=== PATIENT | male | born 1965 | race Caucasian/White ===

== ENCOUNTER 2022-04-22 17:35 | Observation (INO) | payer OTHER, SELFPAY ==
[2022-04-22] VITALS (8 sets, daily range): BP systolic 93–168; BP diastolic 48–112; PULSE 70–84; RESP 15–26; TEMP 36.4–36.9; O2SAT 97–98; BMI 29.8; BMI 30.4
--- NOTE | 2022-04-22 17:55 | EKG12_ITS ---
Test Reason : CP Blood Pressure : / mmHG Vent. Rate : 083 BPM Atrial Rate : 083 BPM P-R Int : 182 ms QRS Dur : 086 ms QT Int : 382 ms P-R-T Axes : 053 -03 008 degrees QTc Int : 448 ms Normal sinus rhythm Normal ECG Confirmed by SAVANNAH SANDY, AMADOR ([id number]), commissioning editor CATALINA MARQUEZ ([id number]) on 04/25/2022 11:41:36 AM Referred By: RAJINDER Confirmed By:GEORGE NUÑEZ MD
--- NOTE | 2022-04-22 18:02 | EDS_ITS ---
HPI History of Present Illness Chief Complaint: Chest Pain Informant: patient Onset/Context/Timing Onset: Today and Weeks Timing: Intermittent Quality: Positive for Aching, Dull, Heaviness and Pressure Location: Substernal and Left Chest Current Severity: Mild Maximum Severity: Mild Worsened By: Exertion Relieved By: Rest Associated Symptoms: Positive for Lightheadedness; Negative for Nausea, Vomiting, Diaphoresis, Dyspnea, Cough, Fever, Acid Reflux or Palpitations Narrative Narrative: 56-year-old male no seen past medical history been seen a physician for a while. States for the last several months if not longer he has had intermittent chest discomfort. He is never had it evaluated. He has never had a stress test or heart catheterization. He said he woke last night with chest pain. Today he had left-sided chest pain did go to his arm briefly. He describes it as a pressure with a dull ache. At times he gets dizziness with it. He has had some dyspnea on exertion. Worse with steps. He does work outside he swims about a mile a day several times a week that he said that really has not been a problem. No family history of cardiac disease. Prior Similar Symptoms: Yes Recent Illness/Hospitalization: No CVD Risk Factors: Positive for Smoking; Negative for Hypertension, Diabetes, Hypercholesterolemia or Family History 1' </=55 PE Risk Factors: Negative for Recent Travel/Surgery, Recent Immobilization, Prior DVT or PE, Cancer or OCP + Smoking + >/=35 TAD Risk Factors: Negative for Marfan's Syndrome PFSH PFSH Medical History no medical history no medical history Allergy/AdvReac Type Severity Reaction Status Date / Time No Known Allergies Allergy Verified 04/22/22 17:39 Social History Smoking Status: Unknown if ever smoked ROS ROS ED ROS Narrative Chest pain. Review of Systems ROS Unobtainable: Denies due to encephalopathy Constitutional Constitutional ED: Denies chills or fever(s) Eyes Eyes: Reports none ENT ENT ED: Denies ear pain or rhinorrhea Cardiovascular Cardiovascular: Reports as per HPI and chest pain Respiratory/Chest Respiratory/Chest: Denies cough or dyspnea Gastrointestinal Gastrointestinal: Denies abdominal pain, constipation, diarrhea, melena, nausea or vomiting Genitourinary Genitourinary ED: Denies dysuria or hematuria Musculoskeletal Musculoskeletal: Denies arthralgias or back pain Integumentary Denies abscess or Abrasions Neurologic Neurologic: Denies headache(s) Psychiatric Psychiatric: Denies anxiety Endocrine Endocrinology: Denies cold intolerance Hematologic/Lymphatic Hematologic/Lymphatic: Denies easy bleeding Allergic/Immunologic Allergic/Immunologic ED: Denies mouth swelling EXAM Physical Exam Narrative Exam Narrative: 56-year-old male no acute distress vital signs are stable except his blood pressure is elevated at 166/109. He does not look septic or toxic. H EENT exam normal. Neck nontender no lymphadenopathy. No JVD. Lungs clear to auscultation bilaterally. Heart regular rhythm rate about 80 no murmur. Chest were nontender. Abdomen soft nontender. Radial pulses are equal symmetrical. Moving all 4 extremities. Calves are nontender without edema or cords. Back exam normal. Neurologically is awake and alert with no focal motor deficits. Exam benign. Const Vital Signs: 04/22/22 17:37 04/22/22 17:55 04/22/22 17:56 Temperature 98.4 F Temperature Source Temporal Pulse Rate 84 Respiratory Rate 16 Respiratory Effort Normal Non-Labored Blood Pressure 166/109 H Blood Pressure Mean 128 Pulse Ox 97 Oxygen Delivery Method Room Air Room Air Positive well nourished and well developed; Negative for cachectic, contractures or unkempt General Appearance ED: well developed; Negative for unkempt, cachectic, contractures or pallor Nutritional Appearance: Negative for cachectic HEENT Reports moist mucous membranes; Denies dry mucous membranes normocephalic and atraumatic; Negative for trauma or tenderness Mouth ED: No dry mucous membranes Mouth: No dry mucous membranes Eyes PERRL and EOMs intact bilaterally General Eye ED: Negative for pale conjunctiva or scleral icterus Neck no lymphadenopathy, supple and no JVD General: Negative for tenderness Chest Wall inspection of chest normal and palpation of chest normal Resp normal respiratory effort and clear to auscultation bilaterally Effort and Inspection: Negative for respiratory distress Auscultation: Negative for rales, rhonchi, wheezes or diminished lung sounds Cardio regular rate, regular rhythm, S1 normal heart sound, S2 normal heart sound and no murmurs Rate: Negative for bradycardia or tachycardic Rhythm: Negative for abnormal rhythm Peripheral Pulses: pulses 2+ throughout GI normal to inspection, nondistended, normoactive bowel sounds, soft to palpation, non-tender, non-distended and no masses; Negative for hepatosplenomegaly Auscultation: Negative for hyperactive bowel sounds Palpation: Negative for splenomegaly Back/Spine no CVA tenderness and no thoracic nor lumbar tenderness General Back: Negative for CVA tenderness Cervical Spine: Negative for cervical spine tenderness Extremity normal to inspection General Extremety ED: Negative for edema or pulses abnormal General Extremity: Negative for edema or pulses abnormal Neuro oriented x3 and CN's II-XII intact bilaterally Sensorium / Orientation: awake, alert, oriented to person, oriented to place and oriented to time; Negative for confused, lethargic, stuporous or other Motor Exam: strength 5/5 throughout Psych mental status grossly normal Appearance: Negative for unkempt Attitude: No agitated Mood & Affect: Negative for depressed, anxious or tearful Skin no rashes or lesions noted and no wounds General Skin Exam: Negative for jaundice or pallor Rashes: No rashes noted Trauma: Negative for abrasion or laceration Heart Score History: Moderately Suspicious ECG: Normal Age: >45 - <65 years Risk Factors: 1 or 2 Risk Factors Score: 3 MDM MDM MDM Narrative Medical decision making narrative: 56-year-old male with chest pain at times associated with exertion. Normal exam. Not reproducible. No DVT or PE risk factors. Undergo cardiac work-up. Repeat exam patient is doing well. He and I discussed different options. He is concerned enough about the chest pain he like to get a definitive answer. He is going out of town for a week in [place] on Monday. And he is comfortable with admission for stress testing. I will speak to the hospitalist about admission. Patient I did go over all his test. Lab Data Attestation: I reviewed the patient's lab results. Lab results narrative: CBC normal. White count of 5. H&H 15 and 44. Electrolytes unremarkable gap of 5. Normal BUN and creatinine 12 and 1. Glucose 139. Troponin is normal at 4. Chest x-ray normal. Labs: Laboratory Results - last 24 hr 04/22/22 04/22/22 18:04 18:04 WBC 5.8 RBC 4.70 Hgb 15.0 Hct 44.0 MCV 93.6 MCH 31.9 MCHC 34.1 RDW Std Deviation 40.0 RDW Coeff of Abdiel 11.7 Plt Count 169 MPV 9.0 Immature Gran % (Auto) 0.200 Neut % (Auto) 63.3 Lymph % (Auto) 24.4 [place] % (Auto) 8.0 Eos % (Auto) 3.6 Baso % (Auto) 0.5 Absolute Neuts (auto) 3.7 Absolute Lymphs (auto) 1.41 Nucleated RBC % 0 Sodium 138 Potassium 3.6 Chloride 106 Carbon Dioxide 27.0 Anion Gap 5 BUN 12 Creatinine 1.04 Estim Creat Clear Calc 89.12 Est GFR (MDRD) Af Amer 95 Est GFR (MDRD) Non-Af 79 BUN/Creatinine Ratio 11.5 Glucose 139 H Calcium 9.2 Troponin I High Sens 4 Radiography Chest X-Ray - ED: 1 View, Read by ED Physician, Heart, Lungs, Mediastinum, Bony Structures, No Acute Disease and Chronic Changes Diagnostic Testing: Chest x-ray, portable, single view interpreted by myself shows no acute abnormality. Normal cardiac silhouette mediastinum. Rhythm Strip Rhythm Strip: Sinus Rhythm Rate: 83 Ectopy: None EKG Initial EKG: Attestation: I personally reviewed and interpreted this EKG as follows: Interpretation: Sinus Rhythm and No Acute Injury Pattern Comments: Normal sinus rhythm rate 83 no acute signs of [place] or ischemia. No EKG available comparison. Prior EKG tracings: not available for review Discharge Plan Triage Chief Complaint: Chest Pain Other Complaint: Palpitations ED Provider: Rolando Pereyra Dx/Rx/DC Orders Primary Care Provider: Care Physician,Vanessa Primary Referrals: NOT,DEFINED [NON-STAFF] -
[2022-04-22] MEDS: Aspirin 81 MG TAB.CHEW 324 MG PO (18:04)
--- NOTE | 2022-04-22 18:12 | RAD_ITS ---
STUDY: PORTABLE AP UPRIGHT CHEST X-RAY OF 1812 HOURS ON 04/22/2022 REASON FOR EXAM: 56-year-old male with chest pain. TECHNIQUE: A 2 view portable AP upright chest x-ray was performed per protocol. COMPARISON: None. FINDINGS: Lordotic views. Mild osteophytic degenerative changes of the thoracic spine. Mildly prominent first costochondral cartilages bilaterally, normal variant. Left ventricular cardiac configuration without cardiomegaly or heart failure. No pulmonary infiltrates, atelectasis, effusion, or pulmonary mass lesions. No pneumonia, pneumonitis, or bronchitis. RAD/Chest 1 View (Portable) IMPRESSION: 1. Left ventricular cardiac configuration without cardiomegaly or heart failure. 2. No pneumonia, pneumonitis, bronchitis, or pulmonary mass lesions 3. Mild osteophytic degenerative changes of the thoracic spine. Electronically Signed: Bal Underwood MD at 19:01 EDT ,
[2022-04-22 18:18] LABS: Absolute Lymphocyte Count 1.41 X10^3/uL (0.83-4.51); Absolute Neutrophil Count 3.7 X10^3/uL (2.0-7.7); Basophil# 0.03 X10^3/uL; Basophil% 0.5 % (0-1); Eosinophil# 0.21 X10^3/uL; Eosinophils% 3.6 % (0-5); Lymphocyte # 1.41 X10^3/ul (0.83-4.51); Lymphocyte % 24.4 % (19-41); Mean Corp Hgb Conc 34.1 g/dL (32-36); Mean Corpuscular Hgb 31.9 pg (27.0-32.0); Mean Corpuscular Volume 93.6 fL (80-94); Monocyte# 0.46 X10^3/uL; NRBC Flagged by Analyzer 0 % (0-5); Neutrophil # 3.65 X10^3/uL (2.7-7.7); Neutrophil % 63.3 % (47-70); Platelet Count 169 K/mm3 (150-450); RBC Distribution Width CV 11.7 % (11.6-14.6); White Blood Count 5.8 K/mm3 (4.4-11.0)
[2022-04-22 18:39] LABS: Anion Gap 5 (5-15); BUN 12 mg/dL (7-18); BUN/Creat Ratio 11.5 RATIO (10-20); Calcium,Total 9.2 mg/dL (8.5-10.1); Chloride 106 mmol/L (98-107); Creatinine, Serum 1.04 mg/dL (0.70-1.30); EST Glomerular Filtration Rate 79 mL/min (>60); Est Glom Filt Rate - Afr Amer 95 mL/min (>60); Estimated Creatinine Clearance 89.12 ml/min; Glucose 139 mg/dL (74-106); Potassium 3.6 mmol/L (3.5-5.1); Sodium Level 138 mmol/L (136-145); Troponin-I HS (w/2H Reflex) 4 pg/mL (3.0-78.0)
--- NOTE | 2022-04-22 18:58 | HP.PCM.HOS_ITS ---
HPI - General General Date of Admission: 04/22/22 Date of Service: 04/22/22 Chief Complaint: Chest pain HPI Narrative The patient is a 56 y/o M w/ PMHx: Borderline HTN, Tobacco cigar usage who presents to the [facility] ED on 04/22/22 with history of onset chest discomfort over the last several week-months in the left chest and substernal region described as an aching, dull, heavy and pressure-like sensation worsened by exertion and improved by rest with associated lightheadedness, mild dyspnea with exertion primarily with no nausea, emesis, diaphoresis which has been ongoing for some time for the last several months. He notes also that he awoke last night with his chest discomfort and that it did go to his left upper extremity briefly rat ed 4-02/01 in severity which lasted 30 minutes which is longer than normal and more severe than prior, prompting ED evaluation. He is very active baseline noted to swim several miles per week and also works outside but does not have that discomfort at that time. Work-up in the ED included T97.6, heart rate 78, BP initially upon arrival 166/109, respiratory rate 26, 98% on room air, CBC with WC 5.8, hemoglobin 15, platelet 169 without marked shift, BMP with glucose 139 otherwise unremarkable, troponin 4, chest x-ray with no acute cardiopulmonary findings, EKG sinus rhythm with no acute evidence of ischemia. In the ED patient administered full-strength aspirin therapy. [facility] Medical History (Updated 04/22/22 @ 19:[address] Marylin Johns MD) Cigar smoker HTN (hypertension) Medical History no medical history Home Medications NK 04/22/22 [History Last Taken Unknown] Allergy/AdvReac Type Severity Reaction Status Date / Time No Known Allergies Allergy Verified 04/22/22 17:39 Family History (Updated 04/22/22 @ 19:[address] Marylin Johns MD) Father No problems noted. Mother Hypertension other (Father passed age 41 secondary to MVA, no medical history including HD, DM, CA.) Surgical History (Updated 04/22/22 @ 19:[address] Marylin Johns MD) History of rectal surgery Social History (Updated 04/22/22 @ 19:[address] Marylin Johns MD) household members: spouse and family Smoking Status: Current some day smoker tobacco type: cigars per week: 1 alcohol intake: current alcohol intake frequency: 0-2 drinks per day details: Notes 2 ounce vodka drink q HS. substance use type: does not use ROS ROS Narrative Admission Review of Systems: CONSTITUTIONAL: No weight loss, fever, chills, + weakness or fatigue. HEENT: Eyes: No visual loss, blurred vision, double vision or yellow sclerae. Ears, Nose, Throat: No hearing loss, sneezing, congestion, runny nose or sore throat. SKIN: No rash or itching, lesions, wounds. CARDIOVASCULAR: + chest pain, chest pressure or chest discomfort, No pal pitations, edema, orthopnea, syncopal events. RESPIRATORY: + shortness of breath, No cough or sputum, wheezing, hemoptysis. GASTROINTESTINAL: No anorexia, nausea, vomiting or diarrhea, abdominal pain, melena, BRBPR. GENITOURINARY: No dysuria, frequency, urgency or retention. NEUROLOGICAL: No headache, dizziness, syncope, paralysis, ataxia, numbness or tingling in the extremities, focal weakness, change in bowel or bladder control, seizure. MUSCULOSKELETAL: No muscle, back pain, joint pain or stiffness. HEMATOLOGIC: No anemia, bleeding or bruising. LYMPHATICS: No enlarged nodes. No history of splenectomy. PSYCHIATRIC: No history of depression or anxiety. ENDOCRINOLOGIC: No reports of sweating, cold or heat intolerance. No polyuria or polydipsia. ALLERGIES: No history of asthma, hives, eczema or rhinitis. Vital Signs Vital Signs Vital Signs: 04/22/22 17:37 04/22/22 17:55 04/22/22 17:56 Temperature 98.4 F Temperature Source Temporal Pulse Rate 84 Respiratory Rate 16 Respiratory Effort Normal Non-Labored Blood Pressure 166/109 H Blood Pressure Mean 128 Pulse Ox 97 Oxygen Delivery Method Room Air Room Air 04/22/22 18:51 04/22/22 18:55 Temperature 97.6 F L Temperature Source Temporal Pulse Rate 79 78 Respiratory Rate 26 H Respiratory Effort Blood Pressure 161/112 H 93/48 L Blood Pressure Mean 128 63 Pulse Ox 98 98 Oxygen Delivery Method Room Air Nasal Cannula Weight Weight: 220 lb Body Mass Index (BMI) 29.8 Physical Exam Narrative Physical Examination: General: Awake, alert, oriented x 3 and cooperative, seated upright in the ED bed in no apparent distress, no current chest pain. Skin: Normal color, normal turgor, no icterus, no cyanosis. HEENT: AT/NC, EOMI, PERRLA, MMM, no carotid bruits or JVD noted. Lungs: CTA bilaterally, moderate effort, mild decrease BL bases, no rales, ronchi or wheezing. Heart: Regular rate and rhythm; no gallop, rub audible. Abdomen: Soft, overweight, NTTP, ND, normal BS, no HSM. Extremities: No cyanosis, clubbing, or edema. Neurological: Patient awake, alert, oriented as noted, cognitive function intact; pupils equally reactive to light and accommodation, cranial nerves II- XII grossly normal, moving all 4 extremities, no focal deficits, strength preserved. Psychiatric: Affect appears normal, no acute evidence of depressive or anxiety feelings. Results Lab / Micro Data Result Diagrams: 04/22/22 18:04 04/22/22 18:04 Labs: Laboratory Results - last 24 hr 04/22/22 18:04: WBC 5.8, RBC 4.70, Hgb 15.0, Hct 44.0, MCV 93.6, MCH 31.9, MCHC 34.1, RDW Std Deviation 40.0, RDW Coeff of Abdiel 11.7, Plt Count 169, MPV 9.0, Immature Gran % (Auto) 0.200, Neut % (Auto) 63.3, Lymph % (Auto) 24.4, [place] % (Auto) 8.0, Eos % (Auto) 3.6, Baso % (Auto) 0.5, Absolute Neuts (auto) 3.7, Absolute Lymphs (auto) 1.41, Nucleated RBC % 0 04/22/22 18:04: Sodium 138, Potassium 3.6, Chloride 106, Carbon Dioxide 27.0, Anion Gap 5, BUN 12, Creatinine 1.04, Estim Creat Clear Calc 89.12, Est GFR (MDRD) Af Amer 95, Est GFR (MDRD) Non-Af 79, BUN/Creatinine Ratio 11.5, Glucose 139 H, Calcium 9.2, Troponin I High Sens 4 Rhythm Strip Rhythm Strip: Sinus Rhythm Rate: 83 Ectopy: None Assessment & Plan Assessment/Plan (1) Chest pain: PLAN: Plan The patient is a 56 y/o M w/ PMHx: Borderline HTN, Tobacco cigar usage who presents to the [facility] ED on 04/22/22 with history of onset chest discomfort over the last several week-months in the left chest and substernal region described as an aching, dull, heavy and pressure-like sensation worsened by exertion and improved by rest with associated lightheadedness, mild dyspnea with exertion primarily with no nausea, emesis, diaphoresis which has been ongoing for some time for the last several months. #1. Chest Pain: EKG in ED with sinus rhythm no acute evidence of ST, CXR w/ no acute cardiopulmonary finding, initial trop normal x1, 4. Will admit to PCU, place on a monitored bed to assure no acute myocardial infarction with serial cardiac enzymes and EKGs. If repeat serial cardiac enzyme EKGs remain unre markable will pursue a.m. cardiac stress testing. FLP in AM. Magnesium level requested. ASA, NG, morphine. #2. History of Borderline HTN, suspect underlying Hypertension diagnosis: Upon initial ED arrival patient was elevated blood pressure above goal, continue to monitor and if remains elevated again may necessitate oral regimen initiation, as needed IV hydralazine. #3. Hyperglycemia: Admission glucose 139, possibly stress response, will obtain hemoglobin A1c be cautious. #4. Tobacco Abuse: Encouraged cessation, inpatient consultation per RT, NR if desired. #5. DVT prophylaxis: Low risk, encourage of ambulation. Charges/Coding Visit Charges OBSV E&M: 11416 Initial observation care L3
[2022-04-22 19:32] LABS: Magnesium 2.3 mg/dL (1.6-2.6)
--- NOTE | 2022-04-22 19:53 | EKG12_ITS ---
Test Reason : am ekg Blood Pressure : / mmHG Vent. Rate : 072 BPM Atrial Rate : 000 BPM P-R Int : 000 ms QRS Dur : 086 ms QT Int : 416 ms P-R-T Axes : 000 029 -29 degrees QTc Int : 455 ms Accelerated Junctional rhythm T wave abnormality, consider inferior ischemia Abnormal ECG No previous ECGs available Confirmed by DERRELL SANDY, RENY ([id number]), editor book CATALINA MARQUEZ ([id number]) on 04/26/2022 10:15:06 AM Referred By: Confirmed By:RENY DOVE MD
[2022-04-22 20:09] LABS: Reflex Troponin-HS? (from REC) Y
[2022-04-22] MEDS: 0.9% Normal Saline 1,000 ML 100 ML IV (20:57)
[2022-04-22 21:21] LABS: Troponin-I HS 4 pg/mL (3.0-78.0)
[2022-04-23 00:38] LABS: Troponin-I HS 4 pg/mL (3.0-78.0)
[2022-04-23 02:30] VITALS: BP 145/94; PULSE 70; RESP 18; TEMP 36.6; O2SAT 97
--- NOTE | 2022-04-23 05:55 | EKG12_ITS ---
Test Reason : cp admit Blood Pressure : / mmHG Vent. Rate : 057 BPM Atrial Rate : 057 BPM P-R Int : 218 ms QRS Dur : 090 ms QT Int : 416 ms P-R-T Axes : 018 -01 -08 degrees QTc Int : 404 ms Sinus bradycardia with 1st degree A-V block Otherwise normal ECG When compared with ECG of 22-APR-2022 17:42, MANUAL COMPARISON REQUIRED, DATA IS UNCONFIRMED Confirmed by DERRELL SANDY, RENY ([id number]), communications editor CATALINA MARQUEZ ([id number]) on 04/26/2022 10:16:12 AM Referred By: Confirmed By:RENY DOVE MD
[2022-04-23 06:59] VITALS: PULSE 57
[2022-04-23] MEDS: 0.9% Normal Saline 1,000 ML 100 ML IV (07:00)
[2022-04-23 07:32] VITALS: O2SAT 97
[2022-04-23 07:43] LABS: Absolute Lymphocyte Count 1.52 X10^3/uL (0.83-4.51); Basophil# 0.04 X10^3/uL; Basophil% 0.7 % (0-1); Eosinophil# 0.28 X10^3/uL; Eosinophils% 5.2 % (0-5); Hematocrit 46.6 % (40-54); Hemoglobin 16.4 g/dL (13.0-16.5); Lymphocyte # 1.52 X10^3/ul (0.83-4.51); Lymphocyte % 28.4 % (19-41); Mean Corp Hgb Conc 35.2 g/dL (32-36); Mean Corpuscular Hgb 33.1 pg (27.0-32.0); Mean Corpuscular Volume 94.1 fL (80-94); Mean Platelet Vol. 9.2 fl (6.2-12.0); Monocyte# 0.51 X10^3/uL; Monocyte% 9.5 % (0-10); NRBC Flagged by Analyzer 0 % (0-5); Neutrophil # 2.97 X10^3/uL (2.7-7.7); Neutrophil % 55.6 % (47-70); Platelet Count 178 K/mm3 (150-450); RBC Distribution Width CV 11.8 % (11.6-14.6); RBC Distribution Width SD 40.5 fl (35.1-43.9); Red Blood Count 4.95 M/mm3 (4.6-6.2); White Blood Count 5.4 K/mm3 (4.4-11.0)
[2022-04-23 08:02] LABS: ALB/GLOB Ratio 1.2 RATIO (0.9-2.4); AST(SGOT) 23 U/L (15-37); Alanine Aminotransfer ALT/SGPT 27 U/L (16-61); Albumin, Serum 3.7 g/dL (3.2-5.0); Alkaline Phosphatase 78 U/L (45-117); Anion Gap 3 (5-15); BUN 11 mg/dL (7-18); BUN/Creat Ratio 10.9 RATIO (10-20); Calcium,Total 8.8 mg/dL (8.5-10.1); Chloride 106 mmol/L (98-107); Cholesterol 289 mg/dL (200); Creatinine, Serum 1.01 mg/dL (0.70-1.30); EST Glomerular Filtration Rate 82 mL/min (>60); Est Glom Filt Rate - Afr Amer 99 mL/min (>60); Estimated Creatinine Clearance 91.77 ml/min; Globulin 3.2 g/dL (2.2-4.2); Glucose 109 mg/dL (74-106); High Density Lipoprotein 82 mg/dL; Potassium 3.8 mmol/L (3.5-5.1); Protein, Total 6.9 g/dL (6.4-8.2); Sodium Level 139 mmol/L (136-145); Triglycerides 132 mg/dL; Very Low Density Lipoprotein 26 mg/dL (5-40)
[2022-04-23 08:03] LABS: Hemoglobin A1c 5.5 % (3.8-5.6)
[2022-04-23 09:40] VITALS: BP 130/104; PULSE 85; RESP 16; TEMP 36.8; O2SAT 98
[2022-04-23] MEDS: Aspirin 81 MG TAB.CHEW PO (09:46)
--- NOTE | 2022-04-23 12:27 | STRESSREP_ITS ---
Stress Test Report Date: 04/23/2022 Procedure: Exercise tolerance test/imaging study Indications: Chest pain Consent: Per the patient Procedure: The patient exercised on a Leroy protocol for 12 minutes achieving a peak heart rate of 142 bpm (85% predicted maximal heart rate) with a peak blood pressure 180/74 mmHg and a peak MET capacity of 13.4 METs. The baseline ECG demonstrated normal sinus rhythm. The peak exercise ECG demonstrated no significant ischemic changes. EKG during recovery revealed no significant ischemic changes [There were no cardiac dysrhythmias pretest, during exercise, or recovery]. The functional capacity was considered excellent for age. There was no exercise-induced chest pain. The examination was discontinued secondary to achieving target heart rate. Impression: 1. Technically adequate (percent predicted maximal heart rate greater than 85%) exercise tolerance test 2. Stress test is negative for exercise-induced EKG changes of ischemia 3. The test test is negative for exercise-induced chest pain 4. Functional capacity is excellent for age 5. Nuclear images pending Myocardial perfusion imaging study: Technique: The patient was injected with 13.6 mCi of technetium 99m Cardiolite and subsequently rest SPECT Cardiolite nuclear imaging was obtained in the horizontal long, vertical long, and short axis views. The patient exercised on a Leroy protocol. Please see above for details. The patient was injected with 43.2 mCi of technetium 99m Cardiolite and subsequently stress SPECT Cardiolite nuclear imaging was obtained in the horizontal long, vertical long, and short axis views. A gated Cardiolite study at peak stress was obtained. Interpretation: Rest and stress SPECT Cardiolite nuclear imaging status post realignment, normalization, and attenuation correction, demonstrates overall normal myocardial radioisotope uptake. The gated Cardiolite study demonstrates no significant regional wall motion abnormalities. The reported LVEF is 63%. Impression: 1. There is no evidence of significant ischemia or infarction. 2. The gated Cardiolite study reports an LVEF of 63%. This note was generated with [employer] software. It may contain incorrect words, spelling, and punctuation that were not noted in checking the note before signing.
--- NOTE | 2022-04-23 12:42 | DCINST_ITS ---
Discharge Instructions Diet Discharge Diet: No restrictions Activity Discharge Activity: Return to Normal Activity Weight Bearing Status: Full weight bearing Follow Up Care Test Results: Test results from this visit will be discussed in further detail at your follow- up appointment, if applicable. Discharge Plan Admission Admit Date/Time: 04/22/22 19:07 Primary Reason for Your Visit: chest pain Attending Provider: Augusto Person Primary Care Provider: Care Physician,No Primary Consulting Providers: Marylin Johns Instructions Additional Instructions / Restrictions: Follow up with a physician in April 2022 for follow up care Discharge Orders/Prescriptions Prescriptions: New lisinopril 10 mg tablet 10 mg PO DAILY Qty: 30 0RF Rx Instructions: start 04/23/22 Referrals / Follow Up: Care Physician,No Primary [Primary Care Provider] - NOT,DEFINED [NON-STAFF] - Disposition Disposition (needs filled in before D/C Order can be placed): Home, Self Care
[2022-04-23 12:49] VITALS: BP 141/94; PULSE 68; RESP 16; TEMP 36.6; O2SAT 98
--- NOTE | 2022-04-23 12:58 | DS.PCM_ITS ---
Providers Date of Admission: 04/22/22 Date of Discharge: 04/23/22 Primary Care Physician: No Primary Care Phys Reason For Visit: CHEST PAIN Diagnosis Discharge Diagnosis (1) Chest pain: Status: Acute Code(s): R07.9 - Chest pain, unspecified Plan 1. Musculoskeletal chest pain #2 essential hypertension-new diagnosis Medications at Discharge Home Medications lisinopril 10 mg tablet 10 mg PO DAILY #30 tabs 04/23/22 Hospital Course Operations None Procedures Stress test Summary of Care Provided Minutes Spent on Discharge: 31 Physical Exam Narrative This 56-year-old white male was seen in the emergency room at [facility] with complaints of intermittent chest discomfort over the last several months, patient did not have a primary care physician and his chest pain had never been evaluated. Patient described the chest pain as left-sided in nature and radiating occasionally into his left arm, he denied any shortness of breath or nausea. Work-up in the emergency room included vital signs which showed an elevated blood pressure 166/109, chest x-ray was obtained and was unremarkable, labs were also unremarkable. EKG showed a normal sinus rhythm without evidence of ischemic changes. Patient was placed in observation status on PCU, his cardiac enzymes were cycled and these remain normal. Patient underwent a stress test on 04/23/2022 which was negative for reversible ischemia. On 04/23/2022, patient was seen and examined: On examination he appeared in good health and spirits. Vital signs as documented. Skin warm and dry and without overt rashes. Neck without JVD, neck was supple, trachea midline, thyroid was normal. Lungs clear bilaterally, normal air movement was noted. Heart exam notable for regular rhythm, normal sounds and absence of murmurs, rubs or gallops. Abdomen unremarkable and without evidence of organomegaly, masses, or abdominal aortic enlargement. Bowel sounds are present, abdomen is not disten ded. Extremities nonedematous, no cyanosis was noted, no clubbing was noted. Neuro: Cranial nerves II through XII are grossly intact, no focal motor deficits were noted, sensation to light touch and pinprick intact, motor exam 5/5 throughout. Psych: Patient is alert and oriented x3, he does not appear anxious or depressed, he does not appear agitated. On 04/23/2022, patient was seen and examined and felt to be stable for discharge home. Patient was given a prescription for blood pressure medication at the time of his discharge from the hospital and instructed to follow-up with a primary care doctor. Weight / BMI Weight Weight: 102 kg Body Mass Index (BMI) 30.4 ABG / Lab / Microbiology Data Result Diagrams: 04/23/22 06:59 04/23/22 06:59 Laboratory: Laboratory Results - last 24 hr 04/22/22 18:04: WBC 5.8, RBC 4.70, Hgb 15.0, Hct 44.0, MCV 93.6, MCH 31.9, MCHC 34.1, RDW Std Deviation 40.0, RDW Coeff of Abdiel 11.7, Plt Count 169, MPV 9.0, Immature Gran % (Auto) 0.200, Neut % (Auto) 63.3, Lymph % (Auto) 24.4, [place] % (Auto) 8.0, Eos % (Auto) 3.6, Baso % (Auto) 0.5, Absolute Neuts (auto) 3.7, Absolute Lymphs (auto) 1.41, Nucleated RBC % 0 04/22/22 18:04: Sodium 138, Potassium 3.6, Chloride 106, Carbon Dioxide 27.0, Anion Gap 5, BUN 12, Creatinine 1.04, Estim Creat Clear Calc 89.12, Est GFR (MDRD) Af Amer 95, Est GFR (MDRD) Non-Af 79, BUN/Creatinine Ratio 11.5, Glucose 139 H, Calcium 9.2, Troponin I High Sens 4 04/22/22 18:04: Magnesium 2.3 04/22/22 20:25: Troponin I High Sens 4 04/22/22 23:48: Troponin I High Sens 4 04/23/22 06:59: WBC 5.4, RBC 4.95, Hgb 16.4, Hct 46.6, MCV 94.1 H, MCH 33.1 H, MCHC 35.2, RDW Std Deviation 40.5, RDW Coeff of Abdiel 11.8, Plt Count 178, MPV 9.2, Immature Gran % (Auto) 0.600, Neut % (Auto) 55.6, Lymph % (Auto) 28.4, [place] % (Auto) 9.5, Eos % (Auto) 5.2 H, Baso % (Auto) 0.7, Absolute Neuts (auto) 3.0, Absolute Lymphs (auto) 1.52, Nucleated RBC % 0 04/23/22 06:59: Sodium 139, Potassium 3.8, Chloride 106, Carbon Dioxide 30.0, Anion Gap 3 L, BUN 11, Creatinine 1.01, Estim Creat Clear Calc 91.77, Est GFR (MDRD) Af Amer 99, Est GFR (MDRD) Non-Af 82, BUN/Creatinine Ratio 10.9, Glucose 109 H, Calcium 8.8, Total Bilirubin 2.10 H, AST 23, ALT 27, Alkaline Phosphatase 78, Total Protein 6.9, Albumin 3.7, Globulin 3.2, Albumin/Globulin Ratio 1.2, Triglycerides 132, Cholesterol 289 H, LDL Cholesterol 181 H, VLDL Cholesterol 26, HDL Cholesterol 82 04/23/22 06:59: Hemoglobin A1c 5.5 Radiography Diagnostic Testing: Radiology Impression Chest X-Ray 04/22/22 18:12 IMPRESSION: 1. Left ventricular cardiac configuration without cardiomegaly or heart failure. 2. No pneumonia, pneumonitis, bronchitis, or pulmonary mass lesions 3. Mild osteophytic degenerative changes of the thoracic spine. Electronically Signed: Bal Underwood MD at 19:01 EDT , D/C Instructions Discharge Diet: No restrictions Weight Bearing Status: Full weight bearing Meaningful Use Info Meaningful Use Diagnoses (Choose all that apply): None applicable Discharge Plan Admission Admit Date/Time: 04/22/22 19:07 Primary Reason for Your Visit: chest pain Attending Provider: Augusto Person Primary Care Provider: Care Physician,No Primary Consulting Providers: Marylin Johns Instructions Additional Instructions / Restrictions: Follow up with a physician in April 2022 for follow up care Patient Problems: Altered Health Status related to Hospitalization Patient Goals: *Optimal Level of Health *Keep Appointments *Medication Compliance *Remain Safe Discharge Orders/Prescriptions Prescriptions: New lisinopril 10 mg tablet 10 mg PO DAILY Qty: 30 0RF Rx Instructions: start 04/23/22 Referrals / Follow Up: Care Physician,No Primary [Primary Care Provider] - NOT,DEFINED [NON-STAFF] - Disposition Disposition (needs filled in before D/C Order can be placed): Home, Self Care Charges/Coding Visit Charges OBSV E&M: 66520 Observation care discharge
== END 2022-04-23 12:58 | disposition home or self-care (01) ==
LOC: ED 18:49 → PCU 19:50
PROVIDERS: Admitting Provider Family Medicine; Emergency Provider Emergency Medicine; Visit Provider Internal Medicine
DX: R07.89 Other chest pain (principal); F17.290 Nicotine dependence, other tobacco product, uncomplicated; I10 Essential (primary) hypertension; R00.2 Palpitations
CPT/HCPCS: 36415; 71045; 78452; 80048; 80053; 80061; 83036; 83735; 84484; 85025; 93005; 93017; 96360; 96361; 99218; 99285; 99406; A9500; J7030; A4216; G0378

== ENCOUNTER 2024-12-03 20:52 | Emergency (ER) | payer OTHER, SELFPAY ==
[2024-12-03 20:55] VITALS: BP 124/83; PULSE 67; RESP 18; TEMP 36.6; O2SAT 97; BMI 28.2
[2024-12-03 21:44] LABS: Absolute Lymphocyte Count 1.84 X10^3/uL (0.83-4.51); Absolute Neutrophil Count 2.3 X10^3/uL (2.0-7.7); Basophil# 0.05 X10^3/uL; Eosinophil# 0.12 X10^3/uL; Eosinophils% 2.5 % (0-5); Hematocrit 40.6 % (40-54); Hemoglobin 14.3 g/dL (13.0-16.5); Lymphocyte # 1.84 X10^3/ul (0.83-4.51); Lymphocyte % 37.8 % (19-41); Mean Corp Hgb Conc 35.2 g/dL (32-36); Mean Corpuscular Hgb 30.6 pg (27.0-32.0); Mean Corpuscular Volume 86.9 fL (80-94); Mean Platelet Vol. 8.8 fl (6.2-12.0); Monocyte# 0.54 X10^3/uL; Monocyte% 11.1 % (0-10); NRBC Flagged by Analyzer 0 % (0-5); Neutrophil # 2.31 X10^3/uL (2.7-7.7); Neutrophil % 47.4 % (47-70); Platelet Count 184 K/mm3 (150-450); RBC Distribution Width CV 11.9 % (11.6-14.6); RBC Distribution Width SD 37.9 fl (35.1-43.9); Red Blood Count 4.67 M/mm3 (4.6-6.2); White Blood Count 4.9 K/mm3 (4.4-11.0)
[2024-12-03 22:22] LABS: ALB/GLOB Ratio 1.9 RATIO (0.9-2.4); AST(SGOT) 26 U/L (<=37); Alanine Aminotransfer ALT/SGPT 17 U/L (<=46); Albumin, Serum 4.3 g/dL (3.5-5.0); Alkaline Phosphatase 70 U/L (40-129); Anion Gap 11 (5-15); BUN 19 mg/dL (4-19); BUN/Creat Ratio 18.2 RATIO (10-20); Calcium,Total 9.1 mg/dL (7.6-11.0); Carbon Dioxide 25.4 mmol/L (21.0-32.0); Chloride 102 mmol/L (98-108); Creatinine, Serum 1.06 mg/dL (0.70-1.20); EST Glomerular Filtration Rate 82 (>60); Estimated Creatinine Clearance 91.74 ml/min (50-250); Globulin 2.3 g/dL (2.2-4.2); Glucose 108 mg/dL (70-99); Protein, Total 6.6 g/dL (5.9-8.4); Sodium Level 138 mmol/L (133-145); Total Bilirubin 0.97 mg/dL (0.00-1.30)
--- NOTE | 2024-12-03 22:27 | CT_ITS ---
PROCEDURE: CT abdomen pelvis without IV contrast REASON FOR EXAM: Pain, calculi TECHNIQUE: Multiple contiguous axial images through the abdomen and pelvis were obtained without the administration of intravenous contrast. Two-dimensional coronal and sagittal reformatted images were reconstructed. Low-dose imaging technique was utilized. COMPARISON: None. FINDINGS: Several punctate bibasilar pulmonary nodules, largest measuring 4 mm. Indeterminate exophytic lesion along the left hepatic lobe measuring 3.1 cm, not a simple cyst. Spleen, pancreas and adrenal glands are within normal limits. Gallbladder is partially contracted. No significant biliary ductal dilation. No renal calculi or hydronephrosis. Urinary bladder is intact. No bowel obstruction, focal bowel wall thickening or significant perienteric inflammation. Distal colonic diverticulosis. Normal appendix. No pelvic free fluid. No free air. No abdominal aortic aneurysm or suspicious adenopathy. Small bilateral fat containing inguinal and umbilical hernias. No acute osseous abnormality. CT/Abdomen/Pelvis without Cont IMPRESSION: 1. No acute process. 2. Complex cystic lesion along the left hepatic lobe measuring 3.1 cm. Recomme nd further evaluation with nonemergent contrast-enhanced MRI. 3. Punctate bibasilar pulmonary nodules. [address] follow-up could be performed if the patient has clinical risk factors per Fleischner criteria. One or more dose reduction techniques were used (e.g., Automated exposure contr ol, adjustment of the mA and/or kV according to patient size, use of iterative reconstruction technique). Reading Location: [facility]
[2024-12-03] MEDS: Ketorolac 15 MG/ML Vial IV (22:35)
--- NOTE | 2024-12-03 22:40 | EDS_ITS ---
HPI History of Present Illness Chief Complaint: Flank Pain Informant: patient and spouse/S.O. Narrative Narrative: Here with spouse for evaluation right flank pain over a week ago its constant. He does workout throughout the week. There is no direct trauma. He was walking when he felt symptoms.'s been increasing. Pain radiates to the side. Had nausea walking in today. This resolved. No urinary symptoms. No fever chills or sweats. Normal bowel movements. No abdominal surgeries. Prior similar symptoms: No PFSH PFSH Medical History Cigar smoker HTN (hypertension) Home Medications ?Medication ?Instructions ?Recorded ?Last Taken ?Type lisinopril 10 mg tablet 10 mg PO DAILY #30 tabs 03/27 Unknown Rx atorvastatin 10 mg tablet 10 mg PO QHS cholesterol 08/19 Unknown History omeprazole 40 mg capsule,delayed 40 mg PO DAILY Unknown History release cyclobenzaprine 10 mg tablet 10 mg PO TID PRN Muscle S pasm #20 12/04/24 Unknown Rx TABLETS Allergy/AdvReac Type Severity Reaction Status Date / Time No Known Allergies Allergy Verified 12/03/24 20:54 Family History Father No problems noted. Mother Hypertension Surgical History History of rectal surgery Social History household members: spouse and family Smoking Status: Current some day smoker tobacco type: cigars per week: 1 alcohol intake: current alcohol intake frequency: 0-2 drinks per day details: Notes 2 ounce vodka drink q HS. substance use type: does not use ROS ROS ED Constitutional Constitutional ED: Denies chills, fever(s) or sweats ENT ENT ED: Denies sore throat Cardiovascular Cardiovascular: Denies chest pain, leg edema, palpitations or racing heartbeat Respiratory/Chest Respiratory/Chest: Denies cough, dyspnea or dyspnea on exertion Gastrointestinal Gastrointestinal: Denies abdominal pain, diarrhea, nausea or vomiting Genitourinary Genitourinary ED: Denies dysuria, hematuria or urinary frequency Musculoskeletal Musculoskeletal: Reports back pain; Denies extremity pain or neck pain Integumentary Denies rash or wounds Neurologic Neurologic: Denies headache(s), paresthesias or weakness EXAM Physical Exam Const Vital Signs: 12/03/24 20:55 12/03/24 22:54 12/04/24 00:00 Temperature 98 F 98.2 F Temperature Source Oral Oral Pulse Rate 67 55 L 69 Respiratory Rate 18 18 16 Blood Pressure 124/83 H 128/72 H 124/78 H Blood Pressure Mean 96 90 93 Pulse Ox 97 97 98 Oxygen Delivery Method Room Air Room Air Room Air Positive well nourished and well developed General Appearance ED: well developed and NAD HEENT Reports moist mucous membranes normocephalic and atraumatic Eyes General Eye ED: Yes normal appearance of both eyes Neck full ROM Chest Wall Chest: Negative for tenderness Resp normal respiratory effort and normal air movement Effort and Inspection: symmetric chest movement; Negative for respiratory distress Cardio regular rate, regular rhythm and no murmurs Peripheral Pulses: pulses 2+ throughout GI normal to inspection, nondistended, normoactive bowel sounds and non-tender GI Narrative: Negative Stinson's McBurney's tenderness. Palpation: Negative for guarding or rebound tenderness present Back/Spine Back/Spine Narrative: Tender palpation right flank. No ecchymosis. No rash. Extremity normal to inspection General Extremety ED: Negative for edema or tenderness General Extremity: Negative for edema Neuro oriented x3 and no sensory deficits noted Sensorium / Orientation: awake and alert Skin no rashes or lesions noted and no wounds MDM MDM MDM Narrative Medical decision making narrative: Interventions / MDM: Differential diagnosis: Flank pain, liver cysts, nonspecific pulmonary nodules Diagnosis considered but do not suspect: Kidney stone, colitis, appendicitis however CT images negative. My EKG interpretation: N/A Imaging independently reviewed and interpreted by myself: CT abdomen pelvis: No obstructive uropathy. 3.1 cm left hepatic lobe complex cyst per radiology. Normal appendix. Pulmonary nodules noted. External documents reviewed: N/A Test considered but not ordered:N/A ED course: Patient does have right flank pain on exam however reports pain is deeper inside. No urinary symptoms. Ongoing symptoms proximal week. Renal stone protocol admission. Labs urine CT scan. Toradol ordered for symptom control. 0000: Reevaluation symptoms proved with Toradol. Workup negative for kidney stones I reviewed images with the patient and noting a hepatic cyst away from areas of his pain. There is nonspecific pulmonary nodules per radiology discussed this with the patient. He smokes cigars. This time I feel this is m usculoskeletal in nature. He is ibuprofen home he will continue this up to 6 mL every 6 hours. Has been on muscle relaxers before, will prescribe Flexeril to his pharmacy. Discussed further workup imaging with his hepatic systems PCP. All questions were answered. Re-evaluation: stable Disposition discussed with patient/family/significant other: Patient and spouse Case discussed with consulting clinician: N/A This note was generated with [employer] dictation software. It may contain incorrect words, spelling, and punctuation that were not noted in checking the note before signing. Lab Data Attestation: I reviewed the patient's lab results. Labs: Laboratory Results - last 24 hr 12/03/24 12/03/24 21:28 23:07 WBC 4.9 RBC 4.67 Hgb 14.3 Hct 40.6 MCV 86.9 MCH 30.6 MCHC 35.2 RDW Std Deviation 37.9 RDW Coeff of Abdiel 11.9 Plt Count 184 MPV 8.8 Immature Gran % (Auto) 0.200 Neut % (Auto) 47.4 Lymph % (Auto) 37.8 [place] % (Auto) 11.1 H Eos % (Auto) 2.5 Baso % (Auto) 1.0 Absolute Neuts (auto) 2.3 Absolute Lymphs (auto) 1.84 Nucleated RBC % 0 Sodium 138 Potassium 4.0 Chloride 102 Carbon Dioxide 25.4 Anion Gap 11 BUN 19 Creatinine 1.06 Estim Creat Clear Calc 91.74 Est GFR (MDRD) Non-Af 82 BUN/Creatinine Ratio 18.2 Glucose 108 H Calcium 9.1 Total Bilirubin 0.97 AST 26 ALT 17 Alkaline Phosphatase 70 Total Protein 6.6 Albumin 4.3 Globulin 2.3 Albumin/Globulin Ratio 1.9 Urine Color Yellow Urine Clarity Clear Urine pH 6.0 Ur Specific [place] 1.020 Urine Protein 30 H Urine Glucose (UA) Normal Urine Ketones Negative Urine Occult Blood Negative Urine Nitrite Negative Urine Bilirubin Negative Urine Urobilinogen 1 H Ur Leukocyte Esterase 25 H Urine RBC 5-10 SEEN Urine WBC 0 SEEN Ur Squamous Epith Cells 0 SEEN Urine Bacteria RARE Urine Mucus 0 SEEN Radiography Diagnostic Testing: Clinical Impression(s) from Imaging Studies Abdomen/Pelvis CT 12/03/24 22:27 IMPRESSION: 1. No acute process. 2. Complex cystic lesion along the left hepatic lobe measuring 3.1 cm. Recommend further evaluation with nonemergent contrast-enhanced MRI. 3. Punctate bibasilar pulmonary nodules. [address] follow-up could be performed if the patient has clinical risk factors per Fleischner criteria. One or more dose reduction techniques were used (e.g., Automated exposure control, adjustment of the mA and/or kV according to patient size, use of iterative reconstruction technique). Reading [facility] Discharge Plan Triage Chief Complaint: Flank Pain ED Provider: Seb Gibson Dx/Rx/DC Orders Clinical Impression: Flank pain, Liver cyst, Pulmonary nodule Instructions: ED Back Sprain/Strain, ED Flank Pain, Uncertain Cause Prescriptions: New cyclobenzaprine 10 mg tablet 10 mg PO TID PRN (Reason: Muscle Spasm) Qty: 20 0RF No Action lisinopril 10 mg tablet 10 mg PO DAILY Qty: 30 0RF Rx Instructions: start 04/23/22 atorvastatin 10 mg tablet 10 mg PO QHS omeprazole 40 mg capsule,delayed release(DR/EC) 40 mg PO DAILY Primary Care Provider: Krish Anguiano Referrals: Krish Anguiano MD [Primary Care Provider] - 1 Week Activity Restrictions/Additional Instructions: CT scan negative for kidney stones. You have a 3.1 cm left hepatic lobe complex cyst. Further imaging through your PCP. Incidental pulmonary nodules largest 4 mm. Continue ibuprofen up to 600 mg every 6 hours. Use muscle relaxer at night before sleep. Can use up to 3 times a day. Can make you sleepy. Follow-up your doctor for reevaluation. Print Language: Uzbek Disposition Disposition: Home, Self Care Discharge Date/Time: 12/04/24 00:19
[2024-12-03 22:54] VITALS: BP 128/72; PULSE 55; RESP 18; O2SAT 97
[2024-12-03 23:15] LABS: Mucous, Urine 0 SEEN /hpf (<or=2+); Squamous Epithelial Cells - UA 0 SEEN /hpf (0-5); White Blood Cells 0 SEEN /hpf (0-5)
[2024-12-03 23:19] LABS: Color, Urine Yellow (Yellow); Glucose, Dipstick Normal (Normal); Ketone-Dipstick Negative (Negative); Leukocyte Esterase-Dipstick 25 /ul (Negative); Nitrite-Dipstick Negative (Negative); Occult Blood-Urine Negative /ul (Negative); Protein-Dipstick 30 mg/dl (Negative); Urine Bilirubin Dipstick Negative (Negative); Urine Clarity Clear (Clear); Urine Urobilinogen 1 mg/dl (Normal)
[2024-12-03 23:35] LABS: Bacteria RARE /hpf (None Seen); Red Blood Cells-Urine 5-10 SEEN /hpf (0-5)
[2024-12-04] VITALS: BP 124/78; PULSE 69; RESP 16; TEMP 36.8; O2SAT 98
== END 2024-12-04 00:19 | disposition home or self-care (01) ==
PROVIDERS: Emergency Provider Emergency Medicine; PCP Internal Medicine; Visit Provider Emergency Medicine
DX: R10.9 Unspecified abdominal pain (principal); K76.89 Other specified diseases of liver; I10 Essential (primary) hypertension; Z79.899 Other long term (current) drug therapy; F17.200 Nicotine dependence, unspecified, uncomplicated; M54.9 Dorsalgia, unspecified; R91.1 Solitary pulmonary nodule
CPT/HCPCS: 74176; 80053; 81001; 85025; 87086; 96374; 99282; A4216

== ENCOUNTER 2025-07-20 09:30 | Emergency (ER) | payer OTHER, SELFPAY ==
[2025-07-20 09:31] VITALS: BP 128/81; PULSE 78; RESP 18; TEMP 36.8; O2SAT 96; BMI 28.8
--- NOTE | 2025-07-20 10:13 | EX.ED.DYSGE1 ---
HPI History of Present Illness Chief Complaint: Back Informant: patient and spouse/S.O. Narrative Narrative: 60-year-old male presenting to the emergency room with right flank right upper abdominal and right chest pain. Patient states that earlier this year he had a CT scan for the evaluation of potential kidney stone and it was noted that he had a liver lesion that would require outpatient MRI. He has an upcoming MRI scheduled. He has had a dull ache on the right side of his abdomen. This has not been out of the ordinary for him and he has been dealing with it. He states that yesterday he went out to the bars and had some drinks. He states that he went to bed. He is he reports that his daughter told him that he was making a ruckus in the bathroom last night but he does not recall throwing up or falling down. He notes increased pain today in the right flank area right upper quadrant extending up onto the right anterior chest. This pain is worse with movement and somewhat with touch. He has not noticed any bruising. No vomiting. He states he does not feel hung over. He has been urinating more frequently and is seeing urology for that but does not feel there is been any change in urination. No reported fever. [facility] Medical History Cigar smoker HTN (hypertension) Home Medications Medication Instructions Recorded Last Taken Type lisinopril 10 mg tablet 10 mg PO DAILY #30 tabs 04/23/22 07/19/25 Rx LIVER DEFENSE 1 tab PO DAILY 07/20/25 07/19/25 History SUPER GREEN 1 cap PO DAILY 07/20/25 07/19/25 History SUPER RED 1 cap PO DAILY 07/20/25 07/19/25 History acetaminophen 500 mg capsule 1,000 mg PO Q6H PRN fever or pain 07/20/25 07/20/25 History apple cider vinegar 600 mg capsule 600 mg PO DAILY 07/20/25 07/19/25 History ascorbic acid (vitamin C) 1,000 mg 1 g PO DAILY 07/20/25 07/19/25 History tablet (C-1000) atorvastatin 20 mg tablet 20 mg PO QHS cholesterol 07/20/25 07/18/25 History cholecalciferol (vitamin D3) 50 50 mcg PO DAILY 07/20/25 07/19/25 History mcg (2,000 unit) capsule (D3-2000) inulin-sorbitol 2 gram chewable 1 tab PO DAILY 07/20/25 07/19/25 History tablet (Fiber Supplement (inulin)) multivitamin (Daily Value tablet) 1 tab PO DAILY 07/20/25 07/19/25 History omega 7-qcz-rxp-fish oil 1,200 mg 1 cap PO DAILY 07/20/25 07/19/25 History (144 mg-216 mg) capsule (Fish Oil) quercetin 500 mg capsule 500 mg PO DAILY 07/20/25 07/19/25 History Allergy/AdvReac Type Severity Reaction Status Date / Time No Known Allergies Allergy Verified 07/20/25 09:31 Family History Father No problems noted. Mother Hypertension Surgical History History of rectal surgery Social History household members: spouse and family Smoking Status: Current some day smoker tobacco type: cigars per week: 1 alcohol intake: current alcohol intake frequency: 0-2 drinks per day details: Notes 2 ounce vodka drink q HS. substance use type: does not use ROS ROS ED Constitutional Constitutional ED: Denies chills, fever(s) or weight loss Eyes Eyes: Denies change in vision or diplopia ENT ENT ED: Denies ear pain, rhinorrhea or sore throat Cardiovascular Cardiovascular: Reports chest pain; Denies orthopnea, palpitations or racing heartbeat Respiratory/Chest Respiratory/Chest: Denies cough, dyspnea or orthopnea Gastrointestinal Gastrointestinal: Reports abdominal pain; Denies diarrhea, nausea or vomiting Genitourinary Genitourinary ED: Denies dysuria, hematuria or urinary frequency Musculoskeletal Musculoskeletal: Reports back pain; Denies arthralgias, myalgias or neck pain Integumentary Denies abscess or rash Neurologic Neurologic: Denies headache(s) or weakness Psychiatric Psychiatric: Denies anxiety, depression, suicidal ideation or suicidal thoughts Endocrine Endocrinology: Denies polydipsia, polyphagia or polyuria Allergic/Immunologic Allergic/Immunologic ED: Denies mouth swelling, tongue swelling or urticaria EXAM Physical Exam Const Vital Signs: 07/20/25 09:31 07/20/25 11:31 07/20/25 12:00 Temperature 98.2 F 98.5 F Temperature Source Oral Pulse Rate 78 68 68 Respiratory Rate 18 18 Blood Pressure 128/81 H 150/78 H 150/78 H Blood Pressure Mean 96 102 102 Pulse Ox 96 100 100 Oxygen Delivery Method Room Air Positive well nourished and well developed General Appearance ED: well developed HEENT Reports normocephalic, head/scalp atraumatic and moist mucous membranes Eyes PERRL and EOMs intact bilaterally Neck no lymphadenopathy, supple and no JVD Chest Wall Chest Narrative: Patient has mild tenderness to palpation over the anterior lower right chest wall and right upper quadrant of the abdomen and in the posterior ribs in the right flank lower area. I do not appreciate any contusion subcutaneous emphysema or obvious deformity. Resp normal respiratory effort and clear to auscultation bilaterally Cardio regular rate, regular rhythm and no murmurs GI non-distended Inspection: Negative for abdominal distention Auscultation: normoactive bowel sounds Palpation: soft and tender RUQ Back/Spine no CVA tenderness and normal ROM Extremity normal to inspection General Extremety ED: Negative for edema General Extremity: Negative for edema Neuro oriented x3 and CN's II-XII intact bilaterally Sensorium / Orientation: alert Motor Exam: strength 5/5 throughout Psych mental status grossly normal Mood & Affect: Negative for depressed or tearful Skin no rashes or lesions noted and no wounds MDM MDM MDM Narrative Medical decision making narrative: Differential diagnosis would include but not limited to cholecystitis malignancy abdominal strain rib fracture kidney stone UTI pulmonary embolism pleural effusion Basic blood work showed a white count of 7.8 hemoglobin 14.6 platelet count 164. Liver enzymes showed a direct bilirubin 0.4 total bilirubin of 1.06 normal transaminases. Glucose noted to be [address] of the abdomen pelvis as well as CTA of the chest was negative for pulmonary embolism or dissection. There are some atelectatic like changes in the right posterior lung tolbert. No obvious fractures were noted. No significant inflammatory reaction noted to be in the abdomen. The liver lesions are noted and reviewed by radiology significantly unchanged. Again he does have the upcoming MRI to further characterize this. A urinalysis was obtained. This demonstrated 10-25 white blood cells. No bacteria negative nitrates. Culture will be sent. Patient was updated with the above findings. Difficult to say exactly why he is hurting. He may have fallen but he is unsure. Would recommend observation Tylenol or ibuprofen. Monitor for any changes return if worsening or concerns History & Record Review Discussion w/independent historian: Patient and Significant other Additional record(s) reviewed:: Prior ED visit Lab Data Attestation: I reviewed the patient's lab results. Labs: Laboratory Results - last 24 hr 07/20/25 07/20/25 10:20 11:28 WBC 7.8 RBC 4.58 L Hgb 14.6 Hct 41.8 MCV 91.3 MCH 31.9 MCHC 34.9 RDW Std Deviation 39.2 RDW Coeff of Abdiel 11.7 Plt Count 164 MPV 8.9 Immature Gran % (Auto) 0.600 Neut % (Auto) 75.3 H Lymph % (Auto) 16.2 L Andrews % (Auto) 6.8 Eos % (Auto) 0.5 Baso % (Auto) 0.6 Absolute Neuts (auto) 5.9 Absolute Lymphs (auto) 1.26 Nucleated RBC % 0 Sodium 140 Potassium 4.9 Chloride 103 Carbon Dioxide 26.8 Anion Gap 10 BUN 12 Creatinine 0.95 Estim Creat Clear Calc 102.15 Est GFR (MDRD) Non-Af 93 BUN/Creatinine Ratio 13.0 Glucose 116 H Calcium 9.0 Total Bilirubin 1.06 Direct Bilirubin 0.40 H AST 37 ALT 29 Alkaline Phosphatase 66 Total Protein 6.7 Albumin 4.4 Globulin 2.4 Urine Color Yellow Urine Clarity Clear Urine pH 6.5 Ur Specific [place] 1.010 Urine Protein 30 H Urine Glucose (UA) Normal Urine Ketones Negative Urine Occult Blood 50 H Urine Nitrite Negative Urine Bilirubin Negative Urine Urobilinogen Normal Ur Leukocyte Esterase 25 H Urine RBC 0 SEEN Urine WBC 10-25 SEEN Ur Squamous Epith Cells 0 SEEN Urine Bacteria 0 SEEN Urine Mucus 0 SEEN Radiography Diagnostic Testing: Clinical Impression(s) from Imaging Studies Abdomen/Pelvis CT 07/20/25 10:40 IMPRESSION: Negative for pulmonary embolus Negative for thoracic aortic dissection. Mild atelectasis right lung base. Emphysema. Indeterminate lesions of the liver. Stable. Further evaluation with nonemergent MR with [facility] maybe helpful. Negative for acute intra-abdominal or pelvic pathology. Reading Location: [facility] Chest CTA 07/20/25 10:40 IMPRESSION: Negative for pulmonary embolus Negative for thoracic aortic dissection. Mild atelectasis right lung base. Emphysema. Indeterminate lesions of the liver. Stable. Further evaluation with nonemergent MR with [facility]ist maybe helpful. Negative for acute intra-abdominal or pelvic pathology. Reading Location: [facility] Discharge Plan Triage Chief Complaint: Back ED Provider: Winston Randle Dx/Rx/DC Orders Clinical Impression: Abdominal pain, Lesion of liver Instructions: Abdominal Pain Prescriptions: No Action lisinopril 10 mg tablet 10 mg PO DAILY Qty: 30 0RF Rx Instructions: start 04/23/22 atorvastatin 20 mg tablet 20 mg PO QHS acetaminophen 500 mg capsule 1,000 mg PO Q6H PRN (Reason: fever or pain) LIVER DEFENSE 1 tab PO DAILY ascorbic acid (vitamin C) [C-1000] 1,000 mg tablet 1 g PO DAILY apple cider vinegar 600 mg capsule 600 mg PO DAILY multivitamin [Daily Value] Tablet 1 tab PO DAILY cholecalciferol (vitamin D3) [D3-2000] 50 mcg (2,000 unit) capsule 50 mcg PO DAILY omega 3-bwi-nri-fish oil [Fish Oil] 1,200 (144-216) mg capsule 1 cap PO DAILY SUPER RED 1 cap PO DAILY SUPER GREEN 1 cap PO DAILY Fiber Supplement (inulin) 2 gram tablet,chewable 1 tab PO DAILY quercetin 500 mg capsule 500 mg PO DAILY Primary Care Provider: Krish Anguiano Referrals: Krish Anguiano MD [Primary Care Provider, Internal Medicine] - Keep Sonali appointment Activity Restrictions/Additional Instructions: Your urine specimen showed a small amount of white blood cells in the urine. It is difficult to determine exactly why this would be. I have asked the lab to perform a urine culture which can take 2 to 3 days to return. If this is positive for infection we will contact you. Please keep your appointment for your MRI as the lesions on the liver are indeterminant but unchanged. Monitor for any changes return if worsening or concerns Print Language: Welsh Disposition Disposition: Home, Self Care
[2025-07-20] MEDS: 0.9% Normal Saline (1000mL) 1,000 ML 1000 ML IV (10:23)
[2025-07-20] MEDS: Ketorolac 30 MG/ML Syringe IV (10:23)
--- OUTSIDE RECORDS SUMMARY | 2025-07-20 10:25 | XMS RPT_ITS | CCD ---
Author Organization [facility] Care Team Providers Care Manager Sap Name Role Phone Unavailable Primary Care Provider UnavailDr. Rolando Flores Emergency Provider [phone] Care Physician, No Primary Primary Care Provider Unavailable Dr. Marylin Johns Admit Provider Dr. Marylin Johns Other Provider Dr. Zuleika Person Other Provider Dr. Hannah Villalobos Attending Provider Krish Anguiano MD Primary Care Provider Krish Anguiano MD Primary Care Provider Krish Anguiano MD Primary Care Provider Cecilia ORNAMENTAL IRON WORKER.Yvette CALDERON Unavailable Krish Anguiano Primary Care Unavailable Seb Gibson Attending Unavailable Dr. Seb Gibson DO Emergency Provider Silvio SANDY, Dr. Rutherford Primary Care Provider YVETTE MENDES Referring Unavailable KRISH ANGUIANO Primary Care Unavailable PURVI WEBBER Attending Unavailable EFFIE ALVAREZ Referring Unavailable KRISH ANGUIANO Primary Care Unavailable EFFIE ALVAREZ Attending Unavailable PURVI WEBBER Referring Unavailable KRISH ANGUIANO Primary Care Unavailable YVETTE MENDES Referring Unavailable KRISH ANGUIANO Primary Care Unavailable YVETTE MENDES Attending Unavailable KRISH ANGUIANO Primary Care Unavailable YVETTE MENDES Referring Unavailable KRISH ANGUIANO Primary Care Unavailable YVETTE MENDES Attending Unavailable KRISH ANGUIANO Referring Unavailable KRISH ANGUIANO Primary Care Unavailable YVETTE MENDES Referring Unavailable KRISH ANGUIANO Primary Care Unavailable Medications Current Medications Medication Drug Class(es) Dates Sig (Normalized) Sig (Original) atorvastatin 20 mg oral tablet (20 sources) HMG-CoA Reductase Inhibitor Start: 12-30-2024 take 1 tablet by mouth once daily at bedtime for hyperlipidemia atorvastatin (LIPITOR) 20 mg tablet Indications: Hyperlipidemia, unspecified hyperlipidemia type Take 1 tablet by mouth daily at bedtime. For cholesterol. 90 tablet 3 12/30/2024 Active Start: 04-06-2023 End: 12-30-2024 take 1 tablet by mouth at bedtime Atorvastatin 10 mg tablet Active 10 mg PO AT BEDTIME December 03, 2024 12:00am Comment on above: Take 1 tablet by raegan th daily at bedtime. For cholesterol. cyclobenzaprine hydrochloride 10 mg oral tablet (1 source) Muscle Relaxant Start: 025 take 1 tablet by mouth three times daily as needed for muscle spasms Cyclobenzaprine 10 mg tablet Active 10 mg PO THREE TIMES A DAY as needed for Muscle Spasm December 04, 2024 12:00am lisinopril 10 mg oral tablet (20 sources) Angiotensin Converting Enzyme Inhibitor Start: 025 take 1 tablet by mouth once daily lisinopril (ZESTRIL) 10 mg tablet Indications: Primary hypertension Take 1 tablet by mouth once daily. 90 tablet 3 02/21/2025 Active Start: 01-26-2024 End: 02-20-2025 take 1 tablet by mouth once daily lisinopril (ZESTRIL) 10 mg tablet Indications: Primary hypertension Take 1 tablet by mouth once daily. 90 tablet 3 05/29/2024 02/20/2025 Discontinued Start: 04-23-2022 End: 01-24-2024 take 1 tablet by mouth once daily lisinopril (ZESTRIL) 10 mg tablet Indications: Primary hypertension Take 1 tablet by mouth once daily. 90 tablet 1 07/18/2023 01/24/2024 Discontinued Comment on above: Take 1 tablet by raegan th once daily. MULTIVITAMIN ORAL (8 sources) take 1 tablet by mouth once daily MULTIVITAMIN ORAL Take 1 tablet by mouth once daily. Active MULTIVITAMIN ORA L Take by mouth once daily. Active mupirocin 0.02 mg/mg topical ointment (1 source) RNA Synthetase Inhibitor Antibacterial Start: 05-02-2022 End: 05-12-2022 mupirocin (BACTROBAN) 2 % ointment Indications: Rash Apply 1 application to affected area three times daily for 10 days. 30 g 0 05/02/2022 05/12/2022 Active Comment on above: Apply 1 application to affected area thr ee times daily for 10 days. omega-3 fatty acids/fish oil (OMEGA 3 FISH OIL ORAL) (8 sources) take 1 capsule by mouth once daily omega-3 fatty acids/fish oil (OMEGA 3 FISH OIL ORAL) Take 1 capsule by mouth once daily. Active omega-3 fatty ac ids/fish oil (OMEGA 3 FISH OIL ORAL) Take by mouth once daily. Active omeprazole 40 mg delayed release oral capsule (14 sources) Proton Pump Inhibitor Start: 05-08-2024 End: 12-30-2024 take 1 capsule by mouth once daily Omeprazole 40 mg capsule,delayed release(DR/EC) Active 40 mg PO DAILY December 03, 2024 12:00am Completed/Discontinued Medications Medication Drug Class(es) Dates Sig (Normalized) Sig (Original) Benzocaine (1 source) Standardized Chemical Allergen Start: 07-12-2024 End: 07-12-2024 1 [place], TOPICAL, DIRECTED, Starting on Mon07/12/24 at 1230, Until Mon07/12/24 at 1629, Dosing as directed for intraprocedural use only - Pharmaceutical Waste: Aerosol -, Intraprocedure benzonatate 100 mg oral capsule (3 sources) Non-narcotic Antitussive Start: 04-24-2021 End: 05-16-2022 take 1 capsule by mouth every eight hours as needed benzonatate (TESSALON PERLES) 100 mg capsule Take 1 capsule by mouth three times daily as needed for cough. 12 capsule 0 04/24/2021 05/16/2022 Discontinued Comment on above: Take 1 capsule by [facility] three times daily as needed for cough. calcium chloride 0.0014 meq/ml / potassium chloride 0.004 meq/ml / sodium chloride 0.103 meq/ml / sodium lactate 0.028 meq/ml injectable solution (1 source) Start: 07-12-2024 End: 07-12-2024 take 30 mL intravenously every hour 30 mL/hr, INTRAVENOUS, CONTINUOUS, Starting on Mon07/12/24 at 1100, Until Mon07/12/24 at 1240, Preprocedure cholecalciferol 0.125 mg oral capsule (16 sources) Vitamin D Start: 04-06-2023 End: 12-30-2024 take 1 capsule by mouth once daily Cholecalciferol, Vitamin D3, 125 mcg (5,000 unit) cap Indications: Vitamin D deficiency Take 1 capsule by mouth once daily. 04/06/2023 12/30/2024 Discontinued (Discontinued by Patient) Comment on above: Take 1 capsule by [facility] once daily. diphenhydrAMINE (1 source) Histamine-1 Receptor Antagonist Start: 07-12-2024 End: 07-12-2024 12.5-50 mg, INTRAVENOUS, DIRECTED, Starting on Mon07/12/24 at 1230, Until Mon07/12/24 at 1629, DOSING DIRECTED BY PHYSICIAN FOR PROCEDURAL SEDATION ONLY, Intraprocedure 1 ml fentaNYL 0.05 mg/ml injection (1 source) Opioid Agonist Start: 07-12-2024 End: 07-12-2024 25-100 mcg, INTRAVENOUS, DIRECTED, Starting on Mon07/12/24 at 1230, Until Mon07/12/24 at 1629, DOSING DIRECTED BY PHYSICIAN FOR PROCEDURAL SEDATION ONLY, Intraprocedure 5 ml midazolam 1 mg/ml injection (1 source) Benzodiazepine Start: 07-12-2024 End: 07-12-2024 1-5 mg, INTRAVENOUS, DIRECTED, Starting on Mon07/12/24 at 1230, Until Mon07/12/24 at 1629, DOSING DIRECTED BY PHYSICIAN FOR PROCEDURAL SEDATION ONLY, Intraprocedure polyethylene glycol 3350 804455 mg / potassium chloride 2980 mg / sodium bicarbonate 6720 mg / sodium chloride 5840 mg / sodium sulfate 49198 mg powder for oral solution (1 source) Osmotic Laxative Start: 05-16-2022 End: 05-16-2022 peg 3350-electrolytes (COLYTE) 240-22.72-6.72 -5.84 gram solution Indications: Special screening for malignant neoplasms, colon Take 4,000 mL by mouth one time only for 1 dose. 4000 mL 0 05/16/2022 05/16/2022 Comment on above: Take 4,000 mL by raegan th one time only for 1 dose. Problems Active Problems Problem Classification Problem Date Documented Date Episodic/Chronic Abdominal pain (4 sources) Unspecified abdominal pain; Translations: [Flank pain] Onset: 12-12-2024 12-04-2024 Episodic Cardiac dysrhythmias (1 source) Palpitations; Translations: [Palpitations] Episodic Disorders of lipid metabolism (20 sources) Hyperlipidemia; Translations: [Hyperlipidemia, unspecified] Onset: 05-16-2022 Chronic Esophageal disorders (8 sources) Gastroesophageal reflux disease; Translations: [Gastro-esophageal reflux disease without esophagitis] Onset: 07-19-2024 07-01-2024 Chronic Essential hypertension (20 sources) Essential hypertension; Translations: [Essential (primary) hypertension] Onset: 05-16-2022 Chronic Genitourinary symptoms and ill-defined conditions (1 source) Frequency of micturition; Translations: [Urinary frequency] Onset: 07-08-2025 Episodic Immunizations and screening for infectious disease (5 sources) Hepatitis C antibody test positive; Translations: [Other specified abnormal immunological findings in serum] Episodic Nonspecific chest pain (6 sources) Chest pain; Translations: [Chest pain, unspecified] Episodic Nutritional deficiencies (2 sources) Vitamin D deficiency; Translations: [Vitamin D deficiency, unspecified] 04-06-2023 Chronic Other and unspecified benign neoplasm (1 source) Acral nevus; Translations: [Melanocytic nevi, unspecified] Episodic Other and unspecified benign neoplasm (1 source) Dermatofibroma of left lower limb; Translations: [Other benign neoplasm of skin of left lower limb, including hip] Episodic Other circulatory disease (3 sources) Elevated blood pressure; Translations: [Elevated blood-pressure reading, without diagnosis of hypertension] 04-22-2022 Episodic Other circulatory disease (2 sources) Elevated blood-pressure reading, without diagnosis of hypertension; Translations: [Elevated blood pressure reading without diagnosis of hypertension] Episodic Other liver diseases (1 source) Liver cyst; Translations: [Other specified diseases of liver] 12-04-2024 Chronic Other liver diseases (1 source) Liver disease, unspecified; Translations: [Liver lesion] Onset: 07-08-2025 Chronic Other liver diseases (3 sources) Hyperbilirubinemia; Translations: [Unspecified jaundice] 05-08-2024 Episodic Other liver diseases (2 sources) Unspecified jaundice; Translations: [Serum total bilirubin elevated] Onset: 07-08-2025 Episodic Other lower respiratory disease (1 source) Nodule of lung; Translations: [Solitary pulmonary nodule] 12-04-2024 Episodic Other nervous system disorders (1 source) Notalgia paresthetica; Translations: [Paresthesia of skin] Episodic Other non-traumatic joint disorders (1 source) Multiple joint pain; Translations: [Pain in unspecified joint] 12-30-2024 Episodic Other nutritional; endocrine; and metabolic disorders (20 sources) Obese class I; Translations: [Obesity, unspecified] Onset: 05-16-2022 Chronic Other skin disorders (1 source) Eruption; Translations: [Rash and other nonspecific skin eruption] Episodic Other upper respiratory disease (1 source) Throat irritation; Translations: [Other diseases of pharynx] 07-08-2024 Episodic Past or Other Problems Problem Classification Problem Date Documented Da te Episodic/Chronic Diabetes mellitus without complication (20 sources) Impaired fasting glycemia; Translations: [Impaired fasting glucose] Onset: 04-06-2023 04-06-2023 Episodic Other gastrointestinal disorders (17 sources) Dysphagia; Translations: [Dysphagia, unspecified] Onset: 05-08-2024 05-08-2024 Episodic Other gastrointestinal disorders (1 source) Dysphagia, unspecified; Translations: [Dysphagia, unspecified type] Onset: 05-08-2024 Episodic Other nutritional; endocrine; and metabolic disorders (3 sources) Body mass index 25-29 - overweight; Translations: [Overweight] Onset: 05-16-2022 12-30-2024 Episodic Other screening for suspected conditions (not mental disorders or infectious disease) (20 sources) Patient encounter status; Translations: [Encounter for screening for malignant neoplasm of prostate] Onset: 06-17-2022 Episodic Results Test Name Value Interpretation Reference Range Facility CBC W Auto Differential pane l (Bld)on 07-08-2025 Basophils (Bld) [#/Vol] 0.04 10*3/uL Normal <0.11 [facility] Comment on above: Order Comment: Speci men Type: BLOOD SPECIMEN Ordering Facility: [facility] Address: [address] [place], [place] [id number] Performed By: #### 5 0189-0 #### [facility] CLIA [id number] [address] [place] [address] [place] Basophils/100 WBC (Bld) 0.7 % Normal [facility] Comment on above: Order Comment: Speci men Type: BLOOD SPECIMEN Ordering Facility: [facility] Address: [address] [place] [address] Performed By: #### 5 0189-0 #### [facility] CLIA [id number] [address] [place] [address] [place] Differential cell count method Nom (Bld) Auto Normal [facility] Comment on above: Order Comment: Speci men Type: BLOOD SPECIMEN Ordering Facility: [facility] Address: [address] [place] [address] Performed By: #### 5 0189-0 #### [facility] CLIA [id number] [address] [place] [address] [place] Eosinophils (Bld) [#/Vol] 0.11 10*3/uL Normal <0.46 [facility] Comment on above: Order Comment: Speci men Type: BLOOD SPECIMEN Ordering Facility: [facility] Address: [address] [place] [address] Performed By: #### 5 0189-0 #### [facility] CLIA [id number] [address] [place] [address] [place] Eosinophils/100 WBC (Bld) 1.9 % Normal [facility] Comment on above: Order Comment: Speci men Type: BLOOD SPECIMEN Ordering Facility: [facility] Address: [address] [place] [address] Performed By: #### 5 0189-0 #### [facility] CLIA [id number] [address] [place] [address] [place] Erythrocyte distribution width (RBC) [Ratio] 11.9 % Normal 11.5-15.0 [facility] Comment on above: Order Comment: Speci men Type: BLOOD SPECIMEN Ordering Facility: [facility] Address: [address] [place] [address] Performed By: #### 5 0189-0 #### [facility] CLIA [id number] [address] [place] [address] [place] Hematocrit (Bld) [Volume fraction] 43.6 % Normal 39.0-51.0 [facility] Comment on above: Order Comment: Speci men Type: BLOOD SPECIMEN Ordering Facility: [facility] Address: [address] [place] [address] Performed By: #### 5 0189-0 #### [facility] CLIA [id number] [address] [place] [address] [place] Hemoglobin (Bld) [Mass/Vol] 15.1 g/dL Normal 13.0-17.0 [facility] Comment on above: Order Comment: Speci men Type: BLOOD SPECIMEN Ordering Facility: [facility] Address: [address] [place] [address] Performed By: #### 5 0189-0 #### [facility] CLIA [id number] [address] [place] [address] [place] Immature granulocytes (Bld) [#/Vol] 10*3/uL Normal <0.10 [facility] Comment on above: Order Comment: Speci men Type: BLOOD SPECIMEN Ordering Facility: [facility] Address: [address] [place] [address] Performed By: #### 5 0189-0 #### [facility] CLIA [id number] [address] [place] [address] [place] Immature granulocytes/100 WBC (Bld) 0.3 % Normal [facility] Comment on above: Order Comment: Speci men Type: BLOOD SPECIMEN Ordering Facility: [facility] Address: [address] [place] [address] Performed By: #### 5 0189-0 #### [facility] CLIA [id number] [address] [place] [address] [place] Lymphocytes (Bld) [#/Vol] 1.63 10*3/uL Normal 1.00-4.00 [facility] Comment on above: Order Comment: Speci men Type: BLOOD SPECIMEN Ordering Facility: [facility] Address: [address] [place] [address] Performed By: #### 5 0189-0 #### [facility] CLIA [id number] [address] [place] [address] [place] Lymphocytes/100 WBC (Bld) 28.2 % Normal [facility] Comment on above: Order Comment: Speci men Type: BLOOD SPECIMEN Ordering Facility: [facility] Address: [address] [place] [address] Performed By: #### 5 0189-0 #### [facility] CLIA [id number] [address] [place] [address] [place] MCH (RBC) [Entitic mass] 32.8 pg Normal 26.0-34.0 [facility] Comment on above: Order Comment: Speci men Type: BLOOD SPECIMEN Ordering Facility: [facility] Address: [address] [place] [address] Performed By: #### 5 0189-0 #### [facility] CLIA [id number] [address] [place] [address] [place] MCHC (RBC) [Mass/Vol] 34.6 g/dL Normal 30.5-36.0 [facility] Comment on above: Order Comment: Speci men Type: BLOOD SPECIMEN Ordering Facility: [facility] Address: [address] [place] [address] Performed By: #### 5 0189-0 #### [facility] CLIA [id number] [address] [place] [address] [place] MCV (RBC) [Entitic vol] 94.8 fL Normal 80.0-100.0 [facility] Comment on above: Order Comment: Speci men Type: BLOOD SPECIMEN Ordering Facility: [facility] Address: [address] [place] [address] Performed By: #### 5 0189-0 #### [facility] CLIA [id number] [address] [place] [address] [place] Monocytes (Bld) [#/Vol] 0.53 10*3/uL Normal <0.87 [facility] Comment on above: Order Comment: Speci men Type: BLOOD SPECIMEN Ordering Facility: [facility] Address: [address] [place] [address] Performed By: #### 5 0189-0 #### [facility] CLIA [id number] [address] [place] [address] [place] Monocytes/100 WBC (Bld) 9.2 % Normal [facility] Comment on above: Order Comment: Speci men Type: BLOOD SPECIMEN Ordering Facility: [facility] Address: [address] [place] [address] Performed By: #### 5 0189-0 #### [facility] CLIA [id number] [address] [place] [address] [place] Neutrophils (Bld) [#/Vol] 3.44 10*3/uL Normal 1.45-7.50 [facility] Comment on above: Order Comment: Speci men Type: BLOOD SPECIMEN Ordering Facility: [facility] Address: [address] [place] [address] Performed By: #### 5 0189-0 #### [facility] CLIA [id number] [address] [place] [address] [place] Neutrophils/100 WBC (Bld) 59.7 % Normal [facility] Comment on above: Order Comment: Speci men Type: BLOOD SPECIMEN Ordering Facility: [facility] Address: [address] [place] [address] Performed By: #### 5 0189-0 #### [facility] CLIA [id number] [address] [place] [address] [place] Nucleated RBC (Bld) [#/Vol] 10*3/uL Normal <0.01 [facility] Comment on above: Order Comment: Speci men Type: BLOOD SPECIMEN Ordering Facility: [facility] Address: [address] [place] [address] Performed By: #### 5 0189-0 #### [facility] CLIA [id number] [address] [place] [address] [place] Nucleated RBC/100 WBC (Bld) [Ratio] 0.0 /100 WBC Normal [facility] Comment on above: Order Comment: Speci men Type: BLOOD SPECIMEN Ordering Facility: [facility] Address: [address] [place] [address] Performed By: #### 5 0189-0 #### [facility] CLIA [id number] [address] [place] [address] [place] Platelet mean volume (Bld) [Entitic vol] 9.9 fL Normal 9.0-12.7 [facility] Comment on above: Order Comment: Speci men Type: BLOOD SPECIMEN Ordering Facility: [facility] Address: [address] [place] [address] Performed By: #### 5 0189-0 #### [facility] CLIA [id number] [address] [place] [address] [place] Platelets (Bld) [#/Vol] 189 10*3/uL Normal 150-400 [facility] Comment on above: Order Comment: Speci men Type: BLOOD SPECIMEN Ordering Facility: [facility] Address: [address] [place] [address] Performed By: #### 5 0189-0 #### [facility] CLIA [id number] [address] [place] [address] [place] RBC (Bld) [#/Vol] 4.60 10*6/uL Normal 4.20-6.[address] [facility] Comment on above: Order Comment: Speci men Type: BLOOD SPECIMEN Ordering Facility: [facility] Address: [address] [place] [address] Performed By: #### 5 0189-0 #### [facility] CLIA [id number] [address] [place] [address] [place] WBC (Bld) [#/Vol] 5.77 10*3/uL Normal 3.70-11.[address] [facility] Comment on above: Order Comment: Speci men Type: BLOOD SPECIMEN Ordering Facility: [facility] Address: [address] [place], [place] [id number] Performed By: #### 5 0189-0 #### [facility] CLIA [id number] [address] [place] [address] [place] CNOVon 07-08-2025 CNOV Office Visit ([facility] ) -- MADDIE SOLORIO ([id number]) 1965 M Date Time Provider Department 07/08/25 10:40 AM YVETTE MENDES [facility] During your visit today, we recorded the following information about you: Pulse Respiration Blood pressure Weight 74/minute 12/minute 116/78 96.3 kg Yvette Mendes, ORNAMENTAL IRON WORKER.HERITAGE CONSULTANT 07/08/2025 11:43 AM Signed CC: Patient presents with: Results: Lab results UTI: Right flank pain, Urinary frequency, little void 3 weeks Conjunctivitis: Right eye HPI Recording using [employer] software for draft documentation of the visit was discussed with the patient/authorized sales representative graphic art; all questions welcomed and answered. Patient/authorized sales representative graphic art agreed to proceed The patient is a 60-year-old male presenting for follow-up on lab results, with additional complaints of right back pain and urinary frequency. Right Back Pain: - Started a couple weeks ago, worsening - Described as internal, not tender to touch, worsening daily. - Pain is aggravated by certain stretches, particularly when lying flat. - Nothing alleviates the pain - Feels different than right sided back pain in November for which he was seen in the ER. CT and labs unremarkable (except for incidental findings of liver lesion and pulmonary nodules) and determined to be muscular - Pain resolved completely after ER visit in November; began stretching and using a roller to alleviate tightness. Urinary Frequency: - Onset around the same time as back pain. - Mild urgency, no hematuria, fever, chills, nausea, or emesis. - Urine color normal, not cloudy. - No difficulty initiating or stopping stream; slightly slow stream but not unusually so. - Nocturia once per night; usually does not have to get up. - Increased water intake. Fatigue: - Reports feeling more tired in general, attributes to age. - Remembers feeling "awesome" about a year ago, but does not feel that way now. Alcohol Use: - Increased bourbon consumption over the past 6 months, drinking a couple of drinks every night since November and sometimes more on the weekends - Recently slowed down a couple of weeks ago when back pain started. - No recreational drug use; occasionally smokes cigars. Eye Discomfort: - Onset about a month ago, with pain and eye "gunked up" in the morning. Review of Systems Constitutional: Positive for fatigue. Negative for chills, diaphoresis, fever and unexpected weight change. Respiratory: Negative for cough, shortness of breath and wheezing. Cardiovascular: Negative for chest pain. Gastrointestinal: Negative for abdominal distention, blood in stool, constipation, diarrhea, nausea and vomiting. Genitourinary: Positive for flank pain and frequency. Negative for decreased urine volume, difficulty urinating, dysuria, hematuria and urgency. Skin: Negative for color change. Hematological: Negative for adenopathy. Does not bruise/bleed easily. PAST MEDICAL HISTORY Diagnosis Date GERD (gastroesophageal reflux disease) History of prostatitis 1999 Hyperlipidemia 05/16/2022 Obesity, Class I, BMI 30-34.9 05/16/2022 Primary hypertension 05/16/2022 PAST SURGICAL HISTORY Procedure Laterality Date COLONOSCOPY 07/06/2022 repeat in 5 years COLONOSCOPY SCREENING 05/2016 [place] E[place] 07/12/2024 PAST SURGICAL HISTORY OF 1999 Fertility surgery REMOVAL OF ANAL FISSURE 2016 ALLERGIES Patient has no known allergies. MEDICATIONS lisinopril (ZESTRIL) 10 mg tablet Take 1 tablet by mouth once daily. atorvastatin (LIPITOR) 20 mg tablet Take 1 tablet by mouth daily at bedtime. For cholesterol. MULTIVITAMIN ORAL Take 1 tablet by mouth once daily. omega-3 fatty acids/fish oil (OMEGA 3 FISH OIL ORAL) Take 1 capsule by mouth once daily. iv contrast (will be provided with radiology test) MRI Liver Inject, intravenously, once for 1 dose. No IV access, insert saline lock prior to the beginning of sedation, infusion, injection of imaging exam. Discontinue saline lock post exam. If Pt. has a central line or IVAD, may access for administration according to line specific nursing protocol. Once exam is complete flush line and de-access according to line specific nursing protocol in the MR contrast administration guidelines link. FAMILY HISTORY Problem Relation Age of Onset Hypertension Mother Hyperlipidemia Mother other (MVA) Father Celiac Disease Sister No Known Problems Brother Hypertension Maternal Grandmother Hyperlipidemia Maternal Grandmother SOCIAL HISTORY[1] BP 116/78 Pulse 74 Resp 12 Wt 96.3 kg (212 lb 4.9 oz) SpO2 98% BMI 28.79 kg/m? Physical Exam Vitals reviewed. Constitutional: Appearance: Normal appearance. Eyes: General: No scleral icterus. Right eye: Hordeolum present. Conjunctiva/sclera: Conjunctivae normal. Right eye: Right conjunctiva is not injected. No exudate. (more content not included)... Normal [facility] bilirubin panel [Ma ss/Vol]on 07-08-2025 Bilirubin [Mass/Vol] 1.6 mg/dL High 0.2-1.3 [facility] Comment on above: Order Comment: Speci renaldo Type: BLOOD SPECIMEN Ordering Facility: [facility] Address: [address] [place] [address] Performed By: #### 5 0189-0 #### [facility] CLIA [id number] [address] [place] [address] [place] Bilirubin.conjugated [Mass/Vol] 0.4 mg/dL High <0.3 [facility] Comment on above: Order Comment: Glennai renaldo Type: BLOOD SPECIMEN Ordering Facility: [facility] Address: [address] [place] [address] Performed By: #### 5 0189-0 #### [facility] CLIA [id number] [address] [place] [address] [place] Bilirubin.indirect [Mass/Vol] 1.2 mg/dL Normal <1.4 [facility] Comment on above: Order Comment: Speci men Type: BLOOD SPECIMEN Ordering Facility: [facility] Address: [address] [place] [address] Performed By: #### 5 0189-0 #### [facility] CLIA [id number] [address] [place] [address] [place] PT panel Coag (PPP)on 2024 INR Coag (PPP) [Relative time] 1.0 {INR} Normal 0.9-1.3 [facility] Comment on above: Order Comment: Speci men Type: BLOOD SPECIMEN Ordering Facility: [facility] Address: [address] [place] [address] Result Comment: Kim min K Antagonist (VKA) Therapeutic Range: INR 2 to 3 (Target INR of 2.5) Note: For patients treated with VKA drugs, such as warfarin, the [place] [employer] 2012 Guideline recommends a therapeutic INR range of 2 to 3 (target INR of 2.5). This recommendation includes high-risk patients with antiphospholipid syndrome with previous arterial or venous thromboembolism, current-generation mechanical or bioprosthetic aortic heart valve replacement. Note: Patients with mechanical aortic valve replacement and additional risk factors for thromboembolic events (atrial fibrillation, previous thromboembolism, LV dysfunction, hypercoagulable conditions) or an older generation mechanical AVR (i.e., ball in-Cage) or any mechanical MVR should have a INR therapeutic range of 2.5 to 3.5 (target INR of 3). Pia GH, et al. Chest 2012, 141:7S-47S Viri RA, et al. [facility] 2017, 70: 252-289 Performed By: #### 5 0189-0 #### [facility] CLIA [id number] [address] [place] [address] [place] PT Coag (PPP) [Time] 11.0 s Normal 9.7-13.0 [facility] Comment on above: Order Comment: Félix macario Type: BLOOD SPECIMEN Ordering Facility: [facility] Address: [address] [place] [address] Performed By: #### 5 0189-0 #### [facility] CLIA [id number] [address] [place] [address] [place] US ABD RIGHT UPPER QUADRANTo n 07-08-2025 US ABD RIGHT UPPER QUADRANT * * *Final Report* * * DATE OF EXAM: Jul 08 2025 4:17PM LDU 1032 - US ABD RIGHT UPPER QUADRANT / PROCEDURE REASON: multiple diagnoses * * * * Physician Interpretation * * * * EXAMINATION: RIGHT UPPER QUADRANT ULTRASOUND CLINICAL HISTORY: Elevated bilirubin TECHNIQUE: Sonography of the right upper quadrant was performed. Images were obtained and stored in a permanent archive. MQ: [id number] COMPARISON: None. RESULT: Pancreas: Normal sonographic appearance. Portions obscured: tail Liver: Echotexture: Normal, homogeneous. Echogenicity: Normal Surface contour: Smooth Lesions: Isoechoic lobulated lesion arising off the left lobe measuring 2.5 x 3.4 x 2.4 cm may represent true lesion versus lobulated liver parenchyma. Hyperechoic lesion right lobe measuring 0.6 x 0.5 x 0.5 cm differential would include small hemangioma. Biliary: No intrahepatic biliary duct dilation. CBD: 0.5 cm at the hilum. Gallbladder: Normal caliber -Contents: No cholelithiasis -Wall: Normal -Other: No pericholecystic fluid. Right Kidney: No hydronephrosis. Ascites: None. IMPRESSION: No biliary dilatation. There are 2 hepatic lesions as described above. Recommend elective MRI of the liver for further characterization. ACTIONABLE RESULT: FOLLOW-UP Acuity: Actionable Findings: Liver Routing Code: LV_1 Recommendation: MRI LIVER WO/W IVCON Time Frame: At the discretion of the clinical team. COMMUNICATION: Results will be communicated with the ordering provider via [employer] staff message or phone message by [employer] within 2 business days of report finalization. --END OF FINDING-- Mutual Fund Accountant: PSCB Transcribe Date/Time: Jul 08 2025 4:23P Dictated by : ZULEIKA WILSON MD This examination was interpreted and the report reviewed and electronically signed by: ZULEIKA WILSON MD on Jul 08 2025 4:26PM EST [id number] ACTIONABLE Invalid Interpretation Code [facility] Comprehensive metabolic 2000 panelon 07-03-2025 Albumin [Mass/Vol] 4.6 g/dL Normal 3.9-4.9 [facility] Comment on above: Order Comment: Speci men Type: BLOOD SPECIMEN Ordering Facility: [facility] Address: [address] [place] [address] Performed By: #### 5 0189-0 #### [facility] CLIA [id number] [address] [place] [address] [place] ALP [Catalytic activity/Vol] 75 U/L Normal 38-113 [facility] Comment on above: Order Comment: Speci men Type: BLOOD SPECIMEN Ordering Facility: [facility] Address: [address] [place] [address] Performed By: #### 5 0189-0 #### [facility] CLIA [id number] [address] [place] [address] [place] ALT [Catalytic activity/Vol] 21 U/L Normal 10-54 [facility] Comment on above: Order Comment: Speci men Type: BLOOD SPECIMEN Ordering Facility: [facility] Address: [address] [place] [address] Performed By: #### 5 0189-0 #### [facility] CLIA [id number] [address] [place] [address] [place] Anion gap [Moles/Vol] 12 mmol/L Normal 8-15 [facility] Comment on above: Order Comment: Speci men Type: BLOOD SPECIMEN Ordering Facility: [facility] Address: [address] [place] [address] Performed By: #### 5 0189-0 #### [facility] CLIA [id number] [address] [place] [address] [place] AST [Catalytic activity/Vol] 32 U/L Normal 14-40 [facility] Comment on above: Order Comment: Speci men Type: BLOOD SPECIMEN Ordering Facility: [facility] Address: [address] [place] [address] Performed By: #### 5 0189-0 #### [facility] CLIA [id number] [address] [place] [address] [place] Bilirubin [Mass/Vol] 2.1 mg/dL High 0.2-1.3 [facility] Comment on above: Order Comment: Speci men Type: BLOOD SPECIMEN Ordering Facility: [facility] Address: [address] [place] [address] Performed By: #### 5 0189-0 #### [facility] CLIA [id number] [address] [place] [address] [place] Calcium [Mass/Vol] 9.9 mg/dL Normal 8.5-10.2 [facility] Comment on above: Order Comment: Speci men Type: BLOOD SPECIMEN Ordering Facility: [facility] Address: [address] [place] [address] Performed By: #### 5 0189-0 #### [facility] CLIA [id number] [address] [place] [address] [place] Chloride [Moles/Vol] 102 mmol/L Normal 98-107 [facility] Comment on above: Order Comment: Speci men Type: BLOOD SPECIMEN Ordering Facility: [facility] Address: [address] [place] [address] Performed By: #### 5 0189-0 #### [facility] CLIA [id number] [address] [place] [address] [place] CO2 [Moles/Vol] 26 mmol/L Normal 22-30 [facility] Comment on above: Order Comment: Speci men Type: BLOOD SPECIMEN Ordering Facility: [facility] Address: [address] [place] [address] Performed By: #### 5 0189-0 #### [facility] CLIA [id number] [address] [place] [address] [place] Creatinine [Mass/Vol] 1.00 mg/dL Normal 0.73-1.22 [facility] Comment on above: Order Comment: Speci men Type: BLOOD SPECIMEN Ordering Facility: [facility] Address: [address] [place] [address] Performed By: #### 5 0189-0 #### [facility] CLIA [id number] [address] [place] [address] [place] eGFRcr SerPlBld CKD-EPI 2020 87 mL/min/1.73m??? Normal >=60 [facility] Comment on above: Order Comment: Félix macario Type: BLOOD SPECIMEN Ordering Facility: [facility] Address: [address] [place] [address] Result Comment: Orin mated Glomerular Filtration Rate (eGFR) is calculated using the 2020 CKD-EPI creatinine equation. This equation utilizes serum creatinine, sex, and age as parameters. The creatinine assay has traceable calibration to isotope dilution-mass spectrometry. Refer to KDIGO guidelines for clinical interpretation. In patients with unstable renal function, e.g. those with acute kidney injury, the eGFR may not accurately reflect actual GFR. Performed By: #### 5 0189-0 #### [facility] CLIA [id number] [address] [place] [address] [place] Glucose [Mass/Vol] 104 mg/dL High 74-99 [facility] Comment on above: Order Comment: Félix macario Type: BLOOD SPECIMEN Ordering Facility: [facility] Address: [address] [place] [address] Result Comment: The [place] [employer] (ADA) provides guidance for cutoff values for fasting glucose and random glucose. The ADA defines fasting as no caloric intake for at least 8 hours. Fasting plasma glucose results between 100 to 125 mg/dL indicate increased risk for diabetes (prediabetes). Fasting plasma glucose results greater than or equal to 126 mg/dL meet the criteria for diagnosis of diabetes. In the absence of unequivocal hyperglycemia, results should be confirmed by repeat testing. In a patient with classic symptoms of hyperglycemia or hyperglycemic crisis, random plasma glucose results greater than or equal to 200 mg/dL meet the criteria for diagnosis of diabetes. Reference: Standards of Medical Care in Diabetes 2016, [place] [employer]. Diabetes Care. 2016.39(Suppl 1). Performed By: #### 5 0189-0 #### [facility] CLIA [id number] [address] [place] [address] [place] Potassium [Moles/Vol] 3.9 mmol/L Normal 3.7-5.1 [facility] Comment on above: Order Comment: Speci men Type: BLOOD SPECIMEN Ordering Facility: [facility] Address: [address] [place] [address] Performed By: #### 5 0189-0 #### [facility] CLIA [id number] [address] [place] [address] [place] Protein [Mass/Vol] 7.1 g/dL Normal 6.3-8.0 [facility] Comment on above: Order Comment: Speci men Type: BLOOD SPECIMEN Ordering Facility: [facility] Address: [address] [place] [address] Performed By: #### 5 0189-0 #### [facility] CLIA [id number] [address] [place] [address] [place] Sodium [Moles/Vol] 140 mmol/L Normal 136-144 [facility] Comment on above: Order Comment: Speci men Type: BLOOD SPECIMEN Ordering Facility: [facility] Address: [address] [place] [address] Performed By: #### 5 0189-0 #### [facility] CLIA [id number] [address] [place] [address] [place] Urea nitrogen [Mass/Vol] 17 mg/dL Normal 9-24 [facility] Comment on above: Order Comment: Speci men Type: BLOOD SPECIMEN Ordering Facility: [facility] Address: [address] [place] [address] Performed By: #### 5 0189-0 #### [facility] CLIA [id number] [address] [place] [address] [place] Lipid 1996 panelon 5 Cholesterol [Mass/Vol] 203 mg/dL High <200 [facility] Comment on above: Order Comment: Speci men Type: BLOOD SPECIMEN Ordering Facility: [facility] Address: [address] [place] [address] Result Comment: <200 mg/dL, Desirable 200-239 mg/dL, Borderline high >239 mg/dL, High Performed By: #### 5 0189-0 #### [facility] CLIA [id number] [facility] [address] Cholesterol in HDL [Mass/Vol] 92 mg/dL Normal >39 [facility] Comment on above: Order Comment: Félix macario Type: BLOOD SPECIMEN Ordering Facility: [facility] Address: [address] [place] [address] Result Comment: 40-5 9 mg/dL, Acceptable >59 mg/dL, High: Negative risk factor for coronary heart disease <40 mg/dL, Low: Positive risk factor for coronary heart disease Performed By: #### 5 0189-0 #### [facility] CLIA [id number] [address] [place] [address] Cholesterol in LDL [Mass/Vol] 101 mg/dL High <100 [facility] Comment on above: Order Comment: Félix macario Type: BLOOD SPECIMEN Ordering Facility: [facility] Address: [address] [place] [address] Result Comment: <100 mg/dL, Optimal 100-129 mg/dL, Near optimal/above optimal 130-159 mg/dL, Borderline high 160-189 mg/dL, High >189 mg/dL, Very high Secondary prevention optimal LDL Cholesterol levels are recommended to be <70 mg/dL LDL cholesterol is calculated using the Sutton-NIH equation. Performed By: #### 5 0189-0 #### [facility] CLIA [id number] [address] [place] [address] Cholesterol in LDL/Cholesterol in HDL [Mass ratio] 1.10 {ratio} Normal <2.54 [facility] Comment on above: Order Comment: Félix macario Type: BLOOD SPECIMEN Ordering Facility: [facility] Address: [address] [place] [address] Result Comment: Nata fernández: 1. National Cholesterol Education Program ATP III Guideline At-A-Glance Quick Desk Reference: National Heart, Lung, and Blood [place]. National Institutes of Health. 2001: NIH Publication No. 01-3305. 2. An International Atherosclerosis Society position paper: global recommendations for the management of dyslipidemia: executive summary, Atherosclerosis. 2014: 232(2):410-413. Performed By: #### 5 0189-0 #### [facility] CLIA [id number] [address] [place] [address] [place] Cholesterol in VLDL [Mass/Vol] 9 mg/dL Normal <30 [facility] Comment on above: Order Comment: Speci men Type: BLOOD SPECIMEN Ordering Facility: [facility] Address: [address] [place] [address] Performed By: #### 5 0189-0 #### [facility] CLIA [id number] [address] [place] [address] [place] Cholesterol non HDL [Mass/Vol] 111 mg/dL Normal <130 [facility] Comment on above: Order Comment: Speci men Type: BLOOD SPECIMEN Ordering Facility: [facility] Address: [address] [place] [address] Result Comment: <130 mg/dL, Optimal 130-159 mg/dL, Near optimal/above optimal 160-189 mg/dL, Borderline high 190-219 mg/dL, High >219 mg/dL, Very high Secondary prevention optimal non HDL Cholesterol levels are recommended to be <100 mg/dL Performed By: #### 5 0189-0 #### [facility] CLIA [id number] [address] [place] [address] [place] Cholesterol.total/Chol esterol in HDL [Mass ratio] 2.21 {ratio} Normal <5.10 [facility] Comment on above: Order Comment: Speci men Type: BLOOD SPECIMEN Ordering Facility: [facility] Address: [address] [place] [address] Performed By: #### 5 0189-0 #### [facility] CLIA [id number] [address] [place] [address] [place] FASTING TIME 12 hrs Normal [facility] Comment on above: Order Comment: Speci men Type: BLOOD SPECIMEN Ordering Facility: [facility] Address: [address] [place] [address] Performed By: #### 5 0189-0 #### [facility] CLIA [id number] [address] [place] [address] [place] Triglyceride [Mass/Vol] 54 mg/dL Normal <150 [facility] Comment on above: Order Comment: Speci men Type: BLOOD SPECIMEN Ordering Facility: [facility] Address: [address] [place] [address] Result Comment: <150 mg/dL, Normal 150-199 mg/dL, Borderline high 200-499 mg/dL, High >499 mg/dL, Very high Performed By: #### 5 0189-0 #### [facility] CLIA [id number] [address] [place] [address] [place] PSA [facility] Prostate specific Ag [Mass/Vol] 3.18 ng/mL High <2.60 [facility] Comment on above: Order Comment: Speci men Type: BLOOD SPECIMEN Ordering Facility: [facility] Address: [address] [place] [address] Result Comment: Tota l PSA test methodology used is the Electrochemiluminescence Immunoassay by [employer]. Total PSA values by differing methodologies cannot be interchanged. For an individual patient, the significance of a PSA level should be interpreted in a broad clinical context, including age, race, family history, digital rectal exam, prostate size, results of prior testing (prostate biopsy, free PSA, PCA3), and use of 5-alpha reductase inhibitors. Considering the high incidence of asymptomatic cancer in the general population that may not pose an ultimate risk to a patient, the decision to recommend urological evaluation or prostate biopsy should be individualized after consideration of all these factors. REFERENCE: Mary Ellen Miguel M.D., M.P.H., Mich Kent M.D., Ph.D., Thiago Aranda M.D., Zarina Woodson, M.P.H., Yoanna Brunson, ScDutch. Effect of Verification Bias on Screening for Prostate Cancer by Measurement of Prostatic Specific Antigen. N Engl J Med 2003,349:335-42. Performed By: #### 2 857-1 #### [facility] CLIA [id number] [address] [place] [address] [facility] CNOVon 12-30-2024 CNOV Office Visit (INT[facility] ) -- LISAMADDIE ([id number]) 1965 M Date Time Provider Department 12/30/24 10:00 AM YVETTE MENDES IN[facility] During your visit today, we recorded the following information about you: Pulse Respiration Blood pressure Weight 82/minute 16/minute 120/84 94.8 kg Yvette Mendes, ORNAMENTAL IRON WORKER.HERITAGE CONSULTANT 12/30/2024 10:27 AM Signed We discussed your cholesterol: - Your cholesterol levels have improved but remain higher than the normal range. - I have increased your atorvastatin (Lipitor) dose from 10 mg to 20 mg daily. You can double your current pills (10 mg) until they are finished. A prescription for the 20 mg dose has been sent to [facility] for future refills. We discussed your prostate health: - Your PSA level has increased slightly but remains low and is not concerning for prostate cancer. - You mentioned increased urinary frequency, but since you are not experiencing significant symptoms (e.g., getting up multiple times at night, slow stream, blood in urine, or difficulty starting urination), we will recheck your PSA in 6 months. - If you develop more significant urinary symptoms before your next visit, please let me know, and I will refer you to a urologist. We discussed your blood pressure: - Your blood pressure today was 120/84, which is within the normal range. - Continue taking lisinopril 10 mg daily. We discussed your weight and joint pain: - Your weight has decreased to 209 lbs, which is about 20 lbs lower than your previous visit. You mentioned a goal of losing 10 more pounds, which is a great plan. - Your recent hip and leg pain is likely due to overuse from strenuous activities. Since your symptoms have improved after reducing activity, no further action is needed at this time. We discussed your acid reflux: - You may trial stopping omeprazole, as you have not had symptoms recently and have made positive lifestyle changes, including weight loss. - If your symptoms return (e.g., difficulty swallowing, reflux, or choking sensations), please restart omeprazole and let us know. - Minimize cigar use, as it can aggravate reflux symptoms. We discussed vaccinations: - The pneumonia vaccine is now recommended for individuals aged 50 and older. You declined it today but may consider it in the future. If you decide to receive it, you can schedule a nurse visit or discuss it at your next appointment. Follow-up plan: - Schedule a follow-up visit in 6 months (December 2023). - Complete blood work, including cholesterol and PSA levels, a few days before your next appointment so we can review the results together. - If you experience any new or worsening symptoms, please contact our office. Yvette Mendes APRN.HERITAGE CONSULTANT 12/30/2024 10:37 AM Signed CC: Patient presents with: 6 month follow up HPI The patient consented to the use of [employer] software for draft documentation of the visit consistent with [facility]?s Notice of Privacy Practices. Maddie is a 59-year-old male with a history of hypercholesterolemia, HTN, and GERD, presenting for a 6-month follow-up. Hyperlipidemia: Maddie notes a decrease in cholesterol levels since the last visit, but saw that they are still elevated. He is currently taking atorvastatin 10 mg daily, He denies any side effects from the medication. Elevated PSA: mild elevation. He reports an increase in urinary frequency, particularly at night, and wonders if this is a normal part of aging. He denies nocturia more than once a night. Also denies slow stream, dribbling, incomplete emptying of his bladder, hematuria, or difficulty initiating urination. . Weight: Maddie has lost weight since the last visit, with a current weight of 203.8 lbs and a goal to lose an additional 10 lbs. He denies any side effects from his current antihypertensive medication, lisinopril 10 mg daily, but reports feeling more fatigued recently. He is unsure if this is due to the medication or aging. Joint pain: He also reports experiencing hip and leg pain, which he attributes to recent physical activities, including moving and walking with a weight vest. He notes that the pain has improved since reducing his activity level. He denies any other joint pain or stiffness. GERD: Maddie is currently taking omeprazole daily for GERD and reports no issues since starting the medication. He has a history of dysphagia and acid reflux, which have resolved with the medication. He denies any current symptoms and is interested in discontinuing the medication to see if symptoms return. He occasionally smokes cigars but denies regular cigarette use. Review of Systems Constitutional: Negative for chills, diaphoresis and fever. Respiratory: Negative for cough, shortness of breath and wheezing. Cardiovascular: Negative for chest pain, palpitations and leg swelling. Gastrointestinal: (more content not included)... Normal [facility] Urine Cultureon 12-05-2024 [facility] Culture exhibits no growth. Normal [facility] Comment on above: Performed By: #### M 100.2200 #### [facility] [address] [place], [place], [address] Abdomen/Pelvis without Conto n 12-03-2024 Abdomen/Pelvis without Cont [facility] Imaging Services [address] [place], [place] [id number] Abdomen/Pelvis without Cont MR#: [id number] Acct: [id number] Name: MADDIE SOLORIO Rep #: [id number] : 1965 M 59 From: Bryce Clemons PCP: Dr. Krish Anguiano MD Status: REG ER Study: Abdomen/Pelvis without Cont Date of Exam: 11/23 10/19 Exam# [id number] Ordering Dr: Seb Gibson DO PROCEDURE: CT abdomen pelvis without IV contrast REASON FOR EXAM: Pain, calculi TECHNIQUE: Multiple contiguous axial images through the abdomen and pelvis were obtained without the administration of intravenous contrast. Two-dimensional coronal and sagittal reformatted images were reconstructed. Low-dose imaging technique was utilized. COMPARISON: None. FINDINGS: Several punctate bibasilar pulmonary nodules, largest measuring 4 mm. Indeterminate exophytic lesion along the left hepatic lobe measuring 3.1 cm, not a simple cyst. Spleen, pancreas and adrenal glands are within normal limits. Gallbladder is partially contracted. No significant biliary ductal dilation. No renal calculi or hydronephrosis. Urinary bladder is intact. No bowel obstruction, focal bowel wall thickening or significant perienteric inflammation. Distal colonic diverticulosis. Normal appendix. No pelvic free fluid. No free air. No abdominal aortic aneurysm or suspicious adenopathy. Small bilateral fat containing inguinal and umbilical hernias. No acute osseous abnormality. CT/Abdomen/Pelvis without Cont IMPRESSION: 1. No acute process. 2. Complex cystic lesion along the left hepatic lobe measuring 3.1 cm. Recommend further evaluation with nonemergent contrast-enhanced MRI. 3. Punctate bibasilar pulmonary nodules. [address] follow-up could be performed if the patient has clinical risk factors per Fleischner criteria. One or more dose reduction techniques were used (e.g., Automated exposure control, adjustment of the mA and/or kV according to patient size, use of iterative reconstruction technique). Reading Location: [facility] CC: Dr. Seb Gibson DO; Dr. Krish Anguiano MD Mutual [employer] Accountant: Signed Normal [facility] Absolute neutrophil countOrd ered By: ED PROVIDER on 12-03-2024 Neutrophils (Bld) [#/Vol] 2.3 10*3/uL 2.0-7.7 [facility] Anion gap in Serum or Plasma Ordered By: Seb Gibson on 12-03-2024 Anion gap [Moles/Vol] 11 mmol/L 5-15 [facility] BUN/creatinine ratioOrdered By: Seb Gibson on 12-03-2024 Urea nitrogen/Creatinine [Mass ratio] 18.2 mg/mg 10-20 [facility] Bacteria LM.HPF (Urine sed) [#/Area]Ordered By: Seb Gibson on 12-03-2024 Urine Bacteria RARE /hpf None Seen [facility] Basophil percentageOrdered B y: ED PROVIDER on 12-03-2024 Basophils/100 WBC (Bld) 1.0 % 0-1 [facility] Bilirubin Test strip Ql (U)O rdered By: Seb Gibson on 12-03-2024 Bilirubin Ql (U) Negative Negative [facility] Bilirubin, totalOrdered By: Seb Gibsno on 12-03-2024 Bilirubin [Mass/Vol] 0.97 mg/dL 0.00-1.30 [facility] CBC W/Diff, Automatedon 03- Absolute Lymph 1.84 X10 3/uL Normal 0.83-4.51 [facility] Comment on above: Performed By: #### L 100.0100, L500.4050 #### [facility] [address] [place], [address] Absolute Neut 2.3 X10 3/uL Normal 2.0-7.7 [facility] Comment on above: Performed By: #### L 100.0100, L500.4050 #### [facility] [address] [place], [address] Basophils/100 WBC (Bld) 1.0 % Normal 0-1 [facility] Comment on above: Performed By: #### L 100.0100, L500.4050 #### [facility] [address] [place], [address] Eosinophils/100 WBC (Bld) 2.5 % Normal 0-5 [facility] Comment on above: Performed By: #### L 100.0100, L500.4050 #### [facility] [address] [place], [address] Erythrocyte distribution width (RBC) [Ratio] 11.9 % Normal 11.6-14.6 [facility] Comment on above: Performed By: #### L 100.0100, L500.4050 #### [facility] [address] [place], [address] Hematocrit (Bld) [Volume fraction] 40.6 % Normal 40-54 [facility] Comment on above: Performed By: #### L 100.0100, L500.4050 #### [facility] [address] [place], [address] Hemoglobin (Bld) [Mass/Vol] 14.3 g/dL Normal 13.0-16.5 [facility] Comment on above: Performed By: #### L 100.0100, L500.4050 #### [facility] [address] [place], [address] IG% 0.200 Normal 0.0-0.9 [facility] Comment on above: Result Comment: IG% - Immature Granulocytes (promyelocytes, myelocytes and metamyelocytes) > 1% indicates that a LEFT SHIFT is Present. Performed By: #### L 100.0100, L500.4050 #### [facility] [address] [place], [address] Lymphocytes/100 WBC (Bld) 37.8 % Normal 19-41 [facility] Comment on above: Performed By: #### L 100.0100, L500.4050 #### [facility] [address] [place], [address] MCH (RBC) [Entitic mass] 30.6 pg Normal 27.0-32.0 [facility] Comment on above: Performed By: #### L 100.0100, L500.4050 #### [facility] [address] [place], [address] MCHC (RBC) [Mass/Vol] 35.2 g/dL Normal 32-36 [facility] Comment on above: Performed By: #### L 100.0100, L500.4050 #### [facility] [address] [place], [address] MCV (RBC) [Entitic vol] 86.9 fL Normal 80-94 [facility] Comment on above: Performed By: #### L 100.0100, L500.4050 #### [facility] [address] [place], [address] Monocytes/100 WBC (Bld) 11.1 % High 0-10 [facility] Comment on above: Performed By: #### L 100.0100, L500.4050 #### [facility] [address] [place], [address] Neutrophils/100 WBC (Bld) 47.4 % Normal 47-70 [facility] Comment on above: Performed By: #### L 100.0100, L500.4050 #### [facility] [address] [place], [address] Nucleated RBC (Bld) [#/Vol] 0 10*3/uL Normal 0-5 [facility] Comment on above: Performed By: #### L 100.0100, L500.4050 #### [facility] [address] [place], [address] Platelet mean volume (Bld) [Entitic vol] 8.8 fL Normal 6.2-12.0 [facility] Comment on above: Performed By: #### L 100.0100, L500.4050 #### [facility] [address] [place], [address] Platelets (Bld) [#/Vol] 184 10*3/uL Normal 150-450 [facility] Comment on above: Performed By: #### L 100.0100, L500.4050 #### [facility] [address] [place], [address] RBC (Bld) [#/Vol] 4.67 10*6/uL Normal 4.6-6.2 [facility] Comment on above: Performed By: #### L 100.0100, L500.4050 #### [facility] [address] [place], [address] RDW SD 37.9 fl Normal 35.1-43.9 [facility] Comment on above: Performed By: #### L 100.0100, L500.4050 #### [facility] [address] [place], [address] WBC (Bld) [#/Vol] 4.9 10*3/uL Normal 4.4-11.0 [facility] Comment on above: Performed By: #### L 100.0100, L500.4050 #### [facility] [address] [place], [address] Carbon dioxide, total [Moles /volume] in Central venous bloodOrdered By: Seb Gibson on 12-03-2024 CO2 [Moles/Vol] 25.4 mmol/L 21.0-32.0 [facility] Chloride assayOrdered By: Jony Gibson on 12-03-2024 Chloride [Moles/Vol] 102 mmol/L 98-108 [facility] Comprehensive Metabolic Prof ilon 12-03-2024 Albumin [Mass/Vol] 4.3 g/dL Normal 3.5-5.0 [facility] Comment on above: Performed By: #### L 100.0100, L500.4050 #### [facility] [address] [place], [address] Albumin/Globulin [Mass ratio] 1.9 {ratio} Normal 0.9-2.4 [facility] Comment on above: Performed By: #### L 100.0100, L500.4050 #### [facility] [address] [place], [address] ALK PHOS 70 U/L Normal 40-129 [facility] Comment on above: Performed By: #### L 100.0100, L500.4050 #### [facility] [address] [place], [address] ALT [Catalytic activity/Vol] 17 U/L Normal <=46 [facility] Comment on above: Performed By: #### L 100.0100, L500.4050 #### [facility] [address] [place], [address] AST [Catalytic activity/Vol] 26 U/L Normal <=37 [facility] Comment on above: Performed By: #### L 100.0100, L500.4050 #### [facility] [address] [place], [address] Bilirubin [Mass/Vol] 0.97 mg/dL Normal 0.00-1.30 [facility] Comment on above: Performed By: #### L 100.0100, L500.4050 #### [facility] [address] [place], [address] BUN/CRE 18.2 RATIO Normal 10-20 [facility] Comment on above: Performed By: #### L 100.0100, L500.4050 #### [facility] [address] [place], [address] Calcium [Mass/Vol] 9.1 mg/dL Normal 7.6-11.0 [facility] Comment on above: Performed By: #### L 100.0100, L500.4050 #### [facility] [address] [place], [address] Chloride [Moles/Vol] 102 mmol/L Normal 98-108 [facility] Comment on above: Performed By: #### L 100.0100, L500.4050 #### [facility] [address] [place], [address] CO2 [Moles/Vol] 25.4 mmol/L Normal 21.0-32.0 [facility] Comment on above: Performed By: #### L 100.0100, L500.4050 #### [facility] [address] [place], [address] Creatinine [Mass/Vol] 1.06 mg/dL Normal 0.70-1.20 [facility] Comment on above: Performed By: #### L 100.0100, L500.4050 #### [facility] [address] [place], [address] ECRCL 91.74 ml/min Normal 50-250 [facility] Comment on above: Performed By: #### L 100.0100, L500.4050 #### [facility] [address] [place], [address] GAP 11 Normal 5-15 [facility] Comment on above: Performed By: #### L 100.0100, L500.4050 #### [facility] [address] [place], [address] GFR/1.73 sq M.predicted among non-blacks MDRD (S/P/Bld) [Vol rate/Area] 82 mL/min/{1.73_m2} Normal >60 [facility] Comment on above: Result Comment: mL/m in/1.73m2 CKD-EPI Creatinine Equation (2020) Performed By: #### L 100.0100, L500.4050 #### [facility] [address] [place], [address] Globulin (S) [Mass/Vol] 2.3 g/dL Normal 2.2-4.2 [facility] Comment on above: Performed By: #### L 100.0100, L500.4050 #### [facility] [address] [place], [address] Glucose [Mass/Vol] 108 mg/dL High 70-99 [facility] Comment on above: Performed By: #### L 100.0100, L500.4050 #### [facility] [address] [place], [address] Potassium [Moles/Vol] 4.0 mmol/L Normal 3.3-5.1 [facility] Comment on above: Performed By: #### L 100.0100, L500.4050 #### [facility] [address] [place], [address] Sodium [Moles/Vol] 138 mmol/L Normal 133-145 [facility] Comment on above: Performed By: #### L 100.0100, L500.4050 #### [facility] [address] [place], [address] T PROT 6.6 g/dL Normal 5.9-8.4 [facility] Comment on above: Performed By: #### L 100.0100, L500.4050 #### [facility] [address] [place], [address] Urea nitrogen [Mass/Vol] 19 mg/dL Normal 4-19 [facility] Comment on above: Performed By: #### L 100.0100, L500.4050 #### [facility] [address] [place], [address] Emergency Department Summary on 12-03-2024 Emergency Department Summary [facility] Medical Records Department [address] [place] [address] Emergency Department Summary 12/03/24 MR#: [id number] Acct: [id number] Name: MADDIE SOLORIO Rep #: [id number] : 1965 59 From: Seb Dowd PCP: Dr. Krish Anguiano MD Status:DEP ER Location: ED HPI History of Present Illness Chief Complaint: Flank Pain Informant: patient and spouse/S.O. Narrative Narrative: Here with spouse for evaluation right flank pain over a week ago its constant. He does workout throughout the week. There is no direct trauma. He was walking when he felt symptoms.'s been increasing. Pain radiates to the side. Had nausea walking in today. This resolved. No urinary symptoms. No fever chills or sweats. Normal bowel movements. No abdominal surgeries. Prior similar symptoms: No PFSH PFSH Medical History Cigar smoker HTN (hypertension) Home Medications ???Medication ???Instructions ???Recorded ???Last Taken ???Type lisinopril 10 mg tablet 10 mg PO DAILY #30 tabs 04/23/22 U nknown Rx atorvastatin 10 mg tablet 10 mg PO QHS cholesterol 12/03/24 Unknown History omeprazole 40 mg capsule,delayed 40 mg PO DAILY 12/03/24 Unknown Hi story release cyclobenzaprine 10 mg tablet 10 mg PO TID PRN Muscle Spasm #20 12/04/24 Unknown Rx TABLETS Allergy/AdvReac Type Severity Reaction Status Date / Time No Known Allergies Allergy Verified 12/03/24 20:54 Family History Father No problems noted. Mother Hypertension Surgical History History of rectal surgery Social History household members: spouse and family Smoking Status: Current some day smoker tobacco type: cigars per week: 1 alcohol intake: current alcohol intake frequency: 0-2 drinks per day details: Notes 2 ounce vodka drink q HS. substance use type: does not use ROS ROS ED Constitutional Constitutional ED: Denies chills, fever(s) or sweats ENT ENT ED: Denies sore throat Cardiovascular Cardiovascular: Denies chest pain, leg edema, palpitations or racing heartbeat Respiratory/Chest Respiratory/Chest: Denies cough, dyspnea or dyspnea on exertion Gastrointestinal Gastrointestinal: Denies abdominal pain, diarrhea, nausea or vomiting Genitourinary Genitourinary ED: Denies dysuria, hematuria or urinary frequency Musculoskeletal Musculoskeletal: Reports back pain; Denies extremity pain or neck pain Integumentary Denies rash or wounds Neurologic Neurologic: Denies headache(s), paresthesias or weakness EXAM Physical Exam Const Vital Signs: 12/03/24 20:55 12/03/24 22:54 12/04/24 00:00 Temperature 98 F 98.2 F Temperature Source Oral Oral Pulse Rate 67 55 L 69 Respiratory Rate 18 18 16 Blood Pressure 124/83 H 128/72 H 124/78 H Blood Pressure Mean 96 90 93 Pulse Ox 97 97 98 Oxygen Delivery Method Room Air Room Air Room Air Positive well nourished and well developed General Appearance ED: well developed and NAD HEENT Reports moist mucous membranes normocephalic and atraumatic Eyes General Eye ED: Yes normal appearance of both eyes Neck full ROM Chest Wall Chest: Negative for tenderness Resp normal respiratory effort and normal air movement Effort and Inspection: symmetric chest movement; Negative for respiratory distress Cardio regular rate, regular rhythm and no murmurs Peripheral Pulses: pulses 2+ throughout GI normal to inspection, nondistended, normoactive bowel sounds and non-tender GI Narrative: Negative Stinson's McBurney's tenderness. Palpation: Negative for guarding or rebound tenderness present Back/Spine Back/Spine Narrative: Tender palpation right flank. No ecchymosis. No rash. Extremity normal to inspection General Extremety ED: Negative for edema or tenderness General Extremity: Negative for edema Neuro oriented x3 and no sensory deficits noted Sensorium / Orientation: awake and alert Skin no rashes or lesions noted and no wounds MDM MDM MDM Narrative Medical decision making narrative: Interventions / MDM: Differential diagnosis: Flank pain, liver cysts, nonspecific pulmonary nodules Diagnosis considered but do not suspect: Kidney stone, colitis, appendicitis however CT images negative. My EKG interpretation: N/A Imaging independently reviewed and interpreted by myself: CT abdomen pelvis: No obstructive uropathy. 3.1 cm left hepatic lobe complex cyst per radiology. Normal appendix. Pulmonary nodules noted. External documents reviewed: N/A Test considered but not ordered:N/A ED course: Patient does have right flank pain on exam however reports pain is deeper inside (more content not included)... Normal [facility] Eosinophil percentageOrdered By: ED PROVIDER on 12-03-2024 Eosinophils/100 WBC (Bld) 2.5 % 0-5 [facility] Epithelial cells.squamous LM Ql (Urine sed)Ordered By: Seb Gibson on 12-03-2024 Epithelial cells.squamous LM.HPF (Urine sed) [#/Area] 0 /[HPF] 0-5 [facility] Erythrocyte distribution wid th ratioOrdered By: ED PROVIDER on 12-03-2024 Erythrocyte distribution width (RBC) [Ratio] 11.9 % 11.6-14.6 [facility] Erythrocyte distribution wid th standard deviationOrdered By: ED PROVIDER on 12-03-2024 Erythrocyte distribution width (RBC) [Entitic vol] 37.9 fL 35.1-43.9 [facility] Estimation of creatinine reyna aranceOrdered By: Seb Gibson on 12-03-2024 Estimated Creatinine Clearance Calc 91.74 ml/min 50-250 [facility] GFR/1.73 sq M.predicted richard g non-blacks MDRD (S/P/Bld) [Vol rate/Area]Ordered By: Seb Gibson on 12-03-2024 Estimated GFR (MDRD) Non-Af Amer 82 >60 [facility] Comment on above: mL/min/1.73m2 CKD-EP I Creatinine Equation (2020) Glucose Ql (U)Ordered By: Jony Gibson on 12-03-2024 Urine Glucose (UA) Normal mg/dl Normal [facility] Hematocrit Auto (Bld) [Volum e fraction]Ordered By: ED PROVIDER on 12-03-2024 Hematocrit (Bld) [Volume fraction] 40.6 % 40-54 [facility] Hemoglobin measurementOrdere d By: ED PROVIDER on 12-03-2024 Hemoglobin (Bld) [Mass/Vol] 14.3 g/dL 13.0-16.5 [facility] Immature granulocytes/100 WB C Auto (Bld)Ordered By: ED PROVIDER on 12-03-2024 Immature granulocytes/100 WBC (Bld) 0.200 % 0.0-0.9 [facility] Comment on above: IG% - Immature Granu locytes (promyelocytes, myelocytes and metamyelocytes) > 1% indicates that a LEFT SHIFT is Present. Ketones Test strip Ql (U)Ord ered By: Seb Gibson on 12-03-2024 Ketones Ql (U) Negative Negative [facility] - Chemistry and C hemistry - challengeOrdered By: Seb Gibson on 12-03-2024 AST [Catalytic activity/Vol] 26 U/L <38 [facility] Lymphocytes Auto (Unsp spec) [#/Vol]Ordered By: ED PROVIDER on 12-03-2024 Lymphocytes (Bld) [#/Vol] 1.84 10*3/uL 0.83-4.51 [facility] Lymphocytes/100 WBC Auto (Un sp spec)Ordered By: ED PROVIDER on 12-03-2024 Lymphocytes/100 WBC (Bld) 37.8 % 19-41 [facility] MCV (mean corpuscular volume ) determinationOrdered By: ED PROVIDER on 12-03-2024 MCV (RBC) [Entitic vol] 86.9 fL 80-94 [facility] Mean corpuscular hemoglobin (MCH) determinationOrdered By: ED PROVIDER on 12-03-2024 MCH (RBC) [Entitic mass] 30.6 pg 27.0-32.0 [facility] Mean corpuscular hemoglobin concentration (MCHC) determinationOrdered By: ED PROVIDER on 12-03-2024 MCHC (RBC) [Mass/Vol] 35.2 g/dL 32-36 [facility] Mean platelet volume determi nationOrdered By: ED PROVIDER on 12-03-2024 Platelet mean volume (Bld) [Entitic vol] 8.8 fL 6.2-12.0 [facility] Microscopic analysis of urin e for red blood cells (RBC)Ordered By: Seb Gibson on 12-03-2024 Urine RBC 5-10 SEEN /hpf 0-5 [facility] Monocyte percentageOrdered B y: ED PROVIDER on 12-03-2024 Monocytes/100 WBC (Bld) 11.1 % High 0-10 [facility] Mucus LM Ql (Urine sed)Order ed By: Seb Gibson on 12-03-2024 Mucus Ql (Urine sed) 0 SEEN /hpf [facility] Neutrophil percentageOrdered By: ED PROVIDER on 12-03-2024 Neutrophils/100 WBC (Bld) 47.4 % 47-70 [facility] Nitrite Test strip Ql (U)Ord ered By: Seb Gibson on 12-03-2024 Nitrite Ql (U) Negative Negative [facility] Nucleated red blood cell per centageOrdered By: ED PROVIDER on 12-03-2024 Nucleated RBC/100 WBC (Bld) [Ratio] 0 % 0-5 [facility] Platelet countOrdered By: ED PROVIDER on 12-03-2024 Platelets (Bld) [#/Vol] 184 10*3/uL 150-450 [facility] Potassium (Unsp spec) [Mass/ Vol]Ordered By: Seb Gibson on 12-03-2024 Potassium [Moles/Vol] 4.0 mmol/L 3.3-5.1 [facility] Protein Test strip Ql (U)Ord ered By: Seb Gibson on 12-03-2024 Protein Ql (U) 30 mg/dl High Negative [facility] RBC Auto (Bld) [#/Vol]Ordere d By: ED PROVIDER on 12-03-2024 RBC (Bld) [#/Vol] 4.67 10*6/uL 4.6-6.2 [facility] Serum creatinine measurement (mass/volume)Ordered By: Seb Gibson on 12-03-2024 Creatinine [Mass/Vol] 1.06 mg/dL 0.70-1.20 [facility] Serum globulin measurementOr dered By: Seb Gibson on 12-03-2024 Globulin (S) [Mass/Vol] 2.3 g/dL 2.2-4.2 [facility] Serum glucose measurement (m ass/volume)Ordered By: Seb Gibson on 12-03-2024 Glucose [Mass/Vol] 108 mg/dL High 70-99 [facility] Serum or plasma alanine tang otransferase (ALT) measurementOrdered By: Seb Gibson on 12-03-2024 ALT [Catalytic activity/Vol] 17 U/L <47 [facility] Serum or plasma albumin herman urement (mass/volume)Ordered By: Seb Gibson on 12-03-2024 Albumin [Mass/Vol] 4.3 g/dL 3.5-5.0 [facility] Serum or plasma albumin/glob ulin mass ratioOrdered By: Seb Gibson on 12-03-2024 Albumin/Globulin [Mass ratio] 1.9 {ratio} 0.9-2.4 [facility] Serum or plasma alkaline naomi sphatase measurementOrdered By: Seb Gibson on 12-03-2024 ALP [Catalytic activity/Vol] 70 U/L 40-129 [facility] Serum or plasma calcium herman urement (mass/volume)Ordered By: Seb Gibson on 12-03-2024 Calcium [Mass/Vol] 9.1 mg/dL 7.6-11.0 [facility] Serum or plasma urea nitroge n measurement (mass/volume)Ordered By: Seb Gibson on 12-03-2024 Urea nitrogen [Mass/Vol] 19 mg/dL 4-19 [facility] Sodium levelOrdered By: Seb Gibson on 12-03-2024 Sodium [Moles/Vol] 138 mmol/L 133-145 [facility] Total proteinOrdered By: Geovani Gibson on 12-03-2024 Protein [Mass/Vol] 6.6 g/dL 5.9-8.4 [facility] Urinalysis, Completeon 12-03 BACTERIA RARE Normal None Seen [facility] Comment on above: Order Comment: RANDI CTOR TO SPECIFY Performed By: #### L 400.0001 #### [facility] [address] [place], [address] RBC 5-10 SEEN Normal 0-5 [facility] Comment on above: Order Comment: RANDI CTOR TO SPECIFY Performed By: #### L 400.0001 #### [facility] [address] [place], [address] EPI,SQUAMOUS 0 SEEN Normal 0-5 [facility] Comment on above: Order Comment: RANDI CTOR TO SPECIFY Performed By: #### L 400.0001 #### [facility] [address] [place], [address] Mucus Ql (Urine sed) 0 SEEN Normal [facility] Comment on above: Order Comment: RANDI CTOR TO SPECIFY Performed By: #### L 400.0001 #### [facility] [address] [place], [address] WBC 0 SEEN Normal 0-[address] [place] [address] Comment on above: Order Comment: RANDI CTOR TO SPECIFY Performed By: #### L 400.0001 #### [facility] [address] [place], [address] Urine blood detectionOrdered By: Seb Gibson on 12-03-2024 Urine Occult Blood Negative Negative [facility] Urine clarityOrdered By: Geovani Gibson on 12-03-2024 Clarity (U) Clear Clear [facility] Urine color determinationOrd ered By: Seb Gibson on 12-03-2024 Color (U) Yellow Yellow [facility] Urine leukocyte esterase det ection by dipstickOrdered By: Seb Gibson on 12-03-2024 Leukocyte esterase Test strip Ql (U) 25 /ul High Negative [facility] Urine pHOrdered By: Seb Gibson on 12-03-2024 pH (U) 6.0 [pH] 5.0 - 8.0 [facility] Urine specific gravity measu rementOrdered By: Seb Gibson on 12-03-2024 Specific gravity (U) [Rel density] 1.020 1.002-1.030 [facility] Urobilinogen Ql (U)Ordered B y: Seb Gibson on 12-03-2024 Urobilinogen (U) [Mass/Vol] 1 mg/dL High Normal [facility] White blood cell (WBC) count Ordered By: ED PROVIDER on 12-03-2024 WBC (Bld) [#/Vol] 4.9 10*3/uL 4.4-11.0 [facility] White blood cell countOrdere d By: Seb Gibson on 12-03-2024 Urine WBC 0 SEEN /hpf 0-5 [facility] Lipid 1996 panelon Cholesterol [Mass/Vol] 265 mg/dL High <200 [facility] Comment on above: Order Comment: Speci men Type: BLOOD SPECIMEN Ordering Facility: [facility] Address: [address] [place] [address] Result Comment: <200 mg/dL, Desirable 200-239 mg/dL, Borderline high >239 mg/dL, High Performed By: #### 5 0189-0 #### [facility] CLIA [id number] [address] [place] [address] OF [facility] Cholesterol in HDL [Mass/Vol] 95 mg/dL Normal >39 [facility] Comment on above: Order Comment: Speci men Type: BLOOD SPECIMEN Ordering Facility: [facility] Address: [address] [place] [address] Result Comment: 40-5 9 mg/dL, Acceptable >59 mg/dL, High: Negative risk factor for coronary heart disease <40 mg/dL, Low: Positive risk factor for coronary heart disease Performed By: #### 5 0189-0 #### [facility] CLIA [id number] [address] [place] [address] [place] Cholesterol in LDL [Mass/Vol] 149 mg/dL High <100 [facility] Comment on above: Order Comment: Speci men Type: BLOOD SPECIMEN Ordering Facility: [facility] Address: [address] [place] [address] Result Comment: <100 mg/dL, Optimal 100-129 mg/dL, Near optimal/above optimal 130-159 mg/dL, Borderline high 160-189 mg/dL, High >189 mg/dL, Very high Secondary prevention optimal LDL Cholesterol levels are recommended to be < 70 mg/dL Performed By: #### 5 0189-0 #### [facility] CLIA [id number] [address] [place] [address] [place] Cholesterol in LDL/Cholesterol in HDL [Mass ratio] 1.57 {ratio} Normal <2.54 [facility] Comment on above: Order Comment: Félix macario Type: BLOOD SPECIMEN Ordering Facility: [facility] Address: [address] [place] [address] Result Comment: Nata fernández: 1. National Cholesterol Education Program ATP III Guideline At-A-Glance Quick Desk Reference: National Heart, Lung, and Blood [place]. National Institutes of Health. 2001: NIH Publication No. 01-3305. 2. An International Atherosclerosis Society position paper: global recommendations for the management of dyslipidemia: executive summary, Atherosclerosis. 2014: 232(2):410-413. Performed By: #### 5 0189-0 #### [facility] CLIA [id number] [address] [place] [address] [place] Cholesterol in VLDL [Mass/Vol] 21 mg/dL Normal <30 [facility] Comment on above: Order Comment: Félix macario Type: BLOOD SPECIMEN Ordering Facility: [facility] Address: [address] [place] [address] Performed By: #### 5 0189-0 #### [facility] CLIA [id number] [address] [place] [address] [place] Cholesterol non HDL [Mass/Vol] 170 mg/dL High <130 [facility] Comment on above: Order Comment: Félix macario Type: BLOOD SPECIMEN Ordering Facility: [facility] Address: [address] [place] [address] Result Comment: <130 mg/dL, Optimal 130-159 mg/dL, Near optimal/above optimal 160-189 mg/dL, Borderline high 190-219 mg/dL, High >219 mg/dL, Very high Secondary prevention optimal non HDL Cholesterol levels are recommended to be <100 mg/dL Performed By: #### 5 0189-0 #### [facility] CLIA [id number] [address] [place] [address] [place] Cholesterol.total/Chol esterol in HDL [Mass ratio] 2.79 {ratio} Normal <5.10 [facility] Comment on above: Order Comment: Speci men Type: BLOOD SPECIMEN Ordering Facility: [facility] Address: [address] [place] [address] Performed By: #### 5 0189-0 #### [facility] CLIA [id number] [address] [place] [address] [place] FASTING TIME 14 hrs Normal [facility] Comment on above: Order Comment: Speci men Type: BLOOD SPECIMEN Ordering Facility: [facility] Address: [address] [place] [address] Performed By: #### 5 0189-0 #### [facility] CLIA [id number] [address] [place] [address] [place] Triglyceride [Mass/Vol] 105 mg/dL Normal <150 [facility] Comment on above: Order Comment: Speci men Type: BLOOD SPECIMEN Ordering Facility: [facility] Address: [address] [place] [address] Result Comment: <150 mg/dL, Normal 150-199 mg/dL, Borderline high 200-499 mg/dL, High >499 mg/dL, Very high Performed By: #### 5 0189-0 #### [facility] CLIA [id number] [address] [place] [address] [place] PSA SerPl-mCncon 10-28-2024 Prostate specific Ag [Mass/Vol] 3.12 ng/mL High <2.60 [facility] Comment on above: Order Comment: Speci men Type: BLOOD SPECIMEN Ordering Facility: [facility] Address: [address] [place] [address] Result Comment: Tota l PSA test methodology used is the Electrochemiluminescence Immunoassay by [employer]. Total PSA values by differing methodologies cannot be interchanged. For an individual patient, the significance of a PSA level should be interpreted in a broad clinical context, including age, race, family history, digital rectal exam, prostate size, results of prior testing (prostate biopsy, free PSA, PCA3), and use of 5-alpha reductase inhibitors. Considering the high incidence of asymptomatic cancer in the general population that may not pose an ultimate risk to a patient, the decision to recommend urological evaluation or prostate biopsy should be individualized after consideration of all these factors. REFERENCE: Mary Ellen Miguel M.D., M.P.H., Mich Kent M.D., Ph.D., Thiago Aranda M.D., Zarina Woodson, M.P.H., Yoanna Brunson, Sc.D. Effect of Verification Bias on Screening for Prostate Cancer by Measurement of Prostatic Specific Antigen. N Engl J Med 2003,349:335-42. Performed By: #### 5 0189-0 #### [facility] CLIA [id number] [address] [place] [address] [place] OF [facility] CNOVon 07-19-2024 CNOV Office Visit (GENSWS ) -- MADDIE SOLORIO ([id number]) 1965 May[place] Date Time Provider Department 07/19/24 11:00 AM PURVI WEBBER GENLUZ ELENA During your visit today, we recorded the following information about you: Temperature Pulse Respiration Blood pressure 97.9 degrees 83/minute 18/minute 122/82 Weight Height 100.6 kg 1.829 m Purvi Webber APRN.CNP 07/19/2024 1:22 PM Signed FOLLOW UP VISIT - ENDOSCOPY Maddie Solorio 1965 [id number] REFERRING PHYSICIAN: Effie Alvarez [address] [facility] [address] Maddie Solorio is a patient I am following for dysphagia, sore throat. Dr. Alvarez performed upper endoscopy on 07/12/24. The patient was found to have Impression: - Normal examined jejunum. - Normal examined duodenum. - Gastritis. Biopsied. - Mildly severe reflux esophagitis with no bleeding. Biopsied. - Normal middle third of esophagus. Biopsied. Pathology demonstrated: FINAL DIAGNOSIS A. Stomach, antrum, biopsy: - Gastric antral mucosa with reactive gastropathy. - No evidence of H. pylori microorganisms on MARLON sections. B. Esophagus, distal, biopsy: - Inflamed squamous and gastric cardia-type mucosa with a single cell suspicious for intestinal metaplasia, negative for dysplasia (see comment). C. Esophagus, mid, biopsy: - Superficial fragment of squamous mucosa with no diagnostic abnormality. Diagnosis Comment B. The cell is present only in one section and disappeared on the deeper levels. This finding is suspicious but not definitive for intestinal metaplasia. If there is endoscopic concern for Estrada's esophagus, a follow-up biopsy is recommended The patient notes continued reflux but no dysphagia episodes. Maddie refers he drinks a lot of carbonated water and has been trying to cut back. He also admits to daily alcohol and coffee use. He has changed his diet and lost 20lbs recently. He also admits to smoking cigars. VITALS: There were no vitals taken for this visit. General: patient is alert, cooperative, pleasant and in no acute distress On examination, the abdomen is benign. Assessment ASSESSMENT/PLAN: 1. Gastroesophageal reflux disease, unspecified whether esophagitis present - ICD9: 530.81, ICD10: K21.9 - Discussed lifestyle modifications including losing weight, limiting caffeine, no meals three hours before sleep, limiting alcohol and head of bed elevation - Continue treatment with Prilosec 40 mg QD The operative findings and pathology report were reviewed with the patient, and the patient has had the opportunity to ask questions and have questions answered. If the patient notes any problems or changes in bowel function, the patient should contact me immediately. Otherwise I recommend follow up endoscopy as symptoms dictate. HM updated and recall letter generated. Discussed treatment plan and patient voices understanding. Patient's questions answered appropriately. Medications and potential side effects were discussed and patient voices understanding. Return to the office as scheduled or as needed for worsening/no improvement. _ Purvi Webber APRN.HERITAGE CONSULTANT Referring Provider: EFFIE ALVAREZ [[id number]] Allergies As of Date: 07/19/2024 (No Known Allergies) Date Reviewed: 07/19/2024 Reviewed by: Amberly Armstrong RN - Fully Assessed Reason for Visit: Post Op Follow Up [3947] Cmt: EGD follow-up; done on 07/12/2024 Primary Visit Diagnosis:Gastroesophageal reflux disease, unspecified whether esophagitis present [K21.9] Prescriptions as of 07/19/2024 - MULTIVITAMIN ORAL Take 1 tablet by mouth once daily. - omega-3 fatty acids/fish oil (OMEGA 3 FISH OIL ORAL) Take 1 capsule by mouth once daily. - omeprazole (PRILOSEC) 40 mg capsule Take 1 capsule by mouth once daily. - lisinopril (ZESTRIL) 10 mg tablet Take 1 tablet by mouth once daily. - atorvastatin (LIPITOR) 10 mg tablet Take 1 tablet by mouth daily at bedtime. For cholesterol. - Cholecalciferol, Vitamin D3, 125 mcg (5,000 unit) cap Take 1 capsule by mouth once daily. Problem List As Of Date 07/19/2024 Noted Resolved Obesity, Class I, BMI 30-34.9 [E66.811] 05/16/2022 Primary hypertension [I10] 05/16/2022 Hyperlipidemia [E78.5] 05/16/2022 Elevated PSA [R97.20] 06/17/2022 Impaired fasting blood sugar [R73.01] 04/06/2023 Dysphagia [R13.10] 05/08/2024 Encounter Status:Closed by PURVI WEBBER on 07/19/24 [facility] [id number] 07-12-2024 [id number] HNO ID: [id number] Author: JULEE SCHOFIELD RN Service: ? Author Type: Registered Nurse Type: [id number] Filed: 07/12/2024 12:51 Note Text: The patient received a copy of EGD discharge instructions that contain information for how to contact the physician who performed the procedure and when to seek medical care. Normal [facility] EGD Study observation Tamiko madrid 07-12-2024 Josef [facility] Gastrointestinal Endoscopy Patient Name: Maddie Solorio Procedure Date: 07/12/2024 11:54 AM Date of : 1965 Admit Type: Outpatient Age: 59 Gender: Male Note Status: Finalized Procedure: Upper GI endoscopy Indications: Dysphagia Providers: Effie Alvarez MD Patient Profile: This is a 59 year old male. Referring Physician: Purvi Webber (Referring MD) Medicines: Midazolam 5 mg IV, Fentanyl 100 micrograms IV, Diphenhydramine 50 mg IV Complications: No immediate complications. Requesting Provider: Procedure: Pre-Anesthesia Assessment: - Prior to the procedure, a History and Physical was performed, and patient medications and allergies were reviewed. The patient is competent. The risks and benefits of the procedure and the sedation options and risks were discussed with the patient. All questions were answered and informed consent was obtained. Patient identification and proposed procedure were verified by the physician and the nurse in the procedure room. Mental Status Examination: alert and oriented. Respiratory Examination: clear to auscultation. Prophylactic Antibiotics: The patient does not require prophylactic antibiotics. Prior Anticoagulants: The patient has taken no anticoagulant or antiplatelet agents. ASA Grade Assessment: II - A patient with mild systemic disease. After reviewing the risks and benefits, the patient was deemed in satisfactory condition to undergo the procedure. The anesthesia plan was to use moderate sedation / analgesia (conscious sedation). Immediately prior to administration of medications, the patient was re-assessed for adequacy to receive sedatives. The heart rate, respiratory rate, oxygen saturations, blood pressure, adequacy of pulmonary ventilation, and response to care were monitored throughout the procedure. The physical status of the patient was re-assessed after the procedure. After obtaining informed consent, the endoscope was passed under direct vision. Throughout the procedure, the patient's blood pressure, pulse, and oxygen saturations were monitored continuously. The Endosonoscope was introduced through the mouth, and advanced to the jejunum. The upper GI endoscopy was accomplished without difficulty. The patient tolerated the procedure well. Moderate Sedation: Moderate (conscious) sedation was personally administered by the endoscopist. The following parameters were monitored: oxygen saturation, heart rate, blood pressure, and response to care. Total physician intraservice time was 6 minutes. The administration of moderate sedation was initiated at 12:04 PM. Findings: The examined jejunum was normal. The examined duodenum was normal. Localized mild inflammation characterized by erosions and erythema was found in the entire examined stomach. Biopsies were taken with a cold forceps for histology. Mildly severe esophagitis with no bleeding was found in the lower third of the esophagus. Biopsies were taken with a cold forceps for histology. The middle third of the esophagus was normal. Biopsies were taken with a cold forceps for histology. Impression: - Normal examined jejunum. - Normal examined duodenum. - Gastritis. Biopsied. - Mildly severe reflux esophagitis with no bleeding. Biopsied. - Normal middle third of esophagus. Biopsied. Recommendation: - Discharge patient to home. - Resume previous diet. - Continue present medications. - Return to nurse practitioner in 1 week. Procedure Code(s): --- Professional --- 36344, Esophagogastroduodenoscopy , flexible, transoral; with biopsy, single or multiple CPT copyright 2020 [employer]. All rights reserved. The codes documented in this report are prelimin (more content not included)... PROVATION [facility] Radiology Study observation (narrative) [facility] HISTORY PHYSICALon HISTORY PHYSICAL HNO ID: [id number] Author: EFFIE ALVAREZ MD Service: General Surgery Author Type: Physician Type: H&P Filed: 07/12/2024 11:14 Note Text: HISTORY AND PHYSICAL Maddie Solorio : 1965 REFERRING PHYSICIAN: Yvette Mendes [address] [facility] [address] CHIEF COMPLAINT: Patient presents with: Consult: GERD, acid reflux couple years, pcp referral HPI: Maddie is a 59 year old male referred for endoscopy. Maddie notes continued throat irritation AND epigastric discomfort after starting prilosec 40mg daily for 4 weeks for heartburn, dysphagia and water brash. Maddie denies heartburn. Maddie notes a distant history of dysphagia. Refers over the summer he had an episode where he swallowed chicken and it felt like it got stuck, caused vomiting. Only passed after he drank a carbonated beverage. Has had 2 other episodes like this, but not as severe. Feels like his throat is swollen- worse in the morning C/O some mild congestion also Maddie denies a history of ulcers/ peptic ulcer disease. Maddie refers is mother has had similar issues with swallowing. Has concerns because multiple people he knows have recently been dx with esophageal cancer with similar symptoms. Maddie has not undergone prior EGD. Last colonoscopy 06/2022 with recommendation of repeat in 5 years. Sedation received at [facility] : Midazolam 6 mg IV, Fentanyl 50 micrograms IV, Diphenhydramine 50 mg IV CURRENT MEDICATIONS Current Outpatient Medications Medication Sig MULTIVITAMIN ORAL Take by mouth once daily. omega-3 fatty acids/fish oil (OMEGA 3 FISH OIL ORAL) Take by mouth once daily. omeprazole (PRILOSEC) 40 mg capsule Take 1 capsule by mouth once daily. lisinopril (ZESTRIL) 10 mg tablet Take 1 tablet by mouth once daily. atorvastatin (LIPITOR) 10 mg tablet Take 1 tablet by mouth daily at bedtime. For cholesterol. Cholecalciferol, Vitamin D3, 125 mcg (5,000 unit) cap Take 1 capsule by mouth once daily. (Patient not taking: Reported on 07/08/2024) No current facility-administered medications for this visit. ALLERGIES: Patient has no known allergies. PAST MEDICAL HISTORY PAST MEDICAL HISTORY Diagnosis Date GERD (gastroesophageal reflux disease) History of prostatitis 1999 Hyperlipidemia 05/16/2022 Obesity, Class I, BMI 30-34.9 05/16/2022 Primary hypertension 05/16/2022 PAST SURGICAL HISTORY PAST SURGICAL HISTORY Procedure Laterality Date COLONOSCOPY 07/06/2022 repeat in 5 years COLONOSCOPY SCREENING 05/2016 [place] PAST SURGICAL HISTORY OF 1999 Fertility surgery REMOVAL OF ANAL FISSURE 2017 FAMILY HISTORY FAMILY HISTORY Problem Relation Age of Onset Hypertension Mother Hyperlipidemia Mother other (MVA) Father Celiac Disease Sister No Known Problems Brother Hypertension Maternal Grandmother Hyperlipidemia Maternal Grandmother SOCIAL HISTORY Social History Tobacco Use Smoking status: Some Days Types: Cigars Start date: 09/25/1999 Smokeless tobacco: Never Tobacco comments: Cigar Vaping Use Vaping status: Never Used Substance Use Topics Alcohol use: Yes Alcohol/week: 7.0 standard drinks of alcohol Types: 7 Glasses of wine per week Comment: social Drug use: Never REVIEW OF SYMPTOMS: The review of systems data was entered by the nurse and reviewed by me Nursing Notes: Dominique Baldwin LPN 07/08/2024 10:30 AM Signed REVIEW OF SYSTEMS: General: The patient denies fatigue, denies weight loss, notes weight gain, denies feeling hot, and denies feelings of cold. Eyes: The patient denies glaucoma, denies eye injury/surgery, wears glasses or contacts. Ear/Nose/Throat: The patient denies allergies, denies hayfever, denies ear infections, and denies bloody noses. Cardiovascular: The patient denies chest pain, denies heart disease, notes high blood pressure,denies cardiac stent, denies prior heart attack, denies irregular heart beat, notes high cholesterol, denies poor circulation, denies heart failure, other cardiac issues, denies claudication, notes cold feet, denies peripheral arterial stent. Respiratory: The patient denies tuberculosis, denies pneumonia, denies frequent cough, denies pulmonary embolism, denies shortness of breath, and denies coughing up blood. Gastrointestinal: The patient notes difficulty swallowing, notes acid reflux, denies ulcers, denies vomiting, denies jaundice/hepatitis, denies gallbladder problems, denies black or tarry stools, denies hemorrhoids, denies bleeding from rectum, denies diverticulitis, denies constipation, denies diarrhea, denies loss of stool control, and notes hernias. Kidney/Bladder: The patient denies kidney stones, denies urine infections, and denies bloody urine. Skin: The patient denies a history of skin cancer, denies bleeding/changing moles, and denies a history of skin rash. Neurologic: The patient denies a history of epilepsy/convulsions, denies headaches, denies head/ (more content not included)... Normal [facility] SURGICAL PATHOLOGYon 024 CASE REPORT Normal [facility] Comment on above: Order Comment: Speci men Type: TISSUE SPECIMEN Ordering Facility: [facility] Address: [address] [place] [address] Result Comment: Surg ica Pathology Report Case: [id number] Authorizing Provider: Effie Alvarez MD Collected: 07/12/2024 12:08 PM Ordering Location: Ambulatory Surgery Received: 07/12/2024 01:36 PM Pathologist: Robyn Edouard MD, PhD Specimens: A) - Stomach, Antrum, Biopsy, antral bx h/h B) - Esophagus, Distal, Biopsy C) - Esophagus, Mid, Biopsy Performed By: #### S #### [facility] CLIA [id number] [address] [place] [address] DIAGNOSIS COMMENT B. The cell is prese nt only in one section and disappeared on the deeper levels. This finding is suspicious but not definitive for intestinal metaplasia. If there is endoscopic concern for Estrada's esophagus, a follow-up biopsy is recommended. Normal [facility] Comment on above: Order Comment: Speci men Type: TISSUE SPECIMEN Ordering Facility: [facility] Address: [address] [place] [address] Performed By: #### S #### [facility] CLIA [id number] [address] [place] [address] FINAL DIAGNOSIS Normal [facility] Comment on above: Order Comment: Speci men Type: TISSUE SPECIMEN Ordering Facility: [facility] Address: [address] [place] [address] Result Comment: Yumiko figueroa, antrum, biopsy: - Gastric antral mucosa with reactive gastropathy. - No evidence of H. pylori microorganisms on H&E sections. B. Esophagus, distal, biopsy: - Inflamed squamous and gastric cardia-type mucosa with a single cell suspicious for intestinal metaplasia, negative for dysplasia (see comment). C. Esophagus, mid, biopsy: - Superficial fragment of squamous mucosa with no diagnostic abnormality. Performed By: #### S #### [facility] CLIA [id number] [address] [place] [address] FINAL PERFORMING LAB Normal [facility] Comment on above: Order Comment: Speci men Type: TISSUE SPECIMEN Ordering Facility: [facility] Address: [address] [place] [address] Result Comment: Diag nostic interpretation performed at [facility], [address] [place] [address] CLIA# [id number] [employer]: Jax Dahl M.D. Performed By: #### S #### [facility] CLIA [id number] [address] [place] [address] [place] GROSS DESCRIPTION Normal [facility] Comment on above: Order Comment: Speci men Type: TISSUE SPECIMEN Ordering Facility: [facility] Address: [address] [place] [address] Result Comment: A. S tomach, Antrum, Biopsy Received in formalin is one piece of treadwell, soft tissue measuring 0.8 x 0.2 x 0.1 cm. Totally submitted in one cassette. B. Esophagus, Distal, Biopsy Received in formalin are two pieces of treadwell, soft tissue aggregating to 0.5 x 0.2 x 0.2 cm. Totally submitted in one cassette. C. Esophagus, Mid, Biopsy Received in formalin is one piece of treadwell-white, soft tissue measuring 0.6 x 0.2 x 0.1 cm. Totally submitted in one cassette. DB July 13, 2024 12:44 AM [place] [address] Performed By: #### S #### [facility] [place] [id number] [address] [place] [address] [place] Upper GI endoscopyon 10-18-2 024 Upper GI endoscopy [facility] Gastrointestinal Endoscopy Patient Name: Maddie Solorio Procedure Date: 07/12/2024 11:54 AM Date of : 1965 Admit Type: Outpatient Age: 59 Gender: Male Note Status: Finalized Procedure: Upper GI endoscopy Indications: Dysphagia Providers: Effie Alvarez MD Patient Profile: This is a 59 year old male. Referring Physician: Purvi Webber (Referring MD) Medicines: Midazolam 5 mg IV, Fentanyl 100 micrograms IV, Diphenhydramine 50 mg IV Complications: No immediate complications. Requesting Provider: Procedure: Pre-Anesthesia Assessment: - Prior to the procedure, a History and Physical was performed, and patient medications and allergies were reviewed. The patient is competent. The risks and benefits of the procedure and the sedation options and risks were discussed with the patient. All questions were answered and informed consent was obtained. Patient identification and proposed procedure were verified by the physician and the nurse in the procedure room. Mental Status Examination: alert and oriented. Respiratory Examination: clear to auscultation. Prophylactic Antibiotics: The patient does not require prophylactic antibiotics. Prior Anticoagulants: The patient has taken no anticoagulant or antiplatelet agents. ASA Grade Assessment: II - A patient with mild systemic disease. After reviewing the risks and benefits, the patient was deemed in satisfactory condition to undergo the procedure. The anesthesia plan was to use moderate sedation / analgesia (conscious sedation). Immediately prior to administration of medications, the patient was re-assessed for adequacy to receive sedatives. The heart rate, respiratory rate, oxygen saturations, blood pressure, adequacy of pulmonary ventilation, and response to care were monitored throughout the procedure. The physical status of the patient was re-assessed after the procedure. After obtaining informed consent, the endoscope was passed under direct vision. Throughout the procedure, the patient's blood pressure, pulse, and oxygen saturations were monitored continuously. The Endosonoscope was introduced through the mouth, and advanced to the jejunum. The upper GI endoscopy was accomplished without difficulty. The patient tolerated the procedure well. Moderate Sedation: Moderate (conscious) sedation was personally administered by the endoscopist. The following parameters were monitored: oxygen saturation, heart rate, blood pressure, and response to care. Total physician intraservice time was 6 minutes. The administration of moderate sedation was initiated at 12:04 PM. Findings: The examined jejunum was normal. The examined duodenum was normal. Localized mild inflammation characterized by erosions and erythema was found in the entire examined stomach. Biopsies were taken with a cold forceps for histology. Mildly severe esophagitis with no bleeding was found in the lower third of the esophagus. Biopsies were taken with a cold forceps for histology. The middle third of the esophagus was normal. Biopsies were taken with a cold forceps for histology. Impression: - Normal examined jejunum. - Normal examined duodenum. - Gastritis. Biopsied. - Mildly severe reflux esophagitis with no bleeding. Biopsied. - Normal middle third of esophagus. Biopsied. Recommendation: - Discharge patient to home. - Resume previous diet. - Continue present medications. - Return to nurse practitioner in 1 week. Procedure Code(s): --- Professional --- 02953, Esophagogastroduodenoscopy , flexible, transoral; with biopsy, single or multiple CPT copyright 2020 [employer]. All rights reserved. The codes documented in this report are preliminary and upon fishing floats assembler review may be revised to meet current compliance requirements. Attending Participation: I was present and participated during the entire procedure, including non-pedroza portions, and during the administration and monitoring of Moderate Sedation. Scope In: 12:07:47 PM Scope Out: 12:10:42 PM MD Effie Herr MD 07/12/2024 12:22:10 PM This report has been signed electronically by Effie Alvarez MD Number of Addenda: 0 Note Initiated On: 07/12/2024 11:54 AM Estimated Blood Loss: Estimated blood loss: none. Normal [facility] Absolute lymphocyte counton 04-23-2022 Lymphocytes Auto (Unsp spec) [#/Vol] 1.52 10*3/uL 0.83-4.51 [facility] Work Phone: BMP - EXTERNALon 04-23-2022 ANION GAP [facility] Calcium [facility] GFR AFR AMER 91.7 mL/MIN [facility] GFR/1.73 sq M.predicted among non-blacks MDRD (S/P/Bld) [Vol rate/Area] 82 mL/min/{1.73_m2} [facility] HCO3 (Bld) [Moles/Vol] 30 mmol/L [facility] Basophil percentageon 2021 Basophils/100 WBC (Bld) 0.7 % 0-1 [facility] Work Phone: Bilirubin [Mass/Vol] 2.10 mg/dL 0.20-1.00 [facility] Work Phone: Comment on above: For patients on eltr ombopag therapy, use of Dimension [place] TBIL is not recommended. Chloride [Moles/Vol] 106 mmol/L 98 - 10 7 MEQ/L [facility] Work Phone: Cholesterol [Mass/Vol] 289 mg/dL Abnormal 0 - 2 00 MG/DL [facility] Work Phone: Comment on above: <200 mg/dL Desirable 200-240 mg/dL Borderline >240 mg/dL High Risk Eosinophils/100 WBC (Bld) 5.2 % 0-5 [facility] Work Phone: Glucose [Mass/Vol] 109 mg/dL Abnormal 74 - 106 MG/DL [facility] Work Phone: Comment on above: Fasting Glucose resu lt from 100 to 125 mg/dL suggests IMPAIRED HOMEOSTASIS per A.D.A. criteria. Neutrophils (Bld) [#/Vol] 3.0 10*3/uL 2.0-7.7 [facility] Work Phone: [phone] Neutrophils/100 WBC (Bld) 55.6 % 47-70 [facility] Work Phone: [phone] Potassium [Moles/Vol] 3.8 mmol/L 3.5 - 5.1 MEQ/L [facility] Work Phone: [phone] Protein [Mass/Vol] 6.9 g/dL 6.4-8.2 [facility] Work Phone: [phone] Sodium [Moles/Vol] 139 mmol/L 136 - 145 MEQ/L [facility] Work Phone: Triglyceride [Mass/Vol] 132 mg/dL 149 mg/dL [facility] Work Phone: Comment on above: The drugs N-Acetylcy steine and Metamizole may falsely depress this assay.Serum Triglycerides Reference Interval Normal <150 mg/dL Borderline high 150 - 199 mg/dL High 200 - 499 mg/dL Very High > or = 500 mg/dL WBC (Bld) [#/Vol] 5.4 10*3/uL 4.4-11.0 [facility] Work Phone: Blood erythrocytes count (nu mber/volume)on 04-23-2022 RBC (Bld) [#/Vol] 4.95 10*6/uL 4.6-6.2 [facility] Work Phone: [phone] Blood hemoglobin measurement (mass/volume)on 04-23-2022 Hemoglobin (Bld) [Mass/Vol] 16.4 g/dL 13.0-16.5 [facility] Work Phone: [phone] Blood lymphocytes/100 leukoc yteson 04-23-2022 Lymphocytes/100 WBC (Bld) 28.4 % 19-41 [facility] Work Phone: Blood monocytes/100 leukocyt eson 04-23-2022 Monocytes/100 WBC (Bld) 9.5 % 0-10 [facility] Work Phone: Blood platelet mean volumeon 04-23-2022 Platelet mean volume (Bld) [Entitic vol] 9.2 fL 6.2-12.0 [facility] Work Phone: Determination of erythrocyte mean corpuscular volume (MCV)on 04-23-2022 MCV (RBC) [Entitic vol] 94.1 fL 80-94 [facility] Work Phone: Hematocrit Auto (Bld) [Volum e fraction]on 04-23-2022 Hematocrit (Bld) [Volume fraction] 46.6 % 40-54 [facility] Work Phone: LIPID PANEL (EXTERNAL)on HDC-L 82 mg/dL Abnormal 41 mg/dL [facility] LDL Chol, calculated 181 MG/DL Abnormal 130 MG/DL [facility] Laboratory - Chemistry and C hemistry - challengeon 04-23-2022 ALP [Catalytic activity/Vol] 78 U/L 45-117 [facility] Work Phone: ALT [Catalytic activity/Vol] 27 U/L 16-61 [facility] Work Phone: CO2 [Moles/Vol] 30.0 mmol/L 21.0-32.0 [facility] Work Phone: Globulin (S) [Mass/Vol] 3.2 g/dL 2.2-4.2 [facility] Work Phone: Urea nitrogen/Creatinine [Mass ratio] 10.9 mg/mg 10-20 [facility] Work Phone: Laboratory - Hematology and Cell countson 04-23-2022 Erythrocyte distribution width (RBC) [Entitic vol] 40.5 fL 35.1-43.9 [facility] Work Phone: Erythrocyte distribution width (RBC) [Ratio] 11.8 % 11.6-14.6 [facility] Work Phone: Immature granulocytes/100 WBC (Bld) 0.600 % 0.0-0.9 [facility] Work Phone: Comment on above: IG% - Immature Granu locytes (promyelocytes, myelocytes and metamyelocytes) > 1% indicates that a LEFT SHIFT is Present. MCH (RBC) [Entitic mass] 33.1 pg 27.0-32.0 [facility] Work Phone: Nucleated RBC/100 WBC (Bld) [Ratio] 0 % 0-5 [facility] Work Phone: MCHC Auto (RBC) [Mass/Vol]on 04-23-2022 MCHC (RBC) [Mass/Vol] 35.2 g/dL 32-36 [facility] Work Phone: No Panel Informationon 04-23 Estimated Creatinine Clearance Calc 91.77 ml/min [facility] Work Phone: Estimated GFR (MDRD) Amer 99 mL/min >60 [facility] Work Phone: Comment on above: GFR Calc Estimated GFR (MDRD) Non-Af Amer 82 mL/min >60 [facility] Work Phone: Comment on above: Non- GFR Calc Platelets bldon 04-23-2022 Platelets (Bld) [#/Vol] 178 10*3/uL 150-450 [facility] Work Phone: Serum or plasma albumin herman urement (mass/volume)on 04-23-2022 Albumin [Mass/Vol] 3.7 g/dL 3.2-5.0 [facility] Work Phone: Serum or plasma albumin/glob ulin mass ratioon 04-23-2022 Albumin/Globulin [Mass ratio] 1.2 {ratio} 0.9-2.4 [facility] Work Phone: Serum or plasma calcium herman urement (mass/volume)on 04-23-2022 Calcium [Mass/Vol] 8.8 mg/dL 8.5-10.1 [facility] Work Phone: Serum or plasma cholesterol in HDL measurement (mass/volume)on 04-23-2022 Cholesterol in HDL [Mass/Vol] 82 mg/dL >40 [facility] Work Phone: Comment on above: The drugs N-Acetylcy steine and Metamizole may falsely depress this assay. Reference Range HDL <40 mg/dL Low HDL Cholesterol HDL >or= 60 mg/dL High HDL Cholesterol Serum or plasma cholesterol in VLDL measurement (mass/volume)on 04-23-2022 Cholesterol in VLDL [Mass/Vol] 26 mg/dL 5-40 [facility] Work Phone: Serum or plasma creatinine m easurement (mass/volume)on 04-23-2022 Creatinine [Mass/Vol] 1.01 mg/dL 0.6 - 1.3 MG/DL [facility] Work Phone: Comment on above: The validity of the calculated GFR & GFRAA in patients over 70 years has not been determined. Clinical correlation is essential. Serum or plasma low density lipoprotein (LDL) cholesterol measurement (mass/volume)on 04-23-2022 Cholesterol in LDL [Mass/Vol] 181 mg/dL 0-130 [facility] Work Phone: Serum or plasma urea nitroge n measurement (mass/volume)on 04-23-2022 Urea nitrogen [Mass/Vol] 11 mg/dL 6 - 20 mg/dL [facility] Work Phone: Thin prep Papanicolaou smear with manual screeningon 04-23-2022 Thin prep Papanicolaou smear with manual screening 23 U/L 15-37 [facility] Work Phone: Thin prep Papanicolaou smear with manual screening 3 5-15 [facility] Work Phone: Whole blood hemoglobin A1c/t otal hemoglobin ratio (mass fraction)on 04-23-2022 HbA1c (Bld) [Mass fraction] 5.5 % 3.8-5.6 [facility] Work Phone: Comment on above: Normal < 5.7 % Predi abetic 5.7 - 6.4 % Diabetic >or= 6.5 % Please note range changes. Absolute lymphocyte counton 04-22-2022 Lymphocytes Auto (Unsp spec) [#/Vol] 1.41 10*3/uL 0.83-4.51 [facility] Work Phone: Basophil percentageon 2021 Basophils/100 WBC (Bld) 0.5 % 0-1 [facility] Work Phone: Chloride [Moles/Vol] 106 mmol/L 98-107 [facility] Work Phone: Eosinophils/100 WBC (Bld) 3.6 % 0-5 [facility] Work Phone: Glucose [Mass/Vol] 139 mg/dL 74-106 [facility] Work Phone: [phone] Comment on above: Fasting Glucose resu lt greater than or equal to 126 mg/dL suggests DIABETES MELLITUS per A.D.A. criteria. Neutrophils (Bld) [#/Vol] 3.7 10*3/uL 2.0-7.7 [facility] Work Phone: Neutrophils/100 WBC (Bld) 63.3 % 47-70 [facility] Work Phone: Potassium [Moles/Vol] 3.6 mmol/L 3.5-5.1 [facility] Work Phone: Sodium [Moles/Vol] 138 mmol/L 136-145 [facility] Work Phone: WBC (Bld) [#/Vol] 5.8 10*3/uL 4.4-11.0 [facility] Work Phone: [phone] Blood erythrocytes count (nu mber/volume)on 04-22-2022 RBC (Bld) [#/Vol] 4.70 10*6/uL 4.6-6.2 [facility] Work Phone: Blood hemoglobin measurement (mass/volume)on 04-22-2022 Hemoglobin (Bld) [Mass/Vol] 15.0 g/dL 13.0-16.5 [facility] Work Phone: Blood lymphocytes/100 leukoc yteson 04-22-2022 Lymphocytes/100 WBC (Bld) 24.4 % 19-41 [facility] Work Phone: Blood monocytes/100 leukocyt eson 04-22-2022 Monocytes/100 WBC (Bld) 8.0 % 0-10 [facility] Work Phone: Blood platelet mean volumeon 04-22-2022 Platelet mean volume (Bld) [Entitic vol] 9.0 fL 6.2-12.0 [facility] Work Phone: Determination of erythrocyte mean corpuscular volume (MCV)on 04-22-2022 MCV (RBC) [Entitic vol] 93.6 fL 80-94 [facility] Work Phone: Hematocrit Auto (Bld) [Volum e fraction]on 04-22-2022 Hematocrit (Bld) [Volume fraction] 44.0 % 40-54 [facility] Work Phone: Laboratory - Chemistry and C hemistry - challengeon 04-22-2022 CO2 [Moles/Vol] 27.0 mmol/L 21.0-32.0 [facility] Work Phone: Magnesium [Mass/Vol] 2.3 mg/dL 1.6-2.6 [facility] Work Phone: Urea nitrogen/Creatinine [Mass ratio] 11.5 mg/mg 10-20 [facility] Work Phone: Laboratory - Hematology and Cell countson 04-22-2022 Erythrocyte distribution width (RBC) [Entitic vol] 40.0 fL 35.1-43.9 [facility] Work Phone: Erythrocyte distribution width (RBC) [Ratio] 11.7 % 11.6-14.6 [facility] Work Phone: Immature granulocytes/100 WBC (Bld) 0.200 % 0.0-0.9 [facility] Work Phone: Comment on above: IG% - Immature Granu locytes (promyelocytes, myelocytes and metamyelocytes) > 1% indicates that a LEFT SHIFT is Present. MCH (RBC) [Entitic mass] 31.9 pg 27.0-32.0 [facility] Work Phone: Nucleated RBC/100 WBC (Bld) [Ratio] 0 % 0-5 [facility] Work Phone: MCHC Auto (RBC) [Mass/Vol]on 04-22-2022 MCHC (RBC) [Mass/Vol] 34.1 g/dL 32-36 [facility] Work Phone: No Panel Informationon 04-22 Troponin I High Sensitivity 4 pg/mL 3.0-78.0 [facility] Work Phone: Comment on above: Please Note: New Tressa t Units and Gender Specific Reference Ranges. For more information see Policy Stat Procedure [place] High Sensitivity Troponin (TNIH) and attachments. Estimated Creatinine Clearance Calc 89.12 ml/min [facility] Work Phone: Estimated GFR (MDRD) Amer 95 mL/min >60 [facility] Work Phone: Comment on above: GFR Calc Estimated GFR (MDRD) Non-Af Amer 79 mL/min >60 [facility] Work Phone: Comment on above: Non- GFR Calc Troponin I High Sensitivity 4 pg/mL 3.0-78.0 [facility] Work Phone: Comment on above: Please Note: New Tressa t Units and Gender Specific Reference Ranges. For more information see Policy Stat Procedure [place] High Sensitivity Troponin (TNIH) and attachments. Platelets bldon 04-22-2022 Platelets (Bld) [#/Vol] 169 10*3/uL 150-450 [facility] Work Phone: Serum or plasma calcium herman urement (mass/volume)on 04-22-2022 Calcium [Mass/Vol] 9.2 mg/dL 8.5-10.1 [facility] Work Phone: Serum or plasma creatinine m easurement (mass/volume)on 04-22-2022 Creatinine [Mass/Vol] 1.04 mg/dL 0.70-1.30 [facility] Work Phone: Comment on above: The validity of the calculated GFR & GFRAA in patients over 70 years has not been determined. Clinical correlation is essential. Serum or plasma urea nitroge n measurement (mass/volume)on 04-22-2022 Urea nitrogen [Mass/Vol] 12 mg/dL 7-18 [facility] Work Phone: Thin prep Papanicolaou smear with manual screeningon 04-22-2022 Thin prep Papanicolaou smear with manual screening 5 5-15 [facility] Work Phone: Vital Signs Date Time Vital Sign Value Performing Clinician Jose Guadalupe robison 12-30-2024 10:01-0400 Body mass index (BMI) [Ratio] 28.35 kg/m2 Yvette Cecilia ORNAMENTAL IRON WORKER.HERITAGE CONSULTANT Work Phone: [facility] 12-30-2024 10:01-0400 Body weight 94.8 kg Yvette Cecilia ORNAMENTAL IRON WORKER.HERITAGE CONSULTANT Work Phone: [facility] 12-30-2024 10:01-0400 Diastolic blood pressure 84 mm[Hg] Yvette Cecilia ORNAMENTAL IRON WORKER.HERITAGE CONSULTANT Work Phone: [facility] 12-30-2024 10:01-0400 Heart rate 82 /min Yvette Cecilia ORNAMENTAL IRON WORKER.HERITAGE CONSULTANT Work Phone: [facility] 12-30-2024 10:01-0400 Respiratory rate 16 /min Yvette Cecilia ORNAMENTAL IRON WORKER.HERITAGE CONSULTANT Work Phone: [facility] 12-30-2024 10:01-0400 Systolic blood pressure 120 mm[Hg] Yvette Cecilia ORNAMENTAL IRON WORKER.HERITAGE CONSULTANT Work Phone: [facility] 12-04-2024 00:00-0400 Body temperature 98.2 [degF] Dr. Seb Dowd Work Phone: [facility] 12-04-2024 00:00-0400 Diastolic blood pressure 78 mm[Hg] Dr. Seb Dowd Work Phone: [facility] 12-04-2024 00:00-0400 Heart rate 69 /min Dr. Seb Dowd Work Phone: [facility] 12-04-2024 00:00-0400 Respiratory rate 16 /min Dr. Seb Gibson DO Work Phone: [facility] 12-04-2024 00:00-0400 SaO2% (BldA) [Mass fraction] 98 % Dr. Seb Dowd Work Phone: [facility] 12-04-2024 00:00-0400 Systolic blood pressure 124 mm[Hg] Dr. Seb Dowd Work Phone: [facility] 12-03-2024 20:55-0400 Body height 182.[address] Seb Dowd Work Phone: [facility] 12-03-2024 20:55-0400 Body mass index (BMI) [Ratio] 28.2 kg/m2 Dr. Seb Dowd Work Phone: [facility] 12-03-2024 20:55-0400 Body weight 94.[address] Seb Dowd Work Phone: [facility] 07-19-2024 11:03-0400 Body height 182.9 cm Purvi Webber APRN.HERITAGE CONSULTANT Work Phone: [facility] 07-19-2024 11:03-0400 Body mass index (BMI) [Ratio] 30.08 kg/m2 Purvi Webber ORNAMENTAL IRON WORKER.HERITAGE CONSULTANT Work Phone: [facility] 07-19-2024 11:03-0400 Body temperature 97.9 [degF] Purvi Webber ORNAMENTAL IRON WORKER.HERITAGE CONSULTANT Work Phone: [facility] 07-19-2024 11:03-0400 Body weight 100.61 kg Purvi Webber ORNAMENTAL IRON WORKER.HERITAGE CONSULTANT Work Phone: [facility] 07-19-2024 11:03-0400 Diastolic blood pressure 82 mm[Hg] Purvi Danny ORNAMENTAL IRON WORKER.HERITAGE CONSULTANT Work Phone: [facility] 07-19-2024 11:03-0400 Heart rate 83 /min Purvi Danny ORNAMENTAL IRON WORKER.HERITAGE CONSULTANT Work Phone: [facility] 07-19-2024 11:03-0400 Respiratory rate 18 /min Purvi Danny ORNAMENTAL IRON WORKER.HERITAGE CONSULTANT Work Phone: [facility] 07-19-2024 11:03-0400 SaO2% (BldA) [Mass fraction] 98 % Purvi Danny ORNAMENTAL IRON WORKER.HERITAGE CONSULTANT Work Phone: [facility] 07-19-2024 11:03-0400 Systolic blood pressure 122 mm[Hg] Purvi Danny ORNAMENTAL IRON WORKER.HERITAGE CONSULTANT Work Phone: [facility] 07-12-2024 12:51-0400 Diastolic blood pressure 79 mm[Hg] Effie Alvarez MD Work Phone: [facility] 07-12-2024 12:51-0400 Heart rate 88 /min Effie Alvarez MD Work Phone: [facility] 07-12-2024 12:51-0400 Respiratory rate 16 /min Effie Alvarez MD Work Phone: [facility] 07-12-2024 12:51-0400 SaO2% (BldA) [Mass fraction] 95 % Effie Alvarez MD Work Phone: [facility] 07-12-2024 12:51-0400 Systolic blood pressure 131 mm[Hg] Effie Alvarez MD Work Phone: [facility] 07-12-2024 10:46-0400 Body temperature 97.81 [degF] Effie Alvarez MD Work Phone: [facility] 07-08-2024 10:26-0400 Body height 182.9 cm Purvi Danny ORNAMENTAL IRON WORKER.HERITAGE CONSULTANT Work Phone: [facility] 07-08-2024 10:26-0400 Body mass index (BMI) [Ratio] 30.11 kg/m2 Purvi Danny ORNAMENTAL IRON WORKER.HERITAGE CONSULTANT Work Phone: [facility] 07-08-2024 10:26-0400 Body weight 100.7 kg Purvi Danny ORNAMENTAL IRON WORKER.HERITAGE CONSULTANT Work Phone: [facility] 07-08-2024 10:26-0400 Diastolic blood pressure 64 mm[Hg] Purvi Danny ORNAMENTAL IRON WORKER.HERITAGE CONSULTANT Work Phone: [facility] 07-08-2024 10:26-0400 Heart rate 64 /min Purvi Danny ORNAMENTAL IRON WORKER.HERITAGE CONSULTANT Work Phone: [facility] 07-08-2024 10:26-0400 SaO2% (BldA) [Mass fraction] 97 % Purvi Danny ORNAMENTAL IRON WORKER.HERITAGE CONSULTANT Work Phone: [facility] 07-08-2024 10:26-0400 Systolic blood pressure 138 mm[Hg] Purvi Danny ORNAMENTAL IRON WORKER.HERITAGE CONSULTANT Work Phone: [facility] 07-01-2024 09:40-0400 Body mass index (BMI) [Ratio] 29.57 kg/m2 Yvette Cecilia ORNAMENTAL IRON WORKER.HERITAGE CONSULTANT Work Phone: [facility] 07-01-2024 09:40-0400 Body weight 98.2 kg Yvette SaldanaCecilia ORNAMENTAL IRON WORKER.HERITAGE CONSULTANT Work Phone: [facility] 07-01-2024 09:40-0400 Diastolic blood pressure 82 mm[Hg] Yvette Cecilia ORNAMENTAL IRON WORKER.HERITAGE CONSULTANT Work Phone: [facility] 07-01-2024 09:40-0400 Heart rate 89 /min Yvette Cecilia ORNAMENTAL IRON WORKER.HERITAGE CONSULTANT Work Phone: [facility] 07-01-2024 09:40-0400 Respiratory rate 16 /min Yvette Cecilia ORNAMENTAL IRON WORKER.HERITAGE CONSULTANT Work Phone: [facility] 07-01-2024 09:40-0400 SaO2% (BldA) [Mass fraction] 97 % Yvette Cecilia ORNAMENTAL IRON WORKER.HERITAGE CONSULTANT Work Phone: [facility] 07-01-2024 09:40-0400 Systolic blood pressure 112 mm[Hg] Yvette Cecilia ORNAMENTAL IRON WORKER.HERITAGE CONSULTANT Work Phone: [facility] 05-29-2024 10:13-0400 Diastolic blood pressure 92 mm[Hg] Yvette Cecilia ORNAMENTAL IRON WORKER.HERITAGE CONSULTANT Work Phone: [facility] 05-29-2024 10:13-0400 Systolic blood pressure 138 mm[Hg] Yvette Cecilia ORNAMENTAL IRON WORKER.HERITAGE CONSULTANT Work Phone: [facility] 05-29-2024 10:00-0400 Body mass index (BMI) [Ratio] 30.2 kg/m2 Yvette Cecilia ORNAMENTAL IRON WORKER.HERITAGE CONSULTANT Work Phone: [facility] 05-29-2024 10:00-0400 Body weight 100.3 kg Yvette WylieCecilia ORNAMENTAL IRON WORKER.HERITAGE CONSULTANT Work Phone: [facility] 05-29-2024 10:00-0400 Heart rate 71 /min Yvette SaldanaCecilia ORNAMENTAL IRON WORKER.HERITAGE CONSULTANT Work Phone: [facility] 05-29-2024 10:00-0400 Respiratory rate 16 /min Yvette WylieCecilia ORNAMENTAL IRON WORKER.HERITAGE CONSULTANT Work Phone: [facility] 05-29-2024 10:00-0400 SaO2% (BldA) [Mass fraction] 96 % Yvette SaldanaCecilia ORNAMENTAL IRON WORKER.HERITAGE CONSULTANT Work Phone: [facility] 05-08-2024 16:17-0400 Body height 182.2 cm Yvette Cecilia ORNAMENTAL IRON WORKER.HERITAGE CONSULTANT Work Phone: [facility] 05-08-2024 16:17-0400 Body mass index (BMI) [Ratio] 29.48 kg/m2 Yvette Cecilia ORNAMENTAL IRON WORKER.HERITAGE CONSULTANT Work Phone: [facility] 08-14-2024 16:17-0400 Body weight 97.9 kg Yvette Cecilia ORNAMENTAL IRON WORKER.HERITAGE CONSULTANT Work Phone: [facility] 05-08-2024 16:17-0400 Diastolic blood pressure 72 mm[Hg] Yvette Cecilia ORNAMENTAL IRON WORKER.HERITAGE CONSULTANT Work Phone: [facility] 05-08-2024 16:17-0400 Heart rate 84 /min Yvette Cecilia ORNAMENTAL IRON WORKER.HERITAGE CONSULTANT Work Phone: [facility] 05-08-2024 16:17-0400 Respiratory rate 16 /min Yvette Cecilia ORNAMENTAL IRON WORKER.HERITAGE CONSULTANT Work Phone: [facility] 05-08-2024 16:17-0400 Systolic blood pressure 114 mm[Hg] Yvette Cecilia ORNAMENTAL IRON WORKER.HERITAGE CONSULTANT Work Phone: [facility] 04-06-2023 10:18-0400 Body weight 105.23 kg Krish Anguiano MD Work Phone: [facility] 04-06-2023 10:18-0400 Diastolic blood pressure 76 mm[Hg] Krish Anguiano MD Work Phone: [facility] 04-06-2023 10:18-0400 Heart rate 76 /min Krish Anguiano MD Work Phone: [facility] 04-06-2023 10:18-0400 Respiratory rate 16 /min Krish Anguiano MD Work Phone: [facility] 04-06-2023 10:18-0400 Systolic blood pressure 122 mm[Hg] Krish Anguiano MD Work Phone: [facility] 09-30-2022 10:31-0500 Diastolic blood pressure 84 mm[Hg] Krish Anguiano MD Work Phone: [facility] 09-30-2022 10:31-0500 Systolic blood pressure 140 mm[Hg] Krish Anguiano MD Work Phone: [facility] 09-30-2022 10:25-0500 Body temperature 97.5 [degF] Krish Anguiano MD Work Phone: [facility] 09-30-2022 10:25-0500 Body weight 105.23 kg Krish Anguiano MD Work Phone: [facility] 09-30-2022 10:25-0500 Heart rate 77 /min Krish Anguiano MD Work Phone: [facility] 09-30-2022 10:25-0500 Respiratory rate 16 /min Krish Anguiano MD Work Phone: [facility] 09-30-2022 10:25-0500 SaO2% (BldA) [Mass fraction] 96 % Krish Anguiano MD Work Phone: [facility] 06-02-2022 15:15-0400 Diastolic blood pressure 77 mm[Hg] Mi Nurse Work Phone: [facility] 06-02-2022 15:15-0400 Heart rate 83 /min Mi Nurse Work Phone: [facility] 06-02-2022 15:15-0400 Systolic blood pressure 115 mm[Hg] Mi Nurse Work Phone: [facility] 05-16-2022 17:40-0400 Diastolic blood pressure 94 mm[Hg] Krish Anguiano MD Work Phone: [facility] 05-16-2022 17:40-0400 Heart rate 77 /min Krish Anguiano MD Work Phone: [facility] 05-16-2022 17:40-0400 Systolic blood pressure 140 mm[Hg] Krish Anguiano MD Work Phone: [facility] 05-16-2022 17:29-0400 Body height 182.9 cm Krish Anguiano MD Work Phone: [facility] 05-16-2022 17:29-0400 Body temperature 97.39 [degF] Krish Anguiano MD Work Phone: [facility] 05-16-2022 17:29-0400 Body weight 103.42 kg Krish Anguiano MD Work Phone: [facility] 05-16-2022 17:29-0400 Respiratory rate 16 /min Krish Anguiano MD Work Phone: [facility] [facility] 05-02-2022 13:55-0400 Body temperature 97.39 [degF] Ivett Arslan ORNAMENTAL IRON WORKER.HERITAGE CONSULTANT Work Phone: [facility] 05-02-2022 13:55-0400 Body weight 105.51 kg Ivett Arslan ORNAMENTAL IRON WORKER.HERITAGE CONSULTANT Work Phone: [facility] 05-02-2022 13:55-0400 Diastolic blood pressure 84 mm[Hg] Ivett Arslan ORNAMENTAL IRON WORKER.HERITAGE CONSULTANT Work Phone: [facility] 05-02-2022 13:55-0400 Heart rate 81 /min Ivett Arslan ORNAMENTAL IRON WORKER.HERITAGE CONSULTANT Work Phone: [facility] 05-02-2022 13:55-0400 Respiratory rate 16 /min Ivett Arslan ORNAMENTAL IRON WORKER.HERITAGE CONSULTANT Work Phone: [facility] 05-02-2022 13:55-0400 SaO2% (BldA) [Mass fraction] 99 % Ivett Arslan ORNAMENTAL IRON WORKER.HERITAGE CONSULTANT Work Phone: [facility] 05-02-2022 13:55-0400 Systolic blood pressure 138 mm[Hg] Ivett Arslan ORNAMENTAL IRON WORKER.HERITAGE CONSULTANT Work Phone: [facility] 04-23-2022 12:49-0400 Body temperature 97.9 [degF] Dr. Rolando Pereyra Work Phone: [facility] Work Phone: 04-23-2022 12:49-0400 Diastolic blood pressure 94 mm[Hg] Dr. Rolando Pereyra Work Phone: [facility] Work Phone: 04-23-2022 12:49-0400 Heart rate 68 /min Dr. Rolando Pereyra Work Phone: [facility] Work Phone: 04-23-2022 12:49-0400 Respiratory rate 16 /min Dr. Rolando Pereyra Work Phone: [facility] Work Phone: 04-23-2022 12:49-0400 SaO2% (BldA) [Mass fraction] 98 % Dr. Rolando Pereyra Work Phone: [facility] Work Phone: 04-23-2022 12:49-0400 Systolic blood pressure 141 mm[Hg] Dr. Rolando Pereyra Work Phone: [facility] Work Phone: 04-22-2022 19:54-0400 Body height 182.[address] Rolando Pereyra Work Phone: [facility] Work Phone: 04-22-2022 19:54-0400 Body mass index (BMI) [Ratio] 30.4 kg/m2 Dr. Rolando Pereyra Work Phone: [facility] Work Phone: 04-22-2022 19:54-0400 Body weight [address] Rolando Pereyra Work Phone: [facility] Work Phone: 04-22-2022 19:15-0400 Body temperature 98.4 [degF] [facility] Work Phone: 04-22-2022 19:15-0400 Diastolic blood pressure 111 mm[Hg] [facility] Work Phone: 04-22-2022 19:15-0400 Heart rate 74 /min [facility] Work Phone: 04-22-2022 19:15-0400 Respiratory rate 15 /min [facility] Work Phone: 04-22-2022 19:15-0400 SaO2% (BldA) [Mass fraction] 97 % [facility] Work Phone: 04-22-2022 19:15-0400 Systolic blood pressure 156 mm[Hg] [facility] Work Phone: 04-22-2022 17:37-0400 Body height 182.88 cm [facility] Work Phone: 04-22-2022 17:37-0400 Body mass index (BMI) [Ratio] 29.8 kg/m2 [facility] Work Phone: 04-22-2022 17:37-0400 Body weight 99.79 kg [facility] Work Phone: Encounters Encounter Date Encounter Type Care Provider Facility Start: 07-08-2025 ambulatory YVETTE MENDES [facility] ity:[facility] Start: 07-08-2025 End: 07-08-2025 ambulatory YVETTE MENDES Facility:[facility] Start: 07-03-2025 End: 07-03-2025 ambulatory YVETTE MENDES Facility:[facility] Start: 02-20-2025 End: 02-21-2025 Refill Krish Agnuiano MD Work Phone: [facility] Comment on above: Refill Request Start: 12-30-2024 End: 12-30-2024 [facility] YVETTE MENDES Facility:[facility] Start: 12-30-2024 End: 12-30-2024 Patient encounter procedure Yvette Mendes ORNAMENTAL IRON WORKER.HERITAGE CONSULTANT Work Phone: [facility] Comment on above: Hyperlipidemia, unsp ecified hyperlipidemia type (Primary Dx); Elevated PSA; Primary hypertension; Gastroesophageal reflux disease, unspecified whether esophagitis present; Dysphagia, unspecified type; Overweight (BMI 25.0-29.9); Pain in joint involving multiple sites Start: 12-03-2024 End: 12-04-2024 Emergency department patient visit Krish Anguiano Facility:[facility] Start: 10-28-2024 End: 10-28-2024 ambulatory YVETTE MENDES Facility:[facility] Start: 09-02-2024 End: 09-03-2024 Refill Krish Anguiano MD Work Phone: [facility] Comment on above: Refill Request Start: 08-23-2024 End: 08-23-2024 Refill Yvette Mayda Cecilia ORNAMENTAL IRON WORKER.HERITAGE CONSULTANT Work Phone: [facility] Comment on above: Refill Request Start: 08-01-2024 End: 08-02-2024 Refill Yvette Mendes ORNAMENTAL IRON WORKER.HERITAGE CONSULTANT Work Phone: [facility] [place] Comment on above: Refill Request Start: 07-19-2024 End: 07-19-2024 ambulatory PURVI WEBBER Facility:[facility] Start: 07-19-2024 End: 07-19-2024 Patient encounter procedure Purvi Sheriffir ORNAMENTAL IRON WORKER.HERITAGE CONSULTANT Work Phone: General Surgery Comment on above: Gastroesophageal ref lux disease, unspecified whether esophagitis present (Primary Dx) Start: 07-12-2024 End: 07-12-2024 ambulatory EFFIE ALVAREZ Facility:[facility] Start: 07-12-2024 End: 07-12-2024 Subsequent hospital visit by physician Effie Alvarez MD Work Phone: Ambulatory Surgery Comment on above: Gastroesophageal ref lux disease, unspecified whether esophagitis present [K21.9] Start: 07-08-2024 End: 07-08-2024 Patient encounter procedure Purvi Webber ORNAMENTAL IRON WORKER.HERITAGE CONSULTANT Work Phone: General Surgery Comment on above: Dysphagia, unspecifi ed type (Primary Dx); Gastroesophageal reflux disease, unspecified whether esophagitis present; Throat irritation Start: 07-01-2024 End: 07-01-2024 Patient encounter procedure Yvette Mendes ORNAMENTAL IRON WORKER.HERITAGE CONSULTANT Work Phone: [facility] [place] Comment on above: Gastroesophageal ref lux disease, unspecified whether esophagitis present (Primary Dx); Primary hypertension; Serum total bilirubin elevated; Hyperlipidemia, unspecified hyperlipidemia type Start: 05-29-2024 End: 05-29-2024 Patient encounter procedure Yvette Mendes ORNAMENTAL IRON WORKER.HERITAGE CONSULTANT Work Phone: [facility] [place] Comment on above: Primary hypertension (Primary Dx); Hyperlipidemia, unspecified hyperlipidemia type; Dysphagia, unspecified type; Serum total bilirubin elevated Start: 05-14-2024 End: 06-18-2024 ambulatory Yvette Mendes ORNAMENTAL IRON WORKER.HERITAGE CONSULTANT Work Phone: [facility] [place] Comment on above: lab results Start: 05-14-2024 End: 06-18-2024 E-mail encounter from caregiver Yvette Mendes MADHURI.HERITAGE CONSULTANT Work Phone: [facility] [place] Start: 05-08-2024 End: 05-08-2024 Patient encounter procedure Yvette Mendes ORNAMENTAL IRON WORKER.HERITAGE CONSULTANT Work Phone: [facility] [place] Comment on above: Wellness examination (Primary Dx); Dysphagia, unspecified type; Primary hypertension; Serum total bilirubin elevated; Screening for depression; Encounter for screening examination for other mental health and behavioral disorders Start: 05-08-2024 End: 05-08-2024 Patient encounter status Yvette Mendes ORNAMENTAL IRON WORKER.HERITAGE CONSULTANT Work Phone: [facility] Work Phone: Start: 05-06-2024 Telephone encounter Krish chappell MD Work Phone: [facility] [place] Comment on above: Orders Start: 05-05-2024 ambulatory Krish jarvis MD Work Phone: [facility] [place] Comment on above: Lab? Start: 01-24-2024 Refill Yvette Saldanamanav gonsalez ORNAMENTAL IRON WORKER.HERITAGE CONSULTANT Work Phone: [facility] [place] Comment on above: Refill Request Start: 07-18-2023 Refill Yvette Ruelas MADHURI .HERITAGE CONSULTANT Work Phone: [facility] [place] Comment on above: Refill Request Start: 04-06-2023 End: 04-06-2023 Patient encounter procedure Krish Anguiano MD Work Phone: [facility] [place] Comment on above: Hyperlipidemia, unsp ecified hyperlipidemia type (Primary Dx); Elevated PSA; Screening for HIV without presence of risk factors; Impaired fasting blood sugar; Vitamin D deficiency Start: 02-07-2023 End: 02-07-2023 Patient encounter procedure Maddie Epps MD Work Phone: Dermatology Comment on above: Acral nevus (Primary Dx); Screening for skin cancer; Notalgia paresthetica; Dermatofibroma of left lower leg; Skin cancer screening Start: 01-17-2023 Refill Krish jarvis MD Work Phone: [facility] Comment on above: Refill Request Start: 09-30-2022 End: 09-30-2022 Patient encounter procedure Krish Anguiano MD Work Phone: [facility] Comment on above: Primary hypertension (Primary Dx); Elevated PSA; Hyperlipidemia, unspecified hyperlipidemia type; Need for vaccination; Screening for HIV without presence of risk factors; Screening for skin cancer Start: 06-02-2022 End: 06-02-2022 Nursing evaluation of patient and report Mi Nurse Work Phone: [facility] Comment on above: Primary hypertension (Primary Dx) Start: 06-02-2022 Telephone encounter Krish chappell MD Work Phone: [facility] Comment on above: Blood Pressure Check Start: 05-16-2022 End: 05-16-2022 Patient encounter procedure Krish Anguiano MD Work Phone: [facility] Comment on above: Routine medical exam (Primary Dx); Obesity, Class I, BMI 30-34.9; Primary hypertension; Hyperlipidemia, unspecified hyperlipidemia type; Hepatitis C antibody test positive; Screening for prostate cancer; Special screening for malignant neoplasms, colon Start: 05-16-2022 End: 05-16-2022 Patient encounter status Krish Anguiano MD Work Phone: [facility] Start: 05-02-2022 End: 05-02-2022 Patient encounter procedure Ivett Mcdaniels APRN.CNP Work Phone: [facility] Comment on above: Rash (Primary Dx) Start: 04-23-2022 Non-patient / Non-visit Dr. Chilo Pereyra Work Phone: [facility] Start: 04-22-2022 End: 04-23-2022 Evaluation and management of inpatient [facility] Start: 04-22-2022 End: 04-22-2022 Patient encounter procedure Erick Coleman MD Work Phone: [facility] Comment on above: Chest pain, unspecif ied type (Primary Dx); Palpitations Procedures Date Procedure Procedure Detail Performing Clinician Start: 12-03-2024 CT of abdomen and pelvis without contrast Dr. Seb Dowd Work Phone: Start: 10-28-2024 Lipid 1996 panel - Serum or Plasma Yvette H ershberger ORNAMENTAL IRON WORKER.HERITAGE CONSULTANT Work Phone: Start: 07-12-2024 Esophagogastroduodenoscopy transoral diagnostic Purvi Webber ORNAMENTAL IRON WORKER.HERITAGE CONSULTANT Work Phone: Start: 05-08-2024 Adult depression screening assessment Yvette Cecilia ORNAMENTAL IRON WORKER.HERITAGE CONSULTANT Work Phone: Start: 05-08-2024 Lipid 1996 panel - Serum or Plasma Yvette H ershberger ORNAMENTAL IRON WORKER.HERITAGE CONSULTANT Work Phone: Start: 04-04-2023 Lipid 1996 panel - Serum or Plasma Yvette O lder ORNAMENTAL IRON WORKER.HERITAGE CONSULTANT Work Phone: Start: 07-06-2022 Colonoscopy Krish Anguiano MD Work Phone: Start: 05-16-2022 Adult depression screening assessment Krish Anguiano MD Work Phone: Start: 04-23-2022 BMP - EXTERNAL [facility] Start: 04-23-2022 Lipid panel [facility] Provider Start: 04-23-2022 Radionuclide imaging of perfusion of myocardium under exercise stress Dr. Rolando Pereyra Work Phone: Start: 04-22-2022 Plain chest X-ray Plan of Treatment Date Care Activity Detail Author Start: 09-30-2032 Urine microalbumin profile [facility] Start: 10-28-2029 Lipid panel Lipid Screening [facility] Start: 10-28-2029 Prostate specific antigen measurement Prostate Cancer Screening Discussion [facility] Start: 05-08-2029 Lipid panel Lipid Screening [facility] Start: 05-08-2029 Prostate specific antigen measurement Prostate Cancer Screening Discussion [facility] Start: 04-04-2028 Lipid 1996 panel - Serum or Plasma Lipid Screening [facility] Start: 04-04-2028 Lipid panel Lipid Screening [facility] Start: 04-04-2028 LIPID SCREEN LIPID SCREEN [facility] Start: 07-06-2027 Colonoscopy COLONOSCOPY [facility] Start: 07-06-2027 COLORECTAL CANCER SCREENING COLORECTAL CANCER SCREENING [facility] Start: 07-06-2027 Screening for malignant neoplasm of colon [facility] Start: 06-19-2027 Diabetes Screening Diabetes Screening [facility] Start: 06-02-2027 LIPID SCREEN LIPID SCREEN [facility] Start: 06-02-2027 PROSTATE CANCER SCREENING DISCUSSION PROSTATE CANCER SCREENING DISCUSSION [facility] Start: 06-02-2027 Prostate specific antigen measurement Prostate Cancer Screening Discussion [facility] Start: 05-08-2027 Diabetes Screening Diabetes Screening [facility] Start: 04-23-2027 LIPID SCREEN LIPID SCREEN [facility] Start: 04-04-2026 DIABETES SCREEN DIABETES SCREEN [facility] Start: 04-04-2026 Diabetes Screening Diabetes Screening [facility] Start: 12-30-2025 Annual PCP Team Chronic Disease Visit Annual PCP Team Chronic Disease Visit [facility] Start: 12-30-2025 BP Controlled (<130/80) BP Controlled (<130/80) [facility] Start: 12-30-2025 Pneumococcal Vaccine: 50+ (1 of 2 - PCV) Pneumococcal Vaccine: 50+ (1 of 2 - PCV) [facility] Comment on above: Postponed from 1986 (Declined at t his time) Start: 07-01-2025 Annual PCP Team Chronic Disease Visit Annual PCP Team Chronic Disease Visit [facility] Start: 07-01-2025 End: 09-30-2025 Comprehensive metabolic 2000 panel - Serum or Plasma COMPREHENSIVE METABOLIC PANEL Lab Routine Hyperlipidemia, unspecified hyperlipidemia type Expected: 07/01/2025 (Approximate), Expires: 09/30/2025 [facility] Comment on above: Expected: 07/01/2025 (Approximate), Expi res: 09/30/2025 Start: 07-01-2025 End: 09-30-2025 Lipid 1996 panel - Serum or Plasma LIPID PANEL, FASTING Lab Routine Hyperlipidemia, unspecified hyperlipidemia type Expected: 07/01/2025 (Approximate), Expires: 09/30/2025 [facility] Comment on above: Expected: 07/01/2025 (Approximate), Expi res: 09/30/2025 Start: 07-01-2025 End: 09-30-2025 Prostate specific Ag [Mass/volume] in Serum or Plasma PROSTATE-SPECIFIC ANTIGEN DIAGNOSTIC Lab Routine Elevated PSA Expected: 07/01/2025 (Approximate), Expires: 09/30/2025 [facility] Work Phone: Comment on above: Expected: 07/01/2025 (Approximate), Expi res: 09/30/2025 Start: 07-01-2025 End: 07-01-2025 Patient encounter procedure 07/01/2025 10:20 AM EDT Office Visit [facility] [address] [place], [place] [id number] Yvette Mendes, ORNAMENTAL IRON WORKER.HERITAGE CONSULTANT [address] [facility] [place] [address] Physical [facility] [place] Comment on above: Physical Start: 06-02-2025 DIABETES SCREEN DIABETES SCREEN [facility] Start: 05-29-2025 Annual PCP Team Chronic Disease Visit Annual PCP Team Chronic Disease Visit [facility] Start: 05-26-2025 Influenza vaccination Influenza Vaccine (Season Ended) [facility] Start: 05-08-2025 Annual PCP Team Chronic Disease Visit Annual PCP Team Chronic Disease Visit [facility] Start: 05-08-2025 Anxiety Screening Anxiety Screening [facility] Start: 05-08-2025 BP Controlled (<130/80) BP Controlled (<130/80) [facility] Start: 05-08-2025 Depression Screening Depression Screening [facility] Start: 05-08-2025 HIV screening HIV Screening [facility] Comment on above: Postponed from 1985 (Declined at t his time) Start: 05-08-2025 Pneumococcal vaccination Pneumococcal Vaccine (1 of 2 - PCV) [facility] Comment on above: Postponed from 1973 (Declined at t his time) Start: 05-08-2025 Shingrix Vaccine (1 of 2) Shingrix Vaccine (1 of 2) [facility] Comment on above: Postponed from 2017 (Declined at t his time) Start: 03-24-2025 Influenza vaccination Influenza Vaccine (#1) [facility] Comment on above: Postponed from 05/26/2024 (Declined at t his time) Start: 12-30-2024 End: 12-30-2024 Patient encounter procedure 12/30/2024 10:00 AM EDT Office Visit [facility] [place] [address] [facility] [place] [address] Yvette Mendes, ORNAMENTAL IRON WORKER.HERITAGE CONSULTANT [address] [place] [address] 6 mo follow up [facility] [place] Comment on above: 6 mo follow up Start: 12-04-2024 [facility] Start: 12-03-2024 [facility] Start: 12-03-2024 Bacteria identified in Urine by Culture Urine Culture [facility] Start: 10-28-2024 End: 10-28-2024 ambulatory 10/28/2024 10:00 AM EST Results Only [facility] [address] [place] [address] [facility] Start: 10-26-2024 End: 01-25-2025 Lipid 1996 panel - Serum or Plasma LIPID PANEL BASIC Lab Routine Hyperlipidemia, unspecified hyperlipidemia type Expected: 10/26/2024 (Approximate), Expires: 01/25/2025 [facility] Work Phone: Comment on above: Expected: 10/26/2024 (Approximate), Expi res: 01/25/2025 Start: 10-26-2024 End: 01-25-2025 Prostate specific Ag [Mass/volume] in Serum or Plasma PROSTATE-SPECIFIC ANTIGEN DIAGNOSTIC Lab Routine Elevated PSA Expected: 10/26/2024 (Approximate), Expires: 01/25/2025 [facility] Work Phone: Comment on above: Expected: 10/26/2024 (Approximate), Expi res: 01/25/2025 Start: 07-19-2024 End: 07-19-2024 Patient encounter procedure 07/19/2024 11:00 AM EDT Office Visit General Surgery [address] [place] [address] Purvi Webber, MADHURI.HERITAGE CONSULTANT [address] [place] [address] 07/12 EGD follow up General Surgery Comment on above: 07/12 EGD follow up Start: 07-12-2024 End: 07-12-2024 Patient encounter procedure 07/12/2024 11:15 AM EDT Appointment Ambulatory Surgery [address] [place] [address] Effie Alvarez MD [address] [id number] Ambulatory Surgery Start: 07-08-2024 End: 07-08-2024 Patient encounter procedure 07/08/2024 1:45 PM EDT Office Visit General Surgery [address] [place] [address] Winston Jordan MD [address] [facility] [place] [address] Gastroesophageal reflux disease, unspecified whether esophagitis present [K21.9] General Surgery Comment on above: Gastroesophageal reflux disease, unspeci fied whether esophagitis present [K21.9] Start: 06-26-2024 End: 06-26-2024 Patient encounter procedure 06/26/2024 10:40 AM EDT Office Visit [facility] [place] [address] [place] [address] Yvette Mendes, ORNAMENTAL IRON WORKER.HERITAGE CONSULTANT [address] [facility] [place] [address] 4 week follow up [facility] Comment on above: 4 week follow up Start: 06-08-2024 End: 09-07-2024 Comprehensive metabolic 2000 panel - Serum or Plasma COMPREHENSIVE METABOLIC PANEL Lab Routine Serum total bilirubin elevated Expected: 06/08/2024 (Approximate), Expires: 09/07/2024 [facility] Work Phone: Comment on above: Expected: 06/08/2024 (Approximate), Expi res: 09/07/2024 Start: 05-29-2024 End: 05-29-2024 Patient encounter procedure 05/29/2024 10:00 AM EDT Office Visit [facility] [place] [address] [facility] [place] [address] Yvette Mendes, ORNAMENTAL IRON WORKER.HERITAGE CONSULTANT [address] [place] [address] 3 wk f/u [facility] [place] Comment on above: 3 wk f/u Start: 05-26-2024 Influenza vaccination [facility] Start: 05-08-2024 End: 05-08-2024 Patient encounter procedure 05/08/2024 4:20 PM EDT Office Visit [facility] [address] [place] [address] Yvette Mendes, ORNAMENTAL IRON WORKER.HERITAGE CONSULTANT [address] [place] [address] physical [facility] [place] Comment on above: physical Start: 05-08-2024 End: 05-08-2024 ambulatory 05/08/2024 7:00 AM EDT Results Only [facility] [address] [place] [address] [facility] Start: 05-07-2024 End: 08-06-2024 CBC panel - Blood by Automated count COMPLETE BLOOD COUNT Lab Routine Primary hypertension Expected: 05/07/2024, Expires: 08/06/2024 [facility] Comment on above: Expected: 05/07/2024, Expires: Start: 05-07-2024 End: 08-06-2024 Comprehensive metabolic 2000 panel - Serum or Plasma COMPREHENSIVE METABOLIC PANEL Lab Routine Primary hypertension Hyperlipidemia, unspecified hyperlipidemia type Expected: 05/07/2024, Expires: 08/06/2024 [facility] Comment on above: Expected: 05/07/2024, Expires: Start: 05-07-2024 End: 08-06-2024 Hemoglobin A1c in Blood HEMOGLOBIN A1C Lab Routine Impaired fasting blood sugar Expected: 05/07/2024, Expires: 08/06/2024 [facility] Work Phone: Comment on above: Expected: 05/07/2024, Expires: Start: 05-07-2024 End: 08-06-2024 Lipid 1996 panel - Serum or Plasma LIPID PANEL BASIC Lab Routine Hyperlipidemia, unspecified hyperlipidemia type Expected: 05/07/2024, Expires: 08/06/2024 [facility] Comment on above: Expected: 05/07/2024, Expires: Start: 05-07-2024 End: 08-06-2024 Prostate specific Ag [Mass/volume] in Serum or Plasma PROSTATE-SPECIFIC ANTIGEN DIAGNOSTIC Lab Routine Elevated PSA Expected: 05/07/2024, Expires: 08/06/2024 [facility] Comment on above: Expected: 05/07/2024, Expires: 4 Start: 04-06-2024 ANNUAL PCP TEAM CHRONIC DISEASE VISIT ANNUAL PCP TEAM CHRONIC DISEASE VISIT [facility] Start: 04-06-2024 BP CONTROLLED (<130/80) BP CONTROLLED (<130/80) [facility] Start: 01-26-2024 End: 04-26-2024 25-hydroxyvitamin D3 [Mass/volume] in Serum or Plasma VITAMIN D 25 HYDROXY Lab Routine Vitamin D deficiency Expected: 01/26/2024, Expires: 04/26/2024 [facility] Comment on above: Expected: 01/26/2024, Expires: 4 Start: 01-26-2024 End: 04-26-2024 CBC panel - Blood by Automated count COMPLETE BLOOD COUNT Lab Routine Primary hypertension Expected: 01/26/2024, Expires: 04/26/2024 [facility] Comment on above: Expected: 01/26/2024, Expires: Start: 01-26-2024 End: 04-26-2024 Comprehensive metabolic 2000 panel - Serum or Plasma COMPREHENSIVE METABOLIC PANEL Lab Routine Primary hypertension Hyperlipidemia, unspecified hyperlipidemia type Expected: 01/26/2024, Expires: 04/26/2024 [facility] Comment on above: Expected: 01/26/2024, Expires: Start: 01-26-2024 End: 04-26-2024 Hemoglobin A1c in Blood HEMOGLOBIN A1C Lab Routine Impaired fasting blood sugar Expected: 01/26/2024, Expires: 04/26/2024 [facility] Work Phone: Comment on above: Expected: 01/26/2024, Expires: Start: 01-26-2024 End: 04-26-2024 HIV 1+2 Ab [Presence] in Serum or Plasma by Immunoassay HIV 1/2 COMBO WITH REFLEX TO DIFFERENTIATION Lab Routine Screening for HIV without presence of risk factors Expected: 01/26/2024, Expires: 04/26/2024 [facility] Comment on above: Expected: 01/26/2024, Expires: Start: 01-26-2024 End: 04-26-2024 Lipid 1996 panel - Serum or Plasma LIPID PANEL BASIC Lab Routine Hyperlipidemia, unspecified hyperlipidemia type Expected: 01/26/2024, Expires: 04/26/2024 [facility] Comment on above: Expected: 01/26/2024, Expires: Start: 01-26-2024 End: 04-26-2024 Prostate specific Ag [Mass/volume] in Serum or Plasma PROSTATE-SPECIFIC ANTIGEN DIAGNOSTIC Lab Routine Elevated PSA Expected: 01/26/2024, Expires: 04/26/2024 [facility] Comment on above: Expected: 01/26/2024, Expires: Start: 09-30-2023 ANNUAL PCP TEAM CHRONIC DISEASE VISIT ANNUAL PCP TEAM CHRONIC DISEASE VISIT [facility] Start: 09-30-2023 PNEUMOCOCCAL (1 - PCV) PNEUMOCOCCAL (1 - PCV) [facility] Comment on above: Postponed from 1973 (Declined at t his time) Start: 09-30-2023 Pneumococcal vaccination Pneumococcal Vaccine (1 - PCV) [facility] Comment on above: Postponed from 1973 (Declined at t his time) Start: 09-25-2023 Behavioral Health Screening Behavioral Health Screening [facility] Start: 07-07-2023 End: 09-06-2023 25-hydroxyvitamin D3 [Mass/volume] in Serum or Plasma VITAMIN D 25 HYDROXY Lab Routine Vitamin D deficiency Expected: 07/07/2023, Expires: 09/06/2023 [facility] [facility] Work Phone: Comment on above: Expected: 07/07/2023, Expires: 3 Start: 07-07-2023 End: 09-06-2023 Basic metabolic 2000 panel - Serum or Plasma BASIC METABOLIC PNL Lab Routine Impaired fasting blood sugar Expected: 07/07/2023, Expires: 09/06/2023 [facility] Work Phone: Comment on above: Expected: 07/07/2023, Expires: Start: 07-07-2023 End: 09-06-2023 Hemoglobin A1c in Blood HGB A1C Lab Routine Impaired fasting blood sugar Expected: 07/07/2023, Expires: 09/06/2023 [facility] Work Phone: Comment on above: Expected: 07/07/2023, Expires: 3 Start: 07-07-2023 End: 09-06-2023 HIV 1+2 Ab [Presence] in Serum or Plasma by Immunoassay HIV 1 2 COMBO(AG/AB),WITH REFLEX TO DIFFERENTIATION Lab Routine Screening for HIV without presence of risk factors Expected: 07/07/2023, Expires: 09/06/2023 [facility] Work Phone: Comment on above: Expected: 07/07/2023, Expires: 3 Start: 07-07-2023 End: 09-06-2023 Lipid 1996 panel - Serum or Plasma LIPID PANEL BASIC Lab Routine Hyperlipidemia, unspecified hyperlipidemia type Expected: 07/07/2023, Expires: 09/06/2023 [facility] Work Phone: Comment on above: Expected: 07/07/2023, Expires: 3 Start: 07-07-2023 End: 09-06-2023 Prostate specific Ag [Mass/volume] in Serum or Plasma PSA/PROSTSPECAG DIAG Lab Routine Elevated PSA Expected: 07/07/2023, Expires: 09/06/2023 [facility] Work Phone: Comment on above: Expected: 07/07/2023, Expires: 3 Start: 06-02-2023 BP CONTROLLED (<130/80) BP CONTROLLED (<130/80) [facility] Start: 05-26-2023 Influenza vaccination [facility] Start: 05-16-2023 Adult depression screening assessment DEPRESSION SCREENING [facility] Start: 05-16-2023 ANNUAL PCP TEAM CHRONIC DISEASE VISIT ANNUAL PCP TEAM CHRONIC DISEASE VISIT [facility] Start: 03-30-2023 End: 05-30-2023 Basic metabolic 2000 panel - Serum or Plasma BASIC METABOLIC PNL Lab Routine Primary hypertension Expected: 03/30/2023, Expires: 05/30/2023 [facility] Work Phone: Comment on above: Expected: 03/30/2023, Expires: 3 Start: 03-30-2023 End: 05-30-2023 Lipid 1996 panel - Serum or Plasma LIPID PANEL BASIC Lab Routine Hyperlipidemia, unspecified hyperlipidemia type Expected: 03/30/2023, Expires: 05/30/2023 [facility] Work Phone: Comment on above: Expected: 03/30/2023, Expires: 3 Start: 03-24-2023 Influenza vaccination INFLUENZA (#1) [facility] Comment on above: Postponed from 05/26/2022 (Declined at t his time) Start: 12-15-2022 End: 02-14-2023 HIV 1+2 Ab [Presence] in Serum or Plasma by Immunoassay HIV 1 2 COMBO(AG/AB),WITH REFLEX TO DIFFERENTIATION Lab Routine Screening for HIV without presence of risk factors Expected: 12/15/2022, Expires: 02/14/2023 [facility] Work Phone: Comment on above: Expected: 12/15/2022, Expires: 3 Start: 05-30-2022 End: 07-30-2022 Basic metabolic 2000 panel - Serum or Plasma BASIC METABOLIC PNL Lab Routine Primary hypertension Expected: 05/30/2022, Expires: 07/30/2022 [facility] Work Phone: Comment on above: Expected: 05/30/2022, Expires: 2 Start: 05-30-2022 End: 07-30-2022 Hemoglobin A1c in Blood HGB A1C Lab Routine Hyperlipidemia, unspecified hyperlipidemia type Expected: 05/30/2022, Expires: 07/30/2022 [facility] Work Phone: Comment on above: Expected: 05/30/2022, Expires: 2 Start: 05-30-2022 End: 07-30-2022 Hepatitis C virus Ab [Presence] in Serum HEP C AB IA W/CONF SCRN Lab Routine Hepatitis C antibody test positive Expected: 05/30/2022, Expires: 07/30/2022 [facility] Work Phone: Comment on above: Expected: 05/30/2022, Expires: 2 Start: 05-30-2022 End: 07-30-2022 Lipid 1996 panel - Serum or Plasma LIPID PANEL BASIC Lab Routine Hyperlipidemia, unspecified hyperlipidemia type Expected: 05/30/2022, Expires: 07/30/2022 [facility] Work Phone: Comment on above: Expected: 05/30/2022, Expires: 2 Start: 05-30-2022 End: 07-30-2022 PSA/PROSTSPECAG SCRN PSA/PROSTSPECAG SCRN Lab Routine Screening for prostate cancer Expected: 05/30/2022, Expires: 07/30/2022 [facility] Work Phone: Comment on above: Expected: 05/30/2022, Expires: 2 Start: 05-26-2022 Influenza vaccination INFLUENZA (#1) [facility] Start: 2022 PROSTATE CANCER SCREENING DISCUSSION PROSTATE CANCER SCREENING DISCUSSION [facility] Start: 04-23-2022 Patient discharge [facility] Work Phone: Start: 04-22-2022 Following clinical pathway protocol [facility] Work Phone: Start: 04-22-2022 Assessment of risk of venous thromboembolism [facility] Work Phone: Start: 04-22-2022 Inhalation therapy procedure [facility] Work Phone: Start: 04-22-2022 Insertion of catheter into peripheral vein [facility] Work Phone: Start: 04-22-2022 Introduction of urinary catheter [facility] Work Phone: Start: 04-22-2022 Measuring intake and output [facility] Work Phone: Start: 04-22-2022 Oxygen therapy [facility] Work Phone: Start: 04-22-2022 Providing care according to standard [facility] Work Phone: Start: 04-22-2022 Provision of activity privileges [facility] Work Phone: Start: 04-22-2022 Tobacco use cessation education [facility] Work Phone: Start: 04-22-2022 [facility] Work Phone: Start: 04-22-2022 Admission procedure [facility] Work Phone: Start: 04-22-2022 Verification routine [facility] Work Phone: Start: 04-22-2022 Blood chemistry [facility] Work Phone: Start: 04-22-2022 End: 04-22-2022 [facility] Work Phone: Start: 04-05-2021 Urine microalbumin profile DTAP,TDAP,TD (2 - Td or Tdap) [facility] Start: 2017 SHINGRIX VACCINE (1 of 2) SHINGRIX VACCINE (1 of 2) [facility] Start: 2012 COLOGUARD (FIT-DNA) COLOGUARD (FIT-DNA) [facility] Start: 2012 Colonoscopy COLONOSCOPY [facility] Start: 2012 COLORECTAL CANCER SCREENING COLORECTAL CANCER SCREENING [facility] Start: [address] COLONOGRAPHY [facility] Start: 2012 DIABETES SCREEN DIABETES SCREEN [facility] Start: 2012 FECAL OCCULT BLOOD FECAL OCCULT BLOOD [facility] Start: 2012 Screening for malignant neoplasm of colon [facility] Start: 2012 SIGMOIDOSCOPY SIGMOIDOSCOPY [facility] Start: 2002 LIPID SCREEN LIPID SCREEN [facility] Start: 1986 Urine microalbumin profile DTAP,TDAP,TD (1 - Tdap) [facility] Start: 1985 Anxiety Screening Anxiety Screening [facility] Start: 1985 BP CONTROLLED (<130/80) BP CONTROLLED (<130/80) [facility] Start: 1985 Depression Screening Depression Screening [facility] Start: 1985 HEPATITIS C SCREENING HEPATITIS C SCREENING [facility] Start: 1985 HIV SCREENING HIV SCREENING [facility] Start: 1985 HIV screening HIV Screening [facility] Start: 1979 Adult depression screening assessment DEPRESSION SCREENING [facility] Start: 1973 PNEUMOCOCCAL (1 - PCV) PNEUMOCOCCAL (1 - PCV) [facility] Start: 1973 Pneumococcal vaccination Pneumococcal Vaccine (1 of 2 - PCV) [facility] Start: 1967 COVID-19 VACCINE (#1) COVID-19 VACCINE (#1) [facility] Start: 1967 HEPATITIS B (1 of 3 - 3-dose series) HEPATITIS B (1 of 3 - 3-dose series) [facility] End: 07-08-2025 EGD DIAGNOSTIC EGD DIAGNOSTIC Endoscopy Routine Gastroesophageal reflux disease, unspecified whether esophagitis present Dysphagia, unspecified type 1 Occurrences starting 07/08/2024 until 07/08/2025 [facility] Work Phone: Comment on above: 1 Occurrences starting 07/08/2024 until 07/08/2025 Patient Education ED Back Sprain /Strain ED Flank Pain, Uncertain Cause [facility] Work Phone: Patient referral [facility] Work Phone: End: 05-16-2023 Screening colonoscopy COLONOSCOPY SCREENING Endoscopy Routine Special screening for malignant neoplasms, colon 1 Occurrences starting 05/16/2022 until 05/16/2023 [facility] Work Phone: Comment on above: 1 Occurrences starting 05/16/2022 until 05/16/2023 SURGICAL PATHOLOGY [facility] Work Phone: Comment on above: Release Upon Ordering for 1 Occurrences starting 07/12/2024, 1 completed Urine culture [facility] Immunizations Immunization Date Immunization Notes Care Provider Fa cility 09-30-2022 tetanus toxoid, redu eun diphtheria toxoid, and acellular pertussis vaccine, adsorbed Krish Anguiano MD Work Phone: [facility] Work Phone: 08-05-2019 influenza, injectabl e, quadrivalent, preservative free Erick Coleman MD Work Phone: [facility] 08-05-2019 influenza virus vaccine, unspecified formulation Yvette Older ORNAMENTAL IRON WORKER.HERITAGE CONSULTANT Work Phone: [facility] 07-29-2016 influenza, seasonal, injectable, preservative free Krish Anguiano MD Work Phone: [facility] Work Phone: 07-16-2015 influenza, seasonal, injectable, preservative free Krish Anguiano MD Work Phone: [facility] Work Phone: 07-17-2014 influenza, live, intranasal, quadrivalent Krish Anguiano MD Work Phone: [facility] Work Phone: 07-30-2013 influenza, live, intranasal, quadrivalent Krish Anguaino MD Work Phone: [facility] Work Phone: 07-05-2012 influenza virus vaccine, live, attenuated, for intranasal use Krish Anguiano MD Work Phone: [facility] Work Phone: 07-28-2011 influenza virus vaccine, live, attenuated, for intranasal use Krish Anguiano MD Work Phone: [facility] Work Phone: 04-05-2011 tetanus toxoid, redu eun diphtheria toxoid, and acellular pertussis vaccine, adsorbed Krish Anguiano MD Work Phone: [facility] Work Phone: 07-07-2010 influenza virus vaccine, live, attenuated, for intranasal use Krish Anguiano MD Work Phone: [facility] Work Phone: 10-20-2009 novel [id number], live virus for nasal administration Krish Anguiano MD Work Phone: [facility] Work Phone: 07-09-2009 influenza virus vaccine, live, attenuated, for intranasal use Krish Anguiano MD Work Phone: [facility] Work Phone: 07-16-2008 influenza virus vaccine, live, attenuated, for intranasal use Krish Anguiano MD Work Phone: [facility] Work Phone: 08-29-2006 tuberculin skin test ; purified protein derivative solution, intradermal Yvette Mendes APRN.CNP Work Phone: [facility] 08-15-2006 influenza nasal, unspecified formulation Krish Anguiano MD Work Phone: [facility] Work Phone: 09-02-2003 influenza virus vaccine, split virus (incl. purified surface antigen) Krish Anguiano MD Work Phone: [facility] Work Phone: 04-12-2002 hepatitis A vaccine, adult dosage Krish Anguiano MD Work Phone: [facility] Work Phone: 04-12-2002 hepatitis B vaccine, adult dosage Krish Anguiano MD Work Phone: [facility] Work Phone: 10-05-2001 hepatitis B vaccine, adult dosage Krish Anguiano MD Work Phone: [facility] Work Phone: 09-04-2001 hepatitis A vaccine, adult dosage Krish Anguiano MD Work Phone: [facility] Work Phone: 09-04-2001 hepatitis B vaccine, adult dosage Krish Anguiano MD Work Phone: [facility] Work Phone: 09-04-2001 tetanus and diphther ia toxoids, adsorbed, preservative free, for adult use (2 Lf of tetanus toxoid and 2 Lf of diphtheria toxoid) Krish Anguiano MD Work Phone: [facility] Work Phone: 09-04-2001 typhoid capsular polysaccharide vaccine Krish Anguiano MD Work Phone: [facility] Work Phone: 02-13-1991 meningococcal polysaccharide vaccine (MPSV4) Krish Anguiano MD Work Phone: [facility] Work Phone: Payers Date Payer Category Payer Self-pay 2018 Government (not [facility] care or Medicaid) [id number] 2018 Unknown [facility] [id number] 2018-Present [phone] [place] [address] Indemnity [id number] 2018 Unknown [facility] [id number] 2018-Present [phone] [address] [place] [address] Indemnity [id number] 2018 [employer] ( and others) [id number] [employer] ( and others) [id number] Unknown [id number] Social History Date Type Detail Facility Start: 04-22-2022 End: 04-22-2022 Tobacco smoking status ARIS Unknown if ever smoked [facility] Work Phone: Start: 1965 Sex Assigned At Male [facility] Start: 09-25-1999 End: 07-19-2024 Tobacco smoking status NHIS Occasional tobacco smoker [facility] Work Phone: Start: 09-25-1999 History of tobacco use Cigar Smoker [facility] Work Phone: Start: 07-15-2019 End: 07-19-2024 Tobacco use and exposure Smokeless tobacco non-user [facility] Work Phone: Start: 1965 Sex Assigned At Not on file [facility] Start: 04-12-2022 End: 05-16-2022 Exposure to SARS-CoV-2 (event) Not sure [facility] Start: 05-02-2022 End: 12-30-2024 Alcohol intake Current drinker of alcohol (finding) [facility] Start: 05-02-2022 History SDOH Alcohol Comment social [facility] Start: 05-02-2022 Tobacco Comment [facility] Start: 05-16-2022 End: 02-07-2023 Alcohol intake [facility] Start: 05-16-2022 History SDOH Alcohol Frequency 5 [facility] Start: 05-16-2022 History SDOH Alcohol Std Drinks 0 [facility] Start: 05-16-2022 History SDOH Alcohol Binge 1 [facility] Start: 05-16-2022 History SDOH Social Connections Get Together 3 [facility] Start: 05-16-2022 History SDOH Physica l Activity DPW 6 [facility] Start: 05-16-2022 History SDOH Financial 4 [facility] Start: 05-16-2022 History SDOH Transpo rt Med 2 [facility] Start: 05-16-2022 End: 02-07-2023 Social connection and isolation panel [facility] Do you belong to any clubs or organizations such as sikhism groups, unions, fraternal or athletic groups, or school groups? Yes [facility] Are you now , , , , never or living with a partner? [facility] How often to you hav e a drink containing alcohol? 4 or more times a week [facility] Work Phone: How many standard dr inks containing alcohol do you have on a typical day? Patient does not drink [facility] Work Phone: How often do you hav e 6 or more drinks on 1 occasion? Never [facility] Work Phone: How hard is it for y ou to pay for the very basics like food, housing, medical care, and heating Not very hard [facility] Do you feel stress - tense, restless, nervous, or anxious, or unable to sleep at night because your mind is troubled all the time - these days [OSQ] Not at all [facility] (I/We) worried [facility] (my/our) food would run out before (I/we) got money to buy more. Never true [facility] In the past 12 month s, was there a time when you were not able to pay the mortgage or rent on time? No [facility] How often to you hav e a drink containing alcohol? 2-3 time sa week [facility] How many standard dr inks containing alcohol do you have on a typical day? 1 or 2 [facility] History of tobacco use Passive smoker [facility] Start: 12-04-2024 Sex Male (finding) [facility] Goals Date Patient Goal Desired Activity /State Functional Status Date Assessment Result Facility 04-23-2022 Functional status Ambulates;Bedrest [facility] Work Phone: Mental Status Date Assessment Result Facility 04-23-2022 Cognitive function Voice/Name [facility] Work Phone: 04-22-2022 Cognitive function Level Of Cons ciousness Awake;Alert;Appropriate;Follow s Commands [facility] Work Phone: Clinical Notes 04-22-2022 to 07-08-2025 Telephone Encounter - Carrie Santacruz CECE - 02/20/2025 3:45 PM EDTTelephone Encounter - Carrie Santacruz CECE - 02/20/2025 3:45 PM EDYvette Mcintyre APRN.HERITAGE CONSULTANT - 12/30/2024 10:28 AM EDT Note Date & Type Note Facility 07-08-2025 Note HNO ID: [id number] Author: LETHA ANDRADE RT(Tuyet) Service: ? Author Type: Technologist Type: Progress Notes Filed: 07/08/2025 16:13 Note Text: Radiology Service Progress Note PATIENT NAME: Maddie Solorio DATE OF SERVICE: July 08, 2025 TIME: 4:13 PM PATIENT IDENTITY VERIFICATION COMPLETED USING TWO (2) IDENTIFIERS: Name and Date of confirmed by patient verbally. FALL SCREENING: Has the patient had 2 falls in the last year or 1 fall with injury or currently using an Ambulatory Assistive Device (Walker, Cane, Wheelchair, Crutches, etc.)? No PATIENT GENDER DATA: Assigned male at PATIENT RELEVANT IMPLANT DATA REVIEWED: Yes PATIENT PRESENTS WITH AN IMPLANTABLE OR ATTACHED ENDLESS BED DRUM SANDER: No RADIOLOGY DEPARTMENT: Ultrasound PERIPHERAL IV DATA: Not applicable SIGNED BY: Letha Andrade RDMS, RVT July 08, 2025 4:13 PM [facility] 07-08-2025 Note HNO ID: [id number] Author: YVETTE MENDES APRN.HERITAGE CONSULTANT Service: ? Author Type: Nurse Practitioner Type: Progress Notes Filed: 07/08/2025 11:43 Note Text: CC: Patient presents with: Results: Lab results UTI: Right flank pain, Urinary frequency, little void 3 weeks Conjunctivitis: Right eye HPI Recording using [employer] software for draft documentation of the visit was discussed with the patient/authorized sales representative graphic art; all questions welcomed and answered. Patient/authorized sales representative graphic art agreed to proceed The patient is a 60-year-old male presenting for follow-up on lab results, with additional complaints of right back pain and urinary frequency. Right Back Pain: - Started a couple weeks ago, worsening - Described as internal, not tender to touch, worsening daily. - Pain is aggravated by certain stretches, particularly when lying flat. - Nothing alleviates the pain - Feels different than right sided back pain in November for which he was seen in the ER. CT and labs unremarkable (except for incidental findings of liver lesion and pulmonary nodules) and determined to be muscular - Pain resolved completely after ER visit in November; began stretching and using a roller to alleviate tightness. Urinary Frequency: - Onset around the same time as back pain. - Mild urgency, no hematuria, fever, chills, nausea, or emesis. - Urine color normal, not cloudy. - No difficulty initiating or stopping stream; slightly slow stream but not unusually so. - Nocturia once per night; usually does not have to get up. - Increased water intake. Fatigue: - Reports feeling more tired in general, attributes to age. - Remembers feeling "awesome" about a year ago, but does not feel that way now. Alcohol Use: - Increased bourbon consumption over the past 6 months, drinking a couple of drinks every night since November and sometimes more on the weekends - Recently slowed down a couple of weeks ago when back pain started. - No recreational drug use; occasionally smokes cigars. Eye Discomfort: - Onset about a month ago, with pain and eye "gunked up" in the morning. Review of Systems Constitutional: Positive for fatigue. Negative for chills, diaphoresis, fever and unexpected weight change. Respiratory: Negative for cough, shortness of breath and wheezing. Cardiovascular: Negative for chest pain. Gastrointestinal: Negative for abdominal distention, blood in stool, constipation, diarrhea, nausea and vomiting. Genitourinary: Positive for flank pain and frequency. Negative for decreased urine volume, difficulty urinating, dysuria, hematuria and urgency. Skin: Negative for color change. Hematological: Negative for adenopathy. Does not bruise/bleed easily. PAST MEDICAL HISTORY Diagnosis Date GERD (gastroesophageal reflux disease) History of prostatitis 1999 Hyperlipidemia 05/16/2022 Obesity, Class I, BMI 30-34.9 05/16/2022 Primary hypertension 05/16/2022 PAST SURGICAL HISTORY Procedure Laterality Date COLONOSCOPY 07/06/2022 repeat in 5 years COLONOSCOPY SCREENING 05/2016 [place] EGD 07/12/2024 PAST SURGICAL HISTORY OF 1999 Fertility surgery REMOVAL OF ANAL FISSURE 2016 ALLERGIES Patient has no known allergies. MEDICATIONS lisinopril (ZESTRIL) 10 mg tablet Take 1 tablet by mouth once daily. atorvastatin (LIPITOR) 20 mg tablet Take 1 tablet by mouth daily at bedtime. For cholesterol. MULTIVITAMIN ORAL Take 1 tablet by mouth once daily. omega-3 fatty acids/fish oil (OMEGA 3 FISH OIL ORAL) Take 1 capsule by mouth once daily. iv contrast (will be provided with radiology test) MRI Liver Inject, intravenously, once for 1 dose. No IV access, insert saline lock prior to the beginning of sedation, infusion, injection of imaging exam. Discontinue saline lock post exam. If Pt. has a central line or IVAD, may access for administration according to line specific nursing protocol. Once exam is complete flush line and de-access according to line specific nursing protocol in the MR contrast administration guidelines link. FAMILY HISTORY Problem Relation Age of Onset Hypertension Mother Hyperlipidemia Mother other (MVA) Father Celiac Disease Sister No Known Problems Brother Hypertension Maternal Grandmother Hyperlipidemia Maternal Grandmother SOCIAL HISTORY[1] BP 116/78 Pulse 74 Resp 12 Wt 96.3 kg (212 lb 4.9 oz) SpO2 98% BMI 28.79 kg/m? Physical Exam Vitals reviewed. Constitutional: Appearance: Normal appearance. Eyes: General: No scleral icterus. Right eye: Hordeolum present. Conjunctiva/sclera: Conjunctivae normal. Right eye: Right conjunctiva is not injected. No exudate. Left eye: Left conjunctiva is not injected. No exudate. Cardiovascular: Rate and Rhythm: Normal rate and regular rhythm. Heart sounds: Normal heart sounds. No murmur heard. Pulmonary: Effort: Pulmonary effort is normal. Breath sounds: Normal breath sounds. (more content not included)... [facility] 02-20-2025 Telephone encounter Note The patient has been identified by name and date of : Yes, pharmacy Caregiver verified no other encounters exist for this prescription request: Yes Caregiver confirmed with patient/requestor that no other refills are due, in the near future, with this provider at this time: Yes The last office visit in the department: 12/30/2024 Does the patient have a future office visit with this provider/department: Yes 07/01/2025 Requested Prescriptions Pending Prescriptions Disp Refills lisinopril (ZESTRIL) 10 mg tablet 90 tablet 3 Sig: Take 1 tablet by mouth once daily. Pharmacy calling gave patient his last refill yesterday, asking for new rx. Carrie Santacruz LPN February 20, 2025 3:46 PM [facility] 02-20-2025 Miscellaneous Notes The patient has been identified by name and date of : Yes, pharmacy Caregiver verified no other encounters exist for this prescription request: Yes Caregiver confirmed with patient/requestor that no other refills are due, in the near future, with this provider at this time: Yes The last office visit in the department: 12/30/2024 Does the patient have a future office visit with this provider/department: Yes 07/01/2025 Requested Prescriptions Pending Prescriptions Disp Refills lisinopril (ZESTRIL) 10 mg tablet 90 tablet 3 Sig: Take 1 tablet by mouth once daily. Pharmacy calling gave patient his last refill yesterday, asking for new rx. Carrie Santacruz LPN February 20, 2025 3:46 PM documented in this encounter [facility] 12-30-2024 Note HNO ID: [id number] Author: YVETTE MENDES APRN.HERITAGE CONSULTANT Service: ? Author Type: Nurse Practitioner Type: Progress Notes Filed: 12/30/2024 10:37 Note Text: CC: Patient presents with: 6 month follow up HPI The patient consented to the use of [employer] software for draft documentation of the visit consistent with [facility]?s Notice of Privacy Practices. Maddie is a 59-year-old male with a history of hypercholesterolemia, HTN, and GERD, presenting for a 6-month follow-up. Hyperlipidemia: Madide notes a decrease in cholesterol levels since the last visit, but saw that they are still elevated. He is currently taking atorvastatin 10 mg daily, He denies any side effects from the medication. Elevated PSA: mild elevation. He reports an increase in urinary frequency, particularly at night, and wonders if this is a normal part of aging. He denies nocturia more than once a night. Also denies slow stream, dribbling, incomplete emptying of his bladder, hematuria, or difficulty initiating urination. . Weight: Maddie has lost weight since the last visit, with a current weight of 203.8 lbs and a goal to lose an additional 10 lbs. He denies any side effects from his current antihypertensive medication, lisinopril 10 mg daily, but reports feeling more fatigued recently. He is unsure if this is due to the medication or aging. Joint pain: He also reports experiencing hip and leg pain, which he attributes to recent physical activities, including moving and walking with a weight vest. He notes that the pain has improved since reducing his activity level. He denies any other joint pain or stiffness. GERD: Maddie is currently taking omeprazole daily for GERD and reports no issues since starting the medication. He has a history of dysphagia and acid reflux, which have resolved with the medication. He denies any current symptoms and is interested in discontinuing the medication to see if symptoms return. He occasionally smokes cigars but denies regular cigarette use. Review of Systems Constitutional: Negative for chills, diaphoresis and fever. Respiratory: Negative for cough, shortness of breath and wheezing. Cardiovascular: Negative for chest pain, palpitations and leg swelling. Gastrointestinal: Negative for abdominal distention, abdominal pain, blood in stool, constipation, diarrhea, nausea and vomiting. Neurological: Negative for headaches. PAST MEDICAL HISTORY Diagnosis Date GERD (gastroesophageal reflux disease) History of prostatitis 1999 Hyperlipidemia 05/16/2022 Obesity, Class I, BMI 30-34.9 05/16/2022 Primary hypertension 05/16/2022 PAST SURGICAL HISTORY Procedure Laterality Date COLONOSCOPY 07/06/2022 repeat in 5 years COLONOSCOPY SCREENING 05/2016 [place] EGD 07/12/2024 PAST SURGICAL HISTORY OF 1999 Fertility surgery REMOVAL OF ANAL FISSURE 2016 ALLERGIES Patient has no known allergies. MEDICATIONS atorvastatin (LIPITOR) 20 mg tablet Take 1 tablet by mouth daily at bedtime. For cholesterol. MULTIVITAMIN ORAL Take 1 tablet by mouth once daily. omega-3 fatty acids/fish oil (OMEGA 3 FISH OIL ORAL) Take 1 capsule by mouth once daily. lisinopril (ZESTRIL) 10 mg tablet Take 1 tablet by mouth once daily. FAMILY HISTORY Problem Relation Age of Onset Hypertension Mother Hyperlipidemia Mother other (MVA) Father Celiac Disease Sister No Known Problems Brother Hypertension Maternal Grandmother Hyperlipidemia Maternal Grandmother Social History Tobacco Use Smoking status: Some Days Types: Cigars Start date: 09/25/1999 Passive exposure: Current Smokeless tobacco: Never Tobacco comments: Cigar Vaping Use Vaping status: Never Used Substance Use Topics Alcohol use: Yes Alcohol/week: 7.0 standard drinks of alcohol Types: 7 Glasses of wine per week Comment: social Drug use: Never BP 120/84 Pulse 82 Resp 16 Wt 94.8 kg (209 lb) BMI 28.35 kg/m? Physical Exam Vitals reviewed. Constitutional: Appearance: Normal appearance. Cardiovascular: Rate and Rhythm: Normal rate and regular rhythm. Heart sounds: Normal heart sounds. No murmur heard. Pulmonary: Effort: Pulmonary effort is normal. Breath sounds: Normal breath sounds. No wheezing, rhonchi or rales. Neurological: Mental Status: He is alert. Health maintenance reviewed with patient: Influenza Vaccine(1) due on 03/24/2025 HIV Screening due on 05/08/2025 Shingrix Vaccine(1 of 2) due on 05/08/2025 Pneumococcal Vaccine: 50+(1 of 2 - PCV) due on 12/30/2025 Depression Screening due on 05/08/2025 Anxiety Screening due on 05/08/2025 Annual PCP Team Chronic Disease Visit due on 12/30/2025 BP Controlled (<130/80) due on 12/30/2025 Diabetes Screening due on 06/19/2027 Colorectal Cancer Screening due on 07/06/2027 Lipid Screening due on 10/28/2029 Prostate Cancer Screening Discussion due on 10/28/2029 DTaP,Tdap,Td Vaccine(3 - Td or Tdap) due on 09/30/2032 He (more content not included)... [facility] 12-30-2024 History of Presen t illness Narrative CC: Patient presents with: 6 month follow up HPI The patient consented to the use of [employer] software for draft documentation of the visit consistent with [facility] s Notice of Privacy Practices. Maddie is a 59-year-old male with a history of hypercholesterolemia, HTN, and GERD, presenting for a 6-month follow-up. Hyperlipidemia: Maddie notes a decrease in cholesterol levels since the last visit, but saw that they are still elevated. He is currently taking atorvastatin 10 mg daily, He denies any side effects from the medication. Elevated PSA: mild elevation. He reports an increase in urinary frequency, particularly at night, and wonders if this is a normal part of aging. He denies nocturia more than once a night. Also denies slow stream, dribbling, incomplete emptying of his bladder, hematuria, or difficulty initiating urination. . Weight: Maddie has lost weight since the last visit, with a current weight of 203.8 lbs and a goal to lose an additional 10 lbs. He denies any side effects from his current antihypertensive medication, lisinopril 10 mg daily, but reports feeling more fatigued recently. He is unsure if this is due to the medication or aging. Joint pain: He also reports experiencing hip and leg pain, which he attributes to recent physical activities, including moving and walking with a weight vest. He notes that the pain has improved since reducing his activity level. He denies any other joint pain or stiffness. GERD: Maddie is currently taking omeprazole daily for GERD and reports no issues since starting the medication. He has a history of dysphagia and acid reflux, which have resolved with the medication. He denies any current symptoms and is interested in discontinuing the medication to see if symptoms return. He occasionally smokes cigars but denies regular cigarette use. Review of Systems Constitutional: Negative for chills, diaphoresis and fever. Respiratory: Negative for cough, shortness of breath and wheezing. Cardiovascular: Negative for chest pain, palpitations and leg swelling. Gastrointestinal: Negative for abdominal distention, abdominal pain, blood in stool, constipation, diarrhea, nausea and vomiting. Neurological: Negative for headaches. PAST MEDICAL HISTORY Diagnosis Date GERD (gastroesophageal reflux disease) History of prostatitis 1999 Hyperlipidemia 05/16/2022 Obesity, Class I, BMI 30-34.9 05/16/2022 Primary hypertension 05/16/2022 PAST SURGICAL HISTORY Procedure Laterality Date COLONOSCOPY 07/06/2022 repeat in 5 years COLONOSCOPY SCREENING 05/2016 [place] EGD 07/12/2024 PAST SURGICAL HISTORY OF 1999 Fertility surgery REMOVAL OF ANAL FISSURE 2017 ALLERGIES Patient has no known allergies. MEDICATIONS atorvastatin (LIPITOR) 20 mg tablet Take 1 tablet by mouth daily at bedtime. For cholesterol. MULTIVITAMIN ORAL Take 1 tablet by mouth once daily. omega-3 fatty acids/fish oil (OMEGA 3 FISH OIL ORAL) Take 1 capsule by mouth once daily. lisinopril (ZESTRIL) 10 mg tablet Take 1 tablet by mouth once daily. FAMILY HISTORY Problem Relation Age of Onset Hypertension Mother Hyperlipidemia Mother other (MVA) Father Celiac Disease Sister No Known Problems Brother Hypertension Maternal Grandmother Hyperlipidemia Maternal Grandmother Social History Tobacco Use Smoking status: Some Days Types: Cigars Start date: 09/25/1999 Passive exposure: Current Smokeless tobacco: Never Tobacco comments: Cigar Vaping Use Vaping status: Never Used Substance Use Topics Alcohol use: Yes Alcohol/week: 7.0 standard drinks of alcohol Types: 7 Glasses of wine per week Comment: social Drug use: Never BP 120/84 Pulse 82 Resp 16 Wt 94.8 kg (209 lb) BMI 28.35 kg/m Physical Exam Vitals reviewed. Constitutional: Appearance: Normal appearance. Cardiovascular: Rate and Rhythm: Normal rate and regular rhythm. Heart sounds: Normal heart sounds. No murmur heard. Pulmonary: Effort: Pulmonary effort is normal. Breath sounds: Normal breath sounds. No wheezing, rhonchi or rales. Neurological: Mental Status: He is alert. Health maintenance reviewed with patient: Influenza Vaccine(1) due on 03/24/2025 HIV Screening due on 05/08/2025 Shingrix Vaccine(1 of 2) due on 05/08/2025 Pneumococcal Vaccine: 50+(1 of 2 - PCV) due on 12/30/2025 Depression Screening due on 05/08/2025 Anxiety Screening due on 05/08/2025 Annual PCP Team Chronic Disease Visit due on 12/30/2025 BP Controlled (<130/80) due on 12/30/2025 Diabetes Screening due on 06/19/2027 Colorectal Cancer Screening due on 07/06/2027 Lipid Screening due on 10/28/2029 Prostate Cancer Screening Discussion due on 10/28/2029 DTaP,Tdap,Td Vaccine(3 - Td or Tdap) due on 09/30/2032 Hepatitis B Vaccine Completed Hepatitis C Screening Completed Covid-19 Vaccine Discontinued DATA REVIEWED: Most recent labs and EGD Latest Ref Rng 05/08/2024 10/28/2024 Cholesterol, Total <200 mg/dL 294 (H) 265 (H) Triglyceride <150 mg/dL 87 105 HDL Cholesterol >39 mg/dL 83 95 Non HDL Cholesterol <130 mg/dL 211 (H) 170 (H) Fasting Time hrs 13 14 VLDL Cholesterol <30 mg/dL 17 21 TC:HDL Ratio <5.10 3.54 2.79 LDL Cholesterol <100 mg/dL 194 (H) 149 (H) LDL:HDL Ratio <2.54 2.34 1.57 PSA <2.60 ng/mL 3.03 (H) 3.12 (H) Legend: (H) High Assessment/Plan 1. Hyperlipidemia, unspecified hyperlipidemia type (E78.5) Recent lab results indicate cholesterol levels remain elevated despite current treatment with atorvastatin 10 mg daily. - Increased atorvastatin dosage to 20 mg daily; instructed patient to double current 10 mg tablets until supply is exhausted. - Sent prescription for atorvastatin 20 mg to [facility]. - Recheck lipid panel in 6 months. 2. Elevated PSA (R97.20) PSA levels have increased slightly but remain low. Patient reports increased urinary frequency but denies significant symptoms such as nocturia, hematuria, or dysuria. - Monitor urinary symptoms; advised patient to report any significant changes. - Recheck PSA levels in 6 months. 3. Primary hypertension (I10) Blood pressure is well-controlled on lisinopril 10 mg daily, with today's reading at 120/84 mmHg. Continue lisinopril 10 mg daily. 4. Gastroesophageal reflux disease, unspecified whether esophagitis present (K21.9) Dysphagia, unspecified type (R13.10) Patient has been on omeprazole with no recent episodes of dysphagia. Previous endoscopy showed no significant findings. - Trial discontinuation of omeprazole. - Monitor for recurrence of dysphagia or GERD symptoms; advised patient to restart omeprazole if symptoms return. - Minimize cigar smoking to reduce potential GERD exacerbation. 5. Overweight (BMI 25.0-29.9) (E66.3) Current weight is 209 lbs, down approximately 20 lbs. Patient reports a weight of 203.8 lbs at home and aims to lose an additional 10 lbs. Continue current weight loss efforts. 6. Pain in joint involving multiple sites (M25.50) Reports of hip, leg, and foot pain have improved with reduced physical activity. Symptoms likely due to overuse and mechanical stress. Monitor symptoms; no specific treatment required at this time. Prescription instructions reviewed with patient as applicable. Potential red flag symptoms discussed with the patient. Reviewed appropriate action plan to take if red flag symptoms occur. Patient agreeable to treatment plan. Yvette Mendes APRN.KVNG Medical Decision Making: Problems: Moderate: 2+ stable chronic illnesses Data: Unique test result(s) reviewed: 2 Unique test(s) ordered: 1 Risk: Low: Low risk from testing/treatment Moderate: Drug management Medical Decision Making Level: 4 - Moderate documented in this encounter [facility] 12-30-2024 Instructions Yvette Mendes APRN.KVNG - 12/30/2024 10:27 AM EDT We discussed your cholesterol: - Your cholesterol levels have improved but remain higher than the normal range. - I have increased your atorvastatin (Lipitor) dose from 10 mg to 20 mg daily. You can double your current pills (10 mg) until they are finished. A prescription for the 20 mg dose has been sent to [facility] for future refills. We discussed your prostate health: - Your PSA level has increased slightly but remains low and is not concerning for prostate cancer. - You mentioned increased urinary frequency, but since you are not experiencing significant symptoms (e.g., getting up multiple times at night, slow stream, blood in urine, or difficulty starting urination), we will recheck your PSA in 6 months. - If you develop more significant urinary symptoms before your next visit, please let me know, and I will refer you to a urologist. We discussed your blood pressure: - Your blood pressure today was 120/84, which is within the normal range. - Continue taking lisinopril 10 mg daily. We discussed your weight and joint pain: - Your weight has decreased to 209 lbs, which is about 20 lbs lower than your previous visit. You mentioned a goal of losing 10 more pounds, which is a great plan. - Your recent hip and leg pain is likely due to overuse from strenuous activities. Since your symptoms have improved after reducing activity, no further action is needed at this time. We discussed your acid reflux: - You may trial stopping omeprazole, as you have not had symptoms recently and have made positive lifestyle changes, including weight loss. - If your symptoms return (e.g., difficulty swallowing, reflux, or choking sensations), please restart omeprazole and let us know. - Minimize cigar use, as it can aggravate reflux symptoms. We discussed vaccinations: - The pneumonia vaccine is now recommended for individuals aged 50 and older. You declined it today but may consider it in the future. If you decide to receive it, you can schedule a nurse visit or discuss it at your next appointment. Follow-up plan: - Schedule a follow-up visit in 6 months (December 2023). - Complete blood work, including cholesterol and PSA levels, a few days before your next appointment so we can review the results together. - If you experience any new or worsening symptoms, please contact our office. documented in this encounter [facility] 12-03-2024 Radiology Diagnostic study note [facility] Imaging Services [address] [place] [address] Abdomen/Pelvis without Cont MR#: [id number] Acct: [id number] Name: MADDIE SOLORIO Rep #: [id number] : 1965 M 59 From: Glenn Arnold DO PCP: Dr. Krish Anguiano MD Status: R EG ER Study:Abdomen/Pelvis without Cont Date of Exa m: 12/03/24 Exam# [id number] Ordering Dr: Seb Gibson DO PROCEDURE: CT abdomen pelvis without IV contrast REASON FOR EXAM: Pain, calculi TECHNIQUE: Multiple contiguous axial images through the abdomen and pelvis were obtained without the administration of intravenous contrast. Two-dimensional coronal and sagittal reformatted images were reconstructed. Low-dose imaging technique was utilized. COMPARISON: None. FINDINGS: Several punctate bibasilar pulmonary nodules, largest measuring 4 mm. Indeterminate exophytic lesion along the left hepatic lobe measuring 3.1 cm, not a simple cyst. Spleen, pancreas and adrenal glands are within normal limits. Gallbladder is partially contracted. No significant biliary ductal dilation. No renal calculi or hydronephrosis. Urinary bladder is intact. No bowel obstruction, focal bowel wall thickening or significant perienteric inflammation. Distal colonic diverticulosis. Normal appendix. No pelvic free fluid. No free air. No abdominal aortic aneurysm or suspicious adenopathy. Small bilateral fat containing inguinal and umbilical hernias. No acute osseous abnormality. CT/Abdomen/Pelvis without Cont IMPRESSION: 1. No acute process. 2. Complex cystic lesion along the left hepatic lobe measuring 3.1 cm. Recommend further evaluation with nonemergent contrast-enhanced MRI. 3. Punctate bibasilar pulmonary nodules. [address] follow-up could be performed if the patient has clinical risk factors per Fleischner criteria. One or more dose reduction techniques were used (e.g., Automated exposure control, adjustment of the mA and/or kV according to patient size, use of iterative reconstruction technique). Reading Location: [facility] CC: Dr. Seb Gibson DO; Dr. Krish Anguiano MD ~ Mutual Fund Accountant: Signed [facility] 09-03-2024 Telephone encounter Note Per 07/01/2024 appt, okay to start Lipitor Patient has been identified by name and date of : Yes Patient phones for refill(s): Requested Prescriptions Pending Prescriptions Disp Refills atorvastatin (LIPITOR) 10 mg tablet 30 tablet 5 Sig: Take 1 tablet by mouth daily at bedtime. For cholesterol. Date of last office visit in primary care: 07/01/2024 Date of next office visit in primary care: 12/30/2024 Please advise. Thank you. Zehra Carver LPN. [facility] 09-03-2024 Miscellaneous Notes Per 07/01/2024 appt, okay to start Lipitor Patient has been identified by name and date of : Yes Patient phones for refill(s): Requested Prescriptions Pending Prescriptions Disp Refills atorvastatin (LIPITOR) 10 mg tablet 30 tablet 5 Sig: Take 1 tablet by mouth daily at bedtime. For cholesterol. Date of last office visit in primary care: 07/01/2024 Date of next office visit in primary care: 12/30/2024 Please advise. Thank you. Zehra Carver LPN. documented in this encounter [facility] 08-01-2024 Telephone encounter Note Patient has been identified by name and date of : Yes Patient phones for refill(s): Requested Prescriptions Pending Prescriptions Disp Refills omeprazole (PRILOSEC) 40 mg capsule 30 capsule 0 Sig: Take 1 capsule by mouth once daily. Date of last office visit in primary care: 07/01/2024 Date of next office visit in primary care: 12/30/2024 Please advise. Thank you. Zehra Carver LPN. [facility] 08-01-2024 Miscellaneous Notes Patient has been identified by name and date of : Yes Patient phones for refill(s): Requested Prescriptions Pending Prescriptions Disp Refills omeprazole (PRILOSEC) 40 mg capsule 30 capsule 0 Sig: Take 1 capsule by mouth once daily. Date of last office visit in primary care: 07/01/2024 Date of next office visit in primary care: 12/30/2024 Please advise. Thank you. Zehra Carver LPN. documented in this encounter [facility] 07-19-2024 History of Presen t illness Narrative FOLLOW UP VISIT - ENDOSCOPY Maddie Solorio 1965 [id number] REFERRING PHYSICIAN: Effie Alvarez [address] [facility] [address] Maddie Solorio is a patient I am following for dysphagia, sore throat. Dr. Alvarez performed upper endoscopy on 07/12/24. The patient was found to have Impression: - Normal examined jejunum. - Normal examined duodenum. - Gastritis. Biopsied. - Mildly severe reflux esophagitis with no bleeding. Biopsied. - Normal middle third of esophagus. Biopsied. Pathology demonstrated: FINAL DIAGNOSIS A. Stomach, antrum, biopsy: - Gastric antral mucosa with reactive gastropathy. - No evidence of H. pylori microorganisms on H&E sections. B. Esophagus, distal, biopsy: - Inflamed squamous and gastric cardia-type mucosa with a single cell suspicious for intestinal metaplasia, negative for dysplasia (see comment). C. Esophagus, mid, biopsy: - Superficial fragment of squamous mucosa with no diagnostic abnormality. Diagnosis Comment B. The cell is present only in one section and disappeared on the deeper levels. This finding is suspicious but not definitive for intestinal metaplasia. If there is endoscopic concern for Estrada's esophagus, a follow-up biopsy is recommended The patient notes continued reflux but no dysphagia episodes. Maddie refers he drinks a lot of carbonated water and has been trying to cut back. He also admits to daily alcohol and coffee use. He has changed his diet and lost 20lbs recently. He also admits to smoking cigars. VITALS: There were no vitals taken for this visit. General: patient is alert, cooperative, pleasant and in no acute distress On examination, the abdomen is benign. Assessment ASSESSMENT/PLAN: 1. Gastroesophageal reflux disease, unspecified whether esophagitis present - ICD9: 530.81, ICD10: K21.9 - Discussed lifestyle modifications including losing weight, limiting caffeine, no meals three hours before sleep, limiting alcohol and head of bed elevation - Continue treatment with Prilosec 40 mg QD The operative findings and pathology report were reviewed with the patient, and the patient has had the opportunity to ask questions and have questions answered. If the patient notes any problems or changes in bowel function, the patient should contact me immediately. Otherwise I recommend follow up endoscopy as symptoms dictate. HM updated and recall letter generated. Discussed treatment plan and patient voices understanding. Patient's questions answered appropriately. Medications and potential side effects were discussed and patient voices understanding. Return to the office as scheduled or as needed for worsening/no improvement. Pruvi Webber APRN.KVNG documented in this encounter [facility] 07-19-2024 Note HNO ID: [id number] Author: PURVI WEBBER APRN.CNP Service: ? Author Type: Nurse Practitioner Type: Progress Notes Filed: 07/19/2024 13:22 Note Text: FOLLOW UP VISIT - ENDOSCOPY Maddie Solorio 1965 [id number] REFERRING PHYSICIAN: Effie Alvarez [address] [facility] [address] Maddie Solorio is a patient I am following for dysphagia, sore throat. Dr. Alvarez performed upper endoscopy on 07/12/24. The patient was found to have Impression: - Normal examined jejunum. - Normal examined duodenum. - Gastritis. Biopsied. - Mildly severe reflux esophagitis with no bleeding. Biopsied. - Normal middle third of esophagus. Biopsied. Pathology demonstrated: FINAL DIAGNOSIS A. Stomach, antrum, biopsy: - Gastric antral mucosa with reactive gastropathy. - No evidence of H. pylori microorganisms on MARLON sections. B. Esophagus, distal, biopsy: - Inflamed squamous and gastric cardia-type mucosa with a single cell suspicious for intestinal metaplasia, negative for dysplasia (see comment). C. Esophagus, mid, biopsy: - Superficial fragment of squamous mucosa with no diagnostic abnormality. Diagnosis Comment B. The cell is present only in one section and disappeared on the deeper levels. This finding is suspicious but not definitive for intestinal metaplasia. If there is endoscopic concern for Estrada's esophagus, a follow-up biopsy is recommended The patient notes continued reflux but no dysphagia episodes. Maddie refers he drinks a lot of carbonated water and has been trying to cut back. He also admits to daily alcohol and coffee use. He has changed his diet and lost 20lbs recently. He also admits to smoking cigars. VITALS: There were no vitals taken for this visit. General: patient is alert, cooperative, pleasant and in no acute distress On examination, the abdomen is benign. Assessment ASSESSMENT/PLAN: 1. Gastroesophageal reflux disease, unspecified whether esophagitis present - ICD9: 530.81, ICD10: K21.9 - Discussed lifestyle modifications including losing weight, limiting caffeine, no meals three hours before sleep, limiting alcohol and head of bed elevation - Continue treatment with Prilosec 40 mg QD The operative findings and pathology report were reviewed with the patient, and the patient has had the opportunity to ask questions and have questions answered. If the patient notes any problems or changes in bowel function, the patient should contact me immediately. Otherwise I recommend follow up endoscopy as symptoms dictate. HM updated and recall letter generated. Discussed treatment plan and patient voices understanding. Patient's questions answered appropriately. Medications and potential side effects were discussed and patient voices understanding. Return to the office as scheduled or as needed for worsening/no improvement. Purvi Webber APRN.HERITAGE CONSULTANT [facility] 07-12-2024 Note Formatting of this n ote might be different from the original. The patient received a copy of EGD discharge instructions that contain information for how to contact the physician who performed the procedure and when to seek medical care. [facility] 07-12-2024 Miscellaneous Notes The patient received a copy of EGD discharge instructions that contain information for how to contact the physician who performed the procedure and when to seek medical care. documented in this encounter [facility] 07-12-2024 Note HNO ID: [id number] Author: JULEE SCHOFIELD RN Service: ? Author Type: Registered Nurse Type: Nursing Progress Note Filed: 07/12/2024 12:45 Note Text: Abdomen soft non distended. Will continue to monitor. [facility] 07-12-2024 Nurse Note Abdomen soft non distended. Will continue to monitor. [facility] 07-12-2024 Nurse Note Abdomen soft non distended. Will continue to monitor. documented in this encounter [facility] 07-12-2024 Attending History and physical note UPDATED PROCEDURAL SEDATION HISTORY AND PHYSICAL EXAMINATION SERVICE DATE: 07/12/2024 SERVICE TIME: 11:57 AM PHYSICAL EXAM MUST BE COMPLETED ON ADMISSION PROCEDURE: Procedure Indications: The History and Physical (completed in the past 30 days) has been reviewed and the patient has been examined. The contents accurately reflect the patient's condition with the following additions or revisions since the H&P was completed. ASA Class: ASA Class: Patient with mild systemic disease Examination indicates no changes. AIRWAY: Airway Visualization of Uvula: Yes Mouth opening greater than 2 fingerbreadths: Yes Neck Full Range of Motion: Yes LUNGS: Lungs clear to auscultation CARDIAC: Regular rhythm,Regular rate Provisional Diagnosis/Treatment Plan: dysphagia - EGD Sedation Goal: Moderate This H&P can be found in the attached. SIGNATURE: Effie Alvarez MD PATIENT NAME: Maddie Solorio DATE: July 12, 2024 TIME: 11:57 AM Source Note - Effie Alvarez MD - 07/12/2024 11:15 AM EDT HISTORY AND PHYSICAL Maddie Solorio : 1965 REFERRING PHYSICIAN: Yvette Mendes [address] [facility] [address] CHIEF COMPLAINT: Patient presents with: Consult: GERD, acid reflux couple years, pcp referral HPI: Maddie is a 59 year old male referred for endoscopy. Mdadie notes continued throat irritation & epigastric discomfort after starting prilosec 40mg daily for 4 weeks for heartburn, dysphagia and water brash. Maddie denies heartburn. Maddie notes a distant history of dysphagia. Refers over the summer he had an episode where he swallowed chicken and it felt like it got stuck, caused vomiting. Only passed after he drank a carbonated beverage. Has had 2 other episodes like this, but not as severe. Feels like his throat is swollen- worse in the morning C/O some mild congestion also Maddie denies a history of ulcers/ peptic ulcer disease. Maddie refers is mother has had similar issues with swallowing. Has concerns because multiple people he knows have recently been dx with esophageal cancer with similar symptoms. Maddie has not undergone prior EGD. Last colonoscopy 06/2022 with recommendation of repeat in 5 years. Sedation received at [facility] : Midazolam 6 mg IV, Fentanyl 50 micrograms IV, Diphenhydramine 50 mg IV CURRENT MEDICATIONS Current Outpatient Medications Medication Sig MULTIVITAMIN ORAL Take by mouth once daily. omega-3 fatty acids/fish oil (OMEGA 3 FISH OIL ORAL) Take by mouth once daily. omeprazole (PRILOSEC) 40 mg capsule Take 1 capsule by mouth once daily. lisinopril (ZESTRIL) 10 mg tablet Take 1 tablet by mouth once daily. atorvastatin (LIPITOR) 10 mg tablet Take 1 tablet by mouth daily at bedtime. For cholesterol. Cholecalciferol, Vitamin D3, 125 mcg (5,000 unit) cap Take 1 capsule by mouth once daily. (Patient not taking: Reported on 07/08/2024) No current facility-administered medications for this visit. ALLERGIES: Patient has no known allergies. PAST MEDICAL HISTORY PAST MEDICAL HISTORY Diagnosis Date GERD (gastroesophageal reflux disease) History of prostatitis 1999 Hyperlipidemia 05/16/2022 Obesity, Class I, BMI 30-34.9 05/16/2022 Primary hypertension 05/16/2022 PAST SURGICAL HISTORY PAST SURGICAL HISTORY Procedure Laterality Date COLONOSCOPY 07/06/2022 repeat in 5 years COLONOSCOPY SCREENING 05/2016 [place] PAST SURGICAL HISTORY OF 1999 Fertility surgery REMOVAL OF ANAL FISSURE 2017 FAMILY HISTORY FAMILY HISTORY Problem Relation Age of Onset Hypertension Mother Hyperlipidemia Mother other (MVA) Father Celiac Disease Sister No Known Problems Brother Hypertension Maternal Grandmother Hyperlipidemia Maternal Grandmother SOCIAL HISTORY Social History Tobacco Use Smoking status: Some Days Types: Cigars Start date: 09/25/1999 Smokeless tobacco: Never Tobacco comments: Cigar Vaping Use Vaping status: Never Used Substance Use Topics Alcohol use: Yes Alcohol/week: 7.0 standard drinks of alcohol Types: 7 Glasses of wine per week Comment: social Drug use: Never REVIEW OF SYMPTOMS: The review of systems data was entered by the nurse and reviewed by ri Nursing Notes: Dominique Baldwin LPN 07/08/2024 10:30 AM Signed REVIEW OF SYSTEMS: General: The patient denies fatigue, denies weight loss, notes weight gain, denies feeling hot, and denies feelings of cold. Eyes: The patient denies glaucoma, denies eye injury/surgery, wears glasses or contacts. Ear/Nose/Throat: The patient denies allergies, denies hayfever, denies ear infections, and denies bloody noses. Cardiovascular: The patient denies chest pain, denies heart disease, notes high blood pressure,denies cardiac stent, denies prior heart attack, denies irregular heart beat, notes high cholesterol, denies poor circulation, denies heart failure, other cardiac issues, denies claudication, notes cold feet, denies peripheral arterial stent. Respiratory: The patient denies tuberculosis, denies pneumonia, denies frequent cough, denies pulmonary embolism, denies shortness of breath, and denies coughing up blood. Gastrointestinal: The patient notes difficulty swallowing, notes acid reflux, denies ulcers, denies vomiting, denies jaundice/hepatitis, denies gallbladder problems, denies black or tarry stools, denies hemorrhoids, denies bleeding from rectum, denies diverticulitis, denies constipation, denies diarrhea, denies loss of stool control, and notes hernias. Kidney/Bladder: The patient denies kidney stones, denies urine infections, and denies bloody urine. Skin: The patient denies a history of skin cancer, denies bleeding/changing moles, and denies a history of skin rash. Neurologic: The patient denies a history of epilepsy/convulsions, denies headaches, denies head/spinal injuries, and denies stroke/TIA. Psychiatric: The patient denies psychiatric medications, denies depression, and denies voices, denies substance abuse. Endocrine: The patient denies thyroid disorders, denies diabetes, and denies hormonal problems. Hematologic: The patient denies a history of bruising, denies bleeding, and denies anemia, denies blood clots. Infections: The patient denies a history of measles and mumps, denies rheumatic fever, and denies sexually transmitted diseases. Musculoskeletal: The patient denies back pain/injury, denies back problems, denies sciatica, denies knee/foot trouble, denies arthritis, or denies gout. When was patient's last Mammogram screening? N/A Last Colonoscopy: 2021 Dominique Baldwin LPN PHYSICAL EXAMINATION: General: The patient is 59 year old, male well nourished, well hydrated in no acute distress. The patient is oriented to time, place, and person. VITALS: Blood pressure 138/64, pulse 64, height 182.9 cm (6'), weight 100.7 kg (222 lb), SpO2 97%. Body mass index is 30.11 kg/m . HEENT: Normal cephalic, ataumatic, pupils are equally round, sclera are anicteric, mucous membranes are moist, oropharynx is clear. Neck has no masses, asymmetry or lymphadenopathy. Respiratory: Clear to auscultation and percussion. Normal respiratory excursion and pattern. Cardiac: Examination is regular rate and rhythm. Normal S1/S2 Abdominal exam: Soft, nontender, with no palpable masses. No hepatosplenomegaly. No palpable hernias. Extremities: no clubbing, cyanosis or edema. No adenopathy. LABORATORY VALUES: As Noted RADIOLOGIC STUDIES: As Noted Assessment IMPRESSION: GERD, dysphagia,throat irritation PLAN: I have reviewed my findings with the surgeon. Will plan for upper endoscopy. We discussed the risks and benefits of the planned endoscopy. I have informed the patient that complications can occur including failure to complete the endoscopy and perforation. Maddie had the opportunity to ask questions concerning the planned endoscopy. My staff has also explained the procedure to the patient in understandable terms and has given the patient printed material concerning the procedure. Maddie freely consents to surgery. I have explained to the patient the difference between IV conscious sedation and MAC anesthesia - and I have offered either, according to the patient's wishes. I have explained that with IV conscious sedation there is no anesthesia provider available and therefore there is a limitation of the amount of IV medications that can be given and that the patient may wake up in the middle of the procedure and/or experience pain/discomfort during the procedure. Further discussion was done and the patient was given the opportunity to ask questions and all questions were answered. Maddie chooses IV conscious sedation. Maddie was counseled that if there are changes in his/her medical condition, to let the office know if surgery should proceed. If there are changes in patient's medical condition from time of this encounter to the day of the procedure that preclude anesthesia, patient may have procedure cancelled for patient's safety. Diagnoses: (R13.10) Dysphagia, unspecified type (primary encounter diagnosis) (K21.9) Gastroesophageal reflux disease, unspecified whether esophagitis present Consultation requested by Yvette Mendes CNP for an opinion regarding GERD. My final recommendations will be communicated back to the requesting physician by way of shared Medical record or letter to requesting physician via US mail. Portions of this documentation were copied and pasted from previous office visit notes in order to provide a cohesive continuity of the history. The note has been reviewed and edited and updated as necessary. Purvi Webber APRN.HERITAGE CONSULTANT [facility] Work Phone: 07-12-2024 History and physical note HISTORY AND PHYSICAL Maddie Solorio : 1965 REFERRING PHYSICIAN: Yvette Mendes [address] [facility] [address] CHIEF COMPLAINT: Patient presents with: Consult: GERD, acid reflux couple years, pcp referral HPI: Maddie is a 59 year old male referred for endoscopy. Maddie notes continued throat irritation & epigastric discomfort after starting prilosec 40mg daily for 4 weeks for heartburn, dysphagia and water brash. Maddie denies heartburn. Maddie notes a distant history of dysphagia. Refers over the summer he had an episode where he swallowed chicken and it felt like it got stuck, caused vomiting. Only passed after he drank a carbonated beverage. Has had 2 other episodes like this, but not as severe. Feels like his throat is swollen- worse in the morning C/O some mild congestion also Maddie denies a history of ulcers/ peptic ulcer disease. Maddie refers is mother has had similar issues with swallowing. Has concerns because multiple people he knows have recently been dx with esophageal cancer with similar symptoms. Maddie has not undergone prior EGD. Last colonoscopy 06/2022 with recommendation of repeat in 5 years. Sedation received at [facility] : Midazolam 6 mg IV, Fentanyl 50 micrograms IV, Diphenhydramine 50 mg IV CURRENT MEDICATIONS Current Outpatient Medications Medication Sig MULTIVITAMIN ORAL Take by mouth once daily. omega-3 fatty acids/fish oil (OMEGA 3 FISH OIL ORAL) Take by mouth once daily. omeprazole (PRILOSEC) 40 mg capsule Take 1 capsule by mouth once daily. lisinopril (ZESTRIL) 10 mg tablet Take 1 tablet by mouth once daily. atorvastatin (LIPITOR) 10 mg tablet Take 1 tablet by mouth daily at bedtime. For cholesterol. Cholecalciferol, Vitamin D3, 125 mcg (5,000 unit) cap Take 1 capsule by mouth once daily. (Patient not taking: Reported on 07/08/2024) No current facility-administered medications for this visit. ALLERGIES: Patient has no known allergies. PAST MEDICAL HISTORY PAST MEDICAL HISTORY Diagnosis Date GERD (gastroesophageal reflux disease) History of prostatitis 1999 Hyperlipidemia 05/16/2022 Obesity, Class I, BMI 30-34.9 05/16/2022 Primary hypertension 05/16/2022 PAST SURGICAL HISTORY PAST SURGICAL HISTORY Procedure Laterality Date COLONOSCOPY 07/06/2022 repeat in 5 years COLONOSCOPY SCREENING 05/2016 [place] PAST SURGICAL HISTORY OF 1999 Fertility surgery REMOVAL OF ANAL FISSURE 2016 FAMILY HISTORY FAMILY HISTORY Problem Relation Age of Onset Hypertension Mother Hyperlipidemia Mother other (MVA) Father Celiac Disease Sister No Known Problems Brother Hypertension Maternal Grandmother Hyperlipidemia Maternal Grandmother SOCIAL HISTORY Social History Tobacco Use Smoking status: Some Days Types: Cigars Start date: 09/25/1999 Smokeless tobacco: Never Tobacco comments: Cigar Vaping Use Vaping status: Never Used Substance Use Topics Alcohol use: Yes Alcohol/week: 7.0 standard drinks of alcohol Types: 7 Glasses of wine per week Comment: social Drug use: Never REVIEW OF SYMPTOMS: The review of systems data was entered by the nurse and reviewed by ri Nursing Notes: Dominique Baldwin LPN 07/08/2024 10:30 AM Signed REVIEW OF SYSTEMS: General: The patient denies fatigue, denies weight loss, notes weight gain, denies feeling hot, and denies feelings of cold. Eyes: The patient denies glaucoma, denies eye injury/surgery, wears glasses or contacts. Ear/Nose/Throat: The patient denies allergies, denies hayfever, denies ear infections, and denies bloody noses. Cardiovascular: The patient denies chest pain, denies heart disease, notes high blood pressure,denies cardiac stent, denies prior heart attack, denies irregular heart beat, notes high cholesterol, denies poor circulation, denies heart failure, other cardiac issues, denies claudication, notes cold feet, denies peripheral arterial stent. Respiratory: The patient denies tuberculosis, denies pneumonia, denies frequent cough, denies pulmonary embolism, denies shortness of breath, and denies coughing up blood. Gastrointestinal: The patient notes difficulty swallowing, notes acid reflux, denies ulcers, denies vomiting, denies jaundice/hepatitis, denies gallbladder problems, denies black or tarry stools, denies hemorrhoids, denies bleeding from rectum, denies diverticulitis, denies constipation, denies diarrhea, denies loss of stool control, and notes hernias. Kidney/Bladder: The patient denies kidney stones, denies urine infections, and denies bloody urine. Skin: The patient denies a history of skin cancer, denies bleeding/changing moles, and denies a history of skin rash. Neurologic: The patient denies a history of epilepsy/convulsions, denies headaches, denies head/spinal injuries, and denies stroke/TIA. Psychiatric: The patient denies psychiatric medications, denies depression, and denies voices, denies substance abuse. Endocrine: The patient denies thyroid disorders, denies diabetes, and denies hormonal problems. Hematologic: The patient denies a history of bruising, denies bleeding, and denies anemia, denies blood clots. Infections: The patient denies a history of measles and mumps, denies rheumatic fever, and denies sexually transmitted diseases. Musculoskeletal: The patient denies back pain/injury, denies back problems, denies sciatica, denies knee/foot trouble, denies arthritis, or denies gout. When was patient's last Mammogram screening? N/A Last Colonoscopy: 2021 Dominique Baldwin LPN PHYSICAL EXAMINATION: General: The patient is 59 year old, male well nourished, well hydrated in no acute distress. The patient is oriented to time, place, and person. VITALS: Blood pressure 138/64, pulse 64, height 182.9 cm (6'), weight 100.7 kg (222 lb), SpO2 97%. Body mass index is 30.11 kg/m . HEENT: Normal cephalic, ataumatic, pupils are equally round, sclera are anicteric, mucous membranes are moist, oropharynx is clear. Neck has no masses, asymmetry or lymphadenopathy. Respiratory: Clear to auscultation and percussion. Normal respiratory excursion and pattern. Cardiac: Examination is regular rate and rhythm. Normal S1/S2 Abdominal exam: Soft, nontender, with no palpable masses. No hepatosplenomegaly. No palpable hernias. Extremities: no clubbing, cyanosis or edema. No adenopathy. LABORATORY VALUES: As Noted RADIOLOGIC STUDIES: As Noted Assessment IMPRESSION: GERD, dysphagia,throat irritation PLAN: I have reviewed my findings with the surgeon. Will plan for upper endoscopy. We discussed the risks and benefits of the planned endoscopy. I have informed the patient that complications can occur including failure to complete the endoscopy and perforation. Maddie had the opportunity to ask questions concerning the planned endoscopy. My staff has also explained the procedure to the patient in understandable terms and has given the patient printed material concerning the procedure. Maddie freely consents to surgery. I have explained to the patient the difference between IV conscious sedation and MAC anesthesia - and I have offered either, according to the patient's wishes. I have explained that with IV conscious sedation there is no anesthesia provider available and therefore there is a limitation of the amount of IV medications that can be given and that the patient may wake up in the middle of the procedure and/or experience pain/discomfort during the procedure. Further discussion was done and the patient was given the opportunity to ask questions and all questions were answered. Maddie chooses IV conscious sedation. Maddie was counseled that if there are changes in his/her medical condition, to let the office know if surgery should proceed. If there are changes in patient's medical condition from time of this encounter to the day of the procedure that preclude anesthesia, patient may have procedure cancelled for patient's safety. Diagnoses: (R13.10) Dysphagia, unspecified type (primary encounter diagnosis) (K21.9) Gastroesophageal reflux disease, unspecified whether esophagitis present Consultation requested by Yvette Mendes CNP for an opinion regarding GERD. My final recommendations will be communicated back to the requesting physician by way of shared Medical record or letter to requesting physician via [place] mail. Portions of this documentation were copied and pasted from previous office visit notes in order to provide a cohesive continuity of the history. The note has been reviewed and edited and updated as necessary. Purvi Webber APRN.CNP [facility] 07-12-2024 History and physical note UPDATED PROCEDURAL SEDATION HISTORY AND PHYSICAL EXAMINATION SERVICE DATE: 07/12/2024 SERVICE TIME: 11:57 AM PHYSICAL EXAM MUST BE COMPLETED ON ADMISSION PROCEDURE: Procedure Indications: The History and Physical (completed in the past 30 days) has been reviewed and the patient has been examined. The contents accurately reflect the patient's condition with the following additions or revisions since the H&P was completed. ASA Class: ASA Class: Patient with mild systemic disease Examination indicates no changes. AIRWAY: Airway Visualization of Uvula: Yes Mouth opening greater than 2 fingerbreadths: Yes Neck Full Range of Motion: Yes LUNGS: Lungs clear to auscultation CARDIAC: Regular rhythm,Regular rate Provisional Diagnosis/Treatment Plan: dysphagia - EGD Sedation Goal: Moderate This H&P can be found in the attached. SIGNATURE: Effie Alvarez MD PATIENT NAME: Maddie Solorio DATE: July 12, 2024 TIME: 11:57 AM Source Note - Effie Alvarez MD - 07/12/2024 11:15 AM EDT HISTORY AND PHYSICAL Maddie Solorio : 1965 REFERRING PHYSICIAN: Yvette Mendes [address] [facility] [address] CHIEF COMPLAINT: Patient presents with: Consult: GERD, acid reflux couple years, pcp referral HPI: Maddie is a 59 year old male referred for endoscopy. Maddie notes continued throat irritation & epigastric discomfort after starting prilosec 40mg daily for 4 weeks for heartburn, dysphagia and water brash. Maddie denies heartburn. Maddie notes a distant history of dysphagia. Refers over the summer he had an episode where he swallowed chicken and it felt like it got stuck, caused vomiting. Only passed after he drank a carbonated beverage. Has had 2 other episodes like this, but not as severe. Feels like his throat is swollen- worse in the morning C/O some mild congestion also Maddie denies a history of ulcers/ peptic ulcer disease. Maddie refers is mother has had similar issues with swallowing. Has concerns because multiple people he knows have recently been dx with esophageal cancer with similar symptoms. Maddie has not undergone prior EGD. Last colonoscopy 06/2022 with recommendation of repeat in 5 years. Sedation received at [facility] : Midazolam 6 mg IV, Fentanyl 50 micrograms IV, Diphenhydramine 50 mg IV CURRENT MEDICATIONS Current Outpatient Medications Medication Sig MULTIVITAMIN ORAL Take by mouth once daily. omega-3 fatty acids/fish oil (OMEGA 3 FISH OIL ORAL) Take by mouth once daily. omeprazole (PRILOSEC) 40 mg capsule Take 1 capsule by mouth once daily. lisinopril (ZESTRIL) 10 mg tablet Take 1 tablet by mouth once daily. atorvastatin (LIPITOR) 10 mg tablet Take 1 tablet by mouth daily at bedtime. For cholesterol. Cholecalciferol, Vitamin D3, 125 mcg (5,000 unit) cap Take 1 capsule by mouth once daily. (Patient not taking: Reported on 07/08/2024) No current facility-administered medications for this visit. ALLERGIES: Patient has no known allergies. PAST MEDICAL HISTORY PAST MEDICAL HISTORY Diagnosis Date GERD (gastroesophageal reflux disease) History of prostatitis 1999 Hyperlipidemia 05/16/2022 Obesity, Class I, BMI 30-34.9 05/16/2022 Primary hypertension 05/16/2022 PAST SURGICAL HISTORY PAST SURGICAL HISTORY Procedure Laterality Date COLONOSCOPY 07/06/2022 repeat in 5 years COLONOSCOPY SCREENING 05/2016 [place] PAST SURGICAL HISTORY OF 1999 Fertility surgery REMOVAL OF ANAL FISSURE 2016 FAMILY HISTORY FAMILY HISTORY Problem Relation Age of Onset Hypertension Mother Hyperlipidemia Mother other (MVA) Father Celiac Disease Sister No Known Problems Brother Hypertension Maternal Grandmother Hyperlipidemia Maternal Grandmother SOCIAL HISTORY Social History Tobacco Use Smoking status: Some Days Types: Cigars Start date: 09/25/1999 Smokeless tobacco: Never Tobacco comments: Cigar Vaping Use Vaping status: Never Used Substance Use Topics Alcohol use: Yes Alcohol/week: 7.0 standard drinks of alcohol Types: 7 Glasses of wine per week Comment: social Drug use: Never REVIEW OF SYMPTOMS: The review of systems data was entered by the nurse and reviewed by ri Nursing Notes: Dominique Baldwin LPN 07/08/2024 10:30 AM Signed REVIEW OF SYSTEMS: General: The patient denies fatigue, denies weight loss, notes weight gain, denies feeling hot, and denies feelings of cold. Eyes: The patient denies glaucoma, denies eye injury/surgery, wears glasses or contacts. Ear/Nose/Throat: The patient denies allergies, denies hayfever, denies ear infections, and denies bloody noses. Cardiovascular: The patient denies chest pain, denies heart disease, notes high blood pressure,denies cardiac stent, denies prior heart attack, denies irregular heart beat, notes high cholesterol, denies poor circulation, denies heart failure, other cardiac issues, denies claudication, notes cold feet, denies peripheral arterial stent. Respiratory: The patient denies tuberculosis, denies pneumonia, denies frequent cough, denies pulmonary embolism, denies shortness of breath, and denies coughing up blood. Gastrointestinal: The patient notes difficulty swallowing, notes acid reflux, denies ulcers, denies vomiting, denies jaundice/hepatitis, denies gallbladder problems, denies black or tarry stools, denies hemorrhoids, denies bleeding from rectum, denies diverticulitis, denies constipation, denies diarrhea, denies loss of stool control, and notes hernias. Kidney/Bladder: The patient denies kidney stones, denies urine infections, and denies bloody urine. Skin: The patient denies a history of skin cancer, denies bleeding/changing moles, and denies a history of skin rash. Neurologic: The patient denies a history of epilepsy/convulsions, denies headaches, denies head/spinal injuries, and denies stroke/TIA. Psychiatric: The patient denies psychiatric medications, denies depression, and denies voices, denies substance abuse. Endocrine: The patient denies thyroid disorders, denies diabetes, and denies hormonal problems. Hematologic: The patient denies a history of bruising, denies bleeding, and denies anemia, denies blood clots. Infections: The patient denies a history of measles and mumps, denies rheumatic fever, and denies sexually transmitted diseases. Musculoskeletal: The patient denies back pain/injury, denies back problems, denies sciatica, denies knee/foot trouble, denies arthritis, or denies gout. When was patient's last Mammogram screening? N/A Last Colonoscopy: 2021 Dominique Baldwin LPN PHYSICAL EXAMINATION: General: The patient is 59 year old, male well nourished, well hydrated in no acute distress. The patient is oriented to time, place, and person. VITALS: Blood pressure 138/64, pulse 64, height 182.9 cm (6'), weight 100.7 kg (222 lb), SpO2 97%. Body mass index is 30.11 kg/m . HEENT: Normal cephalic, ataumatic, pupils are equally round, sclera are anicteric, mucous membranes are moist, oropharynx is clear. Neck has no masses, asymmetry or lymphadenopathy. Respiratory: Clear to auscultation and percussion. Normal respiratory excursion and pattern. Cardiac: Examination is regular rate and rhythm. Normal S1/S2 Abdominal exam: Soft, nontender, with no palpable masses. No hepatosplenomegaly. No palpable hernias. Extremities: no clubbing, cyanosis or edema. No adenopathy. LABORATORY VALUES: As Noted RADIOLOGIC STUDIES: As Noted Assessment IMPRESSION: GERD, dysphagia,throat irritation PLAN: I have reviewed my findings with the surgeon. Will plan for upper endoscopy. We discussed the risks and benefits of the planned endoscopy. I have informed the patient that complications can occur including failure to complete the endoscopy and perforation. Maddie had the opportunity to ask questions concerning the planned endoscopy. My staff has also explained the procedure to the patient in understandable terms and has given the patient printed material concerning the procedure. Maddie freely consents to surgery. I have explained to the patient the difference between IV conscious sedation and MAC anesthesia - and I have offered either, according to the patient's wishes. I have explained that with IV conscious sedation there is no anesthesia provider available and therefore there is a limitation of the amount of IV medications that can be given and that the patient may wake up in the middle of the procedure and/or experience pain/discomfort during the procedure. Further discussion was done and the patient was given the opportunity to ask questions and all questions were answered. Maddie chooses IV conscious sedation. Maddie was counseled that if there are changes in his/her medical condition, to let the office know if surgery should proceed. If there are changes in patient's medical condition from time of this encounter to the day of the procedure that preclude anesthesia, patient may have procedure cancelled for patient's safety. Diagnoses: (R13.10) Dysphagia, unspecified type (primary encounter diagnosis) (K21.9) Gastroesophageal reflux disease, unspecified whether esophagitis present Consultation requested by Yvette Mendes CNP for an opinion regarding GERD. My final recommendations will be communicated back to the requesting physician by way of shared Medical record or letter to requesting physician via [place] mail. Portions of this documentation were copied and pasted from previous office visit notes in order to provide a cohesive continuity of the history. The note has been reviewed and edited and updated as necessary. Purvi Webber APRN.HERITAGE CONSULTANT HISTORY AND PHYSICAL Maddie Solorio : 1965 REFERRING PHYSICIAN: Yvette Mendes [address] [facility] [address] CHIEF COMPLAINT: Patient presents with: Consult: GERD, acid reflux couple years, pcp referral HPI: Maddie is a 59 year old male referred for endoscopy. Maddie notes continued throat irritation & epigastric discomfort after starting prilosec 40mg daily for 4 weeks for heartburn, dysphagia and water brash. Maddie denies heartburn. Maddie notes a distant history of dysphagia. Refers over the summer he had an episode where he swallowed chicken and it felt like it got stuck, caused vomiting. Only passed after he drank a carbonated beverage. Has had 2 other episodes like this, but not as severe. Feels like his throat is swollen- worse in the morning C/O some mild congestion also Maddie denies a history of ulcers/ peptic ulcer disease. Maddie refers is mother has had similar issues with swallowing. Has concerns because multiple people he knows have recently been dx with esophageal cancer with similar symptoms. Maddie has not undergone prior EGD. Last colonoscopy 06/2022 with recommendation of repeat in 5 years. Sedation received at [facility] : Midazolam 6 mg IV, Fentanyl 50 micrograms IV, Diphenhydramine 50 mg IV CURRENT MEDICATIONS Current Outpatient Medications Medication Sig MULTIVITAMIN ORAL Take by mouth once daily. omega-3 fatty acids/fish oil (OMEGA 3 FISH OIL ORAL) Take by mouth once daily. omeprazole (PRILOSEC) 40 mg capsule Take 1 capsule by mouth once daily. lisinopril (ZESTRIL) 10 mg tablet Take 1 tablet by mouth once daily. atorvastatin (LIPITOR) 10 mg tablet Take 1 tablet by mouth daily at bedtime. For cholesterol. Cholecalciferol, Vitamin D3, 125 mcg (5,000 unit) cap Take 1 capsule by mouth once daily. (Patient not taking: Reported on 07/08/2024) No current facility-administered medications for this visit. ALLERGIES: Patient has no known allergies. PAST MEDICAL HISTORY PAST MEDICAL HISTORY Diagnosis Date GERD (gastroesophageal reflux disease) History of prostatitis 1999 Hyperlipidemia 05/16/2022 Obesity, Class I, BMI 30-34.9 05/16/2022 Primary hypertension 05/16/2022 PAST SURGICAL HISTORY PAST SURGICAL HISTORY Procedure Laterality Date COLONOSCOPY 07/06/2022 repeat in 5 years COLONOSCOPY SCREENING 05/2016 [place] PAST SURGICAL HISTORY OF 1999 Fertility surgery REMOVAL OF ANAL FISSURE 2017 FAMILY HISTORY FAMILY HISTORY Problem Relation Age of Onset Hypertension Mother Hyperlipidemia Mother other (MVA) Father Celiac Disease Sister No Known Problems Brother Hypertension Maternal Grandmother Hyperlipidemia Maternal Grandmother SOCIAL HISTORY Social History Tobacco Use Smoking status: Some Days Types: Cigars Start date: 09/25/1999 Smokeless tobacco: Never Tobacco comments: Cigar Vaping Use Vaping status: Never Used Substance Use Topics Alcohol use: Yes Alcohol/week: 7.0 standard drinks of alcohol Types: 7 Glasses of wine per week Comment: social Drug use: Never REVIEW OF SYMPTOMS: The review of systems data was entered by the nurse and reviewed by ri Nursing Notes: Dominique Baldwin LPN 07/08/2024 10:30 AM Signed REVIEW OF SYSTEMS: General: The patient denies fatigue, denies weight loss, notes weight gain, denies feeling hot, and denies feelings of cold. Eyes: The patient denies glaucoma, denies eye injury/surgery, wears glasses or contacts. Ear/Nose/Throat: The patient denies allergies, denies hayfever, denies ear infections, and denies bloody noses. Cardiovascular: The patient denies chest pain, denies heart disease, notes high blood pressure,denies cardiac stent, denies prior heart attack, denies irregular heart beat, notes high cholesterol, denies poor circulation, denies heart failure, other cardiac issues, denies claudication, notes cold feet, denies peripheral arterial stent. Respiratory: The patient denies tuberculosis, denies pneumonia, denies frequent cough, denies pulmonary embolism, denies shortness of breath, and denies coughing up blood. Gastrointestinal: The patient notes difficulty swallowing, notes acid reflux, denies ulcers, denies vomiting, denies jaundice/hepatitis, denies gallbladder problems, denies black or tarry stools, denies hemorrhoids, denies bleeding from rectum, denies diverticulitis, denies constipation, denies diarrhea, denies loss of stool control, and notes hernias. Kidney/Bladder: The patient denies kidney stones, denies urine infections, and denies bloody urine. Skin: The patient denies a history of skin cancer, denies bleeding/changing moles, and denies a history of skin rash. Neurologic: The patient denies a history of epilepsy/convulsions, denies headaches, denies head/spinal injuries, and denies stroke/TIA. Psychiatric: The patient denies psychiatric medications, denies depression, and denies voices, denies substance abuse. Endocrine: The patient denies thyroid disorders, denies diabetes, and denies hormonal problems. Hematologic: The patient denies a history of bruising, denies bleeding, and denies anemia, denies blood clots. Infections: The patient denies a history of measles and mumps, denies rheumatic fever, and denies sexually transmitted diseases. Musculoskeletal: The patient denies back pain/injury, denies back problems, denies sciatica, denies knee/foot trouble, denies arthritis, or denies gout. When was patient's last Mammogram screening? N/A Last Colonoscopy: 2021 Dominique Baldwin LPN PHYSICAL EXAMINATION: General: The patient is 59 year old, male well nourished, well hydrated in no acute distress. The patient is oriented to time, place, and person. VITALS: Blood pressure 138/64, pulse 64, height 182.9 cm (6'), weight 100.7 kg (222 lb), SpO2 97%. Body mass index is 30.11 kg/m . HEENT: Normal cephalic, ataumatic, pupils are equally round, sclera are anicteric, mucous membranes are moist, oropharynx is clear. Neck has no masses, asymmetry or lymphadenopathy. Respiratory: Clear to auscultation and percussion. Normal respiratory excursion and pattern. Cardiac: Examination is regular rate and rhythm. Normal S1/S2 Abdominal exam: Soft, nontender, with no palpable masses. No hepatosplenomegaly. No palpable hernias. Extremities: no clubbing, cyanosis or edema. No adenopathy. LABORATORY VALUES: As Noted RADIOLOGIC STUDIES: As Noted Assessment IMPRESSION: GERD, dysphagia,throat irritation PLAN: I have reviewed my findings with the surgeon. Will plan for upper endoscopy. We discussed the risks and benefits of the planned endoscopy. I have informed the patient that complications can occur including failure to complete the endoscopy and perforation. Maddie had the opportunity to ask questions concerning the planned endoscopy. My staff has also explained the procedure to the patient in understandable terms and has given the patient printed material concerning the procedure. Maddie freely consents to surgery. I have explained to the patient the difference between IV conscious sedation and MAC anesthesia - and I have offered either, according to the patient's wishes. I have explained that with IV conscious sedation there is no anesthesia provider available and therefore there is a limitation of the amount of IV medications that can be given and that the patient may wake up in the middle of the procedure and/or experience pain/discomfort during the procedure. Further discussion was done and the patient was given the opportunity to ask questions and all questions were answered. Maddie chooses IV conscious sedation. Maddie was counseled that if there are changes in his/her medical condition, to let the office know if surgery should proceed. If there are changes in patient's medical condition from time of this encounter to the day of the procedure that preclude anesthesia, patient may have procedure cancelled for patient's safety. Diagnoses: (R13.10) Dysphagia, unspecified type (primary encounter diagnosis) (K21.9) Gastroesophageal reflux disease, unspecified whether esophagitis present Consultation requested by Yvette Mendes CNP for an opinion regarding GERD. My final recommendations will be communicated back to the requesting physician by way of shared Medical record or letter to requesting physician via [place] mail. Portions of this documentation were copied and pasted from previous office visit notes in order to provide a cohesive continuity of the history. The note has been reviewed and edited and updated as necessary. Purvi Webber APRN.CNP documented in this encounter [facility] 07-08-2024 History of Presen t illness Narrative HISTORY AND PHYSICAL Maddie Solorio : 1965 REFERRING PHYSICIAN: Yvette Mendes [address] [facility] [address] CHIEF COMPLAINT: Patient presents with: Consult: GERD, acid reflux couple years, pcp referral HPI: Maddie is a 59 year old male referred for endoscopy. Maddie notes continued throat irritation & epigastric discomfort after starting prilosec 40mg daily for 4 weeks for heartburn, dysphagia and water brash. Maddie denies heartburn. Maddie notes a distant history of dysphagia. Refers over the summer he had an episode where he swallowed chicken and it felt like it got stuck, caused vomiting. Only passed after he drank a carbonated beverage. Has had 2 other episodes like this, but not as severe. Feels like his throat is swollen- worse in the morning C/O some mild congestion also Maddie denies a history of ulcers/ peptic ulcer disease. Maddie refers is mother has had similar issues with swallowing. Has concerns because multiple people he knows have recently been dx with esophageal cancer with similar symptoms. Maddie has not undergone prior EGD. Last colonoscopy 06/2022 with recommendation of repeat in 5 years. Sedation received at [facility] : Midazolam 6 mg IV, Fentanyl 50 micrograms IV, Diphenhydramine 50 mg IV Current Outpatient Medications Medication Sig MULTIVITAMIN ORAL Take by mouth once daily. omega-3 fatty acids/fish oil (OMEGA 3 FISH OIL ORAL) Take by mouth once daily. omeprazole (PRILOSEC) 40 mg capsule Take 1 capsule by mouth once daily. lisinopril (ZESTRIL) 10 mg tablet Take 1 tablet by mouth once daily. atorvastatin (LIPITOR) 10 mg tablet Take 1 tablet by mouth daily at bedtime. For cholesterol. Cholecalciferol, Vitamin D3, 125 mcg (5,000 unit) cap Take 1 capsule by mouth once daily. (Patient not taking: Reported on 07/08/2024) No current facility-administered medications for this visit. ALLERGIES: Patient has no known allergies. PAST MEDICAL HISTORY Diagnosis Date GERD (gastroesophageal reflux disease) History of prostatitis 1999 Hyperlipidemia 05/16/2022 Obesity, Class I, BMI 30-34.9 05/16/2022 Primary hypertension 05/16/2022 PAST SURGICAL HISTORY Procedure Laterality Date COLONOSCOPY 07/06/2022 repeat in 5 years COLONOSCOPY SCREENING 05/2016 [place] PAST SURGICAL HISTORY OF 1999 Fertility surgery REMOVAL OF ANAL FISSURE 2017 FAMILY HISTORY Problem Relation Age of Onset Hypertension Mother Hyperlipidemia Mother other (MVA) Father Celiac Disease Sister No Known Problems Brother Hypertension Maternal Grandmother Hyperlipidemia Maternal Grandmother Social History Tobacco Use Smoking status: Some Days Types: Cigars Start date: 09/25/1999 Smokeless tobacco: Never Tobacco comments: Cigar Vaping Use Vaping status: Never Used Substance Use Topics Alcohol use: Yes Alcohol/week: 7.0 standard drinks of alcohol Types: 7 Glasses of wine per week Comment: social Drug use: Never REVIEW OF SYMPTOMS: The review of systems data was entered by the nurse and reviewed by ri Nursing Notes: Dominique Baldwin LPN 07/08/2024 10:30 AM Signed REVIEW OF SYSTEMS: General: The patient denies fatigue, denies weight loss, notes weight gain, denies feeling hot, and denies feelings of cold. Eyes: The patient denies glaucoma, denies eye injury/surgery, wears glasses or contacts. Ear/Nose/Throat: The patient denies allergies, denies hayfever, denies ear infections, and denies bloody noses. Cardiovascular: The patient denies chest pain, denies heart disease, notes high blood pressure,denies cardiac stent, denies prior heart attack, denies irregular heart beat, notes high cholesterol, denies poor circulation, denies heart failure, other cardiac issues, denies claudication, notes cold feet, denies peripheral arterial stent. Respiratory: The patient denies tuberculosis, denies pneumonia, denies frequent cough, denies pulmonary embolism, denies shortness of breath, and denies coughing up blood. Gastrointestinal: The patient notes difficulty swallowing, notes acid reflux, denies ulcers, denies vomiting, denies jaundice/hepatitis, denies gallbladder problems, denies black or tarry stools, denies hemorrhoids, denies bleeding from rectum, denies diverticulitis, denies constipation, denies diarrhea, denies loss of stool control, and notes hernias. Kidney/Bladder: The patient denies kidney stones, denies urine infections, and denies bloody urine. Skin: The patient denies a history of skin cancer, denies bleeding/changing moles, and denies a history of skin rash. Neurologic: The patient denies a history of epilepsy/convulsions, denies headaches, denies head/spinal injuries, and denies stroke/TIA. Psychiatric: The patient denies psychiatric medications, denies depression, and denies voices, denies substance abuse. Endocrine: The patient denies thyroid disorders, denies diabetes, and denies hormonal problems. Hematologic: The patient denies a history of bruising, denies bleeding, and denies anemia, denies blood clots. Infections: The patient denies a history of measles and mumps, denies rheumatic fever, and denies sexually transmitted diseases. Musculoskeletal: The patient denies back pain/injury, denies back problems, denies sciatica, denies knee/foot trouble, denies arthritis, or denies gout. When was patient's last Mammogram screening? N/A Last Colonoscopy: 2021 Dominique Baldwin LPN PHYSICAL EXAMINATION: General: The patient is 59 year old, male well nourished, well hydrated in no acute distress. The patient is oriented to time, place, and person. VITALS: Blood pressure 138/64, pulse 64, height 182.9 cm (6'), weight 100.7 kg (222 lb), SpO2 97%. Body mass index is 30.11 kg/m . HEENT: Normal cephalic, ataumatic, pupils are equally round, sclera are anicteric, mucous membranes are moist, oropharynx is clear. Neck has no masses, asymmetry or lymphadenopathy. Respiratory: Clear to auscultation and percussion. Normal respiratory excursion and pattern. Cardiac: Examination is regular rate and rhythm. Normal S1/S2 Abdominal exam: Soft, nontender, with no palpable masses. No hepatosplenomegaly. No palpable hernias. Extremities: no clubbing, cyanosis or edema. No adenopathy. LABORATORY VALUES: As Noted RADIOLOGIC STUDIES: As Noted Assessment IMPRESSION: GERD, dysphagia,throat irritation PLAN: I have reviewed my findings with the surgeon. Will plan for upper endoscopy. We discussed the risks and benefits of the planned endoscopy. I have informed the patient that complications can occur including failure to complete the endoscopy and perforation. Maddie had the opportunity to ask questions concerning the planned endoscopy. My staff has also explained the procedure to the patient in understandable terms and has given the patient printed material concerning the procedure. Maddie freely consents to surgery. I have explained to the patient the difference between IV conscious sedation and MAC anesthesia - and I have offered either, according to the patient's wishes. I have explained that with IV conscious sedation there is no anesthesia provider available and therefore there is a limitation of the amount of IV medications that can be given and that the patient may wake up in the middle of the procedure and/or experience pain/discomfort during the procedure. Further discussion was done and the patient was given the opportunity to ask questions and all questions were answered. Maddie chooses IV conscious sedation. Maddie was counseled that if there are changes in his/her medical condition, to let the office know if surgery should proceed. If there are changes in patient's medical condition from time of this encounter to the day of the procedure that preclude anesthesia, patient may have procedure cancelled for patient's safety. Diagnoses: (R13.10) Dysphagia, unspecified type (primary encounter diagnosis) (K21.9) Gastroesophageal reflux disease, unspecified whether esophagitis present Consultation requested by Yvette Mendes CNP for an opinion regarding GERD. My final recommendations will be communicated back to the requesting physician by way of shared Medical record or letter to requesting physician via [place] mail. Portions of this documentation were copied and pasted from previous office visit notes in order to provide a cohesive continuity of the history. The note has been reviewed and edited and updated as necessary. Purvi Webber APRN.KVNG documented in this encounter [facility] 07-08-2024 Nurse Note REVIEW OF SYSTEMS: General: The patient denies fatigue, denies weight loss, notes weight gain, denies feeling hot, and denies feelings of cold. Eyes: The patient denies glaucoma, denies eye injury/surgery, wears glasses or contacts. Ear/Nose/Throat: The patient denies allergies, denies hayfever, denies ear infections, and denies bloody noses. Cardiovascular: The patient denies chest pain, denies heart disease, notes high blood pressure,denies cardiac stent, denies prior heart attack, denies irregular heart beat, notes high cholesterol, denies poor circulation, denies heart failure, other cardiac issues, denies claudication, notes cold feet, denies peripheral arterial stent. Respiratory: The patient denies tuberculosis, denies pneumonia, denies frequent cough, denies pulmonary embolism, denies shortness of breath, and denies coughing up blood. Gastrointestinal: The patient notes difficulty swallowing, notes acid reflux, denies ulcers, denies vomiting, denies jaundice/hepatitis, denies gallbladder problems, denies black or tarry stools, denies hemorrhoids, denies bleeding from rectum, denies diverticulitis, denies constipation, denies diarrhea, denies loss of stool control, and notes hernias. Kidney/Bladder: The patient denies kidney stones, denies urine infections, and denies bloody urine. Skin: The patient denies a history of skin cancer, denies bleeding/changing moles, and denies a history of skin rash. Neurologic: The patient denies a history of epilepsy/convulsions, denies headaches, denies head/spinal injuries, and denies stroke/TIA. Psychiatric: The patient denies psychiatric medications, denies depression, and denies voices, denies substance abuse. Endocrine: The patient denies thyroid disorders, denies diabetes, and denies hormonal problems. Hematologic: The patient denies a history of bruising, denies bleeding, and denies anemia, denies blood clots. Infections: The patient denies a history of measles and mumps, denies rheumatic fever, and denies sexually transmitted diseases. Musculoskeletal: The patient denies back pain/injury, denies back problems, denies sciatica, denies knee/foot trouble, denies arthritis, or denies gout. When was patient's last Mammogram screening? N/A Last Colonoscopy: 2021 Dominique Baldwin LPN [facility] 07-08-2024 Nurse Note REVIEW OF SYSTEMS: General: The patient denies fatigue, denies weight loss, notes weight gain, denies feeling hot, and denies feelings of cold. Eyes: The patient denies glaucoma, denies eye injury/surgery, wears glasses or contacts. Ear/Nose/Throat: The patient denies allergies, denies hayfever, denies ear infections, and denies bloody noses. Cardiovascular: The patient denies chest pain, denies heart disease, notes high blood pressure,denies cardiac stent, denies prior heart attack, denies irregular heart beat, notes high cholesterol, denies poor circulation, denies heart failure, other cardiac issues, denies claudication, notes cold feet, denies peripheral arterial stent. Respiratory: The patient denies tuberculosis, denies pneumonia, denies frequent cough, denies pulmonary embolism, denies shortness of breath, and denies coughing up blood. Gastrointestinal: The patient notes difficulty swallowing, notes acid reflux, denies ulcers, denies vomiting, denies jaundice/hepatitis, denies gallbladder problems, denies black or tarry stools, denies hemorrhoids, denies bleeding from rectum, denies diverticulitis, denies constipation, denies diarrhea, denies loss of stool control, and notes hernias. Kidney/Bladder: The patient denies kidney stones, denies urine infections, and denies bloody urine. Skin: The patient denies a history of skin cancer, denies bleeding/changing moles, and denies a history of skin rash. Neurologic: The patient denies a history of epilepsy/convulsions, denies headaches, denies head/spinal injuries, and denies stroke/TIA. Psychiatric: The patient denies psychiatric medications, denies depression, and denies voices, denies substance abuse. Endocrine: The patient denies thyroid disorders, denies diabetes, and denies hormonal problems. Hematologic: The patient denies a history of bruising, denies bleeding, and denies anemia, denies blood clots. Infections: The patient denies a history of measles and mumps, denies rheumatic fever, and denies sexually transmitted diseases. Musculoskeletal: The patient denies back pain/injury, denies back problems, denies sciatica, denies knee/foot trouble, denies arthritis, or denies gout. When was patient's last Mammogram screening? N/A Last Colonoscopy: 2021 Dominique Baldwin LPN documented in this encounter [facility] 07-01-2024 Instructions Yvette Mendes, ORNAMENTAL IRON WORKER.HERITAGE CONSULTANT - 07/01/2024 9:51 AM EDT Start atorvastatin for cholesterol. Continue with omeprazole and lisinopril. documented in this encounter [facility] 07-01-2024 History of Presen t illness Narrative CC Patient presents with: 4 week follow up HPI Maddie Solorio is a 59 year old male who presents to the office for blood pressure. His visit today is for follow-up. Patient was last seen for this approximately 1 month ago. He had stopped his Lisinopril x 5 days and BP was elevating. Lisinopril 10 mg daily was resumed. Taking all medications as prescribed: Yes Side effects: No Home BP's: No Denies: headache, chest pain, palpitations, dyspnea, and peripheral edema. Last 4 Encounter BP Readings: Date: BP: 05/29/2024 138/92 05/08/2024 114/72 04/06/2023 122/76 09/30/2022 140/84[bp average[ Last 3 Encounter Wt Readings: Date: Wt: 05/29/2024 100.3 kg (221 lb 1.9 oz) 05/08/2024 97.9 kg (215 lb 13.3 oz) 04/06/2023 105.2 kg (232 lb) GERD: heartburn, water brash, dysphagia have resolved with Prilosec 40 mg daily x 4 weeks. He continues to have "throat irritation" that is constant and epigastric discomfort. Review of Systems See HPI PAST MEDICAL HISTORY Diagnosis Date History of prostatitis 2000 Hyperlipidemia 05/16/2022 Obesity, Class I, BMI 30-34.9 05/16/2022 Primary hypertension 05/16/2022 PAST SURGICAL HISTORY Procedure Laterality Date COLONOSCOPY 07/06/2022 repeat in 5 years COLONOSCOPY SCREENING 05/2016 [place] PAST SURGICAL HISTORY OF 2000 Fertility surgery REMOVAL OF ANAL FISSURE 2017 ALLERGIES Patient has no known allergies. MEDICATIONS lisinopril (ZESTRIL) 10 mg tablet Take 1 tablet by mouth once daily. omeprazole (PRILOSEC) 40 mg capsule Take 1 capsule by mouth once daily. atorvastatin (LIPITOR) 10 mg tablet Take 1 tablet by mouth daily at bedtime. For cholesterol. Cholecalciferol, Vitamin D3, 125 mcg (5,000 unit) cap Take 1 capsule by mouth once daily. FAMILY HISTORY Problem Relation Age of Onset Hypertension Mother Hyperlipidemia Mother other (MVA) Father Celiac Disease Sister No Known Problems Brother Hypertension Maternal Grandmother Hyperlipidemia Maternal Grandmother Social History Tobacco Use Smoking status: Some Days Types: Cigars Start date: 09/25/1999 Smokeless tobacco: Never Tobacco comments: Cigar Vaping Use Vaping status: Never Used Substance Use Topics Alcohol use: Yes Alcohol/week: 7.0 standard drinks of alcohol Types: 7 Glasses of wine per week Comment: social Drug use: Never BP 112/82 Pulse 89 Resp 16 Wt 98.2 kg (216 lb 7.9 oz) SpO2 97% BMI 29.57 kg/m Physical Exam Vitals reviewed. Constitutional: Appearance: Normal appearance. Neck: Thyroid: No thyroid mass, thyromegaly or thyroid tenderness. Lymphadenopathy: Cervical: No cervical adenopathy. Neurological: Mental Status: He is alert. DATA REVIEWED: Most recent labs ASSESSMENT/PLAN: 1. Gastroesophageal reflux disease, unspecified whether esophagitis present - ICD9: 530.81, ICD10: K21.9 (primary diagnosis) - symptoms resolved except for throat irritation that is constant and epigastric discomfort - Continue treatment with Prilosec - CONSULT TO GENERAL SURGERY for EGD 2. Primary hypertension - ICD9: 401.9, ICD10: I10 - Controlled - Continue current medications - Recommend home blood pressure monitoring, to bring results to next visit - Encouraged sodium restriction, DASH or Mediterranean diet 3. Serum total bilirubin elevated - ICD9: 277.4, ICD10: R17 resolved 4. Hyperlipidemia, unspecified hyperlipidemia type - ICD9: 272.4, ICD10: E78.5 - okay to start Lipitor - repeat LIPID PANEL BASIC in October Prescription instructions reviewed with patient as applicable. Potential red flag symptoms discussed with the patient. Reviewed appropriate action plan to take if red flag symptoms occur. Patient agreeable to treatment plan During this patient visit I have spent approximately 30 minutes in counseling regarding treatment options, medications, and test results. Yvette Mendes APRN.HERITAGE CONSULTANT documented in this encounter [facility] 05-29-2024 History of Presen t illness Narrative CC: Patient presents with: 3 week follow up: Labs HPI Maddie Solorio is a 59 year old male who presents today for above. GERD- patient reported intermittent dysphagia becoming more frequent along with upper abdominal discomfort, cough, sore throat and water brash. Symptoms attributed to GERD and he was started on Prilosec 40 mg daily. Today patient reports he never started the omeprazole. He has not had any choking episodes but other symptoms continue. HTN-he had been out of Lisinopril x 5 days at last appointment a few weeks ago. He wanted to see if his BP remained controlled off of it. Home BP's: No Denies: headache, chest pain, palpitations, dyspnea, and peripheral edema. Last 3 Encounter BP Readings: Date: BP: 05/08/2024 114/72 04/06/2023 122/76 09/30/2022 140/84[bp average[ Review of Systems See HPI PAST MEDICAL HISTORY 1999: History of prostatitis 05/16/2022: Hyperlipidemia 05/16/2022: Obesity, Class I, BMI 30-34.9 05/16/2022: Primary hypertension PAST SURGICAL HISTORY 07/06/2022: COLONOSCOPY Comment: repeat in 5 years 05/2016: COLONOSCOPY SCREENING Comment: [facility] 1999: PAST SURGICAL HISTORY OF Comment: Fertility surgery 2017: REMOVAL OF ANAL FISSURE ALLERGIES Patient has no known allergies. MEDICATIONS omeprazole (PRILOSEC) 40 mg capsule Take 1 capsule by mouth once daily. lisinopril (ZESTRIL) 10 mg tablet Take 1 tablet by mouth once daily. atorvastatin (LIPITOR) 10 mg tablet Take 1 tablet by mouth daily at bedtime. For cholesterol. Cholecalciferol, Vitamin D3, 125 mcg (5,000 unit) cap Take 1 capsule by mouth once daily. FAMILY HISTORY Problem Relation Age of Onset Hypertension Mother Hyperlipidemia Mother other (MVA) Father Celiac Disease Sister No Known Problems Brother Hypertension Maternal Grandmother Hyperlipidemia Maternal Grandmother Social History Tobacco Use Smoking status: Some Days Types: Cigars Start date: 09/25/1999 Smokeless tobacco: Never Tobacco comments: Cigar Vaping Use Vaping status: Never Used Substance Use Topics Alcohol use: Yes Alcohol/week: 7.0 standard drinks of alcohol Types: 7 Glasses of wine per week Comment: social Drug use: Never BP 146/94 Pulse 71 Resp 16 Wt 100.3 kg (221 lb 1.9 oz) SpO2 96% BMI 30.20 kg/m Physical Exam Vitals reviewed. Constitutional: Appearance: Normal appearance. Cardiovascular: Rate and Rhythm: Normal rate and regular rhythm. Pulmonary: Effort: Pulmonary effort is normal. Breath sounds: Normal breath sounds. Skin: General: Skin is warm and dry. Neurological: Mental Status: He is alert. DATA REVIEWED: Most recent labs ASSESSMENT/PLAN: 1. Primary hypertension - ICD9: 401.9, ICD10: I10 (primary diagnosis) - Worsening control - resume Lisinopril 10 mg daily - Recommend home blood pressure monitoring, to bring results to next visit - Encouraged sodium restriction, DASH or Mediterranean diet - Follow up in 4 weeks for hypertension visit - LISINOPRIL 10 MG TABLET 2. Hyperlipidemia, unspecified hyperlipidemia type - ICD9: 272.4, ICD10: E78.5 - Worsening control, he never started atorvastatin when it was prescribed last year. Will hold off on starting until CMP rechecked next week (see #4) 3. Dysphagia, unspecified type - ICD9: 787.20, ICD10: R13.10 No further episodes but continues to have GERD symptoms. Recommend starting Prilosec, patient agreeable 4. Serum total bilirubin elevated - ICD9: 277.4, ICD10: R17 Suspect false elevation, recheck next week as ordered Prescription instructions reviewed with patient as applicable. Potential red flag symptoms discussed with the patient. Reviewed appropriate action plan to take if red flag symptoms occur. Patient agreeable to treatment plan. Yvette Mendes APRN.CNP documented in this encounter [facility] 05-08-2024 Instructions Yvette Mendes APRN.CNP - 05/08/2024 4:47 PM EDT To treat gastroesophageal reflux: 1. Start omeprazole (Prilosec). Take once a day in the morning on an empty stomach and wait at least 30 minutes before eating 2. Eat 6 small meals a day instead of 2 or 3 big ones. This is to keep some food in your stomach so the acid has something to work on. Eat slowly. Don't lie down for 2 to 3 hours after eating. Avoid eating or drinking anything right before going to bed. 3. Elevate head of bed on blocks approximately 4-6 inches. It is not sufficient to just use a wedge pillow. Bending at waist increases intra-abdominal pressure, which will increase reflux. 4. Minimize/eliminate chocolate, coffee, peppermint, fruit juices, tomatoes, greasy and spicy foods. All of these either stimulate stomach acid production, or are acidic themselves. 5. Weight loss is always beneficial. Abdominal weight increases intra-abdominal pressure, which increases gastroesophageal reflux symptoms. documented in this encounter [facility] 05-08-2024 History of Presen t illness Narrative CC: Patient presents with: Physical HPI Maddie Solorio is a 59 year old male who presents today for above. Exercise: yes Diet: Watches diet for salt (salty snacks, added salt, processed frozen/canned foods), sugary/sweet snacks, unhealthy fats: Yes Patient reports dysphagia intermittently. He had about four episodes the past couple years however in the past month it has occurred twice. Feels like food gets stuck in chest, has to drink carbonated beverage to relieve this. Seems to only happen when he is eating chicken. Denies choking episodes. Associated symptoms include upper abdominal discomfort, cough, sore throat, and water brash Symptoms are precipitated with alcohol and caffeine beverages . Denies chest pain, wheezing, unintentional weight loss, black stools, hematemesis, diarrhea, constipation, early satiety, decreased appetite Previous studies include none PMH: Non-contributory Treatments: none Total bilirubin elevated on routine labs, all other LFT's normal. He denies yellowing of the skin/eyes, abdominal pain, abnormally colored stools or urine. HTN-Medication changes:No Taking all medications as prescribed: Yes but has been out of Lisinopril for five days, BP has remained normal Side effects: No Home BP's: Yes Last 3 Encounter BP Readings: Date: BP: 05/08/2024 114/72 04/06/2023 122/76 09/30/2022 140/84[bp average[ Review of Systems Constitutional: Negative for appetite change, chills, diaphoresis, fatigue, fever and unexpected weight change. HENT: Negative for congestion, postnasal drip and voice change. Respiratory: Negative for shortness of breath. Cardiovascular: Negative for palpitations and leg swelling. Gastrointestinal: Negative for abdominal distention, anal bleeding, nausea and vomiting. Genitourinary: Negative for decreased urine volume, difficulty urinating, dysuria, frequency and urgency. Neurological: Positive for numbness (toes bilateral feet, mild, noticeable in the mornings only). Negative for dizziness, syncope, weakness, light-headedness and headaches. PAST MEDICAL HISTORY 1999: History of prostatitis 05/16/2022: Hyperlipidemia 05/16/2022: Obesity, Class I, BMI 30-34.9 05/16/2022: Primary hypertension PAST SURGICAL HISTORY 07/06/2022: COLONOSCOPY Comment: repeat in 5 years 05/2016: COLONOSCOPY SCREENING Comment: [place] 1999: PAST SURGICAL HISTORY OF Comment: Fertility surgery 2017: REMOVAL OF ANAL FISSURE ALLERGIES Patient has no known allergies. MEDICATIONS lisinopril (ZESTRIL) 10 mg tablet Take 1 tablet by mouth once daily. atorvastatin (LIPITOR) 10 mg tablet Take 1 tablet by mouth daily at bedtime. For cholesterol. Cholecalciferol, Vitamin D3, 125 mcg (5,000 unit) cap Take 1 capsule by mouth once daily. FAMILY HISTORY Problem Relation Age of Onset Hypertension Mother Hyperlipidemia Mother other (MVA) Father Celiac Disease Sister No Known Problems Brother Hypertension Maternal Grandmother Hyperlipidemia Maternal Grandmother Social History Tobacco Use Smoking status: Some Days Types: Cigars Start date: 09/25/1999 Smokeless tobacco: Never Tobacco comments: Cigar Vaping Use Vaping Use: Never used Substance Use Topics Alcohol use: Yes Alcohol/week: 7.0 standard drinks of alcohol Types: 7 Glasses of wine per week Comment: social Drug use: Never BP 114/72 (BP Site: Left Arm, BP Position: Sitting, BP Cuff Size: Large Adult) Pulse 84 Resp 16 Ht 182.2 cm (5' 11.75") Wt 97.9 kg (215 lb 13.3 oz) BMI 29.48 kg/m Physical Exam Vitals reviewed. Constitutional: Appearance: Normal appearance. Eyes: Conjunctiva/sclera: Conjunctivae normal. Neck: Thyroid: No thyroid mass, thyromegaly or thyroid tenderness. Cardiovascular: Rate and Rhythm: Normal rate and regular rhythm. Pulses: Normal pulses. Heart sounds: Normal heart sounds. No murmur heard. Pulmonary: Effort: Pulmonary effort is normal. Breath sounds: Normal breath sounds. No wheezing, rhonchi or rales. Abdominal: General: Bowel sounds are normal. There is no distension. Palpations: Abdomen is soft. There is no hepatomegaly, splenomegaly or mass. Tenderness: There is no abdominal tenderness. Negative signs include Stinson's sign. Lymphadenopathy: Cervical: No cervical adenopathy. Upper Body: Right upper body: No supraclavicular adenopathy. Left upper body: No supraclavicular adenopathy. Skin: General: Skin is warm and dry. Coloration: Skin is not jaundiced. Neurological: Mental Status: He is alert. Psychiatric: Mood and Affect: Mood normal. Health maintenance reviewed with patient: Pneumococcal Vaccine(1 of 2 - PCV) Never done Depression Screening Never done Anxiety Screening Never done HIV Screening Never done BP Controlled (<130/80) Never done Shingrix Vaccine(1 of 2) Never done Annual PCP Team Chronic Disease Visit due on 04/06/2024 Influenza Vaccine(1) due on 05/26/2024 Diabetes Screening due on 05/08/2027 Prostate Cancer Screening Discussion due on 06/02/2027 Colorectal Cancer Screening due on 07/06/2027 Lipid Screening due on 04/04/2028 DTaP,Tdap,Td Vaccine(3 - Td or Tdap) due on 09/30/2032 Hepatitis B Vaccine Completed Hepatitis C Screening Completed Covid-19 Vaccine Discontinued DATA REVIEWED: Most recent labs (PSA, Lipid panel and HgbA1c pending) Latest Ref Rng 05/08/2024 Protein, Total 6.3 - 8.0 g/dL 6.2 (L) Albumin 3.9 - 4.9 g/dL 4.2 Calcium 8.5 - 10.2 mg/dL 9.3 Bilirubin, Total 0.2 - 1.3 mg/dL 1.7 (H) Alkaline Phosphatase 38 - 113 U/L 64 AST 14 - 40 U/L 26 ALT 10 - 54 U/L 19 Glucose 74 - 99 mg/dL 98 BUN 9 - 24 mg/dL 12 Creatinine 0.73 - 1.22 mg/dL 0.92 Sodium 136 - 144 mmol/L 139 Potassium 3.7 - 5.1 mmol/L 4.1 Chloride 98 - 107 mmol/L 102 CO2 22 - 30 mmol/L 25 Anion Gap 8 - 15 mmol/L 12 eGFR >=60 mL/min/1.73m 97 WBC 3.70 - 11.00 k/uL 3.89 RBC 4.20 - 6.00 m/uL 4.39 Hemoglobin 13.0 - 17.0 g/dL 13.8 Hematocrit 39.0 - 51.0 % 40.7 MCV 80.0 - 100.0 fL 92.7 MCH 26.0 - 34.0 pg 31.4 MCHC 30.5 - 36.0 g/dL 33.9 RDW-CV 11.5 - 15.0 % 12.0 Platelet Count 150 - 400 k/uL 209 MPV 9.0 - 12.7 fL 9.0 Absolute nRBC <0.01 k/uL <0.01 Legend: (L) Low (H) High ASSESSMENT/PLAN: 1. Wellness examination - ICD9: V70.0, ICD10: Z00.00 (primary diagnosis) - Counseled on healthy diet and regular exercise - Patient was counseled [id number] by myself (the billing provider) for the following immunizations and vaccine components, including side effects: Pneumococcal and Shingrix. Patient declined - Follow up for annual exam in one year 2. Dysphagia, unspecified type - ICD9: 787.20, ICD10: R13.10 Suspect GERD - Start treatment with Prilosec 40 mg daily - Discussed lifestyle modifications, see patient instructions - Follow-up in 3 weeks or sooner if any worsening symptoms despite above treatment measures 3. Primary hypertension - ICD9: 401.9, ICD10: I10 - Controlled, off of Lisinopril x 5 days. Patient attributes to weight loss and would like to trial a few more weeks without medication - Recommend home blood pressure monitoring, to bring results to next visit - Encouraged sodium restriction, DASH or Mediterranean diet - Follow up in 3 weeks for hypertension visit 4. Serum total bilirubin elevated - ICD9: 277.4, ICD10: R17 Suspect false elevation. Asymptomatic. - COMPREHENSIVE METABOLIC PANEL in 3 weeks 5. Screening for depression - ICD9: V79.0, ICD10: Z13.31 - DEPRESSION SCREENING 6. Encounter for screening examination for other mental health and behavioral disorders - ICD9: V79.8, ICD10: Z13.39 - ANXIETY SCREENING Prescription instructions reviewed with patient as applicable. Potential red flag symptoms discussed with the patient. Reviewed appropriate action plan to take if red flag symptoms occur. Patient agreeable to treatment plan. Yvette Mendes APRN.CNP documented in this encounter [facility] 05-07-2024 Telephone encounter Note Patient notified. Zehra Carver LPN [facility] 05-07-2024 Miscellaneous Notes Patient notified. Zehra Carver LPN Fasting labs ordered Yvette Mendes APRN.KVNG From closed refill encounter pt has appt 05/08/24. He is asking if any labs are due? Please review. documented in this encounter [facility] 05-07-2024 Telephone encounter Note Fasting labs ordered Yvette Mendes APRN.KVNG [facility] 05-06-2024 Telephone encounter Note From closed refill encounter pt has appt 05/08/24. He is asking if any labs are due? Please review. [facility] 01-30-2024 Telephone encounter Note Patient notified via [employer]. [facility] 01-30-2024 Miscellaneous Notes Patient notified via [employer]. Left a message for pt to call the office and ask to speak to a nurse. Aruna Angeles LPN Patient has canceled his last six appointments, needs to reschedule and keep appointment for any further refills after this. He is also due for routine labs Yvette Mendes APRN.HERITAGE CONSULTANT Requested Prescriptions Pending Prescriptions Disp Refills lisinopril (ZESTRIL) 10 mg tablet 90 tablet 1 Sig: Take 1 tablet by mouth once daily. Date of last office visit in primary care: 04/06/2023 Date of next office visit in primary care: Visit date not found Please advise. Thank you. Joey Ch MA. documented in this encounter [facility] 01-26-2024 Telephone encounter Note Left a message for pt to call the office and ask to speak to a nurse. Aruna Angeles LPN [facility] 01-26-2024 Telephone encounter Note Patient has canceled his last six appointments, needs to reschedule and keep appointment for any further refills after this. He is also due for routine labs Yvette Mendes APRN.KVNG [facility] 01-24-2024 Telephone encounter Note Requested Prescriptions Pending Prescriptions Disp Refills lisinopril (ZESTRIL) 10 mg tablet 90 tablet 1 Sig: Take 1 tablet by mouth once daily. Date of last office visit in primary care: 04/06/2023 Date of next office visit in primary care: Visit date not found Please advise. Thank you. Joey Ch MA. [facility] 07-18-2023 Miscellaneous Notes TRACY: 04/06/2023 Last refill:01/17/2023 QTY: 90 Refills: 1 documented in this encounter [facility] 04-06-2023 Instructions Krsih Anguiano MD - 04/06/2023 10:56 AM EDT FASTING BLOOD WORK IN 3 MONTHS. documented in this encounter [facility] 04-06-2023 History of Presen t illness Narrative This note was created using [employer]. Subjective Maddie Solorio is a 57 year old male. He was here for follow up on lipids. He was watching his portions and exercising. His weight was stable. His hypertension was controlled now. He was taking vitamin D supplement and wanted his level checked. His labs for PSA and HIV screening lapsed, and he was willing to update these. Questions about screening testosterone level were discussed, and not recommended by me. Review of Systems Constitutional: Negative for unexpected weight change. Respiratory: Negative for shortness of breath. Cardiovascular: Negative for chest pain. Gastrointestinal: Negative. Genitourinary: Negative for difficulty urinating. Musculoskeletal: Plantar fascia pain, mild. Neurological: Negative. ACTIVE PROBLEM LIST Obesity, Class I, Bmi 30-34.9 Primary Hypertension Hyperlipidemia Elevated Psa Social History Tobacco Use Smoking status: Some Days Types: Cigars Start date: 09/25/1999 Smokeless tobacco: Never Tobacco comments: Cigar Vaping Use Vaping Use: Never used Substance Use Topics Alcohol use: Yes Alcohol/week: 7.0 standard drinks of alcohol Types: 7 Glasses of wine per week Comment: social Drug use: Never Current Outpatient Medications Medication Sig lisinopril (ZESTRIL) 10 mg tablet Take 1 tablet by mouth once daily. No current facility-administered medications for this visit. Objective BP 122/76 (BP Site: Left Arm, BP Position: Sitting, BP Cuff Size: Large Adult) Pulse 76 Resp 16 Wt 105.2 kg (232 lb) BMI 31.46 kg/m Physical Exam Constitutional: Appearance: He is not ill-appearing. Cardiovascular: Rate and Rhythm: Normal rate and regular rhythm. Heart sounds: No murmur heard. No gallop. Pulmonary: Breath sounds: Normal breath sounds. Musculoskeletal: Right lower leg: No edema. Left lower leg: No edema. Neurological: Mental Status: He is alert. Component Latest Ref Rng & Units 04/04/2023 Glucose 74 - 99 mg/dL 113 (H) BUN 9 - 24 mg/dL 15 Creatinine 0.73 - 1.22 mg/dL 0.90 Sodium 136 - 144 mmol/L 140 Potassium 3.7 - 5.1 mmol/L 4.4 Chloride 97 - 105 mmol/L 101 CO2 22 - 30 mmol/L 27 Anion Gap 9 - 18 mmol/L 12 Calcium 8.5 - 10.2 mg/dL 9.4 eGFR >=60 mL/min/1.73m 101 Cholesterol, Total <200 mg/dL 294 (H) Triglyceride <150 mg/dL 89 HDL Cholesterol >39 mg/dL 76 Non HDL Cholesterol <130 mg/dL 218 (H) Fasting Time hrs 11 VLDL Cholesterol <30 mg/dL 18 TC:HDL Ratio <5.10 3.87 LDL Cholesterol <100 mg/dL 200 (H) LDL:HDL Ratio <2.54 2.63 (H) The 10-year ASCVD risk score (Hanover DK, et al., 2019) is: 12% Values used to calculate the score: Age: 57 years Sex: Male Is Non- : No Diabetic: No Tobacco smoker: Yes Systolic Blood Pressure: 122 mmHg Is BP treated: Yes HDL Cholesterol: 76 mg/dL Total Cholesterol: 294 mg/dL Assessment and Plan 1. Hyperlipidemia, unspecified hyperlipidemia type - ICD9: 272.4, ICD10: E78.5 (primary diagnosis) - Worsening control Shared Medical Decision Making was done: Benefits: Medication may help reduce risk for heart disease and stroke in the care home. Risks: Possible side effects were discussed including myalgia, liver, GI side effects. Possible interactions: n/a. Options: stop cigars. Duration: rat exterminator. - ATORVASTATIN 10 MG TABLET - LIPID PANEL BASIC 2. Elevated PSA - ICD9: 790.93, ICD10: R97.20 Recheck - PSA/PROSTSPECAG DIAG 3. Screening for HIV without presence of risk factors - ICD9: V73.89, ICD10: Z11.4 Patient indicated understanding and willingness to follow recommendations. - HIV 1 2 COMBO(AG/AB),WITH REFLEX TO DIFFERENTIATION 4. Impaired fasting blood sugar - ICD9: 790.21, ICD10: R73.01 Low carb, Mediterranean diet recommended. - BASIC METABOLIC PNL - HGB A1C 5. Vitamin D deficiency - ICD9: 268.9, ICD10: E55.9 - VITAMIN D 25 HYDROXY - CHOLECALCIFEROL (VITAMIN D3) 125 MCG (5,000 UNIT) CAPSULE Krish Anguiano MD documented in this encounter [facility] 02-07-2023 Instructions Maddie Epps MD - 02/07/2023 10:43 AM EDT Consider capsaicin cream, available over the counter, to use on the itchy area of the back. Use twice daily initially, then daily once control of symptoms is obtained. "Notalgia paresthetica" GENERAL SUN SAFETY Thank you for allowing me to examine you for signs of skin cancer today. We had an opportunity to discuss my findings and any treatments I recommended. I believe that there are several steps that a person can do to help prevent skin cancers and to detect them at an early, treatable stage: 1. I highly recommend that once a month you perform your own complete skin check looking for changing or unusual spots. Use a wall-mounted mirror and a hand mirror to assist in seeing body areas that are difficult to see otherwise. If you have a family member that can assist, this is often helpful. Additional information can be obtained at: www.skincancer.org/efmh-aweazp-m nformation/early-detection 2. In many cases, skin cancer can be prevented. The best way to protect yourself is to avoid too much sun and sunburns. Health care providers believe that ultraviolet rays (UV rays) from the sun damage the skin and over time lead to skin cancer. Here are ways to protect yourself: -Don't spend long periods of time in direct sunlight. -Wear hats with brims to protect your face and ears. -Wear long-sleeved shirts and pants to protect your arms and legs. -Use broad spectrum sunscreens with a SPF (skin protection factor) of 30 or higher that protect against burning and tanning rays. Apply the lotion 30 minutes before you go outside. (Broad-spectrum sunscreens protect against UV-B and UV-A rays.) -Wear sunglasses to protect your eyes. -Use a lip balm with sunscreen. -Avoid the sun between 10am and 4pm. -Show any changing mole to your health care provider. documented in this encounter [facility] 02-07-2023 History of Presen t illness Narrative Images from the original note were not included. Department of Dermatology Maddie Epps MD 02/07/2023 Last visit in Dermatology: Visit date not found Objective/Assessment/Plan 1. 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 Stable for 15-20 years, will continue to monitor for changes or symptoms. 2. 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 Ongoing for a few years, with moderate intermittent pruritus. Discussed treatment options. Capsaicin can be used once to twice daily. Acupuncture in reserve. 4. Dermatofibroma of left lower leg Left Lower Leg - Posterior Dermal nodule, slightly hyperpigmented with central stellate scar-like change. Benign and observe. 5. Skin cancer screening The patient's skin was examined for evidence of cutaneous malignancy. The nature of sun-induced photo-aging and skin cancers is discussed. Sun avoidance, protective clothing, and the use of 30-SPF sunscreens is advised. Observe closely for skin damage/changes, and call if such occurs. Follow-up as noted below or as needed. Chief Complaint: Patient presents with: Full Body Skin Check Subjective and Objective No flowsheet data found. HPI: Maddie Solorio is a 57 year old male who presents for skin check. Desires: Total body skin check History of skin cancer?: No Areas of particular concern?: Yes Lesion(s): spot Location(s): left lower leg Duration: ~ 1 year Symptoms: none Severity: n/a Inciting factors: none Associated symptoms/previous treatments: none Past medical history is reviewed. Medication list is reviewed. Physical Exam included: Scalp, face, ears, neck, chest, back, abdomen, bilateral upper extremities, bilateral lower extremities, buttocks, hands, feet, nails and hair and external genitalia Intake completed by Serenity Rutherford LPN Attending signature: Maddie Epps MD This note is completed at 11:32 AM on 02/07/2023 and reflects the services provided at the time of the appointment. I agree with the Chief Complaint, ROS, and Past Histories independently gathered by the clinical customer support executive. documented in this encounter [facility] 01-17-2023 Miscellaneous Notes Patient has been identified by name and date of : Yes Patient phones for refill(s): Requested Prescriptions Pending Prescriptions Disp Refills lisinopril (ZESTRIL) 10 mg tablet 90 tablet 1 Sig: Take 1 tablet by mouth once daily. Date of last office visit in primary care: 09/30/2022 6 month follow-up: 03/30/2023 Last 2 Encounter Wt Readings: Date: Wt: 09/30/2022 105.2 kg (232 lb) 05/16/2022 103.4 kg (228 lb) Previous labs/tests for medication: Blood Pressure: BUN (mg/dL) Date Value 06/02/2022 16 Sodium Date Value 06/02/2022 139 mmol/L 04/23/2022 139 MEQ/L Last 1 Encounter BP Readings: Date: BP: 09/30/2022 140/84[bp average[ Please advise. Thank you. Zehra Carvre LPN documented in this encounter [facility] 09-30-2022 Instructions Krish Anguiano MD - 09/30/2022 11:12 AM EST PSA in 3 months. documented in this encounter [facility] 09-30-2022 History of Presen t illness Narrative This note was created using Elevaate. Subjective Maddie Solorio is a 57 year old male. He felt well and was here to review his test results. He was very interested in non medication interventions. He stopped lisinopril for a time and now realized he should be back on the medication. He had significant sun exposure in his youth and was interested in skin cancer surveillance. Review of Systems Constitutional: Negative. Cardiovascular: Negative. Gastrointestinal: Negative. Genitourinary: Positive for decreased urine volume. Negative for difficulty urinating, dysuria and urgency. Neurological: Negative. ACTIVE PROBLEM LIST Obesity, Class I, Bmi 30-34.9 Primary Hypertension Hyperlipidemia Elevated Psa Current Outpatient Medications Medication Sig lisinopril (ZESTRIL, PRINIVIL) 10 mg tablet Take 1 tablet by mouth once daily. (Patient not taking: Reported on 09/30/2022) No current facility-administered medications for this visit. Objective BP 140/84 Pulse 77 Temp 36.4 C (97.5 F) Resp 16 Wt 105.2 kg (232 lb) SpO2 96% BMI 31.46 kg/m Physical Exam Constitutional: Appearance: Normal appearance. Skin: Comments: Seborrheic keratosis of the left calf 0.5 cm. Assessment and Plan 1. Primary hypertension - ICD9: 401.9, ICD10: I10 (primary diagnosis) - suboptimal control - Encouraged dietary sodium restriction/DASH diet - Recommended regular aerobic exercise. - Discussed need and benefit for weight loss. - Goal of BP <130/80 - Patient counselled on smoking cessation. - Recommend home or pharmacy blood pressure monitoring - Recommended no refined sugar, low refined starch, healthy oil intake (olive oil), healthy protein (fish) along the lines of the Mediterranean diet. - BASIC METABOLIC PNL 2. Elevated PSA - ICD9: 790.93, ICD10: R97.20 Discussed limitations of test and recommendation to monitor. Recheck in November. 3. Hyperlipidemia, unspecified hyperlipidemia type - ICD9: 272.4, ICD10: E78.5 - suboptimal control I have used a decision aid to share decision making with the patient about interventions to reduce the risk of coronary events. We estimated the patient's 10-year of atherosclerotic events at 16% and discussed how this risk could be reduced with the use of statins to 12%. After considering the patient's unique circumstances and the pros and cons of the alternatives, we have decided to focus on lifestyle changes, Mediterranean type diet. - LIPID PANEL BASIC 4. Need for vaccination - ICD9: V05.9, ICD10: Z23 - TDAP VACCINE AGE 7+ IM 5. Screening for HIV without presence of risk factors - ICD9: V73.89, ICD10: Z11.4 - HIV 1 2 COMBO(AG/AB),WITH REFLEX TO DIFFERENTIATION 6. Screening for skin cancer - ICD9: V76.43, ICD10: Z12.83 - CONSULT TO DERMATOLOGY I spent 40 minutes mostly for counseling and discussion. Krish Anguiano MD documented in this encounter [facility] 06-02-2022 Miscellaneous Notes Manual Readin/77 Pulse: 83 Reason for blood pressure check - Last BP elevated and Medication adjustment Patient is: Taking medication as prescribed Yes Took medication today No (takes in evening) If no, date medication last taken N/A Experiencing side effects No BP was elevated at last appt 05/16/22. He was started on Lisinopril 10mg daily. Tolerating medication. Denies any chest pain, shortness of breath, dizziness, or headaches. Daily caffeine use. Rare tobacco use. Alert and oriented. Pt has been identified by name and birthdate: Yes Allergies reviewed: Yes Latex allergy: no. Medication - prescribed and OTC reviewed and updated: Yes Do you need any prescription refills prior to your next visit: Yes Health Maintenance: Reviewed and not up to date and provider notified Patient advised to continue with current medications and would be contacted if any further instructions after review by PCP. Angie Kelly LPN documented in this encounter [facility] 06-02-2022 History of Presen t illness Narrative Manual Readin/77 Pulse: 83 Reason for blood pressure check - Last BP elevated and Medication adjustment Patient is: Taking medication as prescribed Yes Took medication today No (takes in evening) If no, date medication last taken N/A Experiencing side effects No BP was elevated at last appt 05/16/22. He was started on Lisinopril 10mg daily. Tolerating medication. Denies any chest pain, shortness of breath, dizziness, or headaches. Daily caffeine use. Rare tobacco use. Alert and oriented. Pt has been identified by name and birthdate: Yes Allergies reviewed: Yes Latex allergy: no. Medication - prescribed and OTC reviewed and updated: Yes Do you need any prescription refills prior to your next visit: Yes Health Maintenance: Reviewed and not up to date and provider notified Patient advised to continue with current medications and would be contacted if any further instructions after review by PCP. Angie Kelly LPN documented in this encounter [facility] 05-17-2022 History of Presen t illness Narrative .1st failed attempt to contact patient. Left message to return call. Sarah LAU This note was created using BioVentrixter. Subjective Patient presents with: [facility] Maddie Solorio is a 57 year old male was [facility]. He had untreated hypertension and hyperlipidemia for a few years. This was noted when he was in the and when he moved here 5 years ago. He was active and exercised regularly. He was dealing with some stress from his youngest child moving to college. He became concerned about chest discomfort and presented to the [place] [facility] where he was observed overnight 04/22-04/23. Cardiac testing including stress test was negative. He was discharged on lisinopril 10 mg daily which he had yet to start. He had ongoing issues with plantar fasciitis of the left foot, he had been managing on his own with good results so far. He had a colonoscopy done in 2015, and was told he needed a follow up in 3 years. Review of Systems Constitutional: Negative. HENT: Negative. Eyes: Negative. Respiratory: Negative. Cardiovascular: Positive for chest pain. Negative for palpitations and leg swelling. Gastrointestinal: Negative. Musculoskeletal: Negative. Skin: Negative. Neurological: Negative. Psychiatric/Behavioral: Negative. PAST MEDICAL HISTORY Diagnosis Date Hyperlipidemia 05/16/2022 Obesity, Class I, BMI 30-34.9 05/16/2022 Primary hypertension 05/16/2022 PAST SURGICAL HISTORY Procedure Laterality Date COLONOSCOPY SCREENING 05/2016 [place] PAST SURGICAL HISTORY OF 1999 Fertility surgery REMOVAL OF ANAL FISSURE 2016 FAMILY HISTORY Problem Relation Age of Onset Hypertension Mother Hyperlipidemia Mother other (MVA) Father Celiac Disease Sister No Known Problems Brother Hypertension Maternal Grandmother Hyperlipidemia Maternal Grandmother Social History Tobacco Use Smoking status: Some Days Types: Cigars Start date: 09/25/1999 Smokeless tobacco: Never Tobacco comments: Cigar Vaping Use Vaping Use: Never used Substance Use Topics Alcohol use: Yes Alcohol/week: 7.0 standard drinks Types: 7 Glasses of wine per week Comment: social Drug use: Never Immunization History Administered Date(s) Administered Hepatitis A Adult 09/04/2001 04/12/2002 Hepatitis B Adult 09/04/2001 10/05/2001 04/12/2002 Influenza Nasal, unspecified formulation 08/15/2006 Influenza Seasonal Inj Quad Age 6 Mo-64 Yrs Pres Free 08/05/2019 Influenza Seasonal Trivalent Inj Pres Free 07/16/2015 07/29/2016 Influenza Vaccine NASAL Quadrivalent 07/30/2013 07/17/2014 Influenza Vaccine NASAL Tri (reflects Quad for 2013-14) 07/16/2008 07/09/2009 07/07/2010 07/28/2011 07/05/2012 Influenza, Split (Including Purified Surface Antigen) 09/02/2003 Meningococcal Vaccine, SQ 02/13/1991 Novel Influenza H1N1, nasal 10/20/2009 PPD ([place]) 08/29/2006 TD Adult 09/04/2001 Tdap (Age 7+) 04/05/2011 Typhoid Vicapsular Polysacharide 09/04/2001 ALLERGIES No Known Allergies Current Outpatient Medications Medication Sig lisinopril (ZESTRIL, PRINIVIL) 10 mg tablet Take 1 tablet by mouth once daily. No current facility-administered medications for this visit. Objective BP 140/94 (BP Site: Left Arm, BP Position: Sitting, BP Cuff Size: Large Adult) Pulse 77 Temp 36.3 C (97.4 F) (Temporal) Resp 16 Ht 182.9 cm (6') Wt 103.4 kg (228 lb) BMI 30.92 kg/m Physical Exam Constitutional: General: He is not in acute distress. Appearance: Normal appearance. He is well-developed. HENT: Head: Normocephalic. Nose: Nose normal. Eyes: Extraocular Movements: Extraocular movements intact. Conjunctiva/sclera: Conjunctivae normal. Pupils: Pupils are equal, round, and reactive to light. Cardiovascular: Rate and Rhythm: Normal rate and regular rhythm. Heart sounds: No murmur heard. Gallop present. Musculoskeletal: Cervical back: Neck supple. Neurological: Mental Status: He is alert. Assessment and Plan 1. Routine medical exam - ICD9: V70.0, ICD10: Z00.00 (primary diagnosis) - Counseled on healthy diet and regular exercise - Discussed need for and benefit of weight loss. BMI 30.92 kg/(m^2) - Colorectal cancer screening recommended - agrees to Colonoscopy - Risks/benefits of prostate cancer screening discussed. screening PSA ordered - Smoking cessation encouraged; discussed risks to health and quitting strategies. Patient is not ready to quit - Counseled on limiting alcohol intake to 2 drinks per day - Depression screening tool completed and reviewed with patient. Based on score and interview, patient is not at risk for depression and recommended no further intervention at this time. 2. Obesity, Class I, BMI 30-34.9 - ICD9: 278.00, ICD10: E66.9 Weight increasing - Behavioral intervention 3. Primary hypertension - ICD9: 401.9, ICD10: I10 - newly diagnosed - factors affecting control of BP include white coat HTN and poor adherence to medications and diet. - start linopril. - Begin lisinopril (Zestril/Prinivil) - Recommended regular aerobic exercise. - Recommend home blood pressure monitoring, to bring results in on next visit - Goal of BP <130/80 - BASIC METABOLIC PNL - LISINOPRIL 10 MG TABLET 4. Hyperlipidemia, unspecified hyperlipidemia type - ICD9: 272.4, ICD10: E78.5 - poor control - LIPID PANEL BASIC - HGB A1C 5. Hepatitis C antibody test positive - ICD9: 795.79, ICD10: R76.8 - HEP C AB IA W/CONF SCRN 6. Screening for prostate cancer - ICD9: V76.44, ICD10: Z12.5 - PSA/PROSTSPECAG SCRN 7. Special screening for malignant neoplasms, colon - ICD9: V76.51, ICD10: Z12.11 - COLONOSCOPY SCREENING - PEG 3350 240 GRAM-ELECTROLYTES 22.72 GRAM-6.72 G-5.84 G POWDR FOR JIN Anguiano MD [facility] OPEN ACCESS QUESTIONNAIRE 1. Are you currently having any new or unusual stomach/gastrointestinal issues at this time such as constipation, diarrhea, abdominal pain, rectal bleeding etc?No 2. Do you have any difficulty swallowing? No 3. Do you have any implanted devices such as a defibrillator, pacemaker, cardiac stents or deep brain stimulator? No 4. Do you take any Blood thinners such as Coumadin, Plavix, Xarelto, Eliquis, Brilinta or any other blood thinner? No 5. Do you have any new or past cardiac (heart) or pulmonary (lung) issues? Yes / HTN 6. Do you currently use any oxygen? No 7. Have you been hospitalized in the past 6 weeks? Yes. 8. Have you had difficulty with anesthesia previously re: Difficult intubation? No Other difficulty or allergic reaction to anesthesia other than post op N/V? No 9. Are you on dialysis? No 10. Do you have any bleeding disorders such as hemophilia or Factor 5? No 11. Are you an Insulin Dependent Diabetic? No IF ANY OF THE TOP ELEVEN QUESTIONS ARE ANSWERED YES PLEASE SCHEDULE THE PATIENT FOR A CONSULT. advised 12. Is the patient's BMI 40 or greater? No:Body mass index is 30.92 kg/m .. 13. Do you take any narcotics or anti-Anxiety medications? No 14. Do you use any illegal or recreational drugs including marijuana? No 15. Any alcohol use: YES: What type of alcohol, how much and how often do you drink? : 1 daily 16. Have you been diagnosed with chronic liver disease such as hepatitis or cirrhosis? No 17. Do you have a seizure disorder? No 18. Do you have ulcerative colitis or Crohn's disease? No 19. Are you or could you be ? No 20. Any other important health information we should be made aware of prior to your colonoscopy? No To be completed by LIP: Did patient have MAC anesthesia with a previous endoscopy procedure? No Patient appropriate for Open Access Colonoscopy: Yes: appropriate for Open Access Procedure Checklist: Prior to closing the encounter: Complete questionnaire: Yes Confirm Prep order has been Ordered/Pended: Yes. Patient's procedure could be delayed if not given the script for the prep. Please ensure the prep is escripted to pharmacy or printed. Instructions for the prep will print upon filing or pending this smartset. Please send all open access questionnaires to [facility] Sched Pool #[id number] documented in this encounter [facility] 05-16-2022 Instructions Krish Anguiano MD - 05/16/2022 6:26 PM EDT Health Information For Patients and the Community How to Prepare for Your Colonoscopy Using Golytely, Nulytely, Trilyte or Colyte Preparations IMPORTANT - Please Read These Instructions at Least 2 Weeks Before Your Colonoscopy [place]za Instructions: ?Your bowel must be empty so that your doctor can clearly view your colon. Follow all of the instructions in this handout EXACTLY as they are written. If you do NOT follow the directions for when to start drinking the bowel preparation (see next page), your colonoscopy WILL be cancelled. ?Do NOT eat any solid food the ENTIRE day before your colonoscopy. ?Buy your bowel preparation at least 5 days before your colonoscopy. ?Do NOT mix the solution until the day before your colonoscopy. Designated Fruit Dumper on the Day of Your Exam A responsible family member or friend MUST come with you to your colonoscopy and REMAIN in the endoscopy area until you are discharged! You are NOT ALLOWED to drive, take a taxi or bus, or leave the Endoscopy Center ALONE. If you do not have a responsible coach driver (family member or friend) with you to take you home, your exam cannot be done with sedation and will be cancelled. Medications Some of the medicines you take may need to be stopped or adjusted before your colonoscopy. You MUST call the doctor who ordered any of the following medicines at least 2 weeks before your colonoscopy. ?Blood thinners -- such as Coumadin (warfarin), Plavix (clopidogrel), Ticlid (ticlopidine hydrochloride), Agrylin (anagrelide), Xarelto (Rivaroxaban), Pradaxa (Dabigatran), Eliquis (Apixaban), and Effient (Prasugrel). ?Insulin or diabetes pills. Please call the doctor that monitors your glucose levels. Your insulin dosage may need to be adjusted due to the diet restrictions required with this bowel preparation. (Please bring your diabetes medicines with you on the day of your procedure.) If you take aspirin, take it and ALL other medications prescribed by your doctor. On the day of your colonoscopy, take your medications with a sip of water. Revised 10/2016 1 Five (5) Days Before Your Colonoscopy ?Do NOT take medicines that stop diarrhea -- such as Imodium , Kaopectate , or Pepto Bismol . ?Do NOT take fiber supplements -- such as Metamucil , Citrucel , or Perdiem . ?Do NOT take products that contain iron -- such as multi-vitamins -- (the label lists what is in the products). ?Do NOT take vitamin E. Buy the prescription bowel preparation solution at your local pharmacy or drugstore pharmacy. Three (3) Days Before Your Colonoscopy Do NOT eat high-fiber foods -- such as popcorn, beans, seeds (flax, sunflower, quinoa), multigrain bread, nuts, salad/vegetables, or fresh and dried fruit. One (1) Day Before Your Colonoscopy Only drink clear liquids the ENTIRE DAY before your colonoscopy. Do NOT eat any solid foods. Drink at least 8 ounces of clear liquids every hour after waking up. The clear liquids you can drink include: ?water, apple, or white grape juice; broth; coffee or tea (without milk or creamer); clear carbonated beverages such as alma rafaela or lemon-menominee soda; Gatorade or other sports drinks (not red); Cisco-Aid or other flavored drinks (not red). You may eat plain jello or other gelatins (not red) or popsicles (not red). Do NOT drink alcohol on the day before or the day of the procedure. 2 Revised 10/2016 When to Mix and Drink Your Bowel Prep Follow the instructions on the label. After mixing, place the solution in the refrigerator for a couple of hours before drinking. You may add the flavor packet that came with the bowel preparation. DO NOT add ice, sugar or any flavorings to the solution. Evening Before Your Colonoscopy ?Start drinking the bowel preparation at 6 PM the evening before your colonoscopy. Drink an 8-oz glass of bowel preparation every 10 minutes. You must finish drinking the solution by 9 PM the night before your scheduled procedure. ?You may continue to drink clear liquids only until midnight. Do NOT eat or drink ANYTHING after midnight the night before your procedure or your procedure may be cancelled. This is for your safety and will reduce the risk of having any food or liquid in your stomach move into your lungs (aspiration) during a procedure. If you take aspirin, take it and ALL other prescribed medicines with a sip of water on the day of your colonoscopy. Contact Information: If you are unable to keep your appointment or have any questions about the instructions, please call the facility where the procedure is being performed. Call between the hours of 8:00 AM and 5:00 PM. If you are calling after 5:00 PM, please call Nurse warehouse insulation worker at [phone]. [facility] [address] [place] [id number] Index # [id number] Revised 10/2016 3 Colonoscopy Procedure Overview Please Read Prior to the Procedure What is a Colonoscopy A colonoscopy is an outpatient procedure in which the inside of the large intestine (colon and rectum) is examined. A colonoscopy is commonly used to evaluate gastrointestinal symptoms, such as rectal and intestinal bleeding, abdominal pain, or changes in bowel habits. Colonoscopies are also performed in individuals without symptoms to check for colorectal polyps or cancer. A screening colonoscopy is recommended for anyone 50 years of age and older, and for anyone with parents, siblings or children with a history of colorectal cancer or polyps. What Happens Before a Colonoscopy To have a successful colonoscopy, your bowel must be empty so that your physician can clearly view the colon. To do this, it is very important to read and follow all of the instructions given to you at least 2 weeks BEFORE your exam. If your bowel is not empty, your colonoscopy will not be successful and may have to be repeated. If you feel nauseated or vomit while taking the bowel preparation, wait 30 minutes before drinking more fluid and start with small sips of solution. Some activity (such as walking) or a few soda crackers may help decrease the nausea you are feeling. If the nausea persists, please contact nurse extrusion press adjuster at [phone]. You may experience skin irritation around the anus due to the passage of liquid stools. To prevent and treat skin irritation, you should: ?Apply Vaseline or Desitin ointment to the skin around the anus before drinking the bowel preparation medications. These products can be purchased at any [employer]. ?Wipe the skin after each bowel movement with disposable wet wipes instead of toilet paper. These are found in the toilet paper area of the store. ?Sit in a bathtub filled with warm water for 10 to 15 minutes after you finish passing a stool; after soaking, blot the skin dry with a soft cloth, apply Vaseline or Desitin ointment to the anal area, and place a cotton ball just outside your anus to absorb leaking fluid. What Happens During a Colonoscopy During a colonoscopy, an experienced physician uses a colonoscope (a long, flexible instrument about 1/2 inch in diameter) to view the lining of the colon. The colonoscope is inserted into the rectum and advanced through the large intestine. If necessary during a colonoscopy, small amounts of tissue can be removed for analysis (a biopsy) and polyps can be identified and entirely removed. In many cases, a colonoscopy allows accurate diagnosis and treatment of colorectal problems without the need for a major operation. Revised 10/2016 5 ?You are asked to wear a hospital gown and an IV will be started. ?You are given a pain reliever and a sedative intravenously (in your vein). You will feel relaxed and somewhat drowsy. ?You will lie on your left side, with your knees drawn up towards your chest. ?A small amount of air is used to expand the colon so the physician can see the colon cavazos. ?You may feel mild cramping during the procedure. Cramping can be reduced by taking slow, deep breaths. ?The colonoscope is slowly withdrawn while the lining of your bowel is carefully examined. ?The procedure lasts from 30 minutes to 1 hour. What Happens After a Colonoscopy ?You will stay in a recovery room for observation until you are ready for discharge. ?You may feel some cramping or a sensation of having gas, but this quickly passes. ?If sedation has been given, a responsible family member or friend must drive you home. ?Avoid alcohol, driving, and operating machinery for 24 hours following the procedure. ?Unless otherwise instructed, you may immediately return to your normal diet. We recommend you wait until the day after your procedure to resume normal activities. ?If polyps were removed or a biopsy was taken, the physician performing your colonoscopy will tell you when it is safe to resume taking your blood thinners. ?If a biopsy was taken or a polyp was removed, you may notice a little amount of rectal bleeding for 1 to 2 days after the procedure. If you have a large amount of rectal bleeding, high or persistent fevers, or severe abdominal pain within the next 2 weeks, please go to your local emergency room and call the physician who performed your exam. 6 Revised 10/2016 Copyright [id number] [facility]. All rights reserved. Revised 10/2016 documented in this encounter [facility] 05-02-2022 History of Presen t illness Narrative Images from the original note were not included. Subjective Rash Pertinent negatives include no fever or joint pain. HPI Maddie Solorio is a 57 year old male who presents today for CC of rash on right upper arm that started 5 days ago. He was cleaning out the basement, and noticed shortly after. He has been using neosporin BP 138/84 Pulse 81 Temp 36.3 C (97.4 F) Resp 16 Wt 105.5 kg (232 lb 9.6 oz) SpO2 99% Social History Tobacco Use Smoking status: Some Days Types: Cigars Smokeless tobacco: Never Tobacco comments: Cigar Substance Use Topics Alcohol use: Yes Comment: social Drug use: Never No past medical history on file. I have confirmed and edited as necessary, the [facility] Review of Systems Constitutional: Negative for chills and fever. Musculoskeletal: Negative for joint pain and myalgias. Skin: Positive for rash. Negative for itching. All other systems reviewed and are negative. Objective Physical Exam Vitals and nursing note reviewed. Pulmonary: Effort: Pulmonary effort is normal. Skin: General: Skin is warm and dry. Findings: Erythema and rash present. Rash is macular. Comments: Area blanchable, red, with one excoriated area and appear scabbed. Neurological: Mental Status: He is alert and oriented to person, place, and time. Psychiatric: Mood and Affect: Affect normal. ASSESSMENT/PLAN: 1. Rash - ICD9: 782.1, ICD10: R21 - appears to be irritant dermatitis, possible abrasion. Keep area clean and dry Mupirocin twice a day to open areas Hydrocortisone as needed for itching. - MUPIROCIN 2 % TOPICAL OINTMENT Diagnosis and treatment plan were discussed and questions were answered to the patient's satisfaction. Pt acknowledged understanding of concepts and follow up plan. Specific signs and symptoms that would indicate the need for higher level of care were discussed in detail warranting prompt ER evaluation. Ivett Mcdaniels APRN.KVNG documented in this encounter [facility] 04-22-2022 History of Presen t illness Narrative [facility] Care Triage Note: Patient presents to the [facility] with complaint of chest discomfort (points to left mid chest) he has had today. His heart was fluttering and he felt dizzy earlier today. Alert, ambulates without assistance, speaking in full sentences. Radial pulse is regular. He will go to the ER for further evaluation. documented in this encounter [facility] Evaluation note Diagnosis Onset Date Chest pain acute Elevated blood pressure reading [facility] Work Phone: Evaluation note* Diagnosis Chest pain, unspecified type- Primary Palpitations [facility] Diagnosis Rash- Primary Rash and other nonspecific skin eruption [facility]* Diagnosis Routine medical exam- Primary Routine general medical examination at a health care facility Obesity, Class I, BMI 30-34.9 Obesity, unspecified Primary hypertension Unspecified essential hypertension Hyperlipidemia, unspecified hyperlipidemia type Hepatitis C antibody test positive Other and unspecified nonspecific immunological findings Screening for prostate cancer Special screening for malignant neoplasm of prostate Special screening for malignant neoplasms, colon [facility] Diagnosis Primary hypertension- Primary Unspecified essential hypertension [facility] Diagnosis Primary hypertension Unspecified essential hypertension [facility]* Diagnosis Primary hypertension- Primary Unspecified essential hypertension Elevated PSA Elevated prostate specific antigen (PSA) Hyperlipidemia, unspecified hyperlipidemia type Need for vaccination Need for prophylactic vaccination and inoculation against unspecified single disease Screening for HIV without presence of risk factors Special screening examination for other specified viral diseases Screening for skin cancer Screening for malignant neoplasm of the skin [facility]* Diagnosis Acral nevus- Primary Screening for skin cancer Screening for malignant neoplasm of the skin Notalgia paresthetica Disturbance of skin sensation Dermatofibroma of left lower leg Benign neoplasm of skin of lower limb, including hip Skin cancer screening Screening for malignant neoplasm of the skin [facility]* Diagnosis Hyperlipidemia, unspecified hyperlipidemia type- Primary Elevated PSA Elevated prostate specific antigen (PSA) Screening for HIV without presence of risk factors Special screening examination for other specified viral diseases Impaired fasting blood sugar Impaired fasting glucose Vitamin D deficiency Unspecified vitamin D deficiency [facility] Diagnosis Primary hypertension Unspecified essential hypertension [facility]* Diagnosis Impaired fasting blood sugar- Primary Impaired fasting glucose Primary hypertension Unspecified essential hypertension Hyperlipidemia, unspecified hyperlipidemia type Elevated PSA Elevated prostate specific antigen (PSA) Vitamin D deficiency Unspecified vitamin D deficiency Screening for HIV without presence of risk factors Special screening examination for other specified viral diseases [facility] Diagnosis Primary hypertension- Primary Unspecified essential hypertension Hyperlipidemia, unspecified hyperlipidemia type Impaired fasting blood sugar Impaired fasting glucose Elevated PSA Elevated prostate specific antigen (PSA) documented in this encounter [facility] note* Diagnosis Wellness examination- Primary Dysphagia, unspecified type Primary hypertension Unspecified essential hypertension Serum total bilirubin elevated Jaundice, unspecified, not of Screening for depression Encounter for screening examination for other mental health and behavioral disorders documented in this encounter [facility] note* Diagnosis Primary hypertension- Primary Unspecified essential hypertension Hyperlipidemia, unspecified hyperlipidemia type Dysphagia, unspecified type Serum total bilirubin elevated Jaundice, unspecified, not of documented in this encounter [facility] note* Diagnosis Elevated PSA- Primary Elevated prostate specific antigen (PSA) documented in this encounter [facility] note* Diagnosis Gastroesophageal reflux disease, unspecified whether esophagitis present- Primary Primary hypertension Unspecified essential hypertension Serum total bilirubin elevated Jaundice, unspecified, not of Hyperlipidemia, unspecified hyperlipidemia type documented in this encounter [facility] note* Diagnosis Dysphagia, unspecified type- Primary Gastroesophageal reflux disease, unspecified whether esophagitis present Throat irritation Other diseases of pharynx, not elsewhere classified documented in this encounter [facility] note* Diagnosis Dysphagia, unspecified type- Primary Gastroesophageal reflux disease, unspecified whether esophagitis present documented in this encounter [facility] note* Diagnosis Gastroesophageal reflux disease, unspecified whether esophagitis present- Primary documented in this encounter [facility] note* Diagnosis Primary hypertension Unspecified essential hypertension documented in this encounter [facility] note* Diagnosis Hyperlipidemia, unspecified hyperlipidemia type documented in this encounter [facility] noteNo assessment information availableWGalion Hospital Work Phone: Evaluation note* Diagnosis Hyperlipidemia, unspecified hyperlipidemia type- Primary Elevated PSA Elevated prostate specific antigen (PSA) Primary hypertension Unspecified essential hypertension Gastroesophageal reflux disease, unspecified whether esophagitis present Dysphagia, unspecified type Overweight (BMI 25.0-29.9) Overweight Pain in joint involving multiple sites Pain in joint, multiple sites documented in this encounter [facility] note* Diagnosis Primary hypertension Unspecified essential hypertension [facility] Work Phone: Hospital Discharge instructions Additional Instructions CT scan negative for kidney stones. You have a 3.1 cm left hepatic lobe complex cyst. Further imaging through your PCP. Incidental pulmonary nodules largest 4 mm. Continue ibuprofen up to 600 mg every 6 hours. Use muscle relaxer at night before sleep. Can use up to 3 times a day. Can make you sleepy. Follow-up your doctor for reevaluation.[facility] Work Phone: Reason for referral (narrative)* Outpatient Procedure (Routine) - Pending Review Specialty Diagnoses / Procedures Referred By Contac t Referred To Contact [facility] Diagnoses Special screening for malignant neoplasms, colon Procedures COLONOSCOPY SCREENING COLONOSCOPY FLX DX W/COLLJ SPEC WHEN PFRMD Krish Anguiano MD [address] [place] [address] [place] [id number] Referral ID Status Reason Start Date Expiration Date Visits Requested Visits Authorized [id number] Pending Review Auto-Generat ed Referral 05/16/2022 05/16/2023 1 1 [facility] for referral (narrative)* Outpatient Procedure (Routine) - Authorized Specialty Diagnoses / Procedures [facility] Diagnoses Gastroesophageal reflux disease, unspecified whether esophagitis present Dysphagia, unspecified type Procedures EGD DIAGNOSTIC ESOPHAGOGASTRODUODENOSC OPY TRANSORAL DIAGNOSTIC Purvi Webber APRN.CNP [address] [place] [address] [address] Referral ID Status Reason Start Date Expiration Date Visits Requested Visits Authorized [id number] Authorized Auto-Generat ed Referral OON/Self Pay Override 4 09/24/2024 1 1 [facility] for referral (narrative)* Outpatient Procedure (Routine) - Closed Specialty Diagnoses / Procedures [facility] To [facility] Diagnoses Gastroesophageal reflux disease, unspecified whether esophagitis present Dysphagia, unspecified type Procedures EGD DIAGNOSTIC ESOPHAGOGASTRODUODENOSC OPY TRANSORAL DIAGNOSTIC Purvi Webber APRN.CNP [address] [place] [address] [facility] [address] [address] Referral ID Status Reason Start Date Expiration Date V isits Requested Visits Authorized [id number] Closed Auto-Generate d Referral OON/Self Pay Override 07/08/2024 09/24/2024 1 1 [facility])No reason for referral information availableWGalion Hospital Work Phone: Reason for visit Narrative* Outpatient Procedure (Routine) - Closed Specialty Diagnoses / Procedures Referred By Claribel smith Referred To Contact [facility] Diagnoses Gastroesophageal reflux disease, unspecified whether esophagitis present Dysphagia, unspecified type Procedures EGD DIAGNOSTIC ESOPHAGOGASTRODUODENOSC OPY TRANSORAL DIAGNOSTIC Purvi Webber APRN.CNP [address] [place] [address] [facility] [address] [address] Referral ID Status Reason Start Date Expiration Date V isits Requested Visits Authorized [id number] Closed Auto-Generate d Referral OON/Self Pay Override 07/08/2024 09/24/2024 1 1 [facility] Chief Complaint and Reason for Visit Chief Complaint CHEST PAIN Reason for Visit Chest pain Elevated blood pressure reading Chief Complaint CHEST PAIN CHEST PAIN Reason for Visit Chest pain Elevated blood pressure reading Chief Complaint Admit Date flank pain December 03, 2024 8:5 2pm Advance Directives No Advanced Directives Records Found Advance Directive Response Recorded Date/ Time Living Will No April 22, 2022 5:53pm Power of Meteorologist In Charge No April 22 5:53pm Advance Directive Response Recorded Date/ Time Living Will No April 22, 2022 7:54pm Power of Meteorologist In Charge No April 22 7:54pm Advance Directive Response Recorded Date/ Time Living Will Yes December 03, 2024 10:08pm Power of Meteorologist In Charge Yes December 03 10:08pm Name of Medical Power of Meteorologist In Charge Ping machuca December 03, 2024 10:08pm Medications Administered Section Administered Medications Medication Order MAR Action Action Date Dose Rate Site PPD ([place]) Given 08/29/2006 .1 Reason for Referral Specialty Diagnoses / Procedures Referred By Contac t Referred To Contact Dermatology Diagnoses Screening for skin cancer Procedures CONSULT TO DERMATOLOGY OFFICE/OUTPATIENT [facility] 60-74 MINUTES Krish Anguiano MD [address] [place] [address] Referral ID Status Reason Start Date Expiration Date Visits Requested Visits Authorized [id number] Pending Review PCP Requested Referral 09/30/2022 09/30/2023 1 1 Specialty Diagnoses / Procedures Referred By Claribel smith Referred To Contact GENERAL SURGERY Diagnoses Gastroesophageal reflux disease, unspecified whether esophagitis present Procedures CONSULT TO GENERAL SURGERY OFFICE/OUTPATIENT [facility] MDM 60 MINUTES Yvette Mendes, ORNAMENTAL IRON WORKER.HERITAGE CONSULTANT [address] [place] [address] [facility] [address] [place] [address] Referral ID Status Reason Start Date Expiration Date Visits Requested Visits Authorized [id number] Authorized OON/Self Pay Override 07/01/2024 09/24/2024 1 1 Summary Purpose Family History No Family History Records Found Additional Source Comments Goals (unrecognized section and content) Goals may be documented in a n alternate sectionGoals may be documented in an alternate section Source Comments (unrecognize d section and content) In the event this informatio n is protected by the Federal Confidentiality of Alcohol and Drug Abuse Patient Records regulations: The Federal rules restrict any use of the information to criminally investigate or prosecute any alcohol or drug abuse patient.[facility] the event this information is protected by the Federal Confidentiality of Alcohol and Drug Abuse Patient Records regulations: The Federal rules restrict any use of the information to criminally investigate or prosecute any alcohol or drug abuse patient.[facility] the event this information is protected by the Federal Confidentiality of Alcohol and Drug Abuse Patient Records regulations: The Federal rules restrict any use of the information to criminally investigate or prosecute any alcohol or drug abuse patient.[facility] the event this information is protected by the Federal Confidentiality of Alcohol and Drug Abuse Patient Records regulations: The Federal rules restrict any use of the information to criminally investigate or prosecute any alcohol or drug abuse patient.[facility] the event this information is protected by the Federal Confidentiality of Alcohol and Drug Abuse Patient Records regulations: The Federal rules restrict any use of the information to criminally investigate or prosecute any alcohol or drug abuse patient.[facility] the event this information is protected by the Federal Confidentiality of Alcohol and Drug Abuse Patient Records regulations: The Federal rules restrict any use of the information to criminally investigate or prosecute any alcohol or drug abuse patient.[facility] the event this information is protected by the Federal Confidentiality of Alcohol and Drug Abuse Patient Records regulations: The Federal rules restrict any use of the information to criminally investigate or prosecute any alcohol or drug abuse patient.[facility] HospitalIn the event this information is protected by the Federal Confidentiality of Alcohol and Drug Abuse Patient Records regulations: The Federal rules restrict any use of the information to criminally investigate or prosecute any alcohol or drug abuse patient.[facility] HospitalIn the event this information is protected by the Federal Confidentiality of Alcohol and Drug Abuse Patient Records regulations: The Federal rules restrict any use of the information to criminally investigate or prosecute any alcohol or drug abuse patient.[facility] HospitalIn the event this information is protected by the Federal Confidentiality of Alcohol and Drug Abuse Patient Records regulations: The Federal rules restrict any use of the information to criminally investigate or prosecute any alcohol or drug abuse patient.[facility] Hospital[facility] the event this information is protected by the Federal Confidentiality of Alcohol and Drug Abuse Patient Records regulations: The Federal rules restrict any use of the information to criminally investigate or prosecute any alcohol or drug abuse patient.[facility] HospitalIn the event this information is protected by the Federal Confidentiality of Alcohol and Drug Abuse Patient Records regulations: The Federal rules restrict any use of the information to criminally investigate or prosecute any alcohol or drug abuse patient.[facility] HospitalIn the event this information is protected by the Federal Confidentiality of Alcohol and Drug Abuse Patient Records regulations: The Federal rules restrict any use of the information to criminally investigate or prosecute any alcohol or drug abuse patient.[facility] HospitalIn the event this information is protected by the Federal Confidentiality of Alcohol and Drug Abuse Patient Records regulations: The Federal rules restrict any use of the information to criminally investigate or prosecute any alcohol or drug abuse patient.[facility] HospitalIn the event this information is protected by the Federal Confidentiality of Alcohol and Drug Abuse Patient Records regulations: The Federal rules restrict any use of the information to criminally investigate or prosecute any alcohol or drug abuse patient.[facility] HospitalIn the event this information is protected by the Federal Confidentiality of Alcohol and Drug Abuse Patient Records regulations: The Federal rules restrict any use of the information to criminally investigate or prosecute any alcohol or drug abuse patient.[facility] HospitalIn the event this information is protected by the Federal Confidentiality of Alcohol and Drug Abuse Patient Records regulations: The Federal rules restrict any use of the information to criminally investigate or prosecute any alcohol or drug abuse patient.[facility] HospitalIn the event this information is protected by the Federal Confidentiality of Alcohol and Drug Abuse Patient Records regulations: The Federal rules restrict any use of the information to criminally investigate or prosecute any alcohol or drug abuse patient.[facility] HospitalIn the event this information is protected by the Federal Confidentiality of Alcohol and Drug Abuse Patient Records regulations: The Federal rules restrict any use of the information to criminally investigate or prosecute any alcohol or drug abuse patient.[facility] the event this information is protected by the Federal Confidentiality of Alcohol and Drug Abuse Patient Records regulations: The Federal rules restrict any use of the information to criminally investigate or prosecute any alcohol or drug abuse patient.[facility] the event this information is protected by the Federal Confidentiality of Alcohol and Drug Abuse Patient Records regulations: The Federal rules restrict any use of the information to criminally investigate or prosecute any alcohol or drug abuse patient.[facility] Hospital[facility] the event this information is protected by the Federal Confidentiality of Alcohol and Drug Abuse Patient Records regulations: The Federal rules restrict any use of the information to criminally investigate or prosecute any alcohol or drug abuse patient.[facility] Hospital[facility] the event this information is protected by the Federal Confidentiality of Alcohol and Drug Abuse Patient Records regulations: The Federal rules restrict any use of the information to criminally investigate or prosecute any alcohol or drug abuse patient.[facility] the event this information is protected by the Federal Confidentiality of Alcohol and Drug Abuse Patient Records regulations: The Federal rules restrict any use of the information to criminally investigate or prosecute any alcohol or drug abuse patient.[facility] Hospital[facility] the event this information is protected by the Federal Confidentiality of Alcohol and Drug Abuse Patient Records regulations: The Federal rules restrict any use of the information to criminally investigate or prosecute any alcohol or drug abuse patient.[facility] Reason for Visit (unrecogniz ed section and content) Reason Comments Rash Pt reported rash, de nied pain x5 days Hx [facility] 04/22/2022 continued BP monitoring generalized location Reason Comments Establish Care Reason Comments Blood Pressure Check Reason Comments Follow Up Reason Onset Date Comments Refill Request 01/17/2023 Reason Comments Full Body Skin Check Specialty Diagnoses / Procedures Referred By Contac t Referred To Contact Dermatology / DERMATOLOGY Diagnoses Screening for skin cancer Procedures CONSULT TO DERMATOLOGY OFFICE/OUTPATIENT NEW HIGH MDM 60-74 MINUTES Krish Anguiano MD [address] [place] [address] Derm [facility] [address] [place] [address] Referral ID Status Reason Start Date Expiration Date V isits Requested Visits Authorized [id number] Closed PCP Requested Referral 01/20/2023 09/24/2023 1 1 Reason Comments F/U 6 months Reason Onset Date Comments Refill Request 07/18/2023 Reason Onset Date Comments Refill Request 01/24/2024 Reason Comments Orders Reason Comments Physical Specialty Diagnoses / Procedures Referred By Contac t Referred To Contact INTERNAL MEDICINE Diagnoses physical Procedures physical Krish Anguiano MD [address] [place] [address] [place] [address] [address] [place] [address] Referral ID Status Reason Start Date Expiration Date Visits Requested Visits Authorized [id number] New Request OON/Self Pay Override 05/02/2024 08/10/2025 1 1 Reason Comments 3 week follow up Labs Specialty Diagnoses / Procedures Referred By Contac t Referred To Contact INTERNAL MEDICINE Diagnoses follow up Procedures follow up Krish Anguiano MD [address] [place] [address] Intm [facility] [address] [place] [address] Referral ID Status Reason Start Date Expiration Date Visits Requested Visits Authorized [id number] New Request OON/Self Pay Override 05/08/2024 08/16/2025 1 1 Reason Comments 4 week follow up Specialty Diagnoses / Procedures Referred By Claribel smith Referred To Contact INTERNAL MEDICINE Diagnoses physical Procedures physical Krish Anguiano MD [address] [place] [address] [place] [address] [address] [place] [address] Reason Comments Consult GERD, acid reflux co uple years, pcp referral Specialty Diagnoses / Procedures Referred By Claribel smith Referred To Contact GENERAL SURGERY Diagnoses Gastroesophageal reflux disease, unspecified whether esophagitis present Procedures CONSULT TO GENERAL SURGERY OFFICE/OUTPATIENT NEW HIGH MDM 60 MINUTES Yvette Mendes, ORNAMENTAL IRON WORKER.HERITAGE CONSULTANT [address] [place] [address] [facility] [address] [place] [address] Referral ID Status Reason Start Date Expiration Date V isits Requested Visits Authorized [id number] Closed OON/Self Pay Override 07/01/2024 09/24/2024 1 1 Reason Comments Post Op Follow Up EGD follow-up; done on 07/12/2024 Specialty Diagnoses / Procedures Referred By Claribel smith Referred To Contact GENERAL SURGERY Diagnoses Encounter for follow-up examination after completed treatment for conditions other than malignant neoplasm egd follow up Procedures OFFICE/OUTPATIENT ESTABLISHED SF MDM 10 MIN OFFICE/OUTPATIENT ESTABLISHED LOW MDM 20 MIN OFFICE/OUTPATIENT ESTABLISHED MOD MDM 30 MIN OFFICE/OUTPATIENT ESTABLISHED HIGH MDM 40 MIN office visit Krish Anguiano MD [address] [place] [address] Purvi Webber APRN.HERITAGE CONSULTANT [address] [place] [address] Referral ID Status Reason Start Date Expiration Date Visits Requested Visits Authorized [id number] Authorized OON/Self Pay Override 09/24/2024 4 4 Reason Onset Date Comments Refill Request 08/01/2024 Reason Onset Date Comments Refill Request 08/23/2024 Reason Onset Date Comments Refill Request 09/02/2024 Reason Comments 6 month follow up Specialty Diagnoses / Procedures Referred By Claribel smith Referred To Contact INTERNAL MEDICINE Diagnoses physical Procedures physical Krish Anguiano MD [address] [place] [address] Phone: tel: fax: [address] [place] [address] [place] [address] Referral ID Status Reason Start Date Expiration Date Visits Requested Visits Authorized [id number] New Request OON/Self Pay Override 05/02/2024 08/10/2025 1 1 Reason Onset Date Comments Refill Request 02/20/2025 Care Teams (unrecognized sec tion and content) Manager Sap Relationship Specialty Start Date End Date Krish Anguiano MD [facility] [place] [address] PCP - General Internal Medicine 05/16/22 Manager Sap Relationship Specialty Start Date End Date Krish Anguiano [place] [facility] [place] [address] PCP - General Internal Medicine 05/16/22 Manager Sap Relationship Specialty Start Date End Date Krish Anguiano MD [facility] [place] [address] PCP - General Internal Medicine 05/16/22 Manager Sap Relationship Specialty Start Date End Date Krish Anguiano MD [address] [place] [address] [id number] PCP - General Internal Medicine 05/16/22 Manager Sap Relationship Specialty Start Date End Date Krish Anguiano MD [address] [place] [address] [id number] PCP - General Internal Medicine 05/16/22 Manager Sap Relationship Specialty Start Date End Date Krish Anguiano MD [address] [facility] [place] [address] PCP - General Internal Medicine 05/16/22 Manager Sap Relationship Specialty Start Date End Date Krish Anguiano MD [address] [place] [address] PCP - General Internal Medicine 05/16/22 Manager Sap Relationship Specialty Start Date End Date Krish Anguiano MD [address] [place] [address] PCP - General Internal Medicine 05/16/22 Manager Sap Relationship Specialty Start Date End Date Krish Anguiano MD [address] [place] [address] PCP - General Internal Medicine 05/16/22 Manager Sap Relationship Specialty Start Date End Date Krish Anguiano MD [address] [place] [address] PCP - General Internal Medicine 05/16/22 Manager Sap Relationship Specialty Start Date End Date Krish Anguiano MD [address] [place] [address] PCP - General Internal Medicine 05/16/22 Manager Sap Relationship Specialty Start Date End Date Krish Anguiano MD [address] [place] [address] PCP - General Internal Medicine 05/16/22 Manager Sap Relationship Specialty Start Date End Date Krish Anguiano MD [address] [place] [address] PCP - General Internal Medicine 05/16/22 Manager Sap Relationship Specialty Start Date End Date Krish Anguiano MD [address] [place] [address] PCP - General Internal Medicine 05/16/22 Manager Sap Relationship Specialty Start Date End Date Krish Anguiano MD [address] [facility] [place] [address] PCP - General Internal Medicine 05/16/22 Manager Sap Relationship Specialty Start Date End Date Krish Anguiano MD [address] [facility] [place] [address] PCP - General Internal Medicine 05/16/22 Manager Sap Relationship Specialty Start Date End Date Krish Anguiano MD [address] [facility] [place] [address] PCP - General Internal Medicine 05/16/22 Manager Sap Relationship Specialty Start Date End Date Krish Anguiano MD [address] [facility] [place] [address] PCP - General Internal Medicine 05/16/22 Yvette Mendes, ORNAMENTAL IRON WORKER.HERITAGE CONSULTANT [address] [facility] [place] [address] Cna G[facility] Internal Medicine 09/02/24 Team Status: Active Member Role Status Dates Dr. Krish Anguiano MD Primary Care Provider Active Team Status: Inactive Member Role Status Dates Dr. Seb Gibson DO Emergency Provider Active Start : December 03, 2024 End: December 04, 2024 Dr. Krish Anguiano MD Primary Care Provider Active Start: December 03, 2024 End: December 04, 2024 Manager Sap Relationship Specialty Start Date End Date Krish Anguiano MD [address] [facility] [place] [address] PCP - General Internal Medicine 05/16/22 Yvette Mendes, ORNAMENTAL IRON WORKER.HERITAGE CONSULTANT [address] [place] [address] [facility] Internal Medicine 09/02/24 Manager Sap Relationship Specialty Start Date End Date Krish Anguiano MD [address] [facility] [place] [address] PCP - General Internal Medicine 05/16/22 Yvette Mendes, ORNAMENTAL IRON WORKER.HERITAGE CONSULTANT [address] [place], [place] [address] [facility] Internal Medicine 09/02/24 (unrecognized sect ion and content) No Status Records FoundNo Status Records FoundNo Status Records Found INFORMATION SOURCE (unrecogn ized section and content) DATE CREATED AUTHOR 12/14/2024 [facility] DATE CREATED AUTHOR AUTHOR'S ORGANIZ ATION 07/09/2025 [facility] DATE CREATED AUTHOR AUTHOR'S ORGANIZ ATION 07/10/2025 [facility] FOR RECORDS PERTAINING TO PATIENTS WHO ARE OR HAVE BEEN ENROLLED IN A CHEMICAL DEPENDENCY/SUBSTANCEABUSE PROGRAM, SOME INFORMATION MAY BE OMITTED. This clinical summary was aggregated from multiple sources. Caution should be exercised in using it in the provision of clinical care. This summary normalizes information from multiple sources, and as a consequence, information in this document may materially change the coding, format and clinical context of patient data. In addition, data may be omitted in some cases. CLINICAL DECISIONS SHOULD BE BASED ON THE PRIMARY CLINICAL RECORDS. [facility]. provides no warranty or guarantee of the accuracy or completeness of information in this document.
[2025-07-20 10:27] LABS: Hematocrit 41.8 % (40-54); Hemoglobin 14.6 g/dL (13.0-16.5); Immature Granulocytes Count 0.050 X10^3/uL (0.0-0.0); Mean Corp Hgb Conc 34.9 g/dL (32-36); Mean Corpuscular Volume 91.3 fL (80-94); Mean Platelet Vol. 8.9 fl (6.2-12.0); NRBC Flagged by Analyzer 0 % (0-5); Platelet Count 164 K/mm3 (150-450); RBC Distribution Width CV 11.7 % (11.6-14.6); RBC Distribution Width SD 39.2 fl (35.1-43.9); Red Blood Count 4.58 M/mm3 (4.6-6.2); White Blood Count 7.8 K/mm3 (4.4-11.0)
--- NOTE | 2025-07-20 10:40 | CT_ITS ---
PROCEDURE: CTA CHEST W/WO CONTRAST; ABDOMEN/PELVIS W IV CONT ONLY 07/20/2025 REASON FOR EXAM: RIGHT CHEST PAIN; RIGHT FLANK RUQ PAIN Liver lesion. TECHNIQUE: Procedure Code: [id number]; [id number] Modality: CT Procedure: CTA CHEST W/WO CONTRAST; ABDOMEN/PELVIS W IV CONT ONLY Multiplanar Sagittal and Coronal images were obtained. MIP two-dimensional and 3D post processing was performed CONTRAST: Omnipaque 300 VOLUME: 100 mL One or more dose reduction techniques were used (e.g., Automated exposure control, adjustment of the mA and/or kV according to patient size, use of iterative reconstruction technique). RADIATION DOSE SUMMARY: CTDlvol: 5th mGy DLP: 1353 mGycm COMPARISON: November 2024. # of known CTs in the past 12 months: 1 # of known Cardiac Nuclear Medicine Studies in the past 12 months: 0 FINDINGS: CHEST Thyroid gland: Negative. Lungs: Mild emphysematous changes. Linear opacities right lung base likely atelectasis, new. Nodule in the right middle lobe measures 6 mm. There is portion of the lung not imaged previously. No other pulmonary nodules or masses. Pleura: Minimal right-sided pleural fluid. Negative for pneumothorax. Airways: Imaged bronchi and trachea otherwisenegative. Mediastinum: Negative for mediastinal mass. Lymph nodes: Negative for axillary, mediastinal or hilar adenopathy. Heart and Vasculature: Ascending thoracic aorta 3.1 cm. No dissection. Pulmonary arteries adequately opacify with contrast. Negative for intraluminal thrombus. Heart normal size. Mild vascular calcifications of the thoracic aorta. Coronary Artery Calcifications: Mild vascular calcifications of the coronary arteries Hardware: None. Bones and Soft Tissues: Moderate anterior osteophyte formation throughout the mid and lower thoracic spine age-appropriate degenerative changes of the thoracic spine. ABDOMEN Liver: Nodular enhancing lesion right lobe of the liver likely unchanged since prior exam measures 2.2 by 1.6 cm. Additionally there is an exophytic irregular peripherally enhancing lesion arising from the left lobe of the liver measures 2.6 by 3.7 cm. Not changed in size but still indeterminate. Hepatic cysts. Biliary system: Negative. Negative for intrahepatic or extrahepatic ductal dilatation. Gallbladder: Negative. Negative for cholecystitis. Spleen: Negative. Pancreas: Negative. Adrenals: Negative. Kidneys: Negative. Negative for kidney stones, cysts or masses. Bowel: Moderate increased stool throughout the colon. Sigmoid diverticulosis. Appendix: Negative Vasculature: Negative for atherosclerotic vascular calcifications of the abdominal aorta and its branches. Peritoneum / Retroperitoneum: Negative. PELVIS Lymph nodes: Negative for inguinal or iliac adenopathy. Bladder: Mild urinary bladder wall thickening. Reproductive Organs: Prostate calcifications. Bones and Soft Tissues: Mild degenerative changes of the lumbar spine hips and pelvis. CT/Abdomen/Pelvis W IV Cont ONLY IMPRESSION: Negative for pulmonary embolus Negative for thoracic aortic dissection. Mild atelectasis right lung base. Emphysema. Indeterminate lesions of the liver. Stable. Further evaluation with nonemerge nt MR with Eovist maybe helpful. Negative for acute intra-abdominal or pelvic pathology. Reading Location: [id number]
[2025-07-20 10:50] LABS: AST(SGOT) 37 U/L (<=37); Alanine Aminotransfer ALT/SGPT 29 U/L (<=46); Albumin, Serum 4.4 g/dL (3.5-5.0); Alkaline Phosphatase 66 U/L (40-129); Anion Gap 10 (5-15); BUN 12 mg/dL (4-19); BUN/Creat Ratio 13.0 RATIO (10-20); Bilirubin, Direct 0.40 mg/dL (0.00-0.30); Calcium,Total 9.0 mg/dL (7.6-11.0); Carbon Dioxide 26.8 mmol/L (21.0-32.0); Chloride 103 mmol/L (98-108); Estimated Creatinine Clearance 102.15 ml/min (50-250); Globulin 2.4 g/dL (2.2-4.2); Glucose 116 mg/dL (70-99); Potassium 4.9 mmol/L (3.3-5.1)
[2025-07-20 11:31] VITALS: BP 150/78; PULSE 68; O2SAT 100
[2025-07-20 11:31] LABS: Mucous, Urine 0 SEEN /hpf (<or=2+); Red Blood Cells-Urine 0 SEEN /hpf (0-5); Squamous Epithelial Cells - UA 0 SEEN /hpf (0-5)
[2025-07-20 11:33] LABS: Color, Urine Yellow (Yellow); Glucose, Dipstick Normal (Normal); Ketone-Dipstick Negative (Negative); Leukocyte Esterase-Dipstick 25 /ul (Negative); Nitrite-Dipstick Negative (Negative); Occult Blood-Urine 50 /ul (Negative); Protein-Dipstick 30 mg/dl (Negative); Specific Gravity, Urine 1.010 (1.002-1.030); Urine Bilirubin Dipstick Negative (Negative)
[2025-07-20 12:00] VITALS: BP 150/78; PULSE 68; RESP 18; TEMP 36.9; O2SAT 100
== END 2025-07-20 12:05 | disposition home or self-care (01) ==
PROVIDERS: Emergency Provider Emergency Medicine; PCP Internal Medicine; Visit Provider Emergency Medicine
DX: R10.9 Unspecified abdominal pain (principal); I10 Essential (primary) hypertension; K76.9 Liver disease, unspecified; Z79.899 Other long term (current) drug therapy; F17.290 Nicotine dependence, other tobacco product, uncomplicated; R07.9 Chest pain, unspecified
CPT/HCPCS: 71275; 74177; 80048; 80076; 81001; 85025; 87086; 96361; 96374; 99282; Q9967; A4216

== ENCOUNTER 2025-07-23 10:09 | Emergency (ER) | payer OTHER, SELFPAY ==
[2025-07-23] VITALS (7 sets, daily range): BP systolic 128–148; BP diastolic 74–96; PULSE 60–70; RESP 11–16; TEMP 36.5–36.6; O2SAT 95–100; BMI 28.8
--- NOTE | 2025-07-23 10:39 | EX.ED.DYSGE1 ---
HPI History of Present Illness Chief Complaint: Shortness of Breath Informant: patient and spouse/S.O. Narrative Narrative: Patient is a 60-year-old male presenting with right-sided rib pain following a fall four days ago. - Patient reports falling in the bathroom on Monday night after consuming a few drinks, resulting in multiple areas of pain along the right rib cage. - Describes pain as excruciating, particularly when lying down, taking deep breaths, or moving; pain radiates to the trapezius area, possibly due to favoring the arm. Has had no gina dyspnea. - Denies pain in the spine or sternum. - Initially thought pain was related to ongoing liver issues; however, pain severity prompted an ED visit the following day, where CT scans of the abdomen and chest were performed and negative for injury. - No other injuries reported from the fall, though a bump on the head was noted the next day. - Pain worsened over the past few days, particularly during an unrelated previously scheduled MRI at the [facility], which was scheduled for a liver lesion; lying on the MRI table was described as excruciating. - Today, an x-ray at the [facility] reportedly showed a rib potentially pushing against the lung, prompting a recommendation for admission. - Denies any new injuries since the initial fall. [facility] Medical History Cigar smoker HTN (hypertension) Home Medications ?Medication ?Instructions ?Recorded ?Last Taken ?Type lisinopril 10 mg tablet 10 mg PO DAILY #30 tabs 04/23/22 07/19/25 Rx LIVER DEFENSE 1 tab PO DAILY 07/20/25 07/19/25 History SUPER GREEN 1 cap PO DAILY 07/20/25 07/19/25 History SUPER RED 1 cap PO DAILY 07/20/25 07/19/25 History acetaminophen 500 mg capsule 1,000 mg PO Q6H PRN fever or pain 07/20/25 07/20/25 History apple cider vinegar 600 mg capsule 600 mg PO DAILY 07/20/25 07/19/25 History ascorbic acid (vitamin C) 1,000 mg 1 g PO DAILY 07/20/25 07/19/25 History tablet (C-1000) atorvastatin 20 mg tablet 20 mg PO QHS cholesterol 07/20/25 07/18/25 History cholecalciferol (vitamin D3) 50 50 mcg PO DAILY 07/20/25 07/19/25 History mcg (2,000 unit) capsule (D3-2000) inulin-sorbitol 2 gram chewable 1 tab PO DAILY 07/20/25 07/19/25 History tablet (Fiber Supplement (inulin)) multivitamin (Daily Value tablet) 1 tab PO DAILY 07/20/25 07/19/25 History omega 6-tmr-pmu-fish oil 1,200 mg 1 cap PO DAILY 07/20/25 07/19/25 History (144 mg-216 mg) capsule (Fish Oil) quercetin 500 mg capsule 500 mg PO DAILY 07/20/25 07/19/25 History oxycodone-acetaminophen 5 mg-325 1 tab PO Q4H PRN PRN pain 5 days 07/23/25 Unknown Rx mg tablet #30 TABLETS Allergy/AdvReac Type Severity Reaction Status Date / Time No Known Allergies Allergy Verified 07/23/25 10:14 Family History Father No problems noted. Mother Hypertension Surgical History History of rectal surgery Social History household members: spouse and family Smoking Status: Current some day smoker tobacco type: cigars per week: 1 alcohol intake: current alcohol intake frequency: 0-2 drinks per day details: Notes 2 ounce vodka drink q HS. substance use type: does not use ROS ROS ED Constitutional Constitutional ED: Denies chills or fever(s) Eyes Eyes: Denies change in vision or diplopia ENT ENT ED: Denies rhinorrhea or sore throat Cardiovascular Cardiovascular: Reports as per HPI, chest pain and other Details: right ribcage pain, mostly posterior and lateral ; Denies palpitations Respiratory/Chest Respiratory/Chest: Denies cough or dyspnea Gastrointestinal Gastrointestinal: Denies abdominal pain, diarrhea, nausea or vomiting Genitourinary Genitourinary ED: Denies dysuria or hematuria Musculoskeletal Musculoskeletal: Denies back pain or neck pain Integumentary Denies abscess or rash Neurologic Neurologic: Denies headache(s), paresthesias or weakness Psychiatric Psychiatric: Denies anxiety or suicidal thoughts EXAM Physical Exam Const Vital Signs: 07/23/25 10:10 07/23/25 10:27 07/23/25 11:09 Temperature 97.7 F L Temperature Source Oral Pulse Rate 70 60 Respiratory Rate 16 14 Respiratory Effort Short of Breath Blood Pressure 128/74 H 143/82 H Blood Pressure Mean 92 102 Pulse Ox 98 100 Oxygen Delivery Method Room Air Room Air Room Air 07/23/25 12:05 07/23/25 13:00 Temperature Temperature Source Pulse Rate 61 66 Respiratory Rate 11 L 16 Respiratory Effort Blood Pressure 148/96 H 138/93 H Blood Pressure Mean 113 108 Pulse Ox 96 95 Oxygen Delivery Method Room Air Positive well nourished and well developed General Appearance ED: well developed and NAD HEENT Reports moist mucous membranes normocephalic and atraumatic Eyes PERRL and EOMs intact bilaterally Neck full ROM and supple Resp normal respiratory effort and clear to auscultation bilaterally Cardio regular rate, regular rhythm and no murmurs GI non-tender and non-distended Auscultation: normoactive bowel sounds Palpation: soft Back/Spine no CVA tenderness General Back: other FROM Extremity normal to inspection General Extremety ED: Negative for edema, pulses abnormal or tenderness General Extremity: Negative for edema or pulses abnormal Neuro oriented x3, CN's II-XII intact bilaterally and no sensory deficits noted Sensorium / Orientation: awake and alert Motor Exam: strength 5/5 throughout Skin no rashes or lesions noted and no wounds MDM MDM MDM Narrative Medical decision making narrative: I reviewed the patient?s outpatient records from [facility]. The report from today?s two-view chest X-ray shows a small hemothorax and what appear to be several right-sided rib fractures. I reviewed his CT scans, including the images from three days ago after his initial injury, and he has had no repeat trauma. I agree with the radiologist?s interpretation that there were no visible rib fractures, hemothorax, or pulmonary contusion on that prior scan. I provided the patient with pain control and monitored him while we performed inspiratory-expiratory views, which, in my interpretation, show some displaced rib fractures and a very small pneumothorax. Radiology concurs. I discussed the case with Dr. Campoverde from surgery, who requested that we repeat a CT of the chest. This was done, and I reviewed the images and results, which I agree with [inaudible]. There is a small right pneumothorax, less than 10%, and a small pleural effusion likely representing a small hemothorax. Two displaced rib fractures are evident. The patient is not hypoxic and does not experience dyspnea unless he moves in certain ways, which causes a significant increase in his pain. He states that both the pain and dyspnea improve together after several minutes. He sometimes feels the bones shifting at the fracture sites, which I explained is normal with rib fractures. Since he is four days out from his injury, I believe the injury is clinically stable, and he has remained hemodynamically stable with no hypoxemia. I discussed his case with Dr. Chaidez, who reviewed the images. He agrees that the patient can be discharged home with pain medication and incentive spirometry. He will follow up in one week and should obtain an outpatient PA and lateral chest X-ray prior to that office visit. I discussed all of this with the patient and his , and they are comfortable with the plan. He was given a prescription for a five-day supply of Percocet every four hours, as this is a painful injury and will likely require that level of pain control. He was advised to rest, avoid sudden movements, and use pain as his guide for activity. We also discussed return precautions in detail, including the need to seek evaluation for any worsening symptoms that could indicate an expanding pneumothorax. Radiography Diagnostic Testing: Clinical Impression(s) from Imaging Studies Chest X-Ray 07/23/25 10:46 IMPRESSION: A small right PNEUMOTHORAX is now seen. Mild bibasilar atelectasis is noted, [id number]. No pleural fluid collection is clearly evident. The cardiomediastinal silhouette is within the normal range for age. Reading Location: [facility]--[address] 07/23/25 12:03 IMPRESSION: 1. Small right hydro pneumothorax again noted. Subsegmental atelectasis right lung base. This is in the setting of nondisplaced fractures posterior 11th and 12th ribs. 2. Mild coronary artery disease LAD and circumflex. Reading Location: [id number] Management Discussion w/another healthcare provider: [employer] (faye Chaidez) Discharge Plan Triage Chief Complaint: Shortness of Breath ED Provider: Jonathon Lanier Dx/Rx/DC Orders Clinical Impression: Traumatic hemopneumothorax, initial encounter, Closed fracture of multiple ribs of right side, Fall from slip, trip, or stumble Instructions: ED Rib Fracture, ED Pneumothorax, Blunt Trauma Prescriptions: New oxycodone-acetaminophen 5-325 mg tablet 1 tab PO Q4H PRN PRN (Reason: pain) 5 Days Qty: 30 0RF No Action lisinopril 10 mg tablet 10 mg PO DAILY Qty: 30 0RF Rx Instructions: start 04/23/22 atorvastatin 20 mg tablet 20 mg PO QHS acetaminophen 500 mg capsule 1,000 mg PO Q6H PRN (Reason: fever or pain) LIVER DEFENSE 1 tab PO DAILY ascorbic acid (vitamin C) [C-1000] 1,000 mg tablet 1 g PO DAILY apple cider vinegar 600 mg capsule 600 mg PO DAILY multivitamin [Daily Value] Tablet 1 tab PO DAILY cholecalciferol (vitamin D3) [D3-2000] 50 mcg (2,000 unit) capsule 50 mcg PO DAILY omega 5-tll-buj-fish oil [Fish Oil] 1,200 (144-216) mg capsule 1 cap PO DAILY SUPER RED 1 cap PO DAILY SUPER GREEN 1 cap PO DAILY Fiber Supplement (inulin) 2 gram tablet,chewable 1 tab PO DAILY quercetin 500 mg capsule 500 mg PO DAILY Other Ambulatory Orders: Chest PA and Lateral (Routine) Timeframe: 7 Days Facility: [facility] - Location: [facility] Ordered By: Dr. Jonathon Lanier Primary Care Provider: Krish Anguiano Referrals: Doron Chaidez MD [Med Staff - Active Staff, General Surgery] - 1 Week Activity Restrictions/Additional Instructions: - Take Percocet (oxycodone/acetaminophen) every 4 hours as needed for pain, sent to your pharmacy. - Use your incentive spirometer regularly to help expand your lungs and reduce the risk of complications. - Rest and allow your ribs to heal; avoid sudden or jarring movements that increase your pain. - Seek immediate evaluation if you experience new or worsening shortness of breath, increased chest pain, or other concerning symptoms, as these could indicate a larger pneumothorax. - Arrange an outpatient PA and lateral chest x-ray before your one-week follow-up appointment with Dr. Chaidez (Monday or Saturday 07/28 or ). Print Language: Bahamian Disposition Disposition: Home, Self Care
--- NOTE | 2025-07-23 10:46 | RAD_ITS ---
PROCEDURE: RAD/Chest Insp/Exp 2 View
--- NOTE | 2025-07-23 12:03 | CT_ITS ---
PROCEDURE: CT/Chest without Contrast
== END 2025-07-23 14:30 | disposition home or self-care (01) ==
PROVIDERS: Emergency Provider Emergency Medicine; PCP Internal Medicine; Visit Provider Emergency Medicine
DX: S27.2XXA Traumatic hemopneumothorax, initial encounter (principal); I10 Essential (primary) hypertension; S22.41XA Multiple fractures of ribs, right side, initial encounter for closed fracture; Z79.899 Other long term (current) drug therapy; F17.200 Nicotine dependence, unspecified, uncomplicated; W01.0XXA Fall on same level from slipping, tripping and stumbling without subsequent striking against object, initial encounter
CPT/HCPCS: 71046; 71250; 96374; 96375; 96376; 99283; A4216; J2405

== ENCOUNTER → 2025-08-05 | Outpatient (CLI) | payer OTHER, SELFPAY ==
--- NOTE | 2025-08-05 15:50 | RAD_ITS ---
PROCEDURE: CHEST PA AND LATERAL 08/05/2025 REASON FOR EXAM: HPTX REEVALUATION TECHNIQUE: Procedure Code: RADCXR Modality: DX Procedure: CHEST PA AND LATERAL COMPARISON: CT chest 07/23/2025 FINDINGS: Hardware: None. Heart: The heart size is normal. Mediastinum: The mediastinal contour is unremarkable. Lungs: The lungs are clear. No pneumothorax or pleural effusion. Bones: The bones are unremarkable. RAD/Chest PA and Lateral IMPRESSION: NO ACUTE FINDINGS. [facility]
== END | disposition home or self-care (01) ==
LOC: RAD 15:49
PROVIDERS: PCP Internal Medicine; Referring Provider Emergency Medicine; Visit Provider Emergency Medicine
DX: S27.2XXA Traumatic hemopneumothorax, initial encounter (principal); S22.41XA Multiple fractures of ribs, right side, initial encounter for closed fracture
CPT/HCPCS: 71046